=== PATIENT | male | born 1960 | race Caucasian/White ===

== ENCOUNTER → 2020-02-14 10:30 | Outpatient (BNVA) | payer MEDICARE, MEDICAID, SELFPAY | PROVIDERS: PCP Nurse Practitioner Family; Visit Provider Internal Medicine Cardiovascular Disease | DX: I25.10 Atherosclerotic heart disease of native coronary artery without angina pectoris (principal); E78.5 Hyperlipidemia, unspecified; I48.0 Paroxysmal atrial fibrillation | CPT/HCPCS: 93005; 99212 ==

== ENCOUNTER → 2020-06-12 14:40 | Outpatient (BNVA) | payer MEDICARE, MEDICAID, SELFPAY | PROVIDERS: PCP Internal Medicine Geriatric Medicine; Visit Provider Internal Medicine Cardiovascular Disease | DX: I48.0 Paroxysmal atrial fibrillation (principal); E78.5 Hyperlipidemia, unspecified; E11.9 Type 2 diabetes mellitus without complications | CPT/HCPCS: 99212 ==

== ENCOUNTER 2020-06-27 14:26 | Outpatient (REF) | payer MEDICARE, MEDICAID, SELFPAY ==
--- NOTE | ~2020-06-27 | US_ITS ---
EXAMINATION: ANKLE-BRACHIAL INDICES SINGLE LEVEL PVR. CLINICAL INFORMATION: Cramping and spasm. COMPARISON: None TECHNIQUE: Ankle-brachial indices and single level PVR at the ankle performed bilaterally. FINDINGS: RIGHT: The right ANETA is 1.38. Posterior tibial ANETA 1.35. Dorsalis pedis ANETA 1.38. PVR waveform is normal. LEFT: The left ANETA is 1.11. Posterior tibial ANETA 1.11. Dorsalis pedis ANETA 1.05. PVR waveform is normal. US/US ANETA complete IMPRESSION: No evidence of hemodynamically significant peripheral arterial disease.
== END 2020-06-27 14:27 | disposition home or self-care (01) ==
LOC: HO.US 14:26
PROVIDERS: PCP Internal Medicine Geriatric Medicine; Visit Provider Internal Medicine Cardiovascular Disease
DX: E11.59 Type 2 diabetes mellitus with other circulatory complications (principal); R25.2 Cramp and spasm
CPT/HCPCS: 93923

== ENCOUNTER 2020-10-17 10:58 | Outpatient (REF) | payer MEDICARE, MEDICAID, SELFPAY ==
--- NOTE | ~2020-10-17 | XR_ITS ---
EXAMINATION: XR CHEST CLINICAL INFORMATION: Cough. Tachycardia.: Exposure. COMPARISON: Previous chest x-ray most recent March 2019 TECHNIQUE: 2 views of the chest were obtained. FINDINGS: The cardiac and mediastinal contours are stable. The lungs are clear. There is no pleural effusion or pneumothorax . Degenerative changes of the spine. XR/XR chest 2V IMPRESSION: No evidence for acute disease in the chest.
== END 2020-10-17 10:59 | disposition home or self-care (01) ==
LOC: HO.XRAY 10:58
PROVIDERS: PCP Internal Medicine Geriatric Medicine; Visit Provider Family Medicine
DX: R00.0 Tachycardia, unspecified (principal); R05 Cough; Z20.822 Contact with and (suspected) exposure to COVID-19
CPT/HCPCS: 71046

== ENCOUNTER → 2020-11-04 15:38 | Outpatient (BNVA) | payer MEDICARE, MEDICAID, SELFPAY | PROVIDERS: PCP Internal Medicine Geriatric Medicine; Referring Provider Internal Medicine Geriatric Medicine; Visit Provider Internal Medicine Cardiovascular Disease | DX: I48.0 Paroxysmal atrial fibrillation (principal) | CPT/HCPCS: 93005; 99212 ==

== ENCOUNTER 2020-11-12 17:45 | Emergency (ER) | payer MEDICARE, MEDICAID, SELFPAY ==
[2020-11-12 19:26] VITALS: BP 134/76; PULSE 122; RESP 16; TEMP 36.9; O2SAT 99; BMI 33.3
--- NOTE | 2020-11-12 19:34 | ECG_ITS ---
Test Reason : ABNORM LABS Blood Pressure : / mmHG Vent. Rate : 108 BPM Atrial Rate : 256 BPM P-R Int : 000 ms QRS Dur : 084 ms QT Int : 346 ms P-R-T Axes : 000 019 056 degrees QTc Int : 463 ms Atrial fibrillation with rapid ventricular response Abnormal ECG When compared with ECG of 27-MAR-2019 17:04, No significant change was found Referred By: Generic ED Physician Electronically Signed By:CINTHIA SHEETS
[2020-11-12 19:52] LABS: Basophils Absolute Auto 0.1 X10*3/uL (0.0-0.2); Basophils Percent Auto 0.6 % (0-2); Eosinophils Absolute Auto 0.2 X10*3/uL (0.0-0.4); Hematocrit 35.8 % (42-52); Hemoglobin 11.5 g/dl (14.0-18.0); Imm Gran Abs Auto 0.01 X10*3/uL (0.00-0.03); Imm Gran Pct Auto 0.1 % (0.0-0.4); Lymphocytes Absolute Auto 1.8 X10*3/uL (1.2-4.9); MANUAL DIFF FLAG NO; Mean Corpuscular HGB Conc 32.1 g/dl (31.0-36.0); Mean Corpuscular Hemoglobin 28.1 pg (27.0-33.0); Mean Corpuscular Volume 87.5 fL (80-98); Mean Platelet Volume 9.9 fL (9.4-12.4); Monocytes Absolute Auto 0.6 X10*3/uL (0.1-1.2); Monocytes Percent Auto 7.4 % (2-11); Neutrophils Absolute Auto 5.3 X10*3/uL (2.0-8.3); Neutrophils Percent Auto 66.9 % (45-73); Platelet Count 254 X10*3/uL (160-400); Red Blood Count 4.09 X10*6/uL (4.60-5.80); White Blood Count 7.9 X10*3/uL (4.8-10.8)
[2020-11-12 20:15] LABS: Anion Gap 16 (12-20); Blood Urea Nitrogen 24 mg/dL (9-16); Calcium 8.5 mg/dL (8.4-10.2); Carbon Dioxide 22 mmol/L (22-29); Chloride 107 mmol/L (96-108); Creatinine Clr Calc Pharmacy 67.9; Estimated Glomerular Filt Rate 44; Glucose Random 176 mg/dL (60-115); Potassium 4.2 mmol/L (3.3-5.1); Sodium 141 mmol/L (135-145); Troponin-I High Sensitivity 9.7 ng/L (<3.5-35.0)
[2020-11-12 22:00] VITALS: BP 131/78; PULSE 118; RESP 17; TEMP 36.8; O2SAT 98
[2020-11-12] MEDS: 0.9 % Sodium Chloride 1,000 ML 999 ML IV (22:04)
--- NOTE | 2020-11-12 22:04 | PC.NURSE ---
IV INSERTED, PT IVF STARTED PER ORDER
--- NOTE | 2020-11-12 22:54 | PC.NURSE ---
patient a&ox3, vss, patients ivf running per order- first liter running slowly, will continue to monitor.
--- NOTE | 2020-11-13 00:11 | ED.RECABL ---
HPI - Recheck/Abnormal Lab/Rx General Chief Complaint: Recheck/Abnormal Lab/Rx Stated Complaint: abnormal labs Time Seen by Provider: 11/12/20 19:25 Source: patient and family () Mode of arrival: ambulatory Limitations: language barrier (The patient speaks Ethiopian only, the speaks Ethiopian and Montenegrin, is lining cleaner was used to obtain info) History of Present Illness HPI narrative: 60-year-old male who presents emergency department for evaluation of abnormal laboratory values. The patient apparently had blood work done on 11/06/2020 (6 days prior to evaluation). and was contacted today and instructed to go to the emergency department because his laboratory evaluation was abnormal. These labs are not available to me but the states that the patient's electrolytes were abnormal. At the time the blood work was obtained, the patient had active COVID-19 infection with vomiting, diarrhea, fever, chills and cough. Patient states that his symptoms have since resolved. He has no complaints. Related Data Home Medications Medication Instructions Recorded Confirmed allopurinol 300 mg tablet 300 mg PO DAILY 02/14/20 11/04/20 amlodipine 10 mg tablet 10 mg PO DAILY 02/14/20 11/04/20 apixaban 5 mg tablet 5 mg PO BID 02/14/20 11/04/20 atorvastatin 80 mg tablet 80 mg PO DAILY 02/14/20 11/04/20 bupropion HCl 200 mg tablet,12 hr 200 mg PO BID 02/14/20 11/04/20 sustained-release cholecalciferol (vitamin D3) 50 50 mcg PO QAM 02/14/20 11/04/20 mcg (2,000 unit) capsule dulaglutide 1.5 mg/0.5 mL 3 mg SUBCUT QWEEK 02/14/20 11/04/20 subcutaneous pen injector ezetimibe 10 mg tablet 10 mg PO DAILY 02/14/20 11/04/20 fluticasone propionate 110 INHALATION 02/14/20 11/04/20 mcg/actuation HFA aerosol inhaler gabapentin 100 mg capsule 100 mg PO BEDTIME 02/14/20 11/04/20 insulin aspart U-100 100 unit/mL 20 unit SUBCUT 02/14/20 11/04/20 (3 mL) subcutaneous pen lisinopril 20 mg tablet 20 mg PO DAILY 02/14/20 11/04/20 metformin 1,000 mg tablet 1,000 mg PO BID 02/14/20 11/04/20 pantoprazole 40 mg tablet,delayed 40 mg PO DAILY 02/14/20 11/04/20 release Previous Rx's Medication Instructions Recorded nitroglycerin 0.4 mg sublingual 0.4 mg SUBLINGUAL Q5M PRN 30 Days 12/18/19 tablet #25 tab alirocumab 75 mg/mL subcutaneous 75 mg SUBCUT Q2W #2 ml 06/17/20 pen injector (Praluent Pen) metoprolol tartrate 50 mg tablet 50 mg PO TID #120 tab 11/04/20 Allergies Allergy/AdvReac Type Severity Reaction Status Date / Time No Known Allergies Allergy Verified 11/04/20 15:54 [No Known Allergies*] Review of Systems Review of Systems: Yes all other systems are reviewed and are negative [facility] Past Medical History [facility] Narrative: Past medical history: Diabetes mellitus, high cholesterol, coronary disease, atrial fibrillation, COVID-19 infection. Past surgical history: None. Social history: He denies tobacco, alcohol and drug use. Medical History CAD (coronary artery disease) LUIS ALFREDO (obstructive sleep apnea) Surgical History H/O cardiac catheterization H/O: vasectomy History of cataract surgery Family History Family History Father HTN (hypertension) Diabetes Mother HTN (hypertension) Diabetes CVD (cardiovascular disease) Social History Social History Alcohol intake: never Patient Tobacco Use Status: Never used Tobacco Use of substances other than those prescribed or required for medical reasons: No Advance Directives: No Advance Directives Information Provided: No Physical Exam Vital Signs: Vital Signs: Last Vital Signs Temp 98.2 F 11/12/20 22:00 Pulse 118 H 11/12/20 22:00 Resp 17 11/12/20 22:00 BP 131/78 11/12/20 22:00 Pulse Ox 98 11/12/20 22:00 Body Mass Index 33.3 Const: General: cooperative and no acute distress Orientation/consciousness: oriented to person and oriented to place Limitations: no limitations HENMT: Head: Yes normal to inspection, Yes normocephalic and Yes atraumatic Ears: external ears normal General nose exam: Normal external nose present Face and sinus: Yes normal facial exam Mouth: Normal oral and palatal mucosa present Throat: Yes posterior oropharynx normal Eyes: General: appearance normal, both eyes and all related structures Pupils: Equal, round and reactive pupils present Neck: Neck: Yes normal visual inspection, Yes no lymphadenopathy, Yes trachea midline and Yes supple Chest: Chest palpation & inspection: normal inspection of the chest and normal palpation of entire chest wall Resp: Effort & Inspection: normal respiratory effort and able to speak in complete sentences Auscultation: clear to auscultation bilaterally Cardio: Rate: regular rate Rhythm: regular rhythm Heart sounds: S1 normal heart sound present, S2 normal heart sound present and no murmurs GI: Inspection: Yes normal to inspection Palpation (GI): Soft to palpation, nontender and no guarding Auscultation: normal bowel sounds : General: Yes no CVA tenderness Back/Spine/Pelvis: Back: no CVA tenderness Skin: General skin exam: no rashes or lesions noted Neuro: General: oriented to person and oriented to place Cranial nerves: Yes CN's II-XII intact bilaterally and Yes Equal, round and reactive pupils present Cognition (Neuro): normal cognition Motor exam (neuro): 5/5 motor strength present throughout Extrem: General: Yes normal to inspection Psych: Appearance: grossly normal Speech and movement: Normal speech and movement present Affect: normal affect Attitude: cooperative Thought process: Normal thought process present Thought content: Normal thought content present Course Course Course Narrative: 60-year-old male who was referred to the emergency department for evaluation of abnormal labs done 6 days prior, these labs are not available to me. The patient's reports that the patient was told that he had electrolyte abnormalities. Laboratory evaluation was obtained and the patient was found to have an elevated BUN of 24 with an elevated creatinine of 1.62. Patient's glucose was also elevated at 178. Patient has a detectable but not elevated troponin of 9.7. Given his elevated creatinine of 1.62, and elevated BUN, the patient was treated with normal saline IV. The patient was discharged home. He was advised to contact his PCP in the morning for repeat evaluation and to check his BMP in 3-7 days. MDM - Recheck/Abnormal Lab/Rx Lab Data Result diagrams: 11/12/20 19:45 11/12/20 19:45 Labs: Lab Results 11/12/20 11/12/20 11/12/20 Range/Units 19:45 19:45 19:45 WBC 7.9 (4.8-10.8) X10*3/uL RBC 4.09 L (4.60-5.80) X10*6/uL Hgb 11.5 L (14.0-18.0) g/dl Hct 35.8 L (42-52) % MCV 87.5 (80-98) fL MCH 28.1 (27.0-33.0) pg MCHC 32.1 (31.0-36.0) g/dl RDW 14.0 (11.0-16.0) % Plt Count 254 (160-400) X10*3/uL MPV 9.9 (9.4-12.4) fL Immature Gran % (Auto) 0.1 (0.0-0.4) % Neut % (Auto) 66.9 (45-73) % Lymph % (Auto) 23.0 (20-40) % Antelope % (Auto) 7.4 (2-11) % Eos % (Auto) 2.0 (0-4) % Baso % (Auto) 0.6 (0-2) % Lymph # (Auto) 1.8 (1.2-4.9) X10*3/uL Antelope # (Auto) 0.6 (0.1-1.2) X10*3/uL Eos # (Auto) 0.2 (0.0-0.4) X10*3/uL Baso # (Auto) 0.1 (0.0-0.2) X10*3/uL Abs Immat Gran (auto) 0.01 (0.00-0.03) X10*3/uL Absolute Neuts (auto) 5.3 (2.0-8.3) X10*3/uL Absolute Nucleated RBC 0.000 (0.0-0.012) X10*3/uL Nucleated RBC % (auto) 0.0 (0.0-0.2) /100WBC Sodium 141 (135-145) mmol/L Potassium 4.2 (3.3-5.1) mmol/L Chloride 107 (96-108) mmol/L Carbon Dioxide 22 (22-29) mmol/L Anion Gap 16 (12-20) BUN 24 H (9-16) mg/dL Creatinine 1.62 H (0.5-1.4) mg/dL Estim Creat Clear Calc 67.9 Estimated GFR 44 Random Glucose 176 H (60-115) mg/dL Calcium 8.5 (8.4-10.2) mg/dL Troponin I High Sens 9.7 (<3.5-35.0) ng/L Discharge Plan Discharge Clinical Impression: Abnormal laboratory test Patient Disposition: Home, Self-Care Additional Instructions: Your electrolytes were normal. Your kidney functions (BUN and creatinine) were elevated. Your BUN was 24 (normal is 9-16) and your creatinine is 1.62 (normal is 0.5-1.4). These abnormalities can sometimes be caused by dehydration. You were given 2 L of normal saline IV You should call your doctor tomorrow morning to discuss these values. You should have a repeat basic metabolic panel in 3-7 days to recheck these results. Please return to the emergency department if your symptoms get worse or if you develop any symptoms that are concerning to you. Prescriptions: No Action nitroglycerin 0.4 mg tablet, sublingual 0.4 mg sublingual Q5M PRN (Reason: chest pain) 30 Days Qty: 25 RF: 2 Praluent Pen 75 mg/mL pen injector 75 mg subcut Q2W Qty: 2 RF: 3 bupropion HCl 200 mg tablet sustained-release 12 hr 200 mg PO BID RF: 0 gabapentin 100 mg capsule 100 mg PO BEDTIME RF: 0 lisinopril 20 mg tablet 20 mg PO DAILY RF: 0 pantoprazole 40 mg tablet,delayed release (DR/EC) 40 mg PO DAILY RF: 0 amlodipine 10 mg tablet 10 mg PO DAILY RF: 0 Eliquis 5 mg tablet 5 mg PO BID RF: 0 ezetimibe 10 mg tablet 10 mg PO DAILY RF: 0 allopurinol 300 mg tablet 300 mg PO DAILY RF: 0 metformin 1,000 mg tablet 1,000 mg PO BID RF: 0 atorvastatin 80 mg tablet 80 mg PO DAILY RF: 0 cholecalciferol (vitamin D3) 50 mcg (2,000 unit) capsule 50 mcg PO QAM RF: 0 Flovent HFA 110 mcg/actuation HFA aerosol inhaler inhalation RF: 0 insulin aspart U-100 100 unit/mL (3 mL) insulin pen 20 unit subcut RF: 0 Trulicity 1.5 mg/0.5 mL pen injector 3 mg subcut QWEEK RF: 0 metoprolol tartrate 50 mg tablet 50 mg PO TID Qty: 120 RF: 3
[2020-11-13] MEDS: 0.9 % Sodium Chloride 1,000 ML 999 ML IV (00:23)
== END 2020-11-13 00:30 | disposition home or self-care (01) ==
PROVIDERS: Emergency Provider Emergency Medicine Emergency Medical Services; PCP Internal Medicine Geriatric Medicine
DX: R79.89 Other specified abnormal findings of blood chemistry (principal); I25.10 Atherosclerotic heart disease of native coronary artery without angina pectoris; Z86.16 Personal history of COVID-19; Z79.899 Other long term (current) drug therapy
CPT/HCPCS: 36415; 80048; 84484; 85025; 93005; 96360; 99284

== ENCOUNTER 2020-11-26 09:12 | Outpatient (REF) | payer MEDICARE, MEDICAID, SELFPAY ==
[2020-11-26 10:48] LABS: Anion Gap 15 (12-20); Blood Urea Nitrogen 26 mg/dL (9-16); Calcium 9.4 mg/dL (8.4-10.2); Carbon Dioxide 26 mmol/L (22-29); Chloride 104 mmol/L (96-108); Cholesterol 165 mg/dL; Estimated Glomerular Filt Rate 49; Glucose Random 153 mg/dL (60-115); HDL Cholesterol 45 mg/dL; LDL Cholesterol Calculated 110 mg/dl; Potassium 4.6 mmol/L (3.3-5.1); Sodium 140 mmol/L (135-145); Triglycerides 54 mg/dL
== END 2020-11-26 09:13 | disposition home or self-care (01) ==
LOC: HO.LAB 09:12
PROVIDERS: PCP Internal Medicine Geriatric Medicine; Visit Provider Internal Medicine Cardiovascular Disease
DX: I48.0 Paroxysmal atrial fibrillation (principal); E78.5 Hyperlipidemia, unspecified
CPT/HCPCS: 36415; 80048; 80061

== ENCOUNTER 2020-11-27 09:06 | Day surgery (SDC) | payer MEDICARE, MEDICAID, SELFPAY ==
[2020-11-22 16:00] VITALS: BMI 33.0
--- NOTE | 2020-11-26 09:43 | P.CONAN_ITS ---
Documented by User: Fransisca Aceves NP 11/26/20 09:45 HPI - Anesthesia Eval Consult details Narrative: 60yo M for Cardioversion Eliquis for afib PMFSH Active Problems Active Problems: All Active Problems (Updated 11/22/20 @ 16:03 by Aga Molina, HEATHER) Hyperlipidemia (Acute) PAF (paroxysmal atrial fibrillation) (Acute) Diabetes (Acute) Familial hyperlipidemia, high LDL (Acute) Leg cramping (Acute) CAD (coronary artery disease) (Acute) Past Medical History Medical History (Updated 11/22/20 @ 16:03 by Aga Molina, HEATHER) Asthma CAD (coronary artery disease) COPD (chronic obstructive pulmonary disease) COVID-19 vaccine series completed Elevated cholesterol History of COVID-19 HTN (hypertension) LUIS ALFREDO (obstructive sleep apnea) Family History Family History Father HTN (hypertension) Diabetes Mother HTN (hypertension) Diabetes CVD (cardiovascular disease) Surgical History Surgical History H/O cardiac catheterization H/O: vasectomy History of cataract surgery Social History Social History (Updated 11/22/20 @ 16:00 by Aga Molina RN) Alcohol intake: never Patient Tobacco Use Status: Never used Tobacco Use of substances other than those prescribed or required for medical reasons: No Are you DNR?: No Advance Directives: No Advance Directives Information Provided: Yes (info mailed) Advance Directives on File: No Meds Allergies Allergy/AdvReac Type Severity Reaction Status Date / Time No Known Allergies Allergy Verified 11/22/20 15:57 [No Known Allergies*] Home Medications Medication Instructions Recorded Confirmed Last Taken Type allopurinol 300 mg tablet 300 mg PO DAILY 02/14/20 11/22/20 Unknown History amlodipine 10 mg tablet 10 mg PO DAILY 02/14/20 11/22/20 Unknown History apixaban 5 mg tablet 5 mg PO BID 02/14/20 11/22/20 Unknown History atorvastatin 80 mg tablet 80 mg PO DAILY 02/14/20 11/22/20 Unknown History bupropion HCl 200 mg tablet,12 hr 200 mg PO BID 02/14/20 11/22/20 Unknown History sustained-release cholecalciferol (vitamin D3) 50 50 mcg PO QAM 02/14/20 11/22/20 Unknown History mcg (2,000 unit) capsule dulaglutide 1.5 mg/0.5 mL 3 mg SUBCUT QWEEK 02/14/20 11/22/20 Unknown History subcutaneous pen injector ezetimibe 10 mg tablet 10 mg PO DAILY 02/14/20 11/22/20 Unknown History fluticasone propionate 110 INHALATION 02/14/20 11/04/20 Unknown History mcg/actuation HFA aerosol inhaler gabapentin 100 mg capsule 100 mg PO BEDTIME 02/14/20 11/22/20 Unknown History insulin aspart U-100 100 unit/mL 20 unit SUBCUT 02/14/20 11/04/20 Unknown History (3 mL) subcutaneous pen lisinopril 20 mg tablet 20 mg PO DAILY 02/14/20 11/22/20 Unknown History metformin 1,000 mg tablet 1,000 mg PO BID 02/14/20 11/22/20 Unknown History pantoprazole 40 mg tablet,delayed 40 mg PO DAILY 02/14/20 11/22/20 Unknown History release Exam Exam Date and Time: November 26, 2020 0943 Height,Weight and Vital Signs: Height 6 ft 3 in Weight 119.748 kg Pertinent Lab Results Pertinent Lab Results: Laboratory Tests 11/12/20 11/12/20 19:45 19:45 WBC 7.9 Hgb 11.5 L Hct 35.8 L Plt Count 254 Sodium 141 Potassium 4.2 Chloride 107 Carbon Dioxide 22 BUN 24 H Creatinine 1.62 H Narrative Narrative: EKG 10/2020 Vent. Rate : 108 BPM ? ? Atrial Rate : 256 BPM ?? P-R Int : 000 ms? QRS Dur : 084 ms ? ? QT Int : 346 ms ? ? ? P-R-T Axes : 000 019 056 degrees ?? QTc Int : 463 ms ? Atrial fibrillation with rapid ventricular response Abnormal ECG When compared with ECG of 27-MAR-2019 17:04, No significant change was found Assessment and Plan Assessment Anesthesia Assessment: Chart Reviewed Documented by User: Meggan Patel MD 11/27/20 10:05 [facility] Past Medical History Medical History (Updated 11/22/20 @ 16:03 by Aga Molina, RN) Asthma CAD (coronary artery disease) COPD (chronic obstructive pulmonary disease) COVID-19 vaccine series completed Elevated cholesterol History of COVID-19 HTN (hypertension) LUIS ALFREDO (obstructive sleep apnea) Family History Family History Father HTN (hypertension) Diabetes Mother HTN (hypertension) Diabetes CVD (cardiovascular disease) Family history of problems with anesthesia: No Surgical History Surgical History H/O cardiac catheterization H/O: vasectomy History of cataract surgery History of Problems with Anesthesia: No Social History Social History (Updated 11/22/20 @ 16:00 by Aga Molina, RN) Alcohol intake: never Patient Tobacco Use Status: Never used Tobacco Use of substances other than those prescribed or required for medical reasons: No Are you DNR?: No Advance Directives: No Advance Directives Information Provided: Yes (info mailed) Advance Directives on File: No Meds Allergies Allergy/AdvReac Type Severity Reaction Status Date / Time No Known Allergies Allergy Verified 11/22/20 15:57 [No Known Allergies*] Home Medications Medication Instructions Recorded Confirmed Last Taken Type allopurinol 300 mg tablet 300 mg PO DAILY 02/14/20 11/22/20 Unknown History amlodipine 10 mg tablet 10 mg PO DAILY 02/14/20 11/22/20 Unknown History apixaban 5 mg tablet 5 mg PO BID 02/14/20 11/22/20 Unknown History atorvastatin 80 mg tablet 80 mg PO DAILY 02/14/20 11/22/20 Unknown History bupropion HCl 200 mg tablet,12 hr 200 mg PO BID 02/14/20 11/22/20 Unknown History sustained-release cholecalciferol (vitamin D3) 50 50 mcg PO QAM 02/14/20 11/22/20 Unknown History mcg (2,000 unit) capsule dulaglutide 1.5 mg/0.5 mL 3 mg SUBCUT QWEEK 02/14/20 11/22/20 Unknown History subcutaneous pen injector ezetimibe 10 mg tablet 10 mg PO DAILY 02/14/20 11/22/20 Unknown History fluticasone propionate 110 INHALATION 02/14/20 11/04/20 Unknown History mcg/actuation HFA aerosol inhaler gabapentin 100 mg capsule 100 mg PO BEDTIME 02/14/20 11/22/20 Unknown History insulin aspart U-100 100 unit/mL 20 unit SUBCUT 02/14/20 11/04/20 Unknown History (3 mL) subcutaneous pen lisinopril 20 mg tablet 20 mg PO DAILY 02/14/20 11/22/20 Unknown History metformin 1,000 mg tablet 1,000 mg PO BID 02/14/20 11/22/20 Unknown History pantoprazole 40 mg tablet,delayed 40 mg PO DAILY 02/14/20 11/22/20 Unknown H istory release Exam Airway Mallampati Class: III TM Dist: >3cm Neck ROM: Full Heart: rrr Lungs: cta Assessment and Plan Assessment Anesthesia Assessment: Anesthesia Plan Discussed and Chart Reviewed Final Anesthetic Review Family History of Problems with Anesthesia: No History of Problems with Anesthesia: No NPO: Yes (Sip water with meds) ASA Class: III Final Preanesthetic Review: No Changes in Pt Med Stat, Meds/Allgs Chart Reviewed and Consent Obtained/Reviewed Patient Risk: Intermediate Procedure Risk: Intermediate Anesthetic Plan Anesthetic Plan: GA Disposition: Standard PACU
--- NOTE | 2020-11-27 | ECG_ITS ---
Test Reason : post cardioversion Blood Pressure : / mmHG Vent. Rate : 083 BPM Atrial Rate : 083 BPM P-R Int : 212 ms QRS Dur : 090 ms QT Int : 390 ms P-R-T Axes : 048 015 055 degrees QTc Int : 458 ms Sinus rhythm with 1st degree A-V block Nonspecific ST abnormality Abnormal ECG When compared with ECG of 27-NOV-2020 10:58, Sinus rhythm has replaced Atrial flutter Referred By: Sumit Daniels Electronically Signed By:CINTHIA SHEETS
[2020-11-27 10:08] LABS: Glucose, Whole Blood 136 mg/dL (60-115)
[2020-11-27] MEDS: Lactated Ringers 1,000 ML 50 ML IVCONT (10:15)
--- NOTE | 2020-11-27 10:54 | ECG_ITS ---
Test Reason : sinus tach Blood Pressure : / mmHG Vent. Rate : 098 BPM Atrial Rate : 234 BPM P-R Int : 000 ms QRS Dur : 092 ms QT Int : 344 ms P-R-T Axes : 000 014 048 degrees QTc Int : 439 ms Atrial flutter with variable A-V block Abnormal ECG When compared with ECG of 12-NOV-2020 19:43, Atrial flutter has replaced Atrial fibrillation Referred By: Sumit Daniels Electronically Signed By:CINTHIA SHEETS
--- NOTE | 2020-11-27 11:06 | MHC.SHP ---
Pre-Procedural Eval Section A Date of Service: 11/27/20 The patient is an INPATIENT: No The History & Physical has been completed within 30 days and I have reviewed it.: Yes Section B Chief Complaint: afib Relevant Family History (Specify if Yes): No Allergies: Allergies Allergy/AdvReac Type Severity Reaction Status Date / Time No Known Allergies Allergy Verified 11/22/20 15:57 [No Known Allergies*] Plan Diagnosis/Plan: Unchanged I have reviewed the history and physical and performed a pertinent physical examination on my patient. No changes have occurred unless specified. For DC cardioversion
--- NOTE | 2020-11-27 11:28 | P.BOP_ITS ---
Brief Operative Note Date of Service: 11/27/20 Pre-op diagnosis: Atrial flutter Procedure: Cardioversion Surgeon: Sumit Daniels MD Was an Manufacturing Engineering Intern used for this Procedure?: No Estimated blood loss (mL): 0 Condition: stable Disposition: same day
--- NOTE | 2020-11-27 11:29 | HO.CARDIVERS ---
Cardioversion Procedure Note Cardioversion Date of Procedure: 11/27/20 Ordering Provider: Sumit Daniels MD Performing Provider: Sumit Daniels MD Indication for Procedure: Atrial flutter Pre-Op Diagnosis: Atrial flutter Post-Op Diagnosis: Atrial flutter Performed with Transesophageal Echo: No History: 60 year old gentleman with atrial flutter. Consent: Verbal and Written consent was obtained from the patient before starting. The patient was made aware of the risk of [] Procedure: After consent obtained, defib pads were attached and the patient was sedated by the anesthesia team. Once adequate sedation achieved, patient was given single synchronized shock of 200 Joules. He reverted to sinus rhythm. He was left for recovery with anesthesia in a stable condition. Complications: None Recommendations: Discharge per day stay protocol. He should continue all medications as before. Apixaban must not be missed in the next 6 weeks.
[2020-11-27 11:30] VITALS: BP 148/97; PULSE 80; RESP 16; TEMP 36.7; O2SAT 100
[2020-11-27 11:35] VITALS: BP 145/89; PULSE 81; RESP 16; O2SAT 100
[2020-11-27 11:40] VITALS: BP 145/87; PULSE 81; RESP 16; O2SAT 100
[2020-11-27 11:45] VITALS: BP 143/87; PULSE 83; RESP 16; O2SAT 100
[2020-11-27 12:00] VITALS: BP 151/99; PULSE 84; RESP 18; TEMP 36.7; O2SAT 100
== END 2020-11-27 12:40 | disposition home or self-care (01) ==
PROVIDERS: PCP Internal Medicine Geriatric Medicine; Visit Provider Internal Medicine Cardiovascular Disease
PROC: 5A2204Z Restoration of Cardiac Rhythm, Single (ICD-10-PCS; principal; 2020-11-27 10:30)
DX: I48.92 Unspecified atrial flutter (principal); Z79.01 Long term (current) use of anticoagulants; I25.10 Atherosclerotic heart disease of native coronary artery without angina pectoris; I10 Essential (primary) hypertension; J44.9 Chronic obstructive pulmonary disease, unspecified; E11.9 Type 2 diabetes mellitus without complications; Z79.4 Long term (current) use of insulin; Z79.899 Other long term (current) drug therapy; Z86.16 Personal history of COVID-19
CPT/HCPCS: 82947; 92960; 93005

== ENCOUNTER → 2020-12-12 11:02 | Outpatient (BNVA) | payer MEDICARE, MEDICAID, SELFPAY | PROVIDERS: PCP Internal Medicine Geriatric Medicine; Referring Provider Internal Medicine Geriatric Medicine; Visit Provider Internal Medicine Cardiovascular Disease | DX: I48.92 Unspecified atrial flutter (principal); I25.10 Atherosclerotic heart disease of native coronary artery without angina pectoris; I10 Essential (primary) hypertension; E78.00 Pure hypercholesterolemia, unspecified; G47.33 Obstructive sleep apnea (adult) (pediatric); Z98.890 Other specified postprocedural states; Z86.19 Personal history of other infectious and parasitic diseases; Z79.4 Long term (current) use of insulin; Z79.84 Long term (current) use of oral hypoglycemic drugs; Z79.899 Other long term (current) drug therapy | CPT/HCPCS: 93005; 99212 ==

== ENCOUNTER 2021-01-07 13:42 | Outpatient (REF) | payer MEDICARE, MEDICAID, SELFPAY ==
--- NOTE | ~2021-01-07 | XR_ITS ---
EXAMINATION: XR SHOULDER, RIGHT CLINICAL INFORMATION: Right shoulder pain COMPARISON: None TECHNIQUE: AP external rotation, Grashey, scapular Y, and axillary views of the right shoulder. FINDINGS: There is no acute fracture or dislocation. There is narrowing of the glenohumeral and acromial clavicular joint spaces with associated hypertrophic changes. There are calcifications of the rotator cuff tendons. The visualized portion of the lungs is clear. Overlying soft tissues are intact. XR/XR shoulder RT min 2V IMPRESSION: Degenerative changes of the right shoulder. No acute fracture or dislocation. Calcific tendinitis.
== END 2021-01-07 13:43 | disposition home or self-care (01) ==
LOC: HO.XRAY 13:42
PROVIDERS: PCP Internal Medicine Geriatric Medicine; Visit Provider Internal Medicine Geriatric Medicine
DX: M25.511 Pain in right shoulder (principal)
CPT/HCPCS: 73030

== ENCOUNTER → 2021-02-24 13:41 | Outpatient (REF) | payer MEDICARE, MEDICAID, SELFPAY | LOC: HO.SL 13:41 | PROVIDERS: PCP Internal Medicine Geriatric Medicine; Visit Provider Internal Medicine Geriatric Medicine | DX: G47.33 Obstructive sleep apnea (adult) (pediatric) (principal) | CPT/HCPCS: 95806 ==

== ENCOUNTER → 2021-03-17 12:56 | Outpatient (BNVA) | payer MEDICARE, MEDICAID, SELFPAY | PROVIDERS: PCP Internal Medicine Geriatric Medicine; Referring Provider Internal Medicine Geriatric Medicine; Visit Provider Internal Medicine Cardiovascular Disease | DX: I48.92 Unspecified atrial flutter (principal) | CPT/HCPCS: 93005; 99212 ==

== ENCOUNTER → 2021-05-29 14:19 | Outpatient (BNVA) | payer MEDICARE, MEDICAID, SELFPAY | PROVIDERS: PCP Internal Medicine Geriatric Medicine; Visit Provider Physician Assistant | DX: M19.011 Primary osteoarthritis, right shoulder (principal) | CPT/HCPCS: 20610; 99202; J1020 ==

== ENCOUNTER 2021-09-01 15:00 | Emergency (ER) | payer MEDICARE, MEDICAID, SELFPAY ==
--- NOTE | ~2021-09-01 | US_ITS ---
EXAMINATION: US SCROTUM CLINICAL INFORMATION: Left-sided testicular pain. COMPARISON: None TECHNIQUE: A sonogram of the scrotum was performed assessing harmon-scale appearance and color Doppler flow. Spectral Doppler analysis of the arterial and venous flow were performed in the testes bilaterally. FINDINGS: RIGHT: Right testicle measures 4.4 x 2.5 x 2.7 cm, volume 15.5 mL. No focal testicular parenchymal lesions are visualized. Single microcalcification is noted. Spectral Doppler analysis of the arterial and venous flow is normal in the right testis. Right epididymal head is normal in size. No right hydrocele or varicocele is seen. Right epididymal Doppler flow is normal. Thickening and tubular ectasia of the right epididymis compatible with prior vasectomy. Small 4 mm cyst in the epididymal body is noted. LEFT: Left testicle measures 7.3 x 2.3 x 2.9 cm, volume 12.5 mL. No focal testicular parenchymal lesions are visualized. Spectral Doppler analysis of the arterial and venous flow is normal in the left testis. Left epididymal head is normal in size. Small hydrocele. Left epididymal Doppler flow is normal. Small 5 mm anechoic cyst noted in the epididymal head thickening and tubular ectasia of the epididymis compatible with prior vasectomy. US/US scrotum IMPRESSION: 1. No evidence of epididymoorchitis or testicular torsion. 2. No intratesticular lesion. 3. Small left hydrocele. 4. Small epididymal cysts bilaterally.
--- NOTE | ~2021-09-01 | CT_ITS ---
EXAMINATION: CT ABDOMEN AND PELVIS WITHOUT CONTRAST CLINICAL INFORMATION: Left lower quadrant pain with question of stone COMPARISON: None TECHNIQUE: Multidetector volumetric imaging was performed from the superior aspect of the liver through the pubic symphysis. Sagittal and coronal reformatted images were obtained on the technologist's workstation. This CT examination was performed using dose optimization techniques as appropriate, variously including the following: *Automated exposure control *Adjustment of mA and/or kV according to patient size (this includes techniques or standardized protocols for targeted exams where dose is matched to indication/reason for exam; i.e. extremities or head) *Use of iterative reconstruction technique DLP: 862 mGy-cm FINDINGS: LUNG BASES: The visualized lung bases are unremarkable. LIVER, GALLBLADDER, AND BILIARY TREE: The liver is normal in size, shape, and attenuation. No focal hepatic lesion or biliary ductal dilatation is present. The gallbladder contains small layering probable calculi. There is no obvious pericholecystic inflammatory changes. PANCREAS: There is a 1.5 cm rounded mass in the head of the pancreas which measures fat density on this exam and could be a lipoma. SPLEEN: Unremarkable. ADRENAL GLANDS: Unremarkable. KIDNEYS AND URETERS: The kidneys are normal in size, shape, and attenuation with the exception of an area of scarring seen in the right kidney laterally. There is a questionable barely perceptible punctate calculus at the lower pole the left kidney (4:343). No hydronephrosis, hydroureter, or other calculi seen. No perinephric stranding. BLADDER: Unremarkable. GASTROINTESTINAL TRACT: Colonic diverticula are present most prominent in the sigmoid without evidence of diverticulitis. The small and large bowel are otherwise unremarkable. The appendix is unremarkable. ABDOMINAL WALL: No significant hernia is appreciated. LYMPH NODES: No retroperitoneal lymphadenopathy. VASCULAR: Unremarkable. PELVIC VISCERA: There is moderate BPH OSSEOUS STRUCTURES: Mild degenerative changes are present throughout the spine. CT/CT abdomen pelvis wo con IMPRESSION: 1. Definitive cause for the patient's left lower quadrant pain has not been found. 2. Incidental note made of equivocal nonobstructing punctate left renal calculus, right renal scarring, BPH, sigmoid diverticulosis without diverticulitis and other incidental findings described above Fleischner guidelines were followed.
[2021-09-01 17:33] VITALS: BP 157/92; PULSE 74; RESP 16; TEMP 35.6; O2SAT 98; BMI 29.9
--- NOTE | 2021-09-01 20:34 | ED.ABDPAIN ---
HPI - Abdominal Pain General Chief Complaint: Abdominal Pain Stated Complaint: lower abdominal pain Time Seen by Provider: 09/01/21 20:31 Source: patient Mode of arrival: ambulatory Limitations: no limitations History of Present Illness HPI narrative: Patient with no significant past medical history of abdominal complaints noticed sudden onset of pain in left lower quadrant 2 days ago radiating to the left testicle with nausea no urinary complaints no fever no chills patient has been having diarrhea 2-3 bowel movements a day for last 1 year no blood in the stool no hematuria no history of kidney stones Related Data Home Medications Medication Instructions Recorded Confirmed allopurinol 300 mg tablet 300 mg PO DAILY 02/14/20 03/17/21 amlodipine 10 mg tablet 10 mg PO DAILY 02/14/20 03/17/21 apixaban 5 mg tablet 5 mg PO BID 02/14/20 03/17/21 atorvastatin 80 mg tablet 80 mg PO DAILY 02/14/20 03/17/21 bupropion HCl 200 mg tablet,12 hr 200 mg PO BID 02/14/20 03/17/21 sustained-release cholecalciferol (vitamin D3) 50 50 mcg PO QAM 02/14/20 03/17/21 mcg (2,000 unit) capsule dulaglutide 1.5 mg/0.5 mL 3 mg subcut QWEEK 02/14/20 03/17/21 subcutaneous pen injector ezetimibe 10 mg tablet 10 mg PO DAILY 02/14/20 03/17/21 fluticasone propionate 110 inhalation 02/14/20 03/17/21 mcg/actuation HFA aerosol inhaler gabapentin 100 mg capsule 100 mg PO BEDTIME 02/14/20 03/17/21 insulin aspart U-100 100 unit/mL 20 unit subcut 02/14/20 03/17/21 (3 mL) subcutaneous pen lisinopril 20 mg tablet 20 mg PO DAILY 02/14/20 03/17/21 metformin 1,000 mg tablet 1,000 mg PO BID 02/14/20 03/17/21 pantoprazole 40 mg tablet,delayed 40 mg PO DAILY 02/14/20 03/17/21 release Previous Rx's Medication Instructions Recorded nitroglycerin 0.4 mg sublingual 0.4 mg sublingual Q5M PRN chest 12/18/19 tablet pain 30 days #25 tabs alirocumab 75 mg/mL subcutaneous 75 mg subcut Q2W #2 mL 06/17/20 pen injector (Praluent Pen) dronedarone 400 mg tablet (Multaq) 400 mg PO BID #60 tabs 07/22/21 metoprolol tartrate 50 mg tablet 50 mg PO TID 90 days #270 tabs 08/20/21 dicyclomine 20 mg tablet 20 mg PO TID PRN abdominal 09/01/21 discomfort #20 tabs Allergies Allergy/AdvReac Type Severity Reaction Status Date / Time No Known Allergies Allergy Verified 05/29/21 14:22 [No Known Allergies*] Review of Systems Review of Systems Yes all other systems are reviewed and are negative FORMERLY [facility] Past Medical History Medical History Asthma CAD (coronary artery disease) COPD (chronic obstructive pulmonary disease) COVID-19 vaccine series completed Elevated cholesterol History of cardioversion History of COVID-19 HTN (hypertension) LUIS ALFREDO (obstructive sleep apnea) Surgical History H/O cardiac catheterization H/O: vasectomy History of cataract surgery Family History Family History Father HTN (hypertension) Diabetes Mother HTN (hypertension) Diabetes CVD (cardiovascular disease) Social History Social History Household Members: Family Housing: Apartment Alcohol intake: never Patient Tobacco Use Status: Never used Tobacco Advance Directives: No Advance Directives Information Provided: No Physical Exam ED Vital Signs: Vital Signs - 24 hr 09/01/21 17:33 09/01/21 21:30 09/01/21 21:34 Temperature 96.0 F L Pulse Rate 74 82 Respiratory Rate 16 16 16 Blood Pressure 157/92 H 152/92 H Pulse Oximetry 98 98 Oxygen Delivery Method Room Air Room Air BMI result Body Mass Index 29.9 Appearance: Alert. Oriented X3. No acute distress. Eyes: no pallor/icterus ENT: Pharynx normal. Oral Mucosa moist Neck: Normal inspection. Neck supple. CVS: Normal heart rate and rhythm. Pulses normal. Respiratory: No respiratory distress. Equal air entry bilateral, no wheezing/rales/rhonchi Abdomen: Soft common deep tenderness left lower quadrant Bowel sounds are present, no mass palpable, no CVA tenderness : Testicle nontender no tenderness or epididymis no mass palpable Skin: Skin warm and dry. Normal skin color. Normal skin turgor. Extremities: No lower extremity edema. No calf tenderness Neuro: Oriented X 3. No motor deficit. No sensory deficit.No cerebellar signs , cranial nerves II-XII intact MDM - Abdominal Pain MDM Narrative Medical decision making narrative: 2300 Patient with nonspecific left lower quadrant pain workup is negative except for slightly dehydration with elevated BUN creatinine from the previous level CT scan negative for any acute showed diverticulosis ultrasound of the scrotum negative for any testicular mass or epididymitis patient feeling much better now discharge patient home Medical Records Attestation: I reviewed the patient's medical records. Lab Data Attestation: I reviewed the patient's lab results. Result diagrams: 09/01/21 21:21 09/01/21 21:21 Labs: Lab Results 09/01/21 09/01/21 09/01/21 Range/Units 21:21 21:21 21:25 WBC 10.2 (4.8-10.8) X10*3/uL RBC 4.31 L (4.60-5.80) X10*6/uL Hgb 12.1 L (14.0-18.0) g/dl Hct 37.5 L (42.0-52.0) % MCV 87.0 (80.0-98.0) fL MCH 28.1 (27.0-33.0) pg MCHC 32.3 (31.0-36.0) g/dl RDW 13.9 (11.0-16.0) % Plt Count 259 (160-400) X10*3/uL MPV 9.9 (9.4-12.4) fL Immature Gran % (Auto) 0.6 H (0.0-0.4) % Neut % (Auto) 72.4 (45-73) % Lymph % (Auto) 16.7 L (20-40) % [place] % (Auto) 7.5 (2-11) % Eos % (Auto) 2.3 (0-4) % Baso % (Auto) 0.5 (0-2) % Lymph # (Auto) 1.7 (1.2-4.9) X10*3/uL [place] # (Auto) 0.8 (0.1-1.2) X10*3/uL Eos # (Auto) 0.2 (0.0-0.4) X10*3/uL Baso # (Auto) 0.1 (0.0-0.2) X10*3/uL Abs Immat Gran (auto) 0.06 H (0.00-0.03) X10*3/uL Absolute Neuts (auto) 7.4 (2.0-8.3) x10*3/uL Absolute Nucleated RBC 0.000 (0.0-0.012) X10*3/uL Nucleated RBC % (auto) 0.0 (0.0-0.2) /100WBC Sodium 140 (135-145) mmol/L Potassium 5.2 H (3.3-5.1) mmol/L Chloride 107 (96-108) mmol/L Carbon Dioxide 25 (22-29) mmol/L Anion Gap 13 (12-20) BUN 32 H (9-16) mg/dL Creatinine 1.86 H (0.5-1.4) mg/dL Estim Creat Clear Calc 55.5 Estimated GFR 37 Random Glucose 98 D (60-115) mg/dL Calcium 9.3 (8.4-10.2) mg/dL Total Bilirubin 0.7 (0.0-1.0) mg/dL AST 14 (5-37) U/L ALT 17 (0-40) U/L Alkaline Phosphatase 83 (39-117) U/L Total Protein 7.0 (6.5-8.0) g/dL Albumin 4.4 (3.5-5.0) g/dL Lipase 17 (8-78) U/L Urine Color YELLOW Urine Appearance CLEAR Urine pH 5.5 (5.0-8.0) Ur Specific [place] >= 1.030 H (1.005-1.025) Urine Protein 2+ H (NEG-TRACE) MG/DL Urine Glucose (UA) NEG (NEG) MG/DL Urine Ketones NEG (NEG) MG/DL Urine Blood TRACE (NEG) Urine Nitrite NEG (NEG) Ur Leukocyte Esterase NEG (NEG) Urine RBC 0-2 (0) /HPF Urine WBC 0 (0-4) /HPF Ur Squamous Epith Cells TRACE /LPF Urine Bacteria NONE /LPF Discharge Plan Discharge Clinical Impression: Diverticulosis, Abdominal pain, Acute kidney injury superimposed on chronic kidney disease Patient Disposition: Home, Self-Care Instructions: Acute Kidney Injury (DC), Abdominal Pain (ED) Additional Instructions: Drink plenty of fluids Avoid oranges/bananas Pain medication as prescribed Follow-up with your PCP in 2-3 days to recheck kidney Beber mucho l?quido Evite las naranjas/pl?tanos Medicamentos para el dolor seg?n lo prescrito Bishop un seguimiento con garcia PCP en 2 o 3 d?as para volver a controlar los ri?ones. Prescriptions: New dicyclomine 20 mg tablet 20 mg PO TID PRN (Reason: abdominal discomfort) Qty: 20 0RF No Action nitroglycerin 0.4 mg tablet, sublingual 0.4 mg sublingual Q5M PRN (Reason: chest pain) 30 Days Qty: 25 2RF Rx Instructions: Take 1 tab under tongue every 5 min x3 as needed for Chest pain Praluent Pen 75 mg/mL pen injector 75 mg subcut Q2W Qty: 2 3RF Rx Instructions: inject into abdomen, thigh, or upper arm (deltoid muscle); rotate sites Multaq 400 mg tablet 400 mg PO BID Qty: 60 3RF Rx Instructions: must administer with a meal/food metoprolol tartrate 50 mg tablet 50 mg PO TID 90 Days Qty: 270 3RF bupropion HCl 200 mg tablet sustained-release 12 hr 200 mg PO BID gabapentin 100 mg capsule 100 mg PO BEDTIME lisinopril 20 mg tablet 20 mg PO DAILY pantoprazole 40 mg tablet,delayed release (DR/EC) 40 mg PO DAILY amlodipine 10 mg tablet 10 mg PO DAILY Eliquis 5 mg tablet 5 mg PO BID ezetimibe 10 mg tablet 10 mg PO DAILY allopurinol 300 mg tablet 300 mg PO DAILY metformin 1,000 mg tablet 1,000 mg PO BID atorvastatin 80 mg tablet 80 mg PO DAILY cholecalciferol (vitamin D3) 50 mcg (2,000 unit) capsule 50 mcg PO QAM Flovent HFA 110 mcg/actuation HFA aerosol inhaler inhalation insulin aspart U-100 100 unit/mL (3 mL) insulin pen 20 unit subcut Trulicity 1.5 mg/0.5 mL pen injector 3 mg subcut QWEEK Print Language: Surinamese
[2021-09-01] MEDS: 0.9 % Sodium Chloride 1,000 ML 999 ML IV (21:27)
[2021-09-01 21:30] VITALS: RESP 16
[2021-09-01] MEDS: ondansetron HCL 4 MG/2 ML VIAL IVPUSH (21:30)
[2021-09-01] MEDS: Morphine Sulfate 4 MG/ML CARTRIDGE IVPUSH (21:30)
[2021-09-01 21:31] LABS: MANUAL DIFF FLAG NO
[2021-09-01 21:32] LABS: Basophils Absolute Auto 0.1 X10*3/uL (0.0-0.2); Basophils Percent Auto 0.5 % (0-2); Eosinophils Absolute Auto 0.2 X10*3/uL (0.0-0.4); Eosinophils Percent Auto 2.3 % (0-4); Hematocrit 37.5 % (42.0-52.0); Hemoglobin 12.1 g/dl (14.0-18.0); Imm Gran Abs Auto 0.06 X10*3/uL (0.00-0.03); Imm Gran Pct Auto 0.6 % (0.0-0.4); Lymphocytes Absolute Auto 1.7 X10*3/uL (1.2-4.9); Lymphocytes Percent Auto 16.7 % (20-40); Mean Corpuscular HGB Conc 32.3 g/dl (31.0-36.0); Mean Corpuscular Hemoglobin 28.1 pg (27.0-33.0); Mean Platelet Volume 9.9 fL (9.4-12.4); Monocytes Absolute Auto 0.8 X10*3/uL (0.1-1.2); Monocytes Percent Auto 7.5 % (2-11); Neutrophils Absolute Auto 7.4 x10*3/uL (2.0-8.3); Neutrophils Percent Auto 72.4 % (45-73); Platelet Count 259 X10*3/uL (160-400); Red Blood Count 4.31 X10*6/uL (4.60-5.80); Red Cell Distribution Width 13.9 % (11.0-16.0); White Blood Count 10.2 X10*3/uL (4.8-10.8)
[2021-09-01 21:33] LABS: Appearance Urine CLEAR; Color Urine YELLOW; Glucose Urine UA NEG (NEG); Leukocyte Esterase Urine NEG (NEG); Nitrite Urine NEG (NEG); PH 5.5 (5.0-8.0); Specific Gravity - Urine >= 1.030 (1.005-1.025); UACC Culture Trigger NO; Urine Blood TRACE (NEG); Urine Ketones NEG (NEG); Urine Protein 2+ MG/DL (NEG-TRACE)
[2021-09-01 21:34] VITALS: BP 152/92; PULSE 82; RESP 16; O2SAT 98
[2021-09-01 21:47] LABS: RBC Urine 0-2 /HPF (0); Squamous Epithelial Cell Urine TRACE /LPF; WBC Urine 0 /HPF (0-4)
[2021-09-01 21:48] LABS: Alanine Aminotransferase 17 U/L (0-40); Albumin Level 4.4 g/dL (3.5-5.0); Alkaline Phosphatase 83 U/L (39-117); Anion Gap 13 (12-20); Aspartate Amino Transferase 14 U/L (5-37); Bilirubin Total 0.7 mg/dL (0.0-1.0); Blood Urea Nitrogen 32 mg/dL (9-16); Calcium 9.3 mg/dL (8.4-10.2); Carbon Dioxide 25 mmol/L (22-29); Chloride 107 mmol/L (96-108); Creatinine Clr Calc Pharmacy 55.5; Estimated Glomerular Filt Rate 37; Glucose Random 98 mg/dL (60-115); Lipase 17 U/L (8-78); Potassium 5.2 mmol/L (3.3-5.1); Sodium 140 mmol/L (135-145)
== END 2021-09-02 00:12 | disposition home or self-care (01) ==
PROVIDERS: Emergency Provider Internal Medicine; PCP Internal Medicine Geriatric Medicine
DX: K57.30 Diverticulosis of large intestine without perforation or abscess without bleeding (principal); R10.32 Left lower quadrant pain; N50.812 Left testicular pain; N50.811 Right testicular pain; Z79.899 Other long term (current) drug therapy
CPT/HCPCS: 36415; 74176; 76870; 80053; 81001; 83690; 85025; 96361; 96374; 96375; 99284; J2270; J2405

== ENCOUNTER 2021-10-13 14:18 | Outpatient (REF) | payer MEDICARE, MEDICAID, SELFPAY ==
--- NOTE | ~2021-10-13 | US_ITS ---
EXAMINATION: US RETROPERITONEAL LIMITED (RENAL ONLY) CLINICAL INFORMATION: Calculus of kidney. COMPARISON: CT abdomen and pelvis 09/01/2021. TECHNIQUE: Real-time imaging of the kidneys. FINDINGS: RIGHT KIDNEY: 11.2 x 5.0 x 6.1 cm (SAG x AP x TRV). The kidney is normal in size, lobulated contour in the midpole and normal echogenicity. Renal cortical thickness is normal. No calculi or focal parenchymal lesions. No hydronephrosis. LEFT KIDNEY: 11.6 x 6.3 x 6.2 cm (SAG x AP x TRV). The kidney is normal in size, contour, and echogenicity. Renal cortical thickness is normal. No renal calculi or hydronephrosis. There is anechoic cyst in the midpole laterally measuring 0.8 x 0.8 x 0.9 cm. US/US renal BI IMPRESSION: Anechoic cyst midpole left kidney. No echogenic stone or hydronephrosis. Slightly lobulated contour right kidney with no focal lesion seen.
== END 2021-10-13 14:19 | disposition home or self-care (01) ==
LOC: HO.HMGCX 14:18
PROVIDERS: PCP Internal Medicine Geriatric Medicine; Visit Provider Nurse Practitioner Family
DX: N20.0 Calculus of kidney (principal)
CPT/HCPCS: 76775

== ENCOUNTER 2021-11-05 13:05 | Emergency (ER) | payer MEDICARE, MEDICAID, SELFPAY ==
--- NOTE | ~2021-11-05 | XR_ITS ---
EXAMINATION: XR CHEST CLINICAL INFORMATION: Shortness of breath COMPARISON: 10/17/2020 TECHNIQUE: Frontal view of the chest was obtained. FINDINGS: The lungs are well expanded. There is no focal consolidation, edema, or effusion. No pneumothorax. The cardiomediastinal silhouette is within normal limits. No acute osseous abnormality. XR/XR chest 1V IMPRESSION: Clear lungs.
--- NOTE | ~2021-11-05 | CT_ITS ---
EXAMINATION: CT HEAD WITHOUT CONTRAST CLINICAL INFORMATION: Dizziness. COMPARISON: Brain MRI from 02/28/2007. TECHNIQUE: Contiguous axial imaging was performed from the skull base to vertex without intravenous administration of contrast. This CT examination was performed using dose optimization techniques as appropriate, variously including the following: *Automated exposure control. *Adjustment of mA and/or kV according to patient size (this includes techniques or standardized protocols for targeted exams where dose is matched to indication/reason for exam; i.e. extremities or head). *Use of iterative reconstruction technique. DLP: 861 mGy-cm FINDINGS: There is no evidence of acute intracranial hemorrhage or edematous territorial infarction. Bains-white matter differentiation is preserved. A few foci of hypoattenuation in the periventricular and deep white matter are consistent with mild microangiopathy. The ventricles are normal in morphology and size. No evidence for obstructive hydrocephalus. No abnormal mass effect or midline shift. No extra-axial fluid collections. Calcific atherosclerotic disease of the intracranial internal carotid and vertebral arteries. No hyperdense vessel sign. No acute soft tissue or osseous abnormalities. The mastoid air cells and visualized paranasal sinuses are clear. Bilateral lens extractions. CT/CT head/brain wo IV con IMPRESSION: 1. No evidence of acute intracranial hemorrhage or edematous territorial infarction. 2. Mild underlying microangiopathy.
[2021-11-05 13:10] VITALS: BP 150/92; PULSE 90; RESP 18; TEMP 36.1; O2SAT 100; BMI 29.8
--- NOTE | 2021-11-05 13:13 | ECG_ITS ---
Test Reason : dizziness Blood Pressure : / mmHG Vent. Rate : 086 BPM Atrial Rate : 086 BPM P-R Int : 200 ms QRS Dur : 086 ms QT Int : 380 ms P-R-T Axes : 052 007 061 degrees QTc Int : 454 ms Normal sinus rhythm Cannot rule out Inferior infarct , age undetermined Abnormal ECG When compared with ECG of 27-NOV-2020 11:48, ST no longer depressed in Anterior leads Referred By: Generic ED Physician Electronically Signed By:CINTHIA SHEETS
[2021-11-05 13:37] LABS: MANUAL DIFF FLAG NO
[2021-11-05 13:38] LABS: Basophils Absolute Auto 0.1 X10*3/uL (0.0-0.2); Basophils Percent Auto 0.7 % (0-2); Eosinophils Absolute Auto 0.2 X10*3/uL (0.0-0.4); Eosinophils Percent Auto 2.9 % (0-4); Hematocrit 39.3 % (42.0-52.0); Hemoglobin 12.6 g/dl (14.0-18.0); Imm Gran Abs Auto 0.02 X10*3/uL (0.00-0.03); Imm Gran Pct Auto 0.3 % (0.0-0.4); Lymphocytes Absolute Auto 1.5 X10*3/uL (1.2-4.9); Lymphocytes Percent Auto 19.6 % (20-40); Mean Corpuscular HGB Conc 32.1 g/dl (31.0-36.0); Mean Corpuscular Volume 87.3 fL (80.0-98.0); Mean Platelet Volume 9.8 fL (9.4-12.4); Monocytes Absolute Auto 0.7 X10*3/uL (0.1-1.2); Monocytes Percent Auto 9.4 % (2-11); Neutrophils Absolute Auto 5.2 x10*3/uL (2.0-8.3); Neutrophils Percent Auto 67.1 % (45-73); Platelet Count 261 X10*3/uL (160-400); Red Cell Distribution Width 12.9 % (11.0-16.0); White Blood Count 7.7 X10*3/uL (4.8-10.8)
[2021-11-05 14:07] LABS: Anion Gap 16 (12-20); Blood Urea Nitrogen 34 mg/dL (9-16); Calcium 9.3 mg/dL (8.4-10.2); Carbon Dioxide 24 mmol/L (22-29); Chloride 107 mmol/L (96-108); Creatinine Clr Calc Pharmacy 62.9; Estimated Glomerular Filt Rate 43; Glucose Random 160 mg/dL (60-115); Potassium 4.7 mmol/L (3.3-5.1); Sodium 142 mmol/L (135-145)
[2021-11-05 14:12] LABS: Troponin-I High Sensitivity 8.1 ng/L (<3.5-35.0)
--- NOTE | 2021-11-05 20:53 | ED.GENADULT ---
HPI - General Adult General Chief complaint: Dizziness Stated complaint: dizzy, Fast Heart beat, Time Seen by Provider: 11/05/21 20:49 Source: patient Mode of arrival: ambulatory Limitations: no limitations History of Present Illness HPI narrative: 61-year-old male with a PMHx of a-fib, HLD, CAD, and DM2 who presents to the ED for evaluation of dizziness and dysequilibrium. He tells me that since Wednesday he has been feeling off balance and as though the room is spinning. He also tells me that he has been short of breath especially after walking up the stairs to his third story home. He is concerned that his medication dosing may be too high because has has also been losing weight recently. He denies any fevers, chills, chest pain, abdominal pain, unilateral weakness, headaches, or vision changes. Patient not on thinners and denies head trauma Onset (ago): day(s) (5) Related Data Home Medications Medication Instructions Recorded Confirmed allopurinol 300 mg tablet 300 mg PO DAILY 02/14/20 03/17/21 amlodipine 10 mg tablet 10 mg PO DAILY 02/14/20 03/17/21 apixaban 5 mg tablet 5 mg PO BID 02/14/20 03/17/21 atorvastatin 80 mg tablet 80 mg PO DAILY 02/14/20 03/17/21 bupropion HCl 200 mg tablet,12 hr 200 mg PO BID 02/14/20 03/17/21 sustained-release cholecalciferol (vitamin D3) 50 50 mcg PO QAM 02/14/20 03/17/21 mcg (2,000 unit) capsule dulaglutide 1.5 mg/0.5 mL 3 mg subcut QWEEK 02/14/20 03/17/21 subcutaneous pen injector ezetimibe 10 mg tablet 10 mg PO DAILY 02/14/20 03/17/21 fluticasone propionate 110 inhalation 02/14/20 03/17/21 mcg/actuation HFA aerosol inhaler gabapentin 100 mg capsule 100 mg PO BEDTIME 02/14/20 03/17/21 insulin aspart U-100 100 unit/mL 20 unit subcut 02/14/20 03/17/21 (3 mL) subcutaneous pen lisinopril 20 mg tablet 20 mg PO DAILY 02/14/20 03/17/21 metformin 1,000 mg tablet 1,000 mg PO BID 02/14/20 03/17/21 pantoprazole 40 mg tablet,delayed 40 mg PO DAILY 02/14/20 03/17/21 release Previous Rx's Medication Instructions Recorded nitroglycerin 0.4 mg sublingual 0.4 mg sublingual Q5M PRN chest 12/18/19 tablet pain 30 days #25 tabs alirocumab 75 mg/mL subcutaneous 75 mg subcut Q2W #2 mL 06/17/20 pen injector (Praluent Pen) dronedarone 400 mg tablet (Multaq) 400 mg PO BID #60 tabs 07/22/21 metoprolol tartrate 50 mg tablet 50 mg PO TID 90 days #270 tabs 08/20/21 dicyclomine 20 mg tablet 20 mg PO TID PRN abdominal 09/01/21 discomfort #20 tabs meclizine 25 mg tablet 25 mg PO BID PRN dizziness #14 tabs 11/05/21 Allergies Allergy/AdvReac Type Severity Reaction Status Date / Time No Known Allergies Allergy Verified 05/29/21 14:22 [No Known Allergies*] Review of Systems Review of Systems: Constitutional : No Weight loss, No Fever, No Chills, + Fatigue, + Malaise ENT/Mouth : No sore throat, No Rhinorrhea Eyes: No Eye Pain, No Swelling, No Redness Cardiovascular : No Chest Pain, + SOB, + Dyspnea on Exertion, No Orthopnea, No Edema, No Palpitations Respiratory : No Cough, No Sputum, No Wheezing Gastrointestinal : No Nausea, No Vomiting, No Diarrhea, No Constipation, No abdominal Pain, No Hematochezia, No Melena Genitourinary : No Dysuria, No Urinary Frequency, No Hematuria, Musculoskeletal : No joint pain, No Myalgias, No Joint Swelling Skin : No Skin Lesions, No rash Neuro : + Weakness, No Numbness, + Dizziness, No Headache Psych : No Anxiety/Panic, No Depression All other systems reviewed and are negative Yes all other systems are reviewed and are negative [facility] Past Medical History Attestation statement: The following information was validated with the patient. Source: old records reviewed and nursing notes reviewed Medical History Asthma CAD (coronary artery disease) COPD (chronic obstructive pulmonary disease) COVID-19 vaccine series completed Elevated cholesterol History of cardioversion History of COVID-19 HTN (hypertension) LUIS ALFREDO (obstructive sleep apnea) Surgical History H/O cardiac catheterization H/O: vasectomy History of cataract surgery Family History Family History Father HTN (hypertension) Diabetes Mother HTN (hypertension) Diabetes CVD (cardiovascular disease) Social History Social History Household Members: Family Housing: Apartment Alcohol intake: never Patient Tobacco Use Status: Never used Tobacco Advance Directives: No Advance Directives Information Provided: No Physical Exam ED Vital Signs: Vital Signs - 24 hr 11/05/21 13:10 11/05/21 23:55 11/06/21 00:36 Temperature 97 F Pulse Rate 90 74 75 Respiratory Rate 18 18 20 Blood Pressure 150/92 H 152/92 H 173/101 H Pulse Oximetry 100 98 100 Oxygen Delivery Method Room Air Room Air Room Air BMI result Body Mass Index 29.8 vss Appearance: Alert.? Oriented X3.? No acute distress. Resting comfortably in bed. Head: Normocephalic, atraumatic, no step-offs or deformities Eyes: Pupils equal, round and reactive to light.? Neck: Normal inspection.? Neck supple.? CVS: Normal heart rate and rhythm.? Pulses normal.? Respiratory: No respiratory distress.? Breath sounds normal.? Abdomen: Soft and nontender.?Non-distended. Skin: Skin warm and dry.? Normal skin color.? Normal skin turgor.? Extremities: No lower extremity edema.? No calf ttp, negative lana b/l. 5/5 strength to bilateral upper and lower extremities. Ambulatory without difficulty, normal coordination with ambulation. Neuro: Oriented X 3.? No motor deficit.? No sensory deficit. CN 2-12 intact. No pronator drift. Some difficulty with finger to nose testing bilaterally. NIHSS- 0 GCS- 15 Course Reevaluation(s) Reevaluation #1: CBC and chemistry appear to be at patient's baseline with a chronic kidney injury, patient receiving hydration. Troponin negative, EKG nonischemic 2nd troponin, dimer and CT head pending. Time: 20:58 Reevaluation #2: D-dimer negative. Unlikely that this is PE. Second trop flat. COVID, UA, ESQUEDA pending, Time: 21:53 Reevaluation #3: BNP normal no signs of CHF. Patient tells me he is feeling better. Will ambulate and repeat BMP. UA, ESQUEDA pending. Improvement in finger to nose not ataxic again reassuring not unlikely that this is posterior stroke. P Time: 23:40 Additional Reevaluation(s): 2352 Patient feeling better and ambulating with steady gait around the department. Requesting to eat. Repeat BMP pending 0037 Patient's blood pressure elevated however patient has not taken his night blood pressure medications will give his home meds here. Patient ambulating well reports resolution of symptoms, cxr wnl. At this time patient will be discharged home with meclizine, advised to drink plenty of water. At this time I feel comfortable with discharge home with prompt PCP follow-up. Comfortable with discharge will do orthos and BP prior to DC Upon discharge patient's orthostatic vital signs are negative. Blood pressure improved after medication, still slightly elevated however blood pressure medication will take time to act. Patient without symptoms no headache, dizziness, vision changes, normal coordination and gait, patient ambulating with steady gait. Advised to return with new or worsening symptoms. Outlined on discharge. Comfortable discharge home Medical Decision Making [facility] Narrative Medical decision making narrative: 20:55 61 y/o M with a PMHx of DM2, a-fib, HLD, and CAD, presenting with room-spinning dizziness, dysequilibrium, and shortness of breath x 5 days. PE remarkable for slightly slow finger to nose, otherwise non-focal neuro exam. Remainder of exam benign. Plan to obtain basic labs, COVID-19 testing, EKG, CT head, D-dimer, and troponin. Suspect vertigo vs. electrolyte derangement/dehydration. Less likely PE, ACS, stroke/TIA, posterior circulation [facility] [place] Medical records reviewed: Yes I reviewed the patient's medical records. Lab Data Lab results reviewed: Yes I reviewed the patient's lab results. Result diagrams: 11/05/21 13:30 11/06/21 00:53 Labs: Lab Results 09/14/22 09/14/22 09/14/22 Range/Units 13:30 13:30 13:30 WBC 7.7 (4.8-10.8) X10*3/uL RBC 4.50 L (4.60-5.80) X10*6/uL Hgb 12.6 L (14.0-18.0) g/dl Hct 39.3 L (42.0-52.0) % MCV 87.3 (80.0-98.0) fL MCH 28.0 (27.0-33.0) pg MCHC 32.1 (31.0-36.0) g/dl RDW 12.9 (11.0-16.0) % Plt Count 261 (160-400) X10*3/uL MPV 9.8 (9.4-12.4) fL Immature Gran % (Auto) 0.3 (0.0-0.4) % Neut % (Auto) 67.1 (45-73) % Lymph % (Auto) 19.6 L (20-40) % [place] % (Auto) 9.4 (2-11) % Eos % (Auto) 2.9 (0-4) % Baso % (Auto) 0.7 (0-2) % Lymph # (Auto) 1.5 (1.2-4.9) X10*3/uL [place] # (Auto) 0.7 (0.1-1.2) X10*3/uL Eos # (Auto) 0.2 (0.0-0.4) X10*3/uL Baso # (Auto) 0.1 (0.0-0.2) X10*3/uL Abs Immat Gran (auto) 0.02 (0.00-0.03) X10*3/uL Absolute Neuts (auto) 5.2 (2.0-8.3) x10*3/uL Absolute Nucleated RBC 0.000 (0.0-0.012) X10*3/uL Nucleated RBC % (auto) 0.0 (0.0-0.2) /100WBC D-Dimer High Sensitivty NG/ML Sodium 142 (135-145) mmol/L Potassium 4.7 (3.3-5.1) mmol/L Chloride 107 (96-108) mmol/L Carbon Dioxide 24 (22-29) mmol/L Anion Gap 16 (12-20) BUN 34 H (9-16) mg/dL Creatinine 1.64 H (0.5-1.4) mg/dL Estim Creat Clear Calc 62.9 Estimated GFR 43 Random Glucose 160 H D (60-115) mg/dL Calcium 9.3 (8.4-10.2) mg/dL Troponin I High Sens 8.1 (<3.5-35.0) ng/L B-Natriuretic Peptide (<100) pg/mL Urine Color Urine Appearance Urine pH (5.0-9.0) Ur Specific [place] (1.005-1.025) Urine Protein (Neg-Trace) mg/dL Urine Glucose (UA) (Negative) mg/dL Urine Ketones (Negative) mg/dL Urine Blood (Negative) Urine Nitrite (Negative) Ur Leukocyte Esterase (Negative) Urine RBC (0-2) /HPF Urine WBC (0-5) /HPF Ur Squamous Epith Cells (0-2) /HPF Urine Bacteria (None Seen) Hyaline Casts (0-2) /LPF Urine Opiates Screen (Not Detect) Urine Fentanyl Screen (Not Detect) Ur Barbiturates Screen (Not Detect) Ur Phencyclidine Scrn (Not Detect) Ur Amphetamines Screen (Not Detect) U Benzodiazepines Scrn (Not Detect) Urine Cocaine Screen (Not Detect) U Marijuana (THC) Screen (Not Detect) COVID-19 (ALTAGRACIA) (Negative) COVID-19 Clin Com 11/05/21 11/05/21 11/05/21 Range/Units 21:27 21:28 21:28 WBC (4.8-10.8) X10*3/uL RBC (4.60-5.80) X10*6/uL Hgb (14.0-18.0) g/dl Hct (42.0-52.0) % MCV (80.0-98.0) fL MCH (27.0-33.0) pg MCHC (31.0-36.0) g/dl RDW (11.0-16.0) % Plt Count (160-400) X10*3/uL MPV (9.4-12.4) fL Immature Gran % (Auto) (0.0-0.4) % Neut % (Auto) (45-73) % Lymph % (Auto) (20-40) % [place] % (Auto) (2-11) % Eos % (Auto) (0-4) % Baso % (Auto) (0-2) % Lymph # (Auto) (1.2-4.9) X10*3/uL [place] # (Auto) (0.1-1.2) X10*3/uL Eos # (Auto) (0.0-0.4) X10*3/uL Baso # (Auto) (0.0-0.2) X10*3/uL Abs Immat Gran (auto) (0.00-0.03) X10*3/uL Absolute Neuts (auto) (2.0-8.3) x10*3/uL Absolute Nucleated RBC (0.0-0.012) X10*3/uL Nucleated RBC % (auto) (0.0-0.2) /100WBC D-Dimer High Sensitivty 157 NG/ML Sodium (135-145) mmol/L Potassium (3.3-5.1) mmol/L Chloride (96-108) mmol/L Carbon Dioxide (22-29) mmol/L Anion Gap (12-20) BUN (9-16) mg/dL Creatinine (0.5-1.4) mg/dL Estim Creat Clear Calc Estimated GFR Random Glucose (60-115) mg/dL Calcium (8.4-10.2) mg/dL Troponin I High Sens 6.0 (<3.5-35.0) ng/L B-Natriuretic Peptide 16 (<100) pg/mL Urine Color Urine Appearance Urine pH (5.0-9.0) Ur Specific [place] (1.005-1.025) Urine Protein (Neg-Trace) mg/dL Urine Glucose (UA) (Negative) mg/dL Urine Ketones (Negative) mg/dL Urine Blood (Negative) Urine Nitrite (Negative) Ur Leukocyte Esterase (Negative) Urine RBC (0-2) /HPF Urine WBC (0-5) /HPF Ur Squamous Epith Cells (0-2) /HPF Urine Bacteria (None Seen) Hyaline Casts (0-2) /LPF Urine Opiates Screen (Not Detect) Urine Fentanyl Screen (Not Detect) Ur Barbiturates Screen (Not Detect) Ur Phencyclidine Scrn (Not Detect) Ur Amphetamines Screen (Not Detect) U Benzodiazepines Scrn (Not Detect) Urine Cocaine Screen (Not Detect) U Marijuana (THC) Screen (Not Detect) COVID-19 (ALTAGRACIA) Negative (Negative) COVID-19 Clin Com See Note 11/06/21 11/06/21 11/06/21 Range/Units 00:53 00:53 00:53 WBC (4.8-10.8) X10*3/uL RBC (4.60-5.80) X10*6/uL Hgb (14.0-18.0) g/dl Hct (42.0-52.0) % MCV (80.0-98.0) fL MCH (27.0-33.0) pg MCHC (31.0-36.0) g/dl RDW (11.0-16.0) % Plt Count (160-400) X10*3/uL MPV (9.4-12.4) fL Immature Gran % (Auto) (0.0-0.4) % Neut % (Auto) (45-73) % Lymph % (Auto) (20-40) % [place] % (Auto) (2-11) % Eos % (Auto) (0-4) % Baso % (Auto) (0-2) % Lymph # (Auto) (1.2-4.9) X10*3/uL [place] # (Auto) (0.1-1.2) X10*3/uL Eos # (Auto) (0.0-0.4) X10*3/uL Baso # (Auto) (0.0-0.2) X10*3/uL Abs Immat Gran (auto) (0.00-0.03) X10*3/uL Absolute Neuts (auto) (2.0-8.3) x10*3/uL Absolute Nucleated RBC (0.0-0.012) X10*3/uL Nucleated RBC % (auto) (0.0-0.2) /100WBC D-Dimer High Sensitivty NG/ML Sodium 143 (135-145) mmol/L Potassium 5.0 (3.3-5.1) mmol/L Chloride 108 (96-108) mmol/L Carbon Dioxide 24 (22-29) mmol/L Anion Gap 16 (12-20) BUN 33 H (9-16) mg/dL Creatinine 1.62 H (0.5-1.4) mg/dL Estim Creat Clear Calc 63.7 Estimated GFR 44 Random Glucose 100 D (60-115) mg/dL Calcium 9.1 (8.4-10.2) mg/dL Troponin I High Sens (<3.5-35.0) ng/L B-Natriuretic Peptide (<100) pg/mL Urine Color Yellow Urine Appearance Clear Urine pH 5.5 (5.0-9.0) Ur Specific [place] 1.025 (1.005-1.025) Urine Protein 100 (2+) H (Neg-Trace) mg/dL Urine Glucose (UA) >=1000 H (Negative) mg/dL Urine Ketones Negative (Negative) mg/dL Urine Blood Negative (Negative) Urine Nitrite Negative (Negative) Ur Leukocyte Esterase Negative (Negative) Urine RBC 0-2 (0-2) /HPF Urine WBC 0-5 (0-5) /HPF Ur Squamous Epith Cells 0-2 (0-2) /HPF Urine Bacteria None Seen (None Seen) Hyaline Casts 0-2 (0-2) /LPF Urine Opiates Screen Not Detected (Not Detect) Urine Fentanyl Screen Not Detected (Not Detect) Ur Barbiturates Screen Not Detected (Not Detect) Ur Phencyclidine Scrn Not Detected (Not Detect) Ur Amphetamines Screen Not Detected (Not Detect) U Benzodiazepines Scrn Not Detected (Not Detect) Urine Cocaine Screen Not Detected (Not Detect) U Marijuana (THC) Screen Not Detected (Not Detect) COVID-19 (ALTAGRACIA) (Negative) COVID-19 Clin Com ECG Data Attestation: I personally reviewed and interpreted this ECG as follows: Prior ECG tracings: available for review Interpretation: Ventricular rate of 86, CO normal, QRS normal, QT/QTC normal. EKG with normal sinus rhythm no ST elevations or inversions concerning for ischemia. No significant changes when compared to EKG of November 2020 Critical Care Time Critical Care Time Critical Care Time: No Discharge Plan Discharge Clinical Impression: Dizziness, Vertigo, Shortness of breath Patient Disposition: Home, Self-Care Instructions: Vertigo (ED), Dizziness (ED), Shortness of Breath (ED) Additional Instructions: Take your medications as prescribed. If you were prescribed antibiotics today, it is important that you take your medication to their entirety, do not skip any doses, do not finish them early. Follow-up with your primary care provider this week. If dizziness continues please follow-up with neurology. Return to the emergency department with new or worsening symptoms. Such as fevers, chills, chest pain, shortness of breath, nausea, vomiting, dizziness, headache, vision changes, lethargy, weakness In case of emergency call 911 CT/CT head/brain wo IV con IMPRESSION: 1. No evidence of acute intracranial hemorrhage or edematous territorial infarction. 2. Mild underlying microangiopathy. ? XR/XR chest 1V IMPRESSION: Clear lungs. Prescriptions: New meclizine 25 mg tablet 25 mg PO BID PRN (Reason: dizziness) Qty: 14 0RF No Action nitroglycerin 0.4 mg tablet, sublingual 0.4 mg sublingual Q5M PRN (Reason: chest pain) 30 Days Qty: 25 2RF Rx Instructions: Take 1 tab under tongue every 5 min x3 as needed for Chest pain Praluent Pen 75 mg/mL pen injector 75 mg subcut Q2W Qty: 2 3RF Rx Instructions: inject into abdomen, thigh, or upper arm (deltoid muscle); rotate sites Multaq 400 mg tablet 400 mg PO BID Qty: 60 3RF Rx Instructions: must administer with a meal/food metoprolol tartrate 50 mg tablet 50 mg PO TID 90 Days Qty: 270 3RF dicyclomine 20 mg tablet 20 mg PO TID PRN (Reason: abdominal discomfort) Qty: 20 0RF bupropion HCl 200 mg tablet sustained-release 12 hr 200 mg PO BID gabapentin 100 mg capsule 100 mg PO BEDTIME lisinopril 20 mg tablet 20 mg PO DAILY pantoprazole 40 mg tablet,delayed release (DR/EC) 40 mg PO DAILY amlodipine 10 mg tablet 10 mg PO DAILY Eliquis 5 mg tablet 5 mg PO BID ezetimibe 10 mg tablet 10 mg PO DAILY allopurinol 300 mg tablet 300 mg PO DAILY metformin 1,000 mg tablet 1,000 mg PO BID atorvastatin 80 mg tablet 80 mg PO DAILY cholecalciferol (vitamin D3) 50 mcg (2,000 unit) capsule 50 mcg PO QAM Flovent HFA 110 mcg/actuation HFA aerosol inhaler inhalation insulin aspart U-100 100 unit/mL (3 mL) insulin pen 20 unit subcut Trulicity 1.5 mg/0.5 mL pen injector 3 mg subcut QWEEK Referrals: Name,MD Jose [Primary Care Provider] - 2 days [facility] [place] [facility] [place] Group] - 1 week Stand Alone Forms: Work/School Release
[2021-11-05] MEDS: 0.9 % Sodium Chloride 1,000 ML 999 ML IV (21:30)
[2021-11-05 21:43] LABS: D Dimer High Sensitivity 157 NG/ML
[2021-11-05 21:51] LABS: COVID-19 Test Negative (Negative)
[2021-11-05 22:58] LABS: B Type Natriuretic Peptide 16 pg/mL (<100)
[2021-11-05 23:55] VITALS: BP 152/92; PULSE 74; RESP 18; O2SAT 98
--- NOTE | 2021-11-06 00:10 | PC.NURSE ---
Meddahlia. late d/t this RN being in with critical pt.
[2021-11-06 00:36] VITALS: BP 173/101; PULSE 75; RESP 20; O2SAT 100
[2021-11-06 01:06] LABS: Appearance Urine Clear; Color Urine Yellow; Glucose Urine UA >=1000 mg/dL (Negative); Leukocyte Esterase Urine Negative (Negative); Nitrite Urine Negative (Negative); PH 5.5 (5.0-9.0); Specific Gravity - Urine 1.025 (1.005-1.025); UMIC TRIGGER UACC YES; Urine Blood Negative (Negative); Urine Ketones Negative (Negative); Urine Protein 100 (2+) mg/dL (Neg-Trace)
[2021-11-06 01:11] LABS: Bacteria Urine None Seen (None Seen); Hyaline Casts Urine 0-2 /LPF (0-2); RBC Urine 0-2 /HPF (0-2); Squamous Epithelial Cell Urine 0-2 /HPF (0-2); WBC Urine 0-5 /HPF (0-5)
[2021-11-06] MEDS: 0.9 % Sodium Chloride 1,000 ML 999 ML IV ×2 (01:14→02:02)
[2021-11-06] MEDS: Metoprolol Tartrate 50 MG TABLET PO (01:15)
[2021-11-06] MEDS: amLODIPine Besylate 10 MG TABLET PO (01:15)
[2021-11-06] MEDS: Meclizine HCl 25 MG TABLET PO (01:15)
[2021-11-06 01:17] LABS: Anion Gap 16 (12-20); Blood Urea Nitrogen 33 mg/dL (9-16); Calcium 9.1 mg/dL (8.4-10.2); Carbon Dioxide 24 mmol/L (22-29); Chloride 108 mmol/L (96-108); Creatinine Clr Calc Pharmacy 63.7; Estimated Glomerular Filt Rate 44; Glucose Random 100 mg/dL (60-115); Sodium 143 mmol/L (135-145)
--- NOTE | 2021-11-06 01:18 | PC.NURSE ---
pt medicated per Apr. Notified HEATHER Murphy.
[2021-11-06 01:20] LABS: Amphetamine Screen Urine Not Detected (Not Detect); Barbiturates, Urine Not Detected (Not Detect); Benzodiazepines Screen Urine Not Detected (Not Detect); Cannabinoid Screen Urine Not Detected (Not Detect); Cocaine Screen Urine Not Detected (Not Detect); Fentanyl, urine Not Detected (Not Detect); Opiate Screen Urine Not Detected (Not Detect); Phencyclidine Screen Urine Not Detected (Not Detect)
[2021-11-06 01:36] VITALS: BP 162/96; PULSE 77
[2021-11-06 01:42] VITALS: BP 186/99; PULSE 74
[2021-11-06 01:48] VITALS: BP 170/94; PULSE 74
[2021-11-06 01:53] VITALS: BP 167/92; PULSE 75
[2021-11-06 02:13] VITALS: BP 160/95; PULSE 77; RESP 18; O2SAT 99
== END 2021-11-06 02:20 | disposition home or self-care (01) ==
PROVIDERS: Physician Assistant; Emergency Provider Internal Medicine; PCP Internal Medicine Geriatric Medicine
DX: R42 Dizziness and giddiness (principal); R06.02 Shortness of breath; I25.10 Atherosclerotic heart disease of native coronary artery without angina pectoris; E11.9 Type 2 diabetes mellitus without complications; Z79.899 Other long term (current) drug therapy; Z20.822 Contact with and (suspected) exposure to COVID-19; Z79.4 Long term (current) use of insulin
CPT/HCPCS: 36415; 70450; 71045; 80048; 80307; 81001; 81003; 83880; 84484; 85025; 85379; 87635; 93005; 96360; 99284

== ENCOUNTER 2021-11-17 15:43 | Outpatient (REF) | payer MEDICARE, MEDICAID, SELFPAY ==
--- NOTE | ~2021-11-17 | XR_ITS ---
EXAMINATION: XR HIP, RIGHT CLINICAL INFORMATION: Right hip pain COMPARISON: None TECHNIQUE: Two views of the right hip. FINDINGS: Bone alignment is normal. No fracture or dislocation is seen. There is moderate right hip arthritis with joint space narrowing and osteophyte formation. Soft tissues are unremarkable. XR/XR hip RT min 2V IMPRESSION: Moderate right hip arthritis.
== END 2021-11-17 15:44 | disposition home or self-care (01) ==
LOC: HO.XRAY 15:43
PROVIDERS: PCP Internal Medicine Geriatric Medicine; Visit Provider Internal Medicine Geriatric Medicine
DX: M25.551 Pain in right hip (principal)
CPT/HCPCS: 73502

== ENCOUNTER → 2022-03-12 13:49 | Outpatient (BNVA) | payer MEDICARE, MEDICAID, SELFPAY | PROVIDERS: PCP Internal Medicine Geriatric Medicine; Visit Provider Internal Medicine Cardiovascular Disease | DX: I44.0 Atrioventricular block, first degree (principal); I48.92 Unspecified atrial flutter; I25.10 Atherosclerotic heart disease of native coronary artery without angina pectoris; I10 Essential (primary) hypertension; E78.00 Pure hypercholesterolemia, unspecified; Z98.890 Other specified postprocedural states; Z79.899 Other long term (current) drug therapy | CPT/HCPCS: 93005; 99212 ==

== ENCOUNTER 2022-03-23 12:55 | Outpatient (REF) | payer MEDICARE, MEDICAID, SELFPAY ==
[2022-03-23 13:46] LABS: Cholesterol 167 mg/dL; HDL Cholesterol 48 mg/dL; LDL Cholesterol Calculated 110 mg/dl; Triglycerides 49 mg/dL
== END 2022-03-23 12:56 | disposition home or self-care (01) ==
LOC: HO.LAB 12:55
PROVIDERS: PCP Internal Medicine Geriatric Medicine; Visit Provider Internal Medicine Cardiovascular Disease
DX: E78.5 Hyperlipidemia, unspecified (principal)
CPT/HCPCS: 36415; 80061

== ENCOUNTER → 2022-06-19 08:08 | Outpatient (BNVA) | payer MEDICARE, MEDICAID, SELFPAY | PROVIDERS: PCP Internal Medicine Geriatric Medicine; Visit Provider Nurse Practitioner Family | DX: G47.33 Obstructive sleep apnea (adult) (pediatric) (principal); R40.0 Somnolence | CPT/HCPCS: 99202 ==

== ENCOUNTER → 2022-07-07 15:05 | Outpatient (REF) | payer MEDICARE, MEDICAID, SELFPAY | LOC: HO.SL 15:05 | PROVIDERS: PCP Internal Medicine Geriatric Medicine; Visit Provider Nurse Practitioner Family | DX: G47.33 Obstructive sleep apnea (adult) (pediatric) (principal) | CPT/HCPCS: 95806 ==

== ENCOUNTER → 2022-08-20 20:30 | Outpatient (REF) | payer MEDICARE, MEDICAID, SELFPAY | LOC: HO.SL 20:30 | PROVIDERS: Visit Provider Nurse Practitioner Family | DX: G47.33 Obstructive sleep apnea (adult) (pediatric) (principal); R40.0 Somnolence | CPT/HCPCS: 95810 ==

== ENCOUNTER → 2022-09-16 20:30 | Outpatient (REF) | payer MEDICARE, MEDICAID, SELFPAY | LOC: HO.SL 20:30 | PROVIDERS: Visit Provider Nurse Practitioner Family | DX: G47.33 Obstructive sleep apnea (adult) (pediatric) (principal); G47.61 Periodic limb movement disorder | CPT/HCPCS: 95811 ==

== ENCOUNTER → 2022-09-16 22:01 | Outpatient (BNV) | payer MEDICARE, MEDICAID, SELFPAY | PROVIDERS: Visit Provider Psychiatry & Neurology Neurology | DX: G47.33 Obstructive sleep apnea (adult) (pediatric) (principal); G47.61 Periodic limb movement disorder | CPT/HCPCS: 95811 ==

== ENCOUNTER 2022-11-17 13:52 | Outpatient (AMB) | payer MEDICARE, MEDICAID, SELFPAY ==
--- NOTE | 2022-11-17 14:13 | A.OFFVIS_ITS ---
Intake Vital Signs 11/17/22 14:14 Height 6 ft 3 in Weight 229 lb BMI 28.6 BP 164/110 H Blood Pressure Location Rt brachial Position Sitting Pulse 79 Pulse Source Pulse Oximeter Pulse Oximetry (%) 100 Oxygen Delivery Method Room Air Intake Visit Reasons: 5m follow up LUIS ALFREDO - Confirmed Intake Note: Patients presents for 5 months LUIS ALFREDO. Patient states Im here for follow up, I already have my machine. it's working great. Allergies No Known Allergies [No Known Allergies*] Allergy (Verified 11/17/22 14:23) HPI HPI Comments History of Present Illness Details 62 y/o male patient presents for follow up of sleep study. The PSG sleep study result was significant for mild degree of sleep apena. The AHI was 12/hr and oxygen claritza was 82%. Pt underwent titration study and his breathing and oxygenation stabilized on CPAP [id number]. He started CPAP at [id number]. He states that he can sleep better, 7 hours throughout the night. He has less snoring and more refreshed sleep. His daytime sleepiness has improved. The CPAP compliance and therapy response (10/18/22-11/16/22) reviewed. The usage days 97% and the average usage hours 7 hrs. The AHI was 3.8/hr. [facility] Medical History (Updated 09/10/22 @ 08:10 by Bashir Nagel CNP) History of cardioversion History of COVID-19 COVID-19 vaccine series completed Elevated cholesterol HTN (hypertension) Asthma COPD (chronic obstructive pulmonary disease) LUIS ALFREDO (obstructive sleep apnea) CAD (coronary artery disease) Surgical History H/O cardiac catheterization History of cataract surgery H/O: vasectomy Family History Father HTN (hypertension) Diabetes Mother HTN (hypertension) Diabetes CVD (cardiovascular disease) Social History Household Members: Family Housing: Apartment Alcohol intake: never Patient Tobacco Use Status: Never used Tobacco Review of Systems Const All systems reviewed & are unremarkable except as noted in HPI and below ENT Reports Normal hearing present Neuro Reports Normal hearing present Physical Exam Vital Signs: Last Vital Signs Pulse 79 11/17/22 14:14 BP 164/110 H 11/17/22 14:14 Pulse Ox 100 11/17/22 14:14 Oxygen Delivery Method Room Air 11/17/22 14:14 BMI result Body Mass Index 28.6 Const General: cooperative Orientation/consciousness: patient oriented x3 Eyes Pupils: Equal, round and reactive pupils present Neck Neck: Yes full ROM and Yes supple Resp Effort & Inspection: normal respiratory effort and able to speak in complete sentences Neuro General: patient oriented x3, gait normal and moves all extremities Cranial nerves: Yes Equal, round and reactive pupils present, Yes Bilaterally intact EOM present, Yes Normal facial strength present, Yes Midline tongue present, Yes Symmetric palate elevation present, Yes Normal hearing present, Yes Ability to bilaterally rotate head present and Yes Ability to bilaterally elevate shoulders present Cognition (Neuro): normal cognition Motor exam (neuro): 5/5 motor strength present throughout, Pronator motor function not present and no tremor noted Psych Appearance: grossly normal Mental Status: mental status grossly normal Affect: normal affect Assessment & Plan Assessment & Plan (1) LUIS ALFREDO (obstructive sleep apnea): Code(s): G47.33 - Obstructive sleep apnea (adult) (pediatric) Plan Continue to use CPAP at [id number] as patient experiences good clinical effects. Stressed compliance, use CPAP nightly and more than 4hrs. Encouraged patient to increase physical activity, 30 min walking daily. Wt reduction advised. Coding Level of Care Code Est Pt Level 3 (61194) Diagnoses LUIS LAFREDO (obstructive sleep apnea) G47.33
[2022-11-17 14:14] VITALS: BP 164/110; PULSE 79; O2SAT 100; BMI 28.6
== END 2022-11-17 14:40 | disposition home or self-care (01) ==
LOC: HO.HSMC 13:52
PROVIDERS: PCP Internal Medicine Geriatric Medicine; Visit Provider Nurse Practitioner Family
DX: G47.33 Obstructive sleep apnea (adult) (pediatric) (principal)
CPT/HCPCS: 99213

== ENCOUNTER → 2022-11-17 13:52 | Outpatient (BNVA) | payer MEDICARE, MEDICAID, SELFPAY | PROVIDERS: PCP Internal Medicine Geriatric Medicine; Visit Provider Nurse Practitioner Family | DX: G47.33 Obstructive sleep apnea (adult) (pediatric) (principal); Z99.89 Dependence on other enabling machines and devices | CPT/HCPCS: 99212 ==

== ENCOUNTER 2022-11-25 11:19 | Outpatient (AMB) | payer MEDICARE, MEDICAID, SELFPAY ==
[2022-11-25 11:20] VITALS: BP 104/80; O2SAT 101; BMI 28.9
--- NOTE | 2022-11-25 11:20 | MHC.OFFVIS ---
Intake Vital Signs 11/25/22 11:20 Height 6 ft 3 in Weight 231 lb 0.711 oz BMI 28.9 BP 104/80 Blood Pressure Location Lt brachial Position Sitting Pulse Oximetry (%) 101 H Intake Visit Reasons: 6 month follow up rs Intake Note: 6 month f/u Bone Tender Required: Yes Bone Tender Language: Canal Driver Name: mikel valadez [id number] Software Security Consultant: Software Security Consultant Present Accompanied by: Spouse Allergies No Known Allergies [No Known Allergies*] Allergy (Verified 11/25/22 11:28) Medication List - Last Reconciled 11/25/22 by Sumit Daniels MD alirocumab 150 mg subcut Q14D allopurinol 300 mg PO DAILY amlodipine 10 mg PO DAILY apixaban 5 mg PO BID atorvastatin 80 mg PO DAILY bupropion HCl 200 mg PO BID cholecalciferol (vitamin D3) 50 mcg PO QAM dicyclomine 20 mg PO TID PRN dronedarone (Multaq) 400 mg PO BID dulaglutide (Trulicity) mg subcut empagliflozin (Jardiance) 10 mg PO DAILY ezetimibe 10 mg PO DAILY fluticasone propionate 110 mcg/actuation inhalation gabapentin 100 mg PO BEDTIME insulin aspart U-100 20 units subcut lisinopril 20 mg PO DAILY meclizine 25 mg PO BID PRN metformin 1,000 mg PO BID metoprolol tartrate 50 mg PO TID 90 days pantoprazole 40 mg PO DAILY HPI HPI Comments History of Present Illness Details 62-year-old gentleman with paroxysmal atrial flutter with variable block who is here for follow-up. He is status post cardioversion and has been on Multaq. He has been doing well. Repeat electrocardiogram in office has shown sinus rhythm. Tolerating medications well no bleeding issues. 11/25/2022: He returns for follow-up. He has been taking medications regularly. No bleeding issues. No palpitations. Denying chest discomfort shortness of breath. Taking medications regularly. He is currently taking alirocumab, atorvastatin and ezetimibe. His LDL cholesterol in February was 110. [facility] Medical History (Updated 09/10/22 @ 08:10 by Bashir Nagel CNP) History of cardioversion History of COVID-19 COVID-19 vaccine series completed Elevated cholesterol HTN (hypertension) Asthma COPD (chronic obstructive pulmonary disease) LUIS ALFREDO (obstructive sleep apnea) CAD (coronary artery disease) Surgical History H/O cardiac catheterization History of cataract surgery H/O: vasectomy Family History Father HTN (hypertension) Diabetes Mother HTN (hypertension) Diabetes CVD (cardiovascular disease) Social History Household Members: Family Housing: Apartment Alcohol intake: never Patient Tobacco Use Status: Never used Tobacco Review of Systems ENT Reports dizziness Card Denies chest pain, Denies chest pain at rest, Denies chest pain with activity, Denies rapid heart rate, Denies pedal edema, Denies edema, Denies leg edema, Denies lightheadedness, Denies palpitations, Denies dyspnea, Denies dyspnea on exertion and Denies orthopnea Resp Denies cough, Denies dyspnea and Denies dyspnea on exertion GI Denies hematochezia and Denies change in stool character Musc Denies abnormal gait, Reports limited range of motion, Reports muscle cramps, Denies muscle weakness, Denies numbness, Denies radiating pain into limb, Denies stiffness and Denies tingling Neuro Denies abnormal gait, Reports dizziness, Denies numbness and Denies tingling Endo Denies palpitations Physical Exam Vital Signs: Last Vital Signs BP 104/80 11/25/22 11:20 Pulse Ox 101 H 11/25/22 11:20 BMI result Body Mass Index 28.9 GENERAL APPEARANCE: in no acute distress, pleasant. NECK: no carotid bruit, no jugular venous distention. SKIN: no suspicious lesions, warm and dry. HEART: no murmurs, regular rate and rhythm. LUNGS: clear to auscultation bilaterally. ABDOMEN: soft, nontender. EXTREMITIES: no edema. PERIPHERAL PULSES: equal. NEUROLOGIC: No gross deficits, AAO X 3 Office Procedures EKG Details: Sinus rhythm 99 beats per minute, occasional PVCs, QTC 462 milliseconds. [id number], Complete Assessment & Plan Assessment & Plan (1) Paroxysmal atrial flutter: Code(s): I48.92 - Unspecified atrial flutter (2) Familial hyperlipidemia, high LDL: Code(s): E78.49 - Other hyperlipidemia Plan Pleasant 62 year gentleman who is here for follow-up. He has background history of paroxysmal atrial flutter. He was cardioverted and started on Multaq and he has been doing well since then. He is taking apixaban for anticoagulation. He has familial hyperlipidemia and his LDL cholesterol was 254 in the past. He has been on atorvastatin 80 mg, ezetimibe and alirocumab. Lost LDL cholesterol was in February which was 110. We will repeat a fasting lipid panel on him. Overall clinically stable. Thank you for allowing me to participate in the care of your patient. Please feel free to contact me if you have any questions. Orders: Orders Lipid Panel Today E78.49 - Other hyperlipidemia Coding Level of Care Code Est Pt Level 4 (63495) Diagnoses Paroxysmal atrial flutter I48.92 Familial hyperlipidemia, high LDL E78.49 CPT Codes EKG - CPT: 19430-[id number], Complete ([id number])
== END 2022-11-25 12:38 | disposition home or self-care (01) ==
PROVIDERS: PCP Internal Medicine Geriatric Medicine; Visit Provider Internal Medicine Cardiovascular Disease
DX: I48.92 Unspecified atrial flutter (principal); E78.49 Other hyperlipidemia
CPT/HCPCS: 93010; 99214

== ENCOUNTER → 2022-11-25 11:19 | Outpatient (BNVA) | payer MEDICARE, MEDICAID, SELFPAY | PROVIDERS: PCP Internal Medicine Geriatric Medicine; Visit Provider Internal Medicine Cardiovascular Disease | DX: I48.92 Unspecified atrial flutter (principal); I49.3 Ventricular premature depolarization; I25.10 Atherosclerotic heart disease of native coronary artery without angina pectoris; I10 Essential (primary) hypertension; E78.49 Other hyperlipidemia; Z98.890 Other specified postprocedural states; Z79.85 Long-term (current) use of injectable non-insulin antidiabetic drugs; Z79.4 Long term (current) use of insulin | CPT/HCPCS: 93005; 99212 ==

== ENCOUNTER 2022-12-28 12:54 | Outpatient (REF) | payer MEDICARE, MEDICAID, SELFPAY ==
[2022-12-28 15:50] LABS: MANUAL DIFF FLAG NO
[2022-12-28 16:06] LABS: Basophils Absolute Auto 0.1 X10*3/uL (0.0-0.2); Basophils Percent Auto 0.7 % (0-2); Eosinophils Absolute Auto 0.3 X10*3/uL (0.0-0.4); Eosinophils Percent Auto 3.3 % (0-4); Hematocrit 41.2 % (42.0-52.0); Hemoglobin 13.1 g/dl (14.0-18.0); Imm Gran Abs Auto 0.03 X10*3/uL (0.00-0.03); Imm Gran Pct Auto 0.4 % (0.0-0.4); Lymphocytes Absolute Auto 1.9 X10*3/uL (1.2-4.9); Lymphocytes Percent Auto 22.9 % (20-40); Mean Corpuscular HGB Conc 31.8 g/dl (31.0-36.0); Mean Corpuscular Hemoglobin 27.8 pg (27.0-33.0); Mean Corpuscular Volume 87.5 fL (80.0-98.0); Mean Platelet Volume 10.8 fL (9.4-12.4); Monocytes Absolute Auto 0.6 X10*3/uL (0.1-1.2); Monocytes Percent Auto 7.7 % (2-11); Neutrophils Absolute Auto 5.3 x10*3/uL (2.0-8.3); Platelet Count 259 X10*3/uL (160-400); Red Blood Count 4.71 X10*6/uL (4.60-5.80); Red Cell Distribution Width 13.6 % (11.0-16.0); White Blood Count 8.2 X10*3/uL (4.8-10.8)
[2022-12-28 17:19] LABS: Alanine Aminotransferase 19 U/L (0-40); Albumin Level 3.8 g/dL (3.5-5.0); Alkaline Phosphatase 66 U/L (39-117); Anion Gap 11 (12-20); Aspartate Amino Transferase 17 U/L (5-37); Bilirubin Total 0.6 mg/dL (0.0-1.0); Blood Urea Nitrogen 29 mg/dL (9-16); Calcium 9.2 mg/dL (8.4-10.2); Carbon Dioxide 25 mmol/L (22-29); Chloride 108 mmol/L (96-108); Cholesterol 141 mg/dL (<200); Estimated Glomerular Filt Rate 45; Glucose Random 123 mg/dL (60-115); HDL Cholesterol 49 mg/dL (>40); LDL Cholesterol Calculated 85 mg/dL (<100); Potassium 4.2 mmol/L (3.3-5.1); Sodium 140 mmol/L (135-145); Total Protein 6.8 g/dL (6.5-8.0); Triglycerides 37 mg/dL (<150)
== END 2022-12-28 12:55 | disposition home or self-care (01) ==
LOC: HO.HHCL 12:54
PROVIDERS: Visit Provider Internal Medicine Geriatric Medicine
DX: E78.49 Other hyperlipidemia (principal); E11.69 Type 2 diabetes mellitus with other specified complication; E66.9 Obesity, unspecified; I25.10 Atherosclerotic heart disease of native coronary artery without angina pectoris; I10 Essential (primary) hypertension; R25.1 Tremor, unspecified
CPT/HCPCS: 36415; 80053; 80061; 84443; 85025

== ENCOUNTER 2023-04-19 14:20 | Outpatient (REF) | payer MEDICARE, MEDICAID, SELFPAY ==
[2023-04-19 16:17] LABS: MANUAL DIFF FLAG NO
[2023-04-19 16:36] LABS: Basophils Absolute Auto 0.1 X10*3/uL (0.0-0.2); Basophils Percent Auto 0.5 % (0-2); Eosinophils Absolute Auto 0.2 X10*3/uL (0.0-0.4); Eosinophils Percent Auto 1.4 % (0-4); Hematocrit 48.6 % (42.0-52.0); Hemoglobin 16.2 g/dl (14.0-18.0); Imm Gran Abs Auto 0.21 X10*3/uL (0.00-0.03); Imm Gran Pct Auto 1.5 % (0.0-0.4); Lymphocytes Absolute Auto 3.4 X10*3/uL (1.2-4.9); Lymphocytes Percent Auto 24.3 % (20-40); Mean Corpuscular HGB Conc 33.3 g/dl (31.0-36.0); Mean Corpuscular Hemoglobin 28.1 pg (27.0-33.0); Mean Corpuscular Volume 84.2 fL (80.0-98.0); Mean Platelet Volume 10.5 fL (9.4-12.4); Monocytes Percent Auto 7.5 % (2-11); Neutrophils Absolute Auto 8.9 x10*3/uL (2.0-8.3); Neutrophils Percent Auto 64.8 % (45-73); Platelet Count 363 X10*3/uL (160-400); Red Blood Count 5.77 X10*6/uL (4.60-5.80); Red Cell Distribution Width 12.9 % (11.0-16.0); White Blood Count 13.8 X10*3/uL (4.8-10.8)
[2023-04-19 16:44] LABS: Anion Gap 15 (12-20); Blood Urea Nitrogen 26 mg/dL (9-16); Calcium 9.8 mg/dL (8.4-10.2); Carbon Dioxide 27 mmol/L (22-29); Chloride 101 mmol/L (96-108); Estimated Glomerular Filt Rate 45; Glucose Random 211 mg/dL (60-115); Potassium 4.7 mmol/L (3.3-5.1); Sodium 138 mmol/L (135-145)
== END 2023-04-19 14:21 | disposition home or self-care (01) ==
LOC: HO.HHCL 14:20
PROVIDERS: Visit Provider Internal Medicine Geriatric Medicine
DX: E11.21 Type 2 diabetes mellitus with diabetic nephropathy (principal); R42 Dizziness and giddiness
CPT/HCPCS: 36415; 80048; 85025

== ENCOUNTER 2023-07-21 12:59 | Outpatient (AMB) | payer MEDICARE, MEDICAID, SELFPAY ==
[2023-07-21 13:01] VITALS: BP 150/72; PULSE 68; BMI 30.6
--- NOTE | 2023-07-21 13:01 | A.OFFVIS_ITS ---
Vital Signs 07/21/23 13:01 Height 6 ft 3 in Weight 244 lb 11.41 oz BMI 30.6 BP 150/72 H Blood Pressure Location Rt brachial Position Sitting Pulse 68 Intake Visit Reasons: 6 mth f/up lipids Net Application Architect Required: Yes Net Application Architect Name: [email or web address] Accompanied by: Spouse Allergies No Known Allergies [No Known Allergies*] Allergy (Verified 11/25/22 11:28) Medication List - Last Reconciled 07/21/23 by Sumit Daneils MD alirocumab 150 mg subcut Q14D allopurinol 300 mg PO DAILY amlodipine 10 mg PO DAILY apixaban 5 mg PO BID atorvastatin 80 mg PO DAILY bupropion HCl SR 200 mg PO BID cholecalciferol (vitamin D3) 50 mcg PO QAM dicyclomine 20 mg PO TID PRN dronedarone (Multaq) 400 mg PO BID 90 days dulaglutide (Trulicity) mg subcut empagliflozin (Jardiance) 10 mg PO DAILY ezetimibe 10 mg PO DAILY fluticasone propionate 110 mcg/actuation inhalation gabapentin 100 mg PO BEDTIME insulin aspart U-100 20 units subcut lisinopril 20 mg PO DAILY meclizine 25 mg PO BID PRN metformin 1,000 mg PO BID metoprolol tartrate 50 mg PO TID 90 days pantoprazole 40 mg PO DAILY HPI Comments Details: 63-year-old gentleman with paroxysmal atrial flutter with variable block who is here for follow-up. He is status post cardioversion and has been on Multaq. He has been doing well. Repeat electrocardiogram in office has shown sinus rhythm. Tolerating medications well no bleeding issues. 11/25/2022: He returns for follow-up. He has been taking medications regularly. No bleeding issues. No palpitations. Denying chest discomfort shortness of breath. Taking medications regularly. He is currently taking alirocumab, atorvastatin and ezetimibe. His LDL cholesterol in February was 110. 07/21/23: He returns for follow-up. Lipid panel from 01/11/2023 showed total cholesterol 141, LDL 85, HDL 49 and triglycerides 37. He is taking Elavil, map 150 mg every 2 weeks. He is also on atorvastatin 80 mg daily and Zetia. Blood pressure is elevated in the office today. Repeat manual blood pressure is 140/80. He has been taking medications regularly but recently was started on Trulicity and had a lot of GI upset including vomiting episodes. He is saying that he has held Trulicity this week and is feeling little better. [facility] Medical History (Updated 07/21/23 @ 13:38 by Sumit Daniels MD) History of cardioversion History of COVID-19 COVID-19 vaccine series completed Elevated cholesterol HTN (hypertension) Asthma COPD (chronic obstructive pulmonary disease) LUIS ALFREDO (obstructive sleep apnea) CAD (coronary artery disease) Surgical History H/O cardiac catheterization History of cataract surgery H/O: vasectomy Family History Father HTN (hypertension) Diabetes Mother HTN (hypertension) Diabetes CVD (cardiovascular disease) Social History Household Members: Family Housing: Apartment Alcohol intake: never Patient Tobacco Use Status: Never used Tobacco Review of Systems Const Denies chills, Denies fatigue, Denies fever(s), Denies frequent falls, Denies weakness, Denies weight gain and Denies weight loss ENT Denies dizziness Card Denies chest pain, Denies leg edema, Denies lightheadedness, Denies pa lpitations, Denies dyspnea and Denies dyspnea on exertion Resp Denies cough, Denies dyspnea and Denies dyspnea on exertion GI Denies hematochezia Musc Denies abnormal gait, Denies muscle weakness, Denies numbness, Denies radiating pain into limb and Denies tingling Neuro Denies abnormal gait, Denies dizziness, Denies frequent falls, Denies numbness, Denies tingling and Denies weakness Endo Denies fatigue and Denies palpitations Physical Exam Vital Signs: BMI result Body Mass Index 30.6 GENERAL APPEARANCE: in no acute distress, pleasant. NECK: no carotid bruit, no jugular venous distention. SKIN: no suspicious lesions, warm and dry. HEART: no murmurs, regular rate and rhythm. LUNGS: clear to auscultation bilaterally. ABDOMEN: soft, nontender. EXTREMITIES: no edema. PERIPHERAL PULSES: equal. NEUROLOGIC: No gross deficits, AAO X 3 Office Procedures EKG Details: Sinus rhythm 68 beats per minute first-degree AV block SC interval 226 milliseconds, normal ECG, QTC 423 milliseconds. [id number], Complete Assessment & Plan Assessment & Plan (1) PAF (paroxysmal atrial fibrillation): Code(s): I48.0 - Paroxysmal atrial fibrillation Category: Medical (2) Familial hyperlipidemia, high LDL: Code(s): E78.49 - Other hyperlipidemia Category: Medical (3) HTN (hypertension): Code(s): I10 - Essential (primary) hypertension Category: Medical Plan Pleasant 63-year-old gentleman who is here for follow-up. He has background history of familiar hyperlipidemia with significantly elevated LDL levels. He has been on atorvastatin, ezetimibe and added documented. Stable from atrial fibrillation point of view on Multaq and apixaban. No bleeding concerns. Blood pressure is elevated. I have advised him to increase the lisinopril to 20 mg twice a day. I will send a new script for him. He will see us back in few months. Thank you for allowing me to participate in the care of your patient. Please feel free to contact me if you have any questions. Coding Level of Care Code Est Pt Level 4 (19011) Diagnoses PAF (paroxysmal atrial fibrillation) I48.0 Familial hyperlipidemia, high LDL E78.49 HTN (hypertension) I10 CPT Codes EKG - CPT: 69281-[id number], Complete ([id number])
== END 2023-07-21 13:39 | disposition home or self-care (01) ==
PROVIDERS: PCP Internal Medicine Geriatric Medicine; Visit Provider Internal Medicine Cardiovascular Disease
DX: I48.0 Paroxysmal atrial fibrillation (principal); E78.49 Other hyperlipidemia; I10 Essential (primary) hypertension
CPT/HCPCS: 93010; 99214

== ENCOUNTER → 2023-07-21 12:59 | Outpatient (BNVA) | payer MEDICARE, MEDICAID, SELFPAY | PROVIDERS: PCP Internal Medicine Geriatric Medicine; Visit Provider Internal Medicine Cardiovascular Disease | DX: I48.0 Paroxysmal atrial fibrillation (principal); I10 Essential (primary) hypertension; E78.49 Other hyperlipidemia | CPT/HCPCS: 93005; 99212 ==

== ENCOUNTER 2023-12-07 16:25 | Inpatient (IN) | payer OTHER, SELFPAY ==
--- NOTE | 2023-12-07 | ECG_ITS ---
Test Reason : afib Blood Pressure : / mmHG Vent. Rate : 169 BPM Atrial Rate : 000 BPM P-R Int : 000 ms QRS Dur : 076 ms QT Int : 278 ms P-R-T Axes : 000 002 098 degrees QTc Int : 466 ms Atrial fibrillation with rapid ventricular response Abnormal ECG When compared with ECG of 05-NOV-2021 13:20, Atrial fibrillation has replaced Sinus rhythm Vent. rate has increased BY 83 BPM Referred By: Shannon Rios Electronically Signed By:MARSHA STONE
--- NOTE | ~2023-12-07 | XR_ITS ---
EXAMINATION: XR CHEST CLINICAL INFORMATION: Rapid atrial fibrillation. COMPARISON: Chest radiograph 11/06/2021. TECHNIQUE: Frontal view of the chest was obtained. FINDINGS: Normal appearance of the cardiomediastinal silhouette. No focal consolidation, pleural effusion or pneumothorax. No acute osseous findings. Visualized upper abdomen is within normal limits. XR/XR chest 1V IMPRESSION: No acute cardiopulmonary findings. Electronically signed by: Simin De Jesus MD 12/07/2023 05:46 PM EDT
[2023-12-07 16:37] VITALS: BP 142/85; BP 146/98; PULSE 170; PULSE 76; RESP 20; O2SAT 94; O2SAT 96; BMI 34.4
[2023-12-07 16:42] VITALS: BP 142/85; PULSE 174; RESP 20; TEMP 37.5; O2SAT 98
--- NOTE | 2023-12-07 16:43 | ED.ARRPALP ---
HPI - Arrhythmia/Palpitations General Chief Complaint: Arrhythmia/Palpitations Stated Complaint: RAPID HEARTRATE Time Seen by Provider: 12/07/23 16:36 Source: patient, family, EMS and endocrinology nurse Mode of arrival: EMS Limitations: no limitations History of Present Illness ED Provider: DR. Rios HPI narrative: 63-year-old male history of paroxysmal AFib on metoprolol and Eliquis s/p cardioversion in the past has been on multaq, went to see his PCP for palpitation and chest pain found to be in rapid atrial fibrillation patient was referred to our Emergency Department for further management on arrival patient found to be in rapid atrial fibrillation at 170 beats per minutes patient has no chest pain, do not feel palpitation, no shortness of breath, no fever, no chills, has been taking his medication as prescribed. Related Data Home Medications ?Medication ?Instructions ?Recorded ?Confirmed allopurinol 300 mg tablet 300 mg PO DAILY 02/14/20 07/21/23 amlodipine 10 mg tablet 10 mg PO DAILY 02/14/20 07/21/23 apixaban 5 mg tablet 5 mg PO BID 02/14/20 07/21/23 atorvastatin 80 mg tablet 80 mg PO DAILY 02/14/20 07/21/23 bupropion HCl 200 mg tablet,12 hr 200 mg PO BID 02/14/20 07/21/23 sustained-release cholecalciferol (vitamin D3) 50 50 mcg PO QAM 02/14/20 07/21/23 mcg (2,000 unit) capsule ezetimibe 10 mg tablet 10 mg PO DAILY 02/14/20 07/21/23 fluticasone propionate 110 inhalation 02/14/20 07/21/23 mcg/actuation HFA aerosol inhaler gabapentin 100 mg capsule 100 mg PO BEDTIME 02/14/20 07/21/23 insulin aspart U-100 100 unit/mL 20 unit subcut 02/14/20 07/21/23 (3 mL) subcutaneous pen lisinopril 20 mg tablet 20 mg PO DAILY 02/14/20 07/21/23 metformin 1,000 mg tablet 1,000 mg PO BID 02/14/20 07/21/23 pantoprazole 40 mg tablet,delayed 40 mg PO DAILY 02/14/20 07/21/23 release dulaglutide 3 mg/0.5 mL mg subcut 03/12/22 07/21/23 subcutaneous pen injector (Trulicity) empagliflozin 10 mg tablet 10 mg PO DAILY 03/12/22 07/21/23 (Jardiance) Previous Rx's ?Medication ?Instructions ?Recorded dicyclomine 20 mg tablet 20 mg PO TID PRN abdominal 09/01/21 discomfort #20 tabs meclizine 25 mg tablet 25 mg PO BID PRN dizziness #14 tabs 11/05/21 alirocumab 150 mg/mL subcutaneous 150 mg subcut Q14D #2 mL 03/23/22 pen injector dronedarone 400 mg tablet (Multaq) 400 mg PO BID 90 days #180 tabs 03/23/23 metoprolol tartrate 50 mg tablet 50 mg PO TID 90 days #270 tabs 09/13/23 Allergies Allergy/AdvReac Type Severity Reaction Status Date / Time No Known Allergies Allergy Verified 12/07/23 16:41 [No Known Allergies*] Review of Systems Review of Systems: All other systems are reviewed and are negative Constitutional: Reports as per HPI and Reports no additional constitutional complaints Eyes: Reports as per HPI and Reports no additional eye complaints Reports system reviewed and no additional complaints, except as documented Cardiovascular: Reports as per HPI and Reports no additional cardiovascular complaints Respiratory: Reports as per HPI and Reports no additional respiratory complaints Gastrointestinal: Reports as per HPI and Reports no additional gastrointestinal complaints Genitourinary: Reports no additional female genitourinary complaints Musculoskeletal: Reports no additional musculoskeletal complaints Skin/Breast: Reports system reviewed and no additional complaints, except as docu Psychiatric: Reports no additional psychiatric complaints Endocrine: Reports no additional endocrine complaints Hematologic/Lymphatic: Reports no additional hematologic/lymphatic complaints Allergic/Immunologic: Reports no additional allergic/immunologic complaints Reports system reviewed and no additional complaints, except as documented and Reports Abnormal speech present FOR[facility], [facility] Past Medical History Medical History History of cardioversion History of COVID-19 COVID-19 vaccine series completed Elevated cholesterol HTN (hypertension) Asthma COPD (chronic obstructive pulmonary disease) LUIS ALFREDO (obstructive sleep apnea) CAD (coronary artery disease) Surgical History H/O cardiac catheterization History of cataract surgery H/O: vasectomy Family History Family History Father HTN (hypertension) Diabetes Mother HTN (hypertension) Diabetes CVD (cardiovascular disease) Social History Social History Household Members: Family Housing: Apartment Alcohol intake: never Patient Tobacco Use Status: Never used Tobacco Smoked in Last 30 Days: No Use of substances other than those prescribed or required for medical reasons: No Advance Directives: No Advance Directives Information Provided: No Do you have a plan to hurt others: No Plan Physical Exam Vital Signs: Vital Signs: Last Vital Signs Temp 99.5 F 12/07/23 16:42 Pulse 139 H 12/07/23 18:34 Resp 13 12/07/23 18:34 BP 119/85 12/07/23 18:34 Pulse Ox 96 12/07/23 18:34 O2 Del Method Room Air 12/07/23 18:34 BMI result Body Mass Index 34.4 Vital signs have been reviewed and appear to be correct. Blood pressure elevated. Heart rate elevated. Respiratory rate normal. Temperature normal. Oxygen saturation normal. Appearance: Alert. Oriented X3. No acute distress. Head: Normal external exam. Normocephalic. Atraumatic. No Saldivar signs noted. No raccoon eyes noted Eyes: PERRLA. EOMI. Conjunctiva and sclera normal. Eyelids normal. ENT: TM's Normal. Pharynx normal. Uvula midline. Moist mucous membranes. No trismus noted. No drooling noted. No muffled voice noted. Neck: Normal inspection. Neck supple. FROM. No adenopathy. Thyroid Normal. No meningeal signs. No neck mass noted. CVS: Rapid and irregular, Heart sound normal. No murmurs noted. Pulses normal throughout. Respiratory: No respiratory distress. Painless inspiration. Breath sounds normal. No wheezes/rales/rhonchi noted. Chest nontender. No accessory muscle usage noted or decreased air movement noted. Abdomen: Soft and nontender. Bowel sounds normal in all 4 quadrants. No distention noted. No organomegaly noted. No visible injury noted. Back: No CVA tenderness. Full range of motion noted. Skin: Skin warm and dry. Normal skin color. Normal skin turgor. No rashes/lesions/lacerations noted. Extremities: No lower extremity edema. Extremities exhibit normal range of motion. Extremities nontender. Neuro: Oriented X 3. Cranial nerve exam: II-XII are grossly intact No motor deficit. No sensory deficit. Reflexes normal. Course Reevaluation(s) Reevaluation #1: Unremarkable labs, COVID positive, history of cardioversion, patient received IV metoprolol and digoxin and regular dose of his Multaq heart rate went from 170s to 120s, patient is asymptomatic now, no chest pain, no shortness of breath, will admit for further cardiology evaluation. Time: 19:30 Medications Administered Discontinued Medications Generic Name Dose Route Start Last Admin Trade Name Freq PRN Reason Stop Dose Admin Aspirin 162 mg 12/07/23 16:36 12/07/23 16:56 Aspirin Enteric Coated 81 Mg Tablet.Dr BUITRAGO 12/07/23 16:37 Not Given ONCE ONE Digoxin 0.25 mg 12/07/23 16:36 12/07/23 16:54 Digoxin 0.5 Mg/2 Ml Ampul IVPUSH 12/07/23 16:37 0.25 mg ONCE ONE Administration Protocol Metoprolol Tartrate 5 mg 12/07/23 16:36 12/07/23 16:52 Metoprolol Tartrate 5 Mg/5 Ml Vial IVPUSH 12/07/23 16:37 5 mg ONCE ONE Administration Protocol Metoprolol Tartrate 5 mg 12/07/23 18:06 12/07/23 18:35 Metoprolol Tartrate 5 Mg/5 Ml Vial IVPUSH 12/07/23 18:07 5 mg ONCE ONE Administration Protocol Medical Decision Making Differential Diagnosis Differential Diagnoses: The differential diagnosis associated with the presentation includes (Paroxysmal rapid atrial fibrillation, ACS, CHF, pneumonia, pneumothorax, viral infection, electrolyte derangement, severe anemia.) Admission/Observation Consideration of admission/observation: Escalation of care including admission/observation considered Consult Healthcare Provider Management of the patient was discussed with: Hospitalist (Dr. Iglesias) Lab Data MDM Lab Attestation statement: I reviewed the patient's lab results. 12/07/23 16:47 12/07/23 16:47 Labs: Lab Results 12/07/23 Range/Units 16:47 WBC 11.0 H (4.8-10.8) X10*3/uL RBC 5.30 (4.60-5.80) X10*6/uL Hgb 14.7 (14.0-18.0) g/dl Hct 45.8 (42.0-52.0) % MCV 86.4 (80.0-98.0) fL MCH 27.7 (27.0-33.0) pg MCHC 32.1 (31.0-36.0) g/dl RDW 13.0 (11.0-16.0) % Plt Count 259 D (160-400) X10*3/uL MPV 10.0 (9.4-12.4) fL Immature Gran % (Auto) 0.5 H (0.0-0.4) % Neut % (Auto) 80.8 H (45-73) % Lymph % (Auto) 6.5 L (20-40) % Mayes % (Auto) 11.2 H (2-11) % Eos % (Auto) 0.5 (0-4) % Baso % (Auto) 0.5 (0-2) % Lymph # (Auto) 0.7 L (1.2-4.9) X10*3/uL Mayes # (Auto) 1.2 (0.1-1.2) X10*3/uL Eos # (Auto) 0.1 (0.0-0.4) X10*3/uL Baso # (Auto) 0.1 (0.0-0.2) X10*3/uL Abs Immat Gran (auto) 0.05 H (0.00-0.03) X10*3/uL Absolute Neuts (auto) 8.9 H (2.0-8.3) x10*3/uL Absolute Nucleated RBC 0.000 (0.0-0.012) X10*3/uL Nucleated RBC % (auto) 0.0 (0.0-0.2) /100WBC Hold Blue Top SEE NOTE Sodium 141 (135-145) mmol/L Potassium 4.6 (3.3-5.1) mmol/L Chloride 107 (96-108) mmol/L Carbon Dioxide 21 L (22-29) mmol/L Anion Gap 18 (12-20) BUN 25 H (9-16) mg/dL Creatinine 1.92 H (0.5-1.4) mg/dL Estim Creat Clear Calc 51.5 Estimated GFR 36 Random Glucose 174 H (60-115) mg/dL Calcium 10.0 (8.4-10.2) mg/dL Total Bilirubin 1.0 (0.0-1.0) mg/dL Direct Bilirubin 0.3 (0.0-0.5) mg/dL AST 18 (5-37) U/L ALT 25 (0-40) U/L Alkaline Phosphatase 75 (39-117) U/L Troponin I High Sens 22.4 (<3.5-35.0) ng/L B-Natriuretic Peptide 206 H (<100) pg/mL Total Protein 7.3 (6.5-8.0) g/dL Albumin 4.1 (3.5-5.0) g/dL Lipase 15 (8-78) U/L Influenza Type A (PCR) NEGATIVE (Negative) Influenza Type B (PCR) NEGATIVE (Negative) RSV RNA Qual (PCR) NEGATIVE (Negative) SARS-CoV-2 RNA (RT-PCR) POSITIVE A (Negative) Independent Interpretation I performed an independent interpretation of an: Plain X-Ray (: No acute cardiopulmonary findings.) Radiology Impression Discussion of test interpretation with radiology: I have reviewed the radiologist's reading. Chronic Conditions Patient?s care impacted by: Hypertension and Other (Paroxysmal atrial fibrillation) Discharge Plan Discharge Clinical Impression: Atrial fibrillation with RVR, SARS-CoV-2 positive Patient Disposition: Admitted As Inpatient Prescriptions: No Action alirocumab 150 mg/mL pen injector 150 mg subcut Q14D Qty: 2 5RF Multaq 400 mg tablet 400 mg PO BID 90 Days Qty: 180 3RF Rx Instructions: Appt 2022 at 230pm. metoprolol tartrate 50 mg tablet 50 mg PO TID 90 Days Qty: 270 3RF dicyclomine 20 mg tablet 20 mg PO TID PRN (Reason: abdominal discomfort) Qty: 20 0RF meclizine 25 mg tablet 25 mg PO BID PRN (Reason: dizziness) Qty: 14 0RF bupropion HCl 200 mg tablet sustained-release 12 hr 200 mg PO BID gabapentin 100 mg capsule 100 mg PO BEDTIME lisinopril 20 mg tablet 20 mg PO DAILY pantoprazole 40 mg tablet,delayed release (DR/EC) 40 mg PO DAILY amlodipine 10 mg tablet 10 mg PO DAILY Eliquis 5 mg tablet 5 mg PO BID ezetimibe 10 mg tablet 10 mg PO DAILY allopurinol 300 mg tablet 300 mg PO DAILY metformin 1,000 mg tablet 1,000 mg PO BID atorvastatin 80 mg tablet 80 mg PO DAILY cholecalciferol (vitamin D3) 50 mcg (2,000 unit) capsule 50 mcg PO QAM Flovent HFA 110 mcg/actuation HFA aerosol inhaler inhalation insulin aspart U-100 100 unit/mL (3 mL) insulin pen 20 unit subcut Trulicity 3 mg/0.5 mL pen injector subcut Jardiance 10 mg tablet 10 mg PO DAILY Print Language: Bulgarian
[2023-12-07] MEDS: Metoprolol Tartrate 5 MG/5 ML VIAL IVPUSH ×2 (16:52→18:35)
[2023-12-07 16:54] LABS: MANUAL DIFF FLAG NO
[2023-12-07] MEDS: Digoxin 0.5 MG/2 ML AMPUL 0.25 MG IVPUSH (16:54)
--- NOTE | 2023-12-07 16:57 | PC.NURSE ---
Pt comes to ED today via EMS from [facility] where he was being seen for c/o chest pain. Per EMS, Pt with rapid Afib noted on EKG at [facility] therefore transported to ED. Pt is A&OX3 Speech and breaths are slow even and unlabored. No diaphoresis at this time. HR initially 168-174, BP stable. Pt arrived with 2L O2 but is now sating at 99% RA without difficulty. Pt denies chest pain now, but reports feeling SOB. 20g to LAC and Pt medicated per APR. CXR completed and lab results pending. Pt is resting comfortably on stretcher with at bedside.
[2023-12-07 17:00] LABS: Basophils Absolute Auto 0.1 X10*3/uL (0.0-0.2); Basophils Percent Auto 0.5 % (0-2); Eosinophils Absolute Auto 0.1 X10*3/uL (0.0-0.4); Eosinophils Percent Auto 0.5 % (0-4); Hematocrit 45.8 % (42.0-52.0); Hemoglobin 14.7 g/dl (14.0-18.0); Imm Gran Abs Auto 0.05 X10*3/uL (0.00-0.03); Imm Gran Pct Auto 0.5 % (0.0-0.4); Lymphocytes Absolute Auto 0.7 X10*3/uL (1.2-4.9); Lymphocytes Percent Auto 6.5 % (20-40); Mean Corpuscular HGB Conc 32.1 g/dl (31.0-36.0); Mean Corpuscular Hemoglobin 27.7 pg (27.0-33.0); Mean Corpuscular Volume 86.4 fL (80.0-98.0); Monocytes Absolute Auto 1.2 X10*3/uL (0.1-1.2); Monocytes Percent Auto 11.2 % (2-11); Neutrophils Absolute Auto 8.9 x10*3/uL (2.0-8.3); Neutrophils Percent Auto 80.8 % (45-73); Platelet Count 259 X10*3/uL (160-400)
[2023-12-07 17:01] VITALS: BP 124/82; PULSE 143; O2SAT 96
[2023-12-07 17:22] LABS: Alanine Aminotransferase 25 U/L (0-40); Albumin Level 4.1 g/dL (3.5-5.0); Alkaline Phosphatase 75 U/L (39-117); Anion Gap 18 (12-20); Aspartate Amino Transferase 18 U/L (5-37); Bilirubin Direct 0.3 mg/dL (0.0-0.5); Blood Urea Nitrogen 25 mg/dL (9-16); Carbon Dioxide 21 mmol/L (22-29); Chloride 107 mmol/L (96-108); Creatinine Clr Calc Pharmacy 51.5; Estimated Glomerular Filt Rate 36; Glucose Random 174 mg/dL (60-115); Lipase 15 U/L (8-78); Potassium 4.6 mmol/L (3.3-5.1); Sodium 141 mmol/L (135-145); Total Protein 7.3 g/dL (6.5-8.0)
[2023-12-07 17:25] LABS: B Type Natriuretic Peptide 206 pg/mL (<100)
[2023-12-07 17:29] LABS: Troponin-I High Sensitivity 22.4 ng/L (<3.5-35.0)
[2023-12-07 17:50] LABS: Influenza A PCR NEGATIVE (Negative); Influenza B PCR NEGATIVE (Negative); Resp Syncy Virus RNA Qual PCR NEGATIVE (Negative); SARS COV2 PCR INHOUSE POSITIVE (Negative)
[2023-12-07 18:34] VITALS: BP 119/85; PULSE 139; RESP 13; O2SAT 96
[2023-12-07] MEDS: Dronedarone HCl 400 MG TABLET PO (20:40)
--- NOTE | 2023-12-07 20:40 | PC.NURSE ---
cecilio received from pharmacy at this time and administered per MAR
--- NOTE | 2023-12-07 20:41 | PHA.MEDREC ---
Pharmacy Consult ? Medication Reconciliation Pharmacy has completed the medication reconciliation. Flight Director services used; spoke to patient and at bedside. Noted that they get his medications blister packed from [facility]. They had a medication list on them that matched claim history. Noted he takes his Trulicity on Tuesdays and his 10 units of Lantus in the morning. They noted he has been sick for a few days and has not taken any oral medications.
[2023-12-07 21:55] VITALS: BP 121/70; PULSE 130; RESP 23; TEMP 37.3; O2SAT 98
[2023-12-07 22:29] VITALS: BP 146/83; PULSE 137
[2023-12-07] MEDS: Metoprolol Tartrate 50 MG TABLET PO (22:29)
[2023-12-07] MEDS: Acetaminophen 325 MG TABLET 975 MG PO (22:29)
[2023-12-07] MEDS: Apixaban 5 MG TABLET PO (22:29)
--- NOTE | 2023-12-07 22:57 | P.HPHOSP_ITS ---
History of Present Illness Date of Service: 12/07/23 Attending physician on admission: Yolanda Arguello Chief Complaint: Palpitations Pt is a 63-year-old male with a PMH significant for?paroxysmal AFib on Eliquis s/p cardioversion on 11/27/2020, HTN, HLD, insulin-dependent type 2 diabetes, gout, LUIS ALFREDO on CPAP, and GERD who presents to the ED from [facility] for evaluation palpitations and rapid heart rate. Patient reports yesterday developed persistent nonproductive cough, SOB, chills, myalgias, fatigue, and chest tightness and pleuritic chest pain associated with cough and deep breathing. Symptoms persisted today and patient presented to clinic for evaluation where EKG was taken and found him to be in AFib with RVR. Patient was then sent to the ED for further evaluation. Patient denies palpitations. No nausea, vomiting, abdominal pain. Patient notes he was also asymptomatic without palpitations that during previous episode of AFib with RVR prior to cardioversion. Reports compliance with home medications. ? In the ED pt was tachycardic up to 174, tachypneic up to 23, and mildly hypertensive up to 146/83. Labs were significant for testing positive for COVID, creatinine 1.92 (elevated from 1.58), POC 387, and BNP 206. No significant electrolyte abnormalities. Stable H&H. Initial troponin WNL at 22.4. CXR showed no acute cardiopulmonary finding. EKG demonstrated AFib with RVR of 169. Pt was treated with metoprolol 5 mg IV x2 and 50 mg p.o., digoxin 0.25 mg IV, Multaq, acetaminophen, and Eliquis. Pt will be admitted to the hospital for treatment and further evaluation of AFib with RVR in the setting of acute COVID infection. Review of Systems 2 Review of Systems: Yes all other systems are reviewed and are negative [facility] Medical History History of cardioversion History of COVID-19 COVID-19 vaccine series completed Elevated cholesterol HTN (hypertension) Asthma COPD (chronic obstructive pulmonary disease) LUIS ALFREDO (obstructive sleep apnea) CAD (coronary artery disease) Family History Father HTN (hypertension) Diabetes Mother HTN (hypertension) Diabetes CVD (cardiovascular disease) Surgical History H/O cardiac catheterization History of cataract surgery H/O: vasectomy Social History Household Members: Family Housing: Apartment Alcohol intake: never Patient Tobacco Use Status: Never used Tobacco Meds Allergies Allergy/AdvReac Type Severity Reaction Status Date / Time No Known Allergies Allergy Verified 12/07/23 16:41 [No Known Allergies*] Active Medications: Current Medications Acetaminophen (Acetaminophen 325 Mg Tablet) 975 mg PO Q6H PRN PRN Reason: Pain, Mild (Pain Scale 1-3), fever or headache Last Admin: 12/07/23 22:29 Dose: 975 mg Allopurinol (Allopurinol 300 Mg Tablet) 300 mg PO DAILY [facility] Amlodipine Besylate (Amlodipine Besylate 10 Mg Tablet) 10 mg PO BEDTIME PIPO; Protocol Apixaban (Apixaban 5 Mg Tablet) 5 mg PO BID PIPO Last Admin: 12/07/23 22:29 Dose: 5 mg Ascorbic Acid (Ascorbic Acid 500 Mg Tablet) 500 mg PO DAILY [facility] Atorvastatin Calcium (Atorvastatin Calcium 80 Mg Tablet) 80 mg PO DAILY PIP[facility] Bupropion HCl (Bupropion Hcl Xl 150 Mg Tab.Er.24h) 450 mg PO DAILY PIPO Dronedarone (Dronedarone Hcl 400 Mg Tablet) 400 mg PO BID PIPO Ezetimibe (Ezetimibe 10 Mg Tablet) 10 mg PO BEDTIME PIPO Empagliflozin (Empagliflozin 25 Mg Tablet) 25 mg PO DAILY PIPO Folic Acid (Folic Acid 1 Mg Tablet) 1 mg PO DAILY PIPO Gabapentin (Gabapentin 100 Mg Capsule) 100 mg PO BEDTIME PIPO Glucose (Glucose Gel 15 Gm Gel..Gram.) 15 gm PO Q15M PRN; Protocol PRN Reason: per Hypoglycemia Standing Ord. Dextrose (D10) 250 mls @ 750 mls/hr IV Q15M PRN; Protocol PRN Reason: per Hypoglycemia Standing Ord. Insulin Glargine (Insulin Glargine,Hum.Rec.Anlog 100 Unit/Ml 10 Ml Vial) 10 unit SUBCUT DAILY PIPO Insulin Human Lispro (Insulin Lispro 100 Unit/Ml 3 Ml Vial) 0 unit SUBCUT QIDACHS PIPO; Protocol Losartan Potassium (Losartan Potassium 50 Mg Tablet) 100 mg PO DAILY [facility]; Protocol Metoprolol Tartrate (Metoprolol Tartrate 50 Mg Tablet) 50 mg PO TID [facility]; Protocol Last Admin: 12/07/23 22:29 Dose: 50 mg Multivitamins/Vitamin C (Multivitamin Tablet) 1 tab PO DAILY [facility] Omeprazole (Omeprazole 20 Mg Capsule.Dr) 20 mg PO DAILY@0630 [facility] Sodium Chloride (0.9 % Sodium Chloride Flush 3 Ml Syringe) 3 ml IVFLUSH QSHIFT [facility] Vitamin D (Cholecalciferol (Vitamin D3) 25 Mcg Tablet) 25 mcg PO DAILY [facility] Home Medications ?Medication ?Instructions ?Recorded ?Confirmed ?Last Taken ?Type albuterol sulfate 90 mcg/actuation 2 puff inhalation Q6H PRN Wheezing 12/07/23 12/07/23 Unknown History aerosol inhaler allopurinol 300 mg tablet 300 mg PO DAILY 12/07/23 12/07/23 Unknown History amlodipine 10 mg tablet 10 mg PO BEDTIME 12/07/23 12/07/23 Unknown History apixaban 5 mg tablet (Eliquis) 5 mg PO BID 12/07/23 12/07/23 Unknown History ascorbic acid (vitamin C) 500 mg 500 mg PO DAILY 12/07/23 12/07/23 Unknown History tablet (Vitamin C) atorvastatin 80 mg tablet 80 mg PO DAILY 12/07/23 12/07/23 Unknown History bupropion HCl 200 mg tablet,12 hr 200 mg PO BID 12/07/23 12/07/23 Unknown History sustained-release cholecalciferol (vitamin D3) 25 25 mcg PO DAILY 12/07/23 12/07/23 Unknown History mcg (1,000 unit) capsule (Vitamin D3) dronedarone 400 mg tablet (Multaq) 400 mg PO BID 12/07/23 12/07/23 Unknown History dulaglutide 1.5 mg/0.5 mL 1.5 mg subcut TU 12/07/23 12/07/23 Unknown History subcutaneous pen injector (Trulicity) empagliflozin 25 mg tablet 25 mg PO DAILY 12/07/23 12/07/23 Unknown History (Jardiance) ezetimibe 10 mg tablet 10 mg PO BEDTIME 12/07/23 12/07/23 Unknown History fluticasone propionate 230 2 puff inhalation BID 12/07/23 12/07/23 Unknown History mcg-salmeterol 21 mcg/actuation HFA inhaler (Advair HFA) fluticasone propionate 50 2 spray intranasal DAILY 12/07/23 12/07/23 Unknown History mcg/actuation nasal spray,suspension folic acid 1 mg tablet 1 mg PO DAILY 12/07/23 12/07/23 Unknown History gabapentin 100 mg capsule 100 mg PO BEDTIME 12/07/23 12/07/23 Unknown History hydrochlorothiazide 12.5 mg tablet 12.5 mg PO DAILY 12/07/23 12/07/23 Unknown History insulin glargine 100 unit/mL (3 10 unit subcut DAILY 12/07/23 12/07/23 Unknown History mL) subcutaneous pen (Lantus Solostar U-100 Insulin) losartan 100 mg tablet 100 mg PO DAILY 12/07/23 12/07/23 Unknown History metformin 1,000 mg tablet 1,000 mg PO BID 12/07/23 12/07/23 Unknown History metoprolol tartrate 50 mg tablet 50 mg PO TID 12/07/23 12/07/23 Unknown History multivitamin 1 tab PO DAILY 12/07/23 12/07/23 Unknown History pantoprazole 40 mg tablet,delayed 40 mg PO DAILY@0630 12/07/23 12/07/23 Unknown History release Physical Exam 2 Vital Signs and Narrative: Vital Signs: Last Vital Signs Temp 99.1 F 12/07/23 21:55 Pulse 137 H 12/07/23 22:29 Resp 23 H 12/07/23 21:55 BP 146/83 H 12/07/23 22:29 Pulse Ox 98 12/07/23 21:55 O2 Del Method Room Air 12/07/23 21:55 BMI result Body Mass Index 34.4 General: AOx3, no acute distress Resp: CTA bilaterally. CVS: Irregularly irregular rhythm, tachycardic GI: +BS, NT, no distention Skin: Warm, dry Neuro: Cranial nerves II-XII grossly intact bilaterally. Motor grossly intact bilaterally Extremities: No edema Psych: Appropriate affect Results Labs 12/07/23 16:47 12/07/23 16:47 Labs: Laboratory Results - last 24 hr 12/07/23 16:47 MCV 86.4 MCH 27.7 MCHC 32.1 RDW 13.0 Plt Count 259 D MPV 10.0 Immature Gran % (Auto) 0.5 H Neut % (Auto) 80.8 H Lymph % (Auto) 6.5 L [place] % (Auto) 11.2 H Eos % (Auto) 0.5 Baso % (Auto) 0.5 Lymph # (Auto) 0.7 L [place] # (Auto) 1.2 Eos # (Auto) 0.1 Baso # (Auto) 0.1 Abs Immat Gran (auto) 0.05 H Absolute Neuts (auto) 8.9 H Absolute Nucleated RBC 0.000 Nucleated RBC % (auto) 0.0 Hold Blue Top SEE NOTE Anion Gap 18 Estim Creat Clear Calc 51.5 Estimated GFR 36 Random Glucose 174 H Calcium 10.0 Total Bilirubin 1.0 Direct Bilirubin 0.3 AST 18 ALT 25 Alkaline Phosphatase 75 Troponin I High Sens 22.4 B-Natriuretic Peptide 206 H Total Protein 7.3 Albumin 4.1 Lipase 15 Influenza Type A (PCR) NEGATIVE Influenza Type B (PCR) NEGATIVE RSV RNA Qual (PCR) NEGATIVE SARS-CoV-2 RNA (RT-PCR) POSITIVE A Imaging Radiologist's Impressions: Impressions Chest X-Ray 12/07/23 16:37 IMPRESSION: No acute cardiopulmonary findings. Electronically signed by: Simin De Jesus MD 12/07/2023 05:46 PM EDT RP Assessment and Plan (1) SARS-CoV-2 positive: Status: Acute (2) Atrial fibrillation with RVR: Status: Acute Plan Pt is a 63-year-old male with a PMH significant for?paroxysmal AFib on Eliquis s/p cardioversion on 11/27/2020, HTN, HLD, insulin-dependent type 2 diabetes, gout, LUIS ALFREDO on CPAP, and GERD who presents to the ED from [facility] for evaluation palpitations and rapid heart rate. Pt will be admitted to the hospital for treatment and further evaluation of AFib with RVR in the setting of acute COVID infection. AFib with RVR Patient with elevated HR as high as 170s Likely in the setting of COVID infection S/P cardioversion in 11/2020 Given metoprolol 5 mg IV x2 and digoxin 0.25 mg IV in the ED Continue Eliquis, metoprolol, Multaq Cardiology consult Will defer echocardiogram pending Cardiology consult Monitor on telemetry Acute COVID infection Pt with cough, fatigue, myalgias, pleuritic chest pain x2 days No sepsis: tachycardi secondary to AFib; no clear bacterial source, no indication for abx at this time Treat symptomatically with acetaminophen, guaifenesin Airborne and contact precautions Elevated BNP Mildly elevated at 206 No known history of CHF Clinically patient appears euvolemic Likely in the setting of above Elevated creatinine Creatinine 1.92, elevated from 1.58 on 04/19/2023 MIKE versus worsening CKD3 Will give IVF 500ml bolus Follow kidney function Asthma Not in acute exacerbation Continue home inhalers HLD Continue statin, ezetimibe HTN Continue losartan Hold hydrochlorothiazide given elevated creatinine Insulin-dependent type 2 diabetes Poorly controlled, POC 387 Sliding-scale insulin, Lantus Hold metformin Continue Jardiance Diabetic diet Hx of gout Continue allopurinol GERD Continue PPI Full Code Attending:?Dr. Iglesias DVT Prophylaxis: On Eliquis Pt will require a hospitalization of at least two nights for treatment of?AFib with RVR in the setting of COVID infection that will require close monitoring of cardiac function, close control heart rate, and specialist consultation with Cardiology. Quality Stroke Does the patient have a stroke diagnosis?: No VTE Prior VTE?: No VTE Risk Level:: Medical - moderate - high VTE Device Contraindication: Treatment Not Indicated VTE Drug Contraindication: N/A - Med Ordered
[2023-12-07 23:06] LABS: Glucose, Whole Blood 387 mg/dL (60-115)
[2023-12-07] MEDS: Insulin Lispro 100 UNIT/ML 3 ML VIAL SUBCUT (23:19)
[2023-12-07] MEDS: Lactated Ringers 500 ML 999 ML IV (23:43)
[2023-12-07] MEDS: guaiFENesin DM 200/20/10 ML 10 ML SYRUP PO (23:43)
[2023-12-08] VITALS (9 sets, daily range): BP systolic 133–178; BP diastolic 64–94; PULSE 76–87; RESP 15–20; TEMP 36.7–37.2; O2SAT 96–100; BMI 33.3
[2023-12-08 05:06] LABS: MANUAL DIFF FLAG NO
[2023-12-08 05:09] LABS: Basophils Percent Auto 0.5 % (0-2); Eosinophils Absolute Auto 0.1 X10*3/uL (0.0-0.4); Eosinophils Percent Auto 0.9 % (0-4); Hematocrit 44.2 % (42.0-52.0); Hemoglobin 14.2 g/dl (14.0-18.0); Imm Gran Abs Auto 0.03 X10*3/uL (0.00-0.03); Imm Gran Pct Auto 0.4 % (0.0-0.4); Lymphocytes Absolute Auto 0.7 X10*3/uL (1.2-4.9); Lymphocytes Percent Auto 8.7 % (20-40); Mean Corpuscular HGB Conc 32.1 g/dl (31.0-36.0); Mean Corpuscular Hemoglobin 27.8 pg (27.0-33.0); Mean Corpuscular Volume 86.7 fL (80.0-98.0); Mean Platelet Volume 10.2 fL (9.4-12.4); Monocytes Absolute Auto 1.3 X10*3/uL (0.1-1.2); Monocytes Percent Auto 15.6 % (2-11); Neutrophils Percent Auto 73.9 % (45-73); Platelet Count 218 X10*3/uL (160-400); Red Cell Distribution Width 12.8 % (11.0-16.0); White Blood Count 8.1 X10*3/uL (4.8-10.8)
[2023-12-08 05:24] LABS: Anion Gap 12 (12-20); Blood Urea Nitrogen 30 mg/dL (9-16); Calcium 9.2 mg/dL (8.4-10.2); Carbon Dioxide 23 mmol/L (22-29); Chloride 108 mmol/L (96-108); Estimated Glomerular Filt Rate 38; Glucose Random 182 mg/dL (60-115); Magnesium 2.1 mg/dL (1.6-2.6); Potassium 4.3 mmol/L (3.3-5.1); Sodium 139 mmol/L (135-145)
[2023-12-08] MEDS: Omeprazole 20 MG CAPSULE.DR PO (06:36)
[2023-12-08 08:59] LABS: Glucose, Whole Blood 196 mg/dL (60-115)
[2023-12-08] MEDS: Insulin Glargine,Hum.rec.anlog 100 UNIT/ML 10 ML VIAL 10 UNIT SUBCUT (09:07)
[2023-12-08] MEDS: Insulin Lispro 100 UNIT/ML 3 ML VIAL SUBCUT ×4 (09:08→21:27)
[2023-12-08] MEDS: Cholecalciferol (Vitamin D3) 25 MCG TABLET PO (09:09)
[2023-12-08] MEDS: Apixaban 5 MG TABLET PO ×2 (09:09→21:29)
[2023-12-08] MEDS: Metoprolol Tartrate 50 MG TABLET PO ×3 (09:09→21:29)
[2023-12-08] MEDS: Ascorbic Acid 500 MG TABLET PO (09:09)
[2023-12-08] MEDS: Atorvastatin Calcium 80 MG TABLET PO (09:09)
[2023-12-08] MEDS: Multivitamin TABLET 1 TAB PO (09:10)
[2023-12-08] MEDS: allopurinoL 300 MG TABLET PO (09:10)
[2023-12-08] MEDS: buPROPion HCl XL 150 MG TAB.ER.24H 450 MG PO (09:10)
[2023-12-08] MEDS: Empagliflozin 25 MG TABLET PO (09:13)
[2023-12-08] MEDS: Dronedarone HCl 400 MG TABLET PO ×2 (09:13→21:27)
[2023-12-08] MEDS: 0.9 % Sodium Chloride Flush 3 ML SYRINGE IVFLUSH ×2 (09:15→15:45)
[2023-12-08] MEDS: Folic Acid 1 MG TABLET PO (09:16)
--- NOTE | 2023-12-08 10:06 | PM.CNCAR ---
History of Present Illness History of Present Illness Date of Service: 12/08/23 Chief complaint: Atrial fibrillation with RVR Narrative: This is a cardiology consultation regarding atrial fibrillation. Patient is generally seen by . Last appointment was in June of this year. According to his note, patient has a history of atrial flutter with variable block. Status post cardioversion and he has been on Multaq. Per his note, he was doing well. He was tolerating meds without any issues and EKG had shown sinus rhythm. Currently, he is in the ER. It seems that he has been admitted for palpitations but when I questioned them he states he never had palpitations but he rather had cough and other constitutional symptoms. In this context, he has been diagnosed with COVID but he apparently had atrial fibrillation when he 1st came. Then converted to sinus rhythm. Currently, he states he feels fine. No cardiac symptoms. Review of Systems Review of Systems: Yes all other systems are reviewed and are negative Constitutional: Constitutional: Reports as per HPI and Reports no additional constitutional complaints Eyes: Eyes: Reports as per HPI and Denies no additional eye complaints ENT: Denies system reviewed and no additional complaints, except as documented and Reports as per HPI Cardiovascular: Cardiovascular: Reports as per HPI, Reports no additional cardiovascular complaints, Denies acrocyanosis, Denies cool extremities, Denies chest pain, Denies leg edema, Denies lightheadedness, Denies palpitations and Denies dyspnea Respiratory: Respiratory: Reports as per HPI, Denies no additional respiratory complaints and Denies dyspnea Gastrointestinal: Gastrointestinal: Reports as per HPI and Denies no additional gastrointestinal complaints Genitourinary: Genitourinary: Reports no additional male genitourinary complaints and Reports as per HPI Musculoskeletal: Musculoskeletal: Reports no additional musculoskeletal complaints and Reports as per HPI Integumentary/Breasts: Skin/Breast: Reports system reviewed and no additional complaints, except as docu Neurologic: Reports system reviewed and no additional complaints, except as documented and Reports as per HPI Psychiatric: Psychiatric: Reports no additional psychiatric complaints and Reports as per HPI Endocrine: Endocrine: Reports no additional endocrine complaints, Reports as per HPI and Denies palpitations Hematologic/Lymphatic: Hematologic/Lymphatic: Reports no additional hematologic/lymphatic complaints and Reports as per HPI Allergic/Immunologic: Allergic/Immunologic: Reports no additional allergic/immunologic complaints and Reports as per HPI PMF Past Medical History Medical History History of cardioversion History of COVID-19 COVID-19 vaccine series completed Elevated cholesterol HTN (hypertension) Asthma COPD (chronic obstructive pulmonary disease) LUIS ALFREDO (obstructive sleep apnea) CAD (coronary artery disease) Family History Family History Father HTN (hypertension) Diabetes Mother HTN (hypertension) Diabetes CVD (cardiovascular disease) Surgical History Surgical History H/O cardiac catheterization History of cataract surgery H/O: vasectomy Social History Social History Household Members: Family Housing: Apartment Alcohol intake: never Patient Tobacco Use Status: Never used Tobacco Smoked in Last 30 Days: No Use of substances other than those prescribed or required for medical reasons: No Advance Directives: No Advance Directives Information Provided: No Do you have a plan to hurt others: No Plan Nutrition Risks: No Nutritional Risk Meds Allergies Allergy/AdvReac Type Severity Reaction Status Date / Time No Known Allergies Allergy Verified 12/07/23 16:41 [No Known Allergies*] Active Medications: Current Medications Acetaminophen (Acetaminophen 325 Mg Tablet) 975 mg PO Q6H PRN PRN Reason: Pain, Mild (Pain Scale 1-3), fever or headache Last Admin: 12/07/23 22:29 Dose: 975 mg Allopurinol (Allopurinol 300 Mg Tablet) 300 mg PO DAILY [facility] Last Admin: 12/08/23 09:10 Dose: 300 mg Amlodipine Besylate (Amlodipine Besylate 10 Mg Tablet) 10 mg PO BEDTIME [facility]; Protocol Apixaban (Apixaban 5 Mg Tablet) 5 mg PO BID [facility] Last Admin: 12/08/23 09:09 Dose: 5 mg Ascorbic Acid (Ascorbic Acid 500 Mg Tablet) 500 mg PO DAILY [facility] Last Admin: 12/08/23 09:09 Dose: 500 mg Atorvastatin Calcium (Atorvastatin Calcium 80 Mg Tablet) 80 mg PO DAILY [facility] Last Admin: 12/08/23 09:09 Dose: 80 mg Bupropion HCl (Bupropion Hcl Xl 150 Mg Tab.Er.24h) 450 mg PO DAILY [facility] Last Admin: 12/08/23 09:10 Dose: 450 mg Dronedarone (Dronedarone Hcl 400 Mg Tablet) 400 mg PO BID [facility] Last Admin: 12/08/23 09:13 Dose: 400 mg Ezetimibe (Ezetimibe 10 Mg Tablet) 10 mg PO BEDTIME [facility] Empagliflozin (Empagliflozin 25 Mg Tablet) 25 mg PO DAILY [facility] Last Admin: 12/08/23 09:13 Dose: 25 mg Folic Acid (Folic Acid 1 Mg Tablet) 1 mg PO DAILY [facility] Last Admin: 12/08/23 09:16 Dose: 1 mg Gabapentin (Gabapentin 100 Mg Capsule) 100 mg PO BEDTIME [facility] Glucose (Glucose Gel 15 Gm Gel..Gram.) 15 gm PO Q15M PRN; Protocol PRN Reason: per Hypoglycemia Standing Ord. Guaifenesin/Dextromethorphan (Guaifenesin Dm 200/20/10 Ml 10 Ml Syrup) 10 ml PO Q4H PRN PRN Reason: Cough Last Admin: 12/07/23 23:43 Dose: 10 ml Dextrose (D10) 250 mls @ 750 mls/hr IV Q15M PRN; Protocol PRN Reason: per Hypoglycemia Standing Ord. Insulin Glargine (Insulin Glargine,Hum.Rec.Anlog 100 Unit/Ml 10 Ml Vial) 10 unit SUBCUT DAILY [facility] Last Admin: 12/08/23 09:07 Dose: 10 unit Insulin Human Lispro (Insulin Lispro 100 Unit/Ml 3 Ml Vial) 0 unit SUBCUT QIDACHS [facility]; Protocol Last Admin: 12/08/23 09:08 Dose: 2 unit Metoprolol Tartrate (Metoprolol Tartrate 50 Mg Tablet) 50 mg PO TID [facility]; Protocol Last Admin: 12/08/23 09:09 Dose: 50 mg Multivitamins/Vitamin C (Multivitamin Tablet) 1 tab PO DAILY [facility] Last Admin: 12/08/23 09:10 Dose: 1 tab Omeprazole (Omeprazole 20 Mg Capsule.Dr) 20 mg PO DAILY@0630 [facility] Last Admin: 12/08/23 06:36 Dose: 20 mg Sodium Chloride (0.9 % Sodium Chloride Flush 3 Ml Syringe) 3 ml IVFLUSH QSHIFT [facility] Last Admin: 12/08/23 09:15 Dose: 3 ml Vitamin D (Cholecalciferol (Vitamin D3) 25 Mcg Tablet) 25 mcg PO DAILY [facility] Last Admin: 12/08/23 09:09 Dose: 25 mcg Home Medications ?Medication ?Instructions ?Recorded ?Confirmed ?Last Taken ?Type albuterol sulfate 90 mcg/actuation 2 puff inhalation Q6H PRN Wheezing 12/07/23 12/07/23 Unknown History aerosol inhaler allopurinol 300 mg tablet 300 mg PO DAILY 12/07/23 12/07/23 Unknown History amlodipine 10 mg tablet 10 mg PO BEDTIME 12/07/23 12/07/23 Unknown History apixaban 5 mg tablet (Eliquis) 5 mg PO BID 12/07/23 12/07/23 Unknown History ascorbic acid (vitamin C) 500 mg 500 mg PO DAILY 12/07/23 12/07/23 Unknown History tablet (Vitamin C) atorvastatin 80 mg tablet 80 mg PO DAILY 12/07/23 12/07/23 Unknown History bupropion HCl 200 mg tablet,12 hr 200 mg PO BID 12/07/23 12/07/23 Unknown History sustained-release cholecalciferol (vitamin D3) 25 25 mcg PO DAILY 12/07/23 12/07/23 Unknown History mcg (1,000 unit) capsule (Vitamin D3) dronedarone 400 mg tablet (Multaq) 400 mg PO BID 12/07/23 12/07/23 Unknown History dulaglutide 1.5 mg/0.5 mL 1.5 mg subcut TU 12/07/23 12/07/23 Unknown History subcutaneous pen injector (Trulicity) empagliflozin 25 mg tablet 25 mg PO DAILY 12/07/23 12/07/23 Unknown History (Jardiance) ezetimibe 10 mg tablet 10 mg PO BEDTIME 12/07/23 12/07/23 Unknown History fluticasone propionate 230 2 puff inhalation BID 12/07/23 12/07/23 Unknown History mcg-salmeterol 21 mcg/actuation HFA inhaler (Advair HFA) fluticasone propionate 50 2 spray intranasal DAILY 12/07/23 12/07/23 Unknown History mcg/actuation nasal spray,suspension folic acid 1 mg tablet 1 mg PO DAILY 12/07/23 12/07/23 Unknown History gabapentin 100 mg capsule 100 mg PO BEDTIME 12/07/23 12/07/23 Unknown History hydrochlorothiazide 12.5 mg tablet 12.5 mg PO DAILY 12/07/23 12/07/23 Unknown History insulin glargine 100 unit/mL (3 10 unit subcut DAILY 12/07/23 12/07/23 Unknown History mL) subcutaneous pen (Lantus Solostar U-100 Insulin) losartan 100 mg tablet 100 mg PO DAILY 12/07/23 12/07/23 Unknown History metformin 1,000 mg tablet 1,000 mg PO BID 12/07/23 12/07/23 Unknown History metoprolol tartrate 50 mg tablet 50 mg PO TID 12/07/23 12/07/23 Unknown History multivitamin 1 tab PO DAILY 12/07/23 12/07/23 Unknown History pantoprazole 40 mg tablet,delayed 40 mg PO DAILY@0630 12/07/23 12/07/23 Unknown History release Physical Exam Vital Signs: Vital Signs: Last Vital Signs Temp 99.1 F 12/07/23 21:55 Pulse 87 12/08/23 09:09 Resp 20 12/08/23 06:04 BP 178/94 H 12/08/23 09:09 Pulse Ox 96 12/08/23 06:04 O2 Del Method Room Air 12/08/23 06:04 BMI result Body Mass Index 34.4 Const: General: comfortable and no acute distress Orientation/consciousness: patient oriented x3 HEENT: Other: Unremarkable Head: Yes normal to inspection Neck: Neck: Yes normal visual inspection Chest: Chest palpation & inspection: normal inspection of the chest Resp: Auscultation: clear to auscultation bilaterally Cardio: Palpation: normal PMI Heart sounds: S1 normal heart sound present, S2 normal heart sound present, no gallops, no murmurs and no rubs GI: Palpation (GI): Soft to palpation Back/Spine/Pelvis: Other: unremarkable Skin: General skin exam: no rashes or lesions noted Neuro: General: patient oriented x3 Extrem: General: Yes normal to inspection Psych: Mental Status: mental status grossly normal Objective Labs and Meds 12/08/23 04:12 12/08/23 04:12 Lab results: Laboratory Results - last 24 hr 12/07/23 12/07/23 12/08/23 16:47 23:02 04:12 WBC 11.0 H 8.1 RBC 5.30 5.10 Hgb 14.7 14.2 Hct 45.8 44.2 MCV 86.4 86.7 MCH 27.7 27.8 MCHC 32.1 32.1 RDW 13.0 12.8 Plt Count 259 D 218 MPV 10.0 10.2 Immature Gran % (Auto) 0.5 H 0.4 Neut % (Auto) 80.8 H 73.9 H Lymph % (Auto) 6.5 L 8.7 L Greene % (Auto) 11.2 H 15.6 H Eos % (Auto) 0.5 0.9 Baso % (Auto) 0.5 0.5 Lymph # (Auto) 0.7 L 0.7 L Greene # (Auto) 1.2 1.3 H Eos # (Auto) 0.1 0.1 Baso # (Auto) 0.1 0.0 Abs Immat Gran (auto) 0.05 H 0.03 Absolute Neuts (auto) 8.9 H 6.0 Absolute Nucleated RBC 0.000 0.000 Nucleated RBC % (auto) 0.0 0.0 Hold Blue Top SEE NOTE Sodium 141 139 Potassium 4.6 4.3 Chloride 107 108 Carbon Dioxide 21 L 23 Anion Gap 18 12 BUN 25 H 30 H Creatinine 1.92 H 1.80 H Estim Creat Clear Calc 51.5 55.0 Estimated GFR 36 38 POC Glucose 387 H* Random Glucose 174 H 182 H Calcium 10.0 9.2 D Magnesium 2.1 Total Bilirubin 1.0 Direct Bilirubin 0.3 AST 18 ALT 25 Alkaline Phosphatase 75 Troponin I High Sens 22.4 B-Natriuretic Peptide 206 H Total Protein 7.3 Albumin 4.1 Lipase 15 Influenza Type A (PCR) NEGATIVE Influenza Type B (PCR) NEGATIVE RSV RNA Qual (PCR) NEGATIVE SARS-CoV-2 RNA (RT-PCR) POSITIVE A 12/08/23 08:55 WBC RBC Hgb Hct MCV MCH MCHC RDW Plt Count MPV Immature Gran % (Auto) Neut % (Auto) Lymph % (Auto) Greene % (Auto) Eos % (Auto) Baso % (Auto) Lymph # (Auto) Greene # (Auto) Eos # (Auto) Baso # (Auto) Abs Immat Gran (auto) Absolute Neuts (auto) Absolute Nucleated RBC Nucleated RBC % (auto) Hold Blue Top Sodium Potassium Chloride Carbon Dioxide Anion Gap BUN Creatinine Estim Creat Clear Calc Estimated GFR POC Glucose 196 H Random Glucose Calcium Magnesium Total Bilirubin Direct Bilirubin AST ALT Alkaline Phosphatase Troponin I High Sens B-Natriuretic Peptide Total Protein Albumin Lipase Influenza Type A (PCR) Influenza Type B (PCR) RSV RNA Qual (PCR) SARS-CoV-2 RNA (RT-PCR) ECG Interpretation: EKG with atrial fibrillation and rapid ventricular rate at 169/Min. Imaging Radiologist's impression: Impressions Chest X-Ray 12/07/23 16:37 IMPRESSION: No acute cardiopulmonary findings. Electronically signed by: Simin De Jesus MD 12/07/2023 05:46 PM EDT Assessment and Plan (1) Atrial fibrillation with RVR: Status: Acute (2) SARS-CoV-2 positive: Status: Acute Plan Pertinent data reviewed. Initial EKG with atrial fibrillation rapid rate, but then converted to sinus rhythm. High sensitivity troponin within range. COVID positive. Chest x-ray reported have no acute findings. For atrial fibrillation, listed to be on Multaq, metoprolol, Eliquis. As he is already back in sinus rhythm, no specific changes but if the blood pressure is also consistently high we may be able to go up on the metoprolol dosing. Recurring atrial fibrillation could be due to acute COVID infection. Discussed with patient as well as significant other using tax record clerk. Procedures Date of Service Date of Service: 12/08/23
[2023-12-08 12:56] LABS: Glucose, Whole Blood 225 mg/dL (60-115)
--- NOTE | 2023-12-08 15:15 | MHC.CM.PN ---
IMM 12/07. Pt met with pt with the assistance of a deaf interpreter. Pt lives at home with his daughter who will transport him home. Pt uses a cane. New HCP completed with pt, now on file. PCP: Dr. Garcia Name
--- NOTE | 2023-12-08 16:26 | P.PNIM_ITS ---
Subjective Subjective Date of Service: 12/08/23 Interval History: covid ,mike,afib with rvr Review of Systems cough ,pleurtic discomfort seems improving hr also improving Physical Exam 2 Vital Signs: Vital Signs: Last Vital Signs Temp 99.1 F 12/07/23 21:55 Pulse 83 12/08/23 15:49 Resp 15 12/08/23 15:49 BP 146/91 H 12/08/23 15:49 Pulse Ox 98 12/08/23 15:49 O2 Del Method Room Air 12/08/23 15:49 BMI result Body Mass Index 34.4 Appearance: Alert.? Oriented X3.? cvs: rrr, [id number] . res: air entry fair ,has few rhochii scattered abd: no rebound or guarding ,nt, bs present. ext pulses present , no cyanosis . neuro: axo3 , nonfocal. Ice Objective Data Active Medications Acetaminophen (Acetaminophen 325 Mg Tablet) 975 mg PO Q6H PRN PRN Reason: Pain, Mild (Pain Scale 1-3), fever or headache Last Admin: 12/07/23 22:29 Dose: 975 mg Documented By: HEAVEN Allopurinol (Allopurinol 300 Mg Tablet) 300 mg PO DAILY [facility] Last Admin: 12/08/23 09:10 Dose: 300 mg Documented By: IVY Amlodipine Besylate (Amlodipine Besylate 10 Mg Tablet) 10 mg PO BEDTIME [facility]; Protocol Apixaban (Apixaban 5 Mg Tablet) 5 mg PO BID [facility] Last Admin: 12/08/23 09:09 Dose: 5 mg Documented By: IVY Ascorbic Acid (Ascorbic Acid 500 Mg Tablet) 500 mg PO DAILY [facility] Last Admin: 12/08/23 09:09 Dose: 500 mg Documented By: IVY Atorvastatin Calcium (Atorvastatin Calcium 80 Mg Tablet) 80 mg PO DAILY [facility] Last Admin: 12/08/23 09:09 Dose: 80 mg Documented By: IVY Bupropion HCl (Bupropion Hcl Xl 150 Mg Tab.Er.24h) 450 mg PO DAILY [facility] Last Admin: 12/08/23 09:10 Dose: 450 mg Documented By: IVY Dronedarone (Dronedarone Hcl 400 Mg Tablet) 400 mg PO BID [facility] Last Admin: 12/08/23 09:13 Dose: 400 mg Documented By: IVY Ezetimibe (Ezetimibe 10 Mg Tablet) 10 mg PO BEDTIME [facility] Empagliflozin (Empagliflozin 25 Mg Tablet) 25 mg PO DAILY [facility] Last Admin: 12/08/23 09:13 Dose: 25 mg Documented By: IVY Folic Acid (Folic Acid 1 Mg Tablet) 1 mg PO DAILY [facility] Last Admin: 12/08/23 09:16 Dose: 1 mg Documented By: IVY Gabapentin (Gabapentin 100 Mg Capsule) 100 mg PO BEDTIME [facility] Glucose (Glucose Gel 15 Gm Gel..Gram.) 15 gm PO Q15M PRN; Protocol PRN Reason: per Hypoglycemia Standing Ord. Guaifenesin/Dextromethorphan (Guaifenesin Dm 200/20/10 Ml 10 Ml Syrup) 10 ml PO Q4H PRN PRN Reason: Cough Last Admin: 12/07/23 23:43 Dose: 10 ml Documented By: HEAVEN Dextrose (D10) 250 mls @ 750 mls/hr IV Q15M PRN; Protocol PRN Reason: per Hypoglycemia Standing Ord. Insulin Glargine (Insulin Glargine,Hum.Rec.Anlog 100 Unit/Ml 10 Ml Vial) 10 unit SUBCUT DAILY [facility] Last Admin: 12/08/23 09:07 Dose: 10 unit Documented By: IVY Insulin Human Lispro (Insulin Lispro 100 Unit/Ml 3 Ml Vial) 0 unit SUBCUT QIDACHS [facility]; Protocol Last Admin: 12/08/23 12:56 Dose: 4 unit Documented By: IVY Metoprolol Tartrate (Metoprolol Tartrate 50 Mg Tablet) 50 mg PO TID [facility]; Protocol Last Admin: 12/08/23 15:44 Dose: 50 mg Documented By: IVY Multivitamins/Vitamin C (Multivitamin Tablet) 1 tab PO DAILY [facility] Last Admin: 12/08/23 09:10 Dose: 1 tab Documented By: IVY Omeprazole (Omeprazole 20 Mg Capsule.) 20 mg PO DAILY@0630 [facility] Last Admin: 12/08/23 06:36 Dose: 20 mg Documented By: HEAVEN Sodium Chloride (0.9 % Sodium Chloride Flush 3 Ml Syringe) 3 ml IVFLUSH QSHIFT [facility] Last Admin: 12/08/23 15:45 Dose: 3 ml Documented By: IVY Vitamin D (Cholecalciferol (Vitamin D3) 25 Mcg Tablet) 25 mcg PO DAILY [facility] Last Admin: 12/08/23 09:09 Dose: 25 mcg Documented By: IVY Labs 12/08/23 04:12 12/08/23 04:12 Labs: Laboratory Results - last 24 hr 12/07/23 12/07/23 12/08/23 16:47 23:02 04:12 MCV 86.4 86.7 MCH 27.7 27.8 MCHC 32.1 32.1 RDW 13.0 12.8 Plt Count 259 D 218 MPV 10.0 10.2 Immature Gran % (Auto) 0.5 H 0.4 Neut % (Auto) 80.8 H 73.9 H Lymph % (Auto) 6.5 L 8.7 L [place] % (Auto) 11.2 H 15.6 H Eos % (Auto) 0.5 0.9 Baso % (Auto) 0.5 0.5 Lymph # (Auto) 0.7 L 0.7 L [place] # (Auto) 1.2 1.3 H Eos # (Auto) 0.1 0.1 Baso # (Auto) 0.1 0.0 Abs Immat Gran (auto) 0.05 H 0.03 Absolute Neuts (auto) 8.9 H 6.0 Absolute Nucleated RBC 0.000 0.000 Nucleated RBC % (auto) 0.0 0.0 Hold Blue Top SEE NOTE Anion Gap 18 12 Estim Creat Clear Calc 51.5 55.0 Estimated GFR 36 38 POC Glucose 387 H* Random Glucose 174 H 182 H Calcium 10.0 9.2 D Magnesium 2.1 Total Bilirubin 1.0 Direct Bilirubin 0.3 AST 18 ALT 25 Alkaline Phosphatase 75 Troponin I High Sens 22.4 B-Natriuretic Peptide 206 H Total Protein 7.3 Albumin 4.1 Lipase 15 Influenza Type A (PCR) NEGATIVE Influenza Type B (PCR) NEGATIVE RSV RNA Qual (PCR) NEGATIVE SARS-CoV-2 RNA (RT-PCR) POSITIVE A 12/08/23 12/08/23 08:55 12:52 MCV MCH MCHC RDW Plt Count MPV Immature Gran % (Auto) Neut % (Auto) Lymph % (Auto) [place] % (Auto) Eos % (Auto) Baso % (Auto) Lymph # (Auto) Winston # (Auto) Eos # (Auto) Baso # (Auto) Abs Immat Gran (auto) Absolute Neuts (auto) Absolute Nucleated RBC Nucleated RBC % (auto) Hold Blue Top Anion Gap Estim Creat Clear Calc Estimated GFR POC Glucose 196 H 225 H Random Glucose Calcium Magnesium Total Bilirubin Direct Bilirubin AST ALT Alkaline Phosphatase Troponin I High Sens B-Natriuretic Peptide Total Protein Albumin Lipase Influenza Type A (PCR) Influenza Type B (PCR) RSV RNA Qual (PCR) SARS-CoV-2 RNA (RT-PCR) Assessment and Plan (1) Atrial fibrillation with RVR: Status: Acute (2) SARS-CoV-2 positive: Status: Acute Plan 63-year-old male with a PMH significant for?paroxysmal AFib on Eliquis s/p cardioversion on 11/27/2020, HTN, HLD, insulin-dependent type 2 diabetes, gout, LUIS ALFREDO on CPAP, and GERD who presents to the ED from [facility] for evaluation palpitations and rapid heart rate. Pt will be admitted to the hospital for treatment and further evaluation of AFib with RVR in the setting of acute COVID infection. AFib with RVR hr improving Likely in the setting of COVID infection S/P cardioversion in 11/2020 Continue Eliquis, metoprolol, Multaq Cardiology consult-continue above ,Recurring atrial fibrillation could be due to acute COVID infection. Acute COVID infection Pt with cough, fatigue, myalgias, pleuritic chest pain x2 days No sepsis: tachycardi secondary to AFib; no clear bacterial source, no indication for abx at this time Treat symptomatically with acetaminophen, guaifenesin Airborne and contact precautions Elevated BNP Mildly elevated at 206 No known history of CHF Clinically patient appears euvolemic Likely in the setting of above. MIKE versus worsening CKD3: Elevated creatinine Creatinine 1.92, elevated from 1.58 on 04/19/2023 Will give IVF 500ml bolus-cr improving to 1.8 moniter renal function functions ,electrolytes .holdlosratan and hctz. Asthma Not in acute exacerbation Continue home inhalers HLD Continue statin, ezetimibe HTN Continue losartan Hold hydrochlorothiazide given elevated creatinine Insulin-dependent type 2 diabetes Poorly controlled, POC 387 Sliding-scale insulin, Lantus Hold metformin Continue Jardiance Diabetic diet Hx of gout Continue allopurinol GERD Continue PPI Full Code DVT Prophylaxis: On Eliquis ongoing need for hospitalization for treatment of?AFib with RVR,mike in the setting of COVID infection that will require close monitoring of cardiac function, close control heart rate, rrenal function/electrolytes monitering Quality Stroke Does the patient have a stroke diagnosis?: No VTE Prior VTE?: No VTE Risk Level:: Medical - moderate - high VTE Device Contraindication: Treatment Not Indicated VTE Drug Contraindication: N/A - Med Ordered
[2023-12-08 18:17] LABS: Glucose, Whole Blood 160 mg/dL (60-115)
[2023-12-08 21:12] LABS: Glucose, Whole Blood 216 mg/dL (60-115)
[2023-12-08] MEDS: Ezetimibe 10 MG TABLET PO (21:26)
[2023-12-08] MEDS: Gabapentin 100 MG CAPSULE PO (21:28)
[2023-12-09] VITALS (7 sets, daily range): BP systolic 141–159; BP diastolic 83–90; PULSE 70–80; RESP 17–20; TEMP 36.4–37.2; O2SAT 98–100
[2023-12-09] MEDS: 0.9 % Sodium Chloride Flush 3 ML SYRINGE IVFLUSH ×3 (00:30→21:21)
[2023-12-09] MEDS: Omeprazole 20 MG CAPSULE.DR PO (05:38)
[2023-12-09 07:01] LABS: Anion Gap 14 (12-20); Blood Urea Nitrogen 36 mg/dL (9-16); Calcium 9.7 mg/dL (8.4-10.2); Carbon Dioxide 25 mmol/L (22-29); Chloride 105 mmol/L (96-108); Creatinine Clr Calc Pharmacy 46.1; Estimated Glomerular Filt Rate 32; Glucose Random 133 mg/dL (60-115); Potassium 4.5 mmol/L (3.3-5.1); Sodium 139 mmol/L (135-145)
[2023-12-09 07:44] LABS: Glucose, Whole Blood 137 mg/dL (60-115)
[2023-12-09] MEDS: Insulin Glargine,Hum.rec.anlog 100 UNIT/ML 10 ML VIAL 10 UNIT SUBCUT (08:30)
[2023-12-09] MEDS: Cholecalciferol (Vitamin D3) 25 MCG TABLET PO (08:31)
[2023-12-09] MEDS: Dronedarone HCl 400 MG TABLET PO ×2 (08:31→21:20)
[2023-12-09] MEDS: Apixaban 5 MG TABLET PO ×2 (08:31→21:20)
[2023-12-09] MEDS: Metoprolol Tartrate 50 MG TABLET PO (08:31)
[2023-12-09] MEDS: Empagliflozin 25 MG TABLET PO (08:31)
[2023-12-09] MEDS: allopurinoL 300 MG TABLET PO (08:31)
[2023-12-09] MEDS: Atorvastatin Calcium 80 MG TABLET PO (08:31)
[2023-12-09] MEDS: Folic Acid 1 MG TABLET PO (08:31)
[2023-12-09] MEDS: Ascorbic Acid 500 MG TABLET PO (08:31)
[2023-12-09] MEDS: buPROPion HCl XL 150 MG TAB.ER.24H 450 MG PO (08:32)
[2023-12-09] MEDS: Multivitamin TABLET 1 TAB PO (08:32)
--- NOTE | 2023-12-09 09:21 | P.CONNP_ITS ---
History of Present Illness Reason for Consult Consult date: 12/09/23 Chief Complaint Chief complaint: Atrial fibrillation with RVR History of Present Illness Narrative: 63 y/o male with a medical history of paroxysmal afib on eliquis, HTN, HLD, DMII, gout, LUIS ALFREDO on CPAP, GERD arrived to ED on 12/06 after visit at [facility] for palpitations, had afib with RVR. Pt tested positive for covid-19 on 12/06 Pt given fluids and has converted to sinus rhythm, Cardiology following. Nephrology conslulted for MIKE on CKD3a. Patient states he does not see a lawyer real estate outpatient, though does see a PCP at [facility]. Creatinine 1.92 on 12/06 (previous creatinine 1.58, has been between 1.86 and 1.47 over last several years since 2020). Creatinine today 2.11 Has history of proteinuria since at least 2019 Patient states he does not take NSAIDs or other OTC medication states he does not drink alcohol frequently Denies chest pain, palpitations, shortness of breath states he feels much better today states he used to have ankle swelling but does not currently states he is urinating regularly/comfortably in urinal at bedside Denies other questions/concerns Review of Systems Constitutional: Denies weakness Denies dizziness Cardiovascular: Denies chest pain and Denies dyspnea Respiratory: Denies dyspnea Gastrointestinal: Denies abdominal pain, Denies diarrhea and Denies vomiting Genitourinary: Denies hematuria, Denies oliguria, Denies difficulty urinating, Denies dysuria, Denies flank pain and Denies urinary frequency Musculoskeletal: Denies back pain Skin/Breast: Denies rash Denies dizziness and Denies weakness [facility] Past Medical History Medical History History of cardioversion History of COVID-19 COVID-19 vaccine series completed Elevated cholesterol HTN (hypertension) Asthma COPD (chronic obstructive pulmonary disease) LUIS ALFREDO (obstructive sleep apnea) CAD (coronary artery disease) Family History Family History Father HTN (hypertension) Diabetes Mother HTN (hypertension) Diabetes CVD (cardiovascular disease) Surgical History Surgical History H/O cardiac catheterization History of cataract surgery H/O: vasectomy Social History Social History Household Members: Spouse Housing: Apartment Do you presently have visiting nurse or other home services: No Alcohol intake: never Patient Tobacco Use Status: Never used Tobacco service: No Meds Allergies Allergy/AdvReac Type Severity Reaction Status Date / Time No Known Allergies Allergy Verified 12/07/23 16:41 [No Known Allergies*] Active Medications: Current Medications Acetaminophen (Acetaminophen 325 Mg Tablet) 975 mg PO Q6H PRN PRN Reason: Pain, Mild (Pain Scale 1-3), fever or headache Last Admin: 12/07/23 22:29 Dose: 975 mg Allopurinol (Allopurinol 300 Mg Tablet) 300 mg PO DAILY [facility] Last Admin: 12/09/23 08:31 Dose: 300 mg Amlodipine Besylate (Amlodipine Besylate 10 Mg Tablet) 10 mg PO BEDTIME [facility]; Protocol Apixaban (Apixaban 5 Mg Tablet) 5 mg PO BID [facility] Last Admin: 12/09/23 08:31 Dose: 5 mg Ascorbic Acid (Ascorbic Acid 500 Mg Tablet) 500 mg PO DAILY [facility] Last Admin: 12/09/23 08:31 Dose: 500 mg Atorvastatin Calcium (Atorvastatin Calcium 80 Mg Tablet) 80 mg PO DAILY [facility] Last Admin: 12/09/23 08:31 Dose: 80 mg Bupropion HCl (Bupropion Hcl Xl 150 Mg Tab.Er.24h) 450 mg PO DAILY [facility] Last Admin: 12/09/23 08:32 Dose: 450 mg Dronedarone (Dronedarone Hcl 400 Mg Tablet) 400 mg PO BID [facility] Last Admin: 12/09/23 08:31 Dose: 400 mg Ezetimibe (Ezetimibe 10 Mg Tablet) 10 mg PO BEDTIME [facility] Last Admin: 12/08/23 21:26 Dose: 10 mg Empagliflozin (Empagliflozin 25 Mg Tablet) 25 mg PO DAILY [facility] Last Admin: 12/09/23 08:31 Dose: 25 mg Folic Acid (Folic Acid 1 Mg Tablet) 1 mg PO DAILY [facility] Last Admin: 12/09/23 08:31 Dose: 1 mg Gabapentin (Gabapentin 100 Mg Capsule) 100 mg PO BEDTIME [facility] Last Admin: 12/08/23 21:28 Dose: 100 mg Glucose (Glucose Gel 15 Gm Gel..Gram.) 15 gm PO Q15M PRN; Protocol PRN Reason: per Hypoglycemia Standing Ord. Guaifenesin/Dextromethorphan (Guaifenesin Dm 200/20/10 Ml 10 Ml Syrup) 10 ml PO Q4H PRN PRN Reason: Cough Last Admin: 12/07/23 23:43 Dose: 10 ml Dextrose (D10) 250 mls @ 750 mls/hr IV Q15M PRN; Protocol PRN Reason: per Hypoglycemia Standing Ord. Sodium Chloride (Ns) 500 mls @ 500 mls/hr IV .Q1H [facility] Stop: 12/09/23 09:59 Insulin Glargine (Insulin Glargine,Hum.Rec.Anlog 100 Unit/Ml 10 Ml Vial) 10 unit SUBCUT DAILY [facility] Last Admin: 12/09/23 08:30 Dose: 10 unit Insulin Human Lispro (Insulin Lispro 100 Unit/Ml 3 Ml Vial) 0 unit SUBCUT QIDACHS [facility]; Protocol Last Admin: 12/09/23 08:21 Dose: Not Given Metoprolol Tartrate (Metoprolol Tartrate 50 Mg Tablet) 50 mg PO TID [facility]; Protocol Last Admin: 12/09/23 08:31 Dose: 50 mg Multivitamins/Vitamin C (Multivitamin Tablet) 1 tab PO DAILY [facility] Last Admin: 12/09/23 08:32 Dose: 1 tab Omeprazole (Omeprazole 20 Mg Capsule.Dr) 20 mg PO DAILY@0630 [facility] Last Admin: 12/09/23 05:38 Dose: 20 mg Sodium Chloride (0.9 % Sodium Chloride Flush 3 Ml Syringe) 3 ml IVFLUSH QSHIFT [facility] Last Admin: 12/09/23 08:32 Dose: 3 ml Vitamin D (Cholecalciferol (Vitamin D3) 25 Mcg Tablet) 25 mcg PO DAILY [facility] Last Admin: 12/09/23 08:31 Dose: 25 mcg Home Medications ?Medication ?Instructions ?Recorded ?Confirmed ?Last Taken ?Type albuterol sulfate 90 mcg/actuation 2 puff inhalation Q6H PRN Wheezing 12/07/23 12/07/23 Unknown History aerosol inhaler allopurinol 300 mg tablet 300 mg PO DAILY 12/07/23 12/07/23 Unknown History amlodipine 10 mg tablet 10 mg PO BEDTIME 12/07/23 12/07/23 Unknown History apixaban 5 mg tablet (Eliquis) 5 mg PO BID 12/07/23 12/07/23 Unknown History ascorbic acid (vitamin C) 500 mg 500 mg PO DAILY 12/07/23 12/07/23 Unknown History tablet (Vitamin C) atorvastatin 80 mg tablet 80 mg PO DAILY 12/07/23 12/07/23 Unknown History bupropion HCl 200 mg tablet,12 hr 200 mg PO BID 12/07/23 12/07/23 Unknown History sustained-release cholecalciferol (vitamin D3) 25 25 mcg PO DAILY 12/07/23 12/07/23 Unknown History mcg (1,000 unit) capsule (Vitamin D3) dronedarone 400 mg tablet (Multaq) 400 mg PO BID 12/07/23 12/07/23 Unknown History dulaglutide 1.5 mg/0.5 mL 1.5 mg subcut TU 12/07/23 12/07/23 Unknown History subcutaneous pen injector (Trulicity) empagliflozin 25 mg tablet 25 mg PO DAILY 12/07/23 12/07/23 Unknown History (Jardiance) ezetimibe 10 mg tablet 10 mg PO BEDTIME 12/07/23 12/07/23 Unknown History fluticasone propionate 230 2 puff inhalation BID 12/07/23 12/07/23 Unknown History mcg-salmeterol 21 mcg/actuation HFA inhaler (Advair HFA) fluticasone propionate 50 2 spray intranasal DAILY 12/07/23 12/07/23 Unknown History mcg/actuation nasal spray,suspension folic acid 1 mg tablet 1 mg PO DAILY 12/07/23 12/07/23 Unknown History gabapentin 100 mg capsule 100 mg PO BEDTIME 12/07/23 12/07/23 Unknown History hydrochlorothiazide 12.5 mg tablet 12.5 mg PO DAILY 12/07/23 12/07/23 Unknown History insulin glargine 100 unit/mL (3 10 unit subcut DAILY 12/07/23 12/07/23 Unknown History mL) subcutaneous pen (Lantus Solostar U-100 Insulin) losartan 100 mg tablet 100 mg PO DAILY 12/07/23 12/07/23 Unknown History metformin 1,000 mg tablet 1,000 mg PO BID 12/07/23 12/07/23 Unknown History metoprolol tartrate 50 mg tablet 50 mg PO TID 12/07/23 12/07/23 Unknown History multivitamin 1 tab PO DAILY 12/07/23 12/07/23 Unknown History pantoprazole 40 mg tablet,delayed 40 mg PO DAILY@0630 12/07/23 12/07/23 Unknown History release Physical Exam Vital Signs: Last Vital Signs Temp 98.3 F 12/09/23 08:00 Pulse 76 12/09/23 08:31 Resp 17 12/09/23 08:00 BP 159/89 H 12/09/23 08:31 Pulse Ox 100 12/09/23 08:00 O2 Del Method Room Air 12/09/23 08:00 BMI result Body Mass Index 33.3 Const General: comfortable and no acute distress Orientation/consciousness: oriented to person, oriented to place and oriented to time Neck Neck: Yes no JVD Resp Effort & Inspection: able to speak in complete sentences Auscultation: clear to auscultation bilaterally Cardio Jugular venous distension: no JVD Rate: regular rate Rhythm: regular rhythm Heart sounds: S1 normal heart sound present and S2 normal heart sound present GI Palpation (GI): Soft to palpation Rectal Exam - Male: No tenderness General: Yes no CVA tenderness Back/Spine/Pelvis Back: no CVA tenderness Skin Rashes: no rashes Neuro General: oriented to person, oriented to place and oriented to time Extrem General: Yes normal to inspection, No edema and No pedal edema Results Lab Results 12/08/23 04:12 12/09/23 05:55 Lab results: Chemistry 12/07/23 12/08/23 12/09/23 16:47 04:12 05:55 Sodium 141 139 139 Potassium 4.6 4.3 4.5 Carbon Dioxide 21 L 23 25 BUN 25 H 30 H 36 H Creatinine 1.92 H 1.80 H 2.11 H Calcium 10.0 9.2 D 9.7 Hematology 12/07/23 12/08/23 16:47 04:12 WBC 11.0 H 8.1 Hgb 14.7 14.2 Plt Count 259 D 218 Assessment and Plan (1) CKD (chronic kidney disease) stage 3, GFR 30-59 ml/min: Qualifiers: Chronic kidney disease stage 3 subtype: stage 3a (GFR 45-59) Qualified Code(s): N18.31 - Chronic kidney disease, stage 3a Status: Acute (2) MIKE (acute kidney injury): Status: Acute (3) HTN (hypertension): Qualifiers: Hypertension type: primary hypertension Qualified Code(s): I10 - Essential (primary) hypertension Status: Acute (4) COVID: Status: Acute Plan MIKE on CKD due 2/2 hypoperfusion due to afib with RVR in setting of lsoartan and hctz, likely tubular injury agree with holding hctz and losartan should hold jardiance as well for now cut back on vitamin C (3x weekly, not daily) continue to follow electrolytes and renal function daily continue to monitor blood pressures will need outpatient nephrology follow up within 2-3 weeks when discharged for ongoing management of CKD. Procedures Date of Service Date of Service: 12/09/23
[2023-12-09] MEDS: 0.9 % Sodium Chloride 500 ML IV (09:31)
[2023-12-09 11:39] LABS: Glucose, Whole Blood 212 mg/dL (60-115)
[2023-12-09] MEDS: Insulin Lispro 100 UNIT/ML 3 ML VIAL SUBCUT (11:57)
--- NOTE | 2023-12-09 15:01 | P.PNIM_ITS ---
Subjective Subjective Date of Service: 12/09/23 Interval History: calin on ckd Review of Systems denies new c/o no sob Physical Exam 2 Vital Signs: Vital Signs: Last Vital Signs Temp 97.6 F 12/09/23 11:32 Pulse 73 12/09/23 11:32 Resp 18 12/09/23 11:32 BP 152/83 H 12/09/23 11:32 Pulse Ox 99 12/09/23 11:32 O2 Del Method Room Air 12/09/23 11:32 BMI result Body Mass Index 33.3 Appearance: Alert.? Oriented X3.? cvs: rrr, [id number] . res: air entry fair ,no rales or wheezing abd: no rebound or guarding ,nt, bs present. ext pulses present , no cyanosis . neuro: axo3 , nonfocal. Ice Objective Data Active Medications Acetaminophen (Acetaminophen 325 Mg Tablet) 975 mg PO Q6H PRN PRN Reason: Pain, Mild (Pain Scale 1-3), fever or headache Last Admin: 12/07/23 22:29 Dose: 975 mg Documented By: HEAVEN Allopurinol (Allopurinol 300 Mg Tablet) 300 mg PO DAILY [facility] Last Admin: 12/09/23 08:31 Dose: 300 mg Documented By: SHAHEED Amlodipine Besylate (Amlodipine Besylate 10 Mg Tablet) 10 mg PO BEDTIME [facility]; Protocol Apixaban (Apixaban 5 Mg Tablet) 5 mg PO BID [facility] Last Admin: 12/09/23 08:31 Dose: 5 mg Documented By: SHAHEED Atorvastatin Calcium (Atorvastatin Calcium 80 Mg Tablet) 80 mg PO DAILY [facility] Last Admin: 12/09/23 08:31 Dose: 80 mg Documented By: SHAHEED Bupropion HCl (Bupropion Hcl Xl 150 Mg Tab.Er.24h) 450 mg PO DAILY [facility] Last Admin: 12/09/23 08:32 Dose: 450 mg Documented By: SHAHEED Dronedarone (Dronedarone Hcl 400 Mg Tablet) 400 mg PO BID [facility] Last Admin: 12/09/23 08:31 Dose: 400 mg Documented By: SHAHEED Ezetimibe (Ezetimibe 10 Mg Tablet) 10 mg PO BEDTIME [facility] Last Admin: 12/08/23 21:26 Dose: 10 mg Documented By: ANGELES Folic Acid (Folic Acid 1 Mg Tablet) 1 mg PO DAILY [facility] Last Admin: 12/09/23 08:31 Dose: 1 mg Documented By: SHAHEED Gabapentin (Gabapentin 100 Mg Capsule) 100 mg PO BEDTIME [facility] Last Admin: 12/08/23 21:28 Dose: 100 mg Documented By: ANGELES Glucose (Glucose Gel 15 Gm Gel..Gram.) 15 gm PO Q15M PRN; Protocol PRN Reason: per Hypoglycemia Standing Ord. Guaifenesin/Dextromethorphan (Guaifenesin Dm 200/20/10 Ml 10 Ml Syrup) 10 ml PO Q4H PRN PRN Reason: Cough Last Admin: 12/07/23 23:43 Dose: 10 ml Documented By: HEAVEN Dextrose (D10) 250 mls @ 750 mls/hr IV Q15M PRN; Protocol PRN Reason: per Hypoglycemia Standing Ord. Insulin Glargine (Insulin Glargine,Hum.Rec.Anlog 100 Unit/Ml 10 Ml Vial) 10 unit SUBCUT DAILY [facility] Last Admin: 12/09/23 08:30 Dose: 10 unit Documented By: SHAHEED Insulin Human Lispro (Insulin Lispro 100 Unit/Ml 3 Ml Vial) 0 unit SUBCUT QIDACHS [facility]; Protocol Last Admin: 12/09/23 11:57 Dose: 4 unit Documented By: SHAHEED Metoprolol Tartrate (Metoprolol Tartrate 50 Mg Tablet) 50 mg PO TID [facility]; Protocol Last Admin: 12/09/23 08:31 Dose: 50 mg Documented By: SHAHEED Multivitamins/Vitamin C (Multivitamin Tablet) 1 tab PO DAILY [facility] Last Admin: 12/09/23 08:32 Dose: 1 tab Documented By: SHAHEED Omeprazole (Omeprazole 20 Mg Capsule.Dr) 20 mg PO DAILY@0630 [facility] Last Admin: 12/09/23 05:38 Dose: 20 mg Documented By: CRISTINA Sodium Chloride (0.9 % Sodium Chloride Flush 3 Ml Syringe) 3 ml IVFLUSH QSHIFT [facility] Last Admin: 12/09/23 08:32 Dose: 3 ml Documented By: SHAHEED Vitamin D (Cholecalciferol (Vitamin D3) 25 Mcg Tablet) 25 mcg PO DAILY [facility] Last Admin: 12/09/23 08:31 Dose: 25 mcg Documented By: SHAHEED Labs 12/08/23 04:12 12/09/23 05:55 Labs: Laboratory Results - last 24 hr 12/08/23 12/08/23 12/09/23 18:14 21:09 05:55 Hold Purple Top SEE NOTE Anion Gap 14 Estim Creat Clear Calc 46.1 Estimated GFR 32 POC Glucose 160 H 216 H Random Glucose 133 H Calcium 9.7 12/09/23 12/09/23 07:39 11:35 Hold Purple Top Anion Gap Estim Creat Clear Calc Estimated GFR POC Glucose 137 H 212 H Random Glucose Calcium Assessment and Plan (1) Atrial fibrillation with RVR: Status: Acute (2) SARS-CoV-2 positive: Status: Acute Plan 63-year-old male with a PMH significant for?paroxysmal AFib on Eliquis s/p cardioversion on 11/27/2020, HTN, HLD, insulin-dependent type 2 diabetes, gout, LUIS ALFREDO on CPAP, and GERD who presents to the ED from [facility] for evaluation palpitations and rapid heart rate. Pt will be admitted to the hospital for treatment and further evaluation of AFib with RVR in the setting of acute COVID infection. AFib with RVR hr improving Likely in the setting of COVID infection S/P cardioversion in 11/2020 Continue Eliquis, metoprolol, Multaq Cardiology consult-continue above ,Recurring atrial fibrillation could be due to acute COVID infection. Acute COVID infection Pt with cough, fatigue, myalgias, pleuritic chest pain x2 days No sepsis: tachycardi secondary to AFib; no clear bacterial source, no indication for abx at this time Treat symptomatically with acetaminophen, guaifenesin Airborne and contact precautions Elevated BNP Mildly elevated at 206 No known history of CHF Clinically patient appears euvolemic Likely in the setting of above. CALIN versus worsening CKD3: cr somewhat worsening added ivf ,encouraged po hydration moniter renal function functions ,electrolytes .holdlosratan and hctz. Asthma Not in acute exacerbation Continue home inhalers HLD Continue statin, ezetimibe HTN:somewhat suboptimal cotninue amlodipine ,ad justed metoprolol 75 tid hold losartan, hydrochlorothiazide given elevated creatinine Insulin-dependent type 2 diabetes Poorly controlled, POC 387 Sliding-scale insulin, Lantus Hold metformin Continue Jardiance Diabetic diet Hx of gout Continue allopurinol GERD Continue PPI Full Code DVT Prophylaxis: On Eliquis ongoing need for hospitalization for treatment of?AFib with RVR,calin in the setting of COVID infection that will require close monitoring of cardiac function, close control heart rate, rrenal function/electrolytes monitering Quality Stroke Does the patient have a stroke diagnosis?: No VTE Prior VTE?: No VTE Risk Level:: Medical - moderate - high VTE Device Contraindication: Treatment Not Indicated VTE Drug Contraindication: N/A - Med Ordered
[2023-12-09 17:08] LABS: Glucose, Whole Blood 135 mg/dL (60-115)
--- NOTE | 2023-12-09 17:31 | ECG_ITS ---
Test Reason : CP Blood Pressure : / mmHG Vent. Rate : 070 BPM Atrial Rate : 070 BPM P-R Int : 176 ms QRS Dur : 090 ms QT Int : 418 ms P-R-T Axes : 020 024 026 degrees QTc Int : 451 ms Normal sinus rhythm Normal ECG When compared to the previous EKG of 07 dec 2023, rhythm change Referred By: Denisha Kaur Electronically Signed By:MARSHA STONE
[2023-12-09 19:44] LABS: Glucose, Whole Blood 130 mg/dL (60-115)
[2023-12-09] MEDS: amLODIPine Besylate 10 MG TABLET PO (21:20)
[2023-12-09] MEDS: Metoprolol Tartrate 25 MG TABLET 75 MG PO (21:20)
[2023-12-09] MEDS: Gabapentin 100 MG CAPSULE PO (21:20)
[2023-12-09] MEDS: guaiFENesin DM 200/20/10 ML 10 ML SYRUP PO (21:20)
[2023-12-09] MEDS: Ezetimibe 10 MG TABLET PO (21:20)
[2023-12-10] VITALS: BP 150/77; PULSE 70; RESP 20; TEMP 36.7; O2SAT 99
[2023-12-10 01:08] VITALS: PULSE 79; RESP 20; O2SAT 97
[2023-12-10 03:27] VITALS: BP 146/75; PULSE 69; RESP 20; TEMP 36.3; O2SAT 100
[2023-12-10] MEDS: Omeprazole 20 MG CAPSULE.DR PO (05:57)
[2023-12-10] MEDS: guaiFENesin DM 200/20/10 ML 10 ML SYRUP PO (05:57)
[2023-12-10 07:47] LABS: Glucose, Whole Blood 153 mg/dL (60-115)
[2023-12-10] MEDS: 0.9 % Sodium Chloride Flush 3 ML SYRINGE IVFLUSH (07:55)
[2023-12-10] MEDS: Insulin Glargine,Hum.rec.anlog 100 UNIT/ML 10 ML VIAL 10 UNIT SUBCUT (07:56)
[2023-12-10] MEDS: Dronedarone HCl 400 MG TABLET PO (07:56)
[2023-12-10] MEDS: buPROPion HCl XL 150 MG TAB.ER.24H 450 MG PO (07:56)
[2023-12-10] MEDS: Multivitamin TABLET 1 TAB PO (07:56)
[2023-12-10] MEDS: Atorvastatin Calcium 80 MG TABLET PO (07:56)
[2023-12-10] MEDS: Insulin Lispro 100 UNIT/ML 3 ML VIAL SUBCUT ×2 (07:56→11:53)
[2023-12-10 07:57] VITALS: BP 140/75; PULSE 67
[2023-12-10] MEDS: Folic Acid 1 MG TABLET PO (07:57)
[2023-12-10] MEDS: Apixaban 5 MG TABLET PO (07:57)
[2023-12-10] MEDS: Metoprolol Tartrate 25 MG TABLET 75 MG PO (07:57)
[2023-12-10] MEDS: allopurinoL 300 MG TABLET PO (07:57)
[2023-12-10] MEDS: Cholecalciferol (Vitamin D3) 25 MCG TABLET PO (07:57)
[2023-12-10 08:00] VITALS: BP 140/75; PULSE 67; RESP 20; TEMP 36.3; O2SAT 98
[2023-12-10 08:02] LABS: Anion Gap 13 (12-20); Blood Urea Nitrogen 41 mg/dL (9-16); Carbon Dioxide 22 mmol/L (22-29); Chloride 108 mmol/L (96-108); Creatinine Clr Calc Pharmacy 48.9; Estimated Glomerular Filt Rate 34; Glucose Random 163 mg/dL (60-115); Potassium 4.1 mmol/L (3.3-5.1); Sodium 139 mmol/L (135-145)
--- NOTE | 2023-12-10 08:44 | P.PNNP_ITS ---
Subjective Subjective Date of Service: 12/10/23 Interval history: 63 y/o male with a medical history of paroxysmal afib on eliquis, HTN, HLD, DMII, gout, LUIS ALFREDO on CPAP, GERD arrived to ED on 12/06 after visit at [facility] for palpitations, had afib with RVR. Pt tested positive for covid-19 on 12/06 Pt given fluids and has converted to sinus rhythm, Cardiology following. Nephrology consulted for MIKE on CKD3a. Patient has stated he does not see a solutions market consultant outpatient, though does see a PCP at [facility]. Creatinine 1.92 on 12/06 (previous creatinine 1.58, has been between 1.86 and 1.47 over last several years since 2020). Creatinine today 1.99, down from 2.11 yesterday Has history of proteinuria since at least 2019 blood pressure 140/75; currently taking amlodipine 10mg daily and metoprolol 75mg TID Patient states he does not take NSAIDs or other OTC medication states he does not drink alcohol frequently Denies chest pain, palpitations, shortness of breath states he feels well today states he used to have ankle swelling but does not currently states he is urinating regularly/comfortably in urinal at bedside Denies other questions/concerns Physical Exam 2 Vital Signs: Vital Signs: Last Vital Signs Temp 97.3 F 12/10/23 08:00 Pulse 67 12/10/23 08:00 Resp 20 12/10/23 08:00 BP 140/75 H 12/10/23 08:00 Pulse Ox 98 12/10/23 08:00 O2 Del Method Room Air 12/10/23 08:00 BMI result Body Mass Index 33.3 Const: General: comfortable and no acute distress O rientation/consciousness: oriented to person, oriented to place and oriented to time Neck: Neck: Yes no JVD Resp: Effort & Inspection: able to speak in complete sentences A uscultation: clear to auscultation bilaterally Cardio: Jugular venous distension: no JVD Rate: regular rate Rhythm: r egular rhythm Heart sounds: S1 normal heart sound present and S2 normal heart sound present GI: Palpation (GI): Soft to palpation Rectal Exam - Male: No tenderness : General: Yes no CVA tenderness Back/Spine/Pelvis: Back: no CVA tenderness Skin: Rashes: no rashes Neuro: General: oriented to person, oriented to place and oriented to time Extrem: General: Yes normal to inspection, No edema and No pedal edema Objective Data Labs 12/08/23 04:12 12/10/23 08:33 Labs: Laboratory Results - last 24 hr 12/09/23 12/09/23 12/09/23 11:35 17:03 19:33 Sodium Potassium Chloride Carbon Dioxide Anion Gap BUN Creatinine Estim Creat Clear Calc Estimated GFR POC Glucose 212 H 135 H 130 H Random Glucose Calcium 12/10/23 12/10/23 07:38 07:40 Sodium 139 Potassium 4.1 Chloride 108 Carbon Dioxide 22 Anion Gap 13 BUN 41 H Creatinine 1.99 H Estim Creat Clear Calc 48.9 Estimated GFR 34 POC Glucose 153 H Random Glucose 163 H Calcium 9.0 D Procedures Date of Service Date of Service: 12/10/23 Assessment & Plan Assessment and plan (1) CKD (chronic kidney disease) stage 3, GFR 30-59 ml/min: Status: Acute (2) HTN (hypertension): Status: Acute (3) MIKE (acute kidney injury): Status: Acute (4) COVID: Status: Acute Plan MIKE on CKD due 2/2 hypoperfusion due to afib with RVR in setting of losartan and hctz, likely tubular injury patient's renal function is improving, blood pressure acceptable recommend continue to hold hctz, losartan, jardiance - we will reinstate these medications once he follows up outpatient in the office. will need outpatient nephrology follow up within 2-3 weeks when discharged for ongoing management of CKD. Time Spent With Patient Time: Total time managing care of this patient today ____ minutes. Progress Note: Quality Stroke Does the patient have a stroke diagnosis?: No
[2023-12-10 08:59] LABS: Anion Gap 13 (12-20); Blood Urea Nitrogen 40 mg/dL (9-16); Carbon Dioxide 24 mmol/L (22-29); Chloride 106 mmol/L (96-108); Creatinine Clr Calc Pharmacy 47.5; Estimated Glomerular Filt Rate 33; Glucose Random 160 mg/dL (60-115); Sodium 139 mmol/L (135-145)
[2023-12-10 11:42] LABS: Glucose, Whole Blood 255 mg/dL (60-115)
[2023-12-10 11:45] VITALS: BP 149/81; PULSE 67; RESP 20; TEMP 36.4; O2SAT 99
--- NOTE | 2023-12-10 11:58 | P.DS_ITS ---
DS: Providers Provider Date of Service: 12/10/23 Date of admission: 12/07/23 21:42 Primary care physician: Jose Rudd MD Consults: 12/07/23 22:56 Consult to Cardiology Routine Consulting Provider: [facility] Reason for consultation: AFib w/RVR 12/09/23 08:31 Consult to Nephrology Routine Consulting Provider: [facility] Reason for consultation: mike on ckd,covid Has provider been notified: No DS: Diagnosis Discharge Diagnosis (1) CKD (chronic kidney disease) stage 3, GFR 30-59 ml/min: Status: Acute (2) HTN (hypertension): Status: Acute (3) MIKE (acute kidney injury): Status: Acute (4) COVID: Status: Acute DS: Summary Hospital Course Hospital Course: HPI: 63-year-old male with a PMH significant for?paroxysmal AFib on Eliquis s/p cardioversion on 11/27/2020, HTN, HLD, insulin-dependent type 2 diabetes, gout, LUIS ALFREDO on CPAP, and GERD who presents to the ED from [facility] for evaluation palpitations and rapid heart rate. Patient reports yesterday developed persistent nonproductive cough, SOB, chills, myalgias, fatigue, and chest tightness and pleuritic chest pain associated with cough and deep breathing. Symptoms persisted today and patient presented to clinic for evaluation where EKG was taken and found him to be in AFib with RVR. Patient was then sent to the ED for further evaluation. Patient denies palpitations. No nausea, vomiting, abdominal pain. Patient notes he was also asymptomatic without palpitations that during previous episode of AFib with RVR prior to cardioversion. Reports compliance with home medications. ? In the ED pt was tachycardic up to 174, tachypneic up to 23, and mildly hypertensive up to 146/83. Labs were significant for testing positive for COVID, creatinine 1.92 (elevated from 1.58), POC 387, and BNP 206. No significant electrolyte abnormalities. Stable H&H. Initial troponin WNL at 22.4. CXR showed no acute cardiopulmonary finding. EKG demonstrated AFib with RVR of 169. Pt was treated with metoprolol 5 mg IV x2 and 50 mg p.o., digoxin 0.25 mg IV, Multaq, acetaminophen, and Eliquis. Pt will be admitted to the hospital for treatment and further evaluation of AFib with RVR in the setting of acute COVID infection. Hospital course: 63-year-old male with a PMH significant for?paroxysmal AFib on Eliquis s/p cardioversion on 11/27/2020, HTN, HLD, insulin-dependent type 2 diabetes, gout, LUIS ALFREDO on CPAP, and GERD who presents to the ED from [facility] for evaluation palpitations and rapid heart rate. Pt will be admitted to the hospital for treatment and further evaluation of AFib with RVR in the setting of acute COVID infection-for afib rvr -patient Given metoprolol 5 mg IV x2 and digoxin 0.25 mg IV in the ED-hr rate improvedand sinus rythem afterwards ,seen by cardiology -episode of AFib with a RVR possibly in the setting of COVID. mike on ckd -thought to be sec to hctz,mayuri ,covid ,Hydrochlorothiazide and lisinopril, Jardiance stopped-due to MIKE on CKD-further use of these meds outpatient after follow up with nephrology. htn -continue amlodipine ,Hydrochlorothiazide and lisinopril, Jardiance stopped- due to MIKE on CKD. Further use as per Nephrology. Metoprolol adjusted to 75 mg PO TID. plan: Hydrochlorothiazide and lisinopril, Jardiance stopped-due to MIKE on CKD. Further use as per Nephrology. Metoprolol adjusted to 75 mg PO TID Vitamin-C 500 mg p.o. 3 times a week. Encouraged for p.o. hydration. COVID [place] asymptomatic.self isolation for 5 days . Follow-up BMP out patiently with PCP and follow-up with Nephrology, Cardiology. Above management discussed with the patient and his at bedside in detail with the vendor quality supervisor, total time spent 40 min. Time Attestation Total time managing care of this patient today: 40 mintues. Discharge Coordination Time (in mins): 40 min Quality: Safe Use of Opioids Does Pt have an Active Cancer Diagnosis on the Problem List?: No Quality: Stroke Does the patient have a stroke diagnosis?: No Physical Exam Vital Signs: Vital Signs: Last Vital Signs Temp 97.5 F 12/10/23 11:45 Pulse 67 12/10/23 11:45 Resp 20 12/10/23 11:45 BP 149/81 H 12/10/23 11:45 Pulse Ox 99 12/10/23 11:45 O2 Del Method Room Air 12/10/23 11:45 BMI result Body Mass Index 33.3 Appearance: Alert.? Oriented X3.? cvs: rrr, [id number] . res: air entry fair ,no rales or wheezing abd: no rebound or guarding ,nt, bs present. ext pulses present , no cyanosis . neuro: axo3 , nonfocal. DS: Data Data Completed and Pending Labs on day of discharge: Laboratory Results - last 24 hr 12/09/23 12/09/23 12/10/23 17:03 19:33 07:38 Sodium 139 Potassium 4.1 Chloride 108 Carbon Dioxide 22 Anion Gap 13 BUN 41 H Creatinine 1.99 H Estim Creat Clear Calc 48.9 Estimated GFR 34 POC Glucose 135 H 130 H Random Glucose 163 H Calcium 9.0 D 12/10/23 12/10/23 12/10/23 07:40 08:33 11:31 Sodium 139 Potassium 4.0 Chloride 106 Carbon Dioxide 24 Anion Gap 13 BUN 40 H Creatinine 2.05 H Estim Creat Clear Calc 47.5 Estimated GFR 33 POC Glucose 153 H 255 H Random Glucose 160 H Calcium 9.0 Imaging Chest x-ray: Radiologist's impression: ITS Impressions Chest X-Ray 12/07/23 16:37 IMPRESSION: No acute cardiopulmonary findings. Electronically signed by: Simin De Jesus MD 12/07/2023 05:46 PM EDT RP Discharge Plan Discharge Anticipated Discharge Date/Time: 12/10/23 11:49 Patient Disposition: Home, Self-Care Discharge Diagnosis: htn ,mike on ckd ,covid. Referrals: Name,MD Jose [Primary Care Provider] - 1 Week Discharge Medications: Continued atorvastatin 80 mg tablet 80 mg PO DAILY amlodipine 10 mg tablet 10 mg PO BEDTIME pantoprazole 40 mg tablet,delayed release (DR/EC) 40 mg PO DAILY@0630 metformin 1,000 mg tablet 1,000 mg PO BID folic acid 1 mg tablet 1 mg PO DAILY allopurinol 300 mg tablet 300 mg PO DAILY gabapentin 100 mg capsule 100 mg PO BEDTIME cholecalciferol (vitamin D3) [Vitamin D3] 25 mcg (1,000 unit) capsule 25 mcg PO DAILY ezetimibe 10 mg tablet 10 mg PO BEDTIME fluticasone propion-salmeterol [Advair HFA] 230-21 mcg/actuation HFA aerosol inhaler 2 puff INHALATION BID insulin glargine [Lantus Solostar U-100 Insulin] 100 unit/mL (3 mL) insulin pen 10 unit subcut DAILY Multaq 400 mg tablet 400 mg PO BID Eliquis 5 mg tablet 5 mg PO BID Trulicity 1.5 mg/0.5 mL pen injector 1.5 mg subcut TU bupropion HCl 200 mg tablet sustained-release 12 hr 200 mg PO BID multivitamin Tablet 1 tab PO DAILY albuterol sulfate 90 mcg/actuation Hfa Aerosol Inhaler 2 puff INHALATION Q6H PRN (Reason: Wheezing) fluticasone propionate 50 mcg/actuation [place],Suspension 2 spray INTRANASAL DAILY Rx Instructions: administer into each nostril Changed metoprolol tartrate 50 mg tablet 75 mg PO TID Qty: 180 0RF ascorbic acid (vitamin C) [Vitamin C] 500 mg Tablet 500 mg PO 2XW Qty: 1 0RF Held Jardiance 25 mg tablet 25 mg PO DAILY Hold Instructions: Resume on 01/03/24. hold until seen by nephrology Discontinued losartan 100 mg tablet 100 mg PO DAILY hydrochlorothiazide 12.5 mg tablet 12.5 mg PO DAILY Discharge Orders: Discharge Order (Routine); Ordered 12/10/23 Ordered By: Denisha Kaur Diet: Advance to usual diet Activity on Discharge: As tolerated Stand Alone Forms: Patient Portal Discharge page Print Language: Bhutanese Other Ambulatory Orders: Basic Metabolic Panel (Routine) Timeframe: 1 Week Facility: [facility] - Location: Laboratory Ordered By: Denisha Kaur Care Plan Goals: 63-year-old male with a PMH significant for?paroxysmal AFib on Eliquis s/p cardioversion on 11/27/2020, HTN, HLD, insulin-dependent type 2 diabetes, gout, LUIS ALFREDO on CPAP, and GERD who presents to the ED from [facility] for evaluation palpitations and rapid heart rate. Pt will be admitted to the hospital for treatment and further evaluation of AFib with RVR in the setting of acute COVID infection-for afib rvr -patient Given metoprolol 5 mg IV x2 and digoxin 0.25 mg IV in the ED-hr rate improvedand sinus rythem afterwards ,seen by cardiology -episode of AFib with a RVR possibly in the setting of COVID. mike on ckd -thought to be sec to hctz,mayuri ,covid ,Hydrochlorothiazide and lisinopril, Jardiance stopped-due to MIKE on CKD-further use of these meds outpatient after follow up with nephrology. htn -continue amlodipine ,Hydrochlorothiazide and lisinopril, Jardiance stopped- due to MIKE on CKD. Further use as per Nephrology. Metoprolol adjusted to 75 mg PO TID. Health Concerns: Hydrochlorothiazide and lisinopril, Jardiance stopped-due to MIKE on CKD. Further use as per Nephrology. Metoprolol adjusted to 75 mg PO TID Vitamin-C 500 mg p.o. 3 times a week. Encouraged for p.o. hydration. COVID [place] asymptomatic.self isolation for 5 days . Follow-up BMP out patiently with PCP and follow-up with Nephrology, Cardiology. Plan of Treatment: As above. Assessment: As above.
--- NOTE | 2023-12-10 12:01 | MHC.CM.PN ---
IMM 12/08/23 Patient is discharged to home self care. He has arranged for his to provide transportation home.
== END 2023-12-10 13:07 | disposition home or self-care (01) | DRG 178 ==
LOC: HO.ED 19:33 → HO.EDOVER 22:03 → HO.IMC 12-08 19:55
PROVIDERS: Nurse Practitioner Family; Admitting Provider Internal Medicine; Emergency Provider Emergency Medicine; PCP Internal Medicine Geriatric Medicine; Visit Provider Internal Medicine
DX: U07.1 COVID-19 (principal); N17.9 Acute kidney failure, unspecified; E11.22 Type 2 diabetes mellitus with diabetic chronic kidney disease; I25.10 Atherosclerotic heart disease of native coronary artery without angina pectoris; I48.0 Paroxysmal atrial fibrillation; J45.909 Unspecified asthma, uncomplicated; G47.33 Obstructive sleep apnea (adult) (pediatric); T38.3X5A Adverse effect of insulin and oral hypoglycemic [antidiabetic] drugs, initial encounter; I12.9 Hypertensive chronic kidney disease with stage 1 through stage 4 chronic kidney disease, or unspecified chronic kidney disease; E78.5 Hyperlipidemia, unspecified; M10.9 Gout, unspecified; K21.9 Gastro-esophageal reflux disease without esophagitis; Z79.01 Long term (current) use of anticoagulants; Z79.51 Long term (current) use of inhaled steroids; Z79.4 Long term (current) use of insulin; Z79.84 Long term (current) use of oral hypoglycemic drugs; Z79.85 Long-term (current) use of injectable non-insulin antidiabetic drugs; Z79.899 Other long term (current) drug therapy
CPT/HCPCS: 0241U; 36415; 71045; 80048; 80076; 82947; 83690; 83735; 83880; 84484; 85025; 93005; 94660; 99285; J1160; J7120

== ENCOUNTER 2023-12-07 21:42 | Outpatient (BNV) | payer OTHER, SELFPAY | END 2023-12-09 17:31 | PROVIDERS: Admitting Provider Internal Medicine; Emergency Provider Emergency Medicine; PCP Internal Medicine Geriatric Medicine; Visit Provider Internal Medicine | DX: R07.9 Chest pain, unspecified (principal) | CPT/HCPCS: 93010 ==

== ENCOUNTER → 2023-12-07 21:42 | Outpatient (BNV) | payer OTHER, SELFPAY | PROVIDERS: Admitting Provider Internal Medicine; Emergency Provider Emergency Medicine; PCP Internal Medicine Geriatric Medicine; Visit Provider Internal Medicine | DX: I48.91 Unspecified atrial fibrillation (principal); U07.1 COVID-19 | CPT/HCPCS: 93010; 99223 ==

== ENCOUNTER → 2023-12-07 21:42 | Outpatient (BNV) | payer OTHER, SELFPAY | PROVIDERS: Admitting Provider Internal Medicine; Emergency Provider Emergency Medicine; PCP Internal Medicine Geriatric Medicine; Visit Provider Student in an Organized Health Care Education/Training Program | DX: U07.1 COVID-19 (principal); N17.9 Acute kidney failure, unspecified; I12.9 Hypertensive chronic kidney disease with stage 1 through stage 4 chronic kidney disease, or unspecified chronic kidney disease; N18.31 Chronic kidney disease, stage 3a | CPT/HCPCS: 99223; 99232; 99239 ==

== ENCOUNTER → 2023-12-07 21:42 | Outpatient (BNV) | payer OTHER, SELFPAY | PROVIDERS: Admitting Provider Internal Medicine; Emergency Provider Emergency Medicine; PCP Internal Medicine Geriatric Medicine; Visit Provider Nurse Practitioner Family | DX: U07.1 COVID-19 (principal); N17.9 Acute kidney failure, unspecified; I12.9 Hypertensive chronic kidney disease with stage 1 through stage 4 chronic kidney disease, or unspecified chronic kidney disease; N18.31 Chronic kidney disease, stage 3a | CPT/HCPCS: 99222; 99232 ==

== ENCOUNTER 2023-12-16 11:26 | Outpatient (REF) | payer OTHER, SELFPAY ==
[2023-12-16 14:31] LABS: Alanine Aminotransferase 33 U/L (0-40); Albumin Level 4.1 g/dL (3.5-5.0); Alkaline Phosphatase 69 U/L (39-117); Anion Gap 14 (12-20); Aspartate Amino Transferase 33 U/L (5-37); Bilirubin Total 0.6 mg/dL (0.0-1.0); Blood Urea Nitrogen 31 mg/dL (9-16); Calcium 9.8 mg/dL (8.4-10.2); Carbon Dioxide 22 mmol/L (22-29); Chloride 108 mmol/L (96-108); Cholesterol 145 mg/dL (<200); Estimated Glomerular Filt Rate 31; Glucose Random 155 mg/dL (60-115); HDL Cholesterol 45 mg/dL (>40); LDL Cholesterol Calculated 89 mg/dL (<100); Potassium 4.6 mmol/L (3.3-5.1); Sodium 139 mmol/L (135-145); Total Protein 7.3 g/dL (6.5-8.0); Triglycerides 59 mg/dL (<150)
[2023-12-20 12:17] LABS: Creatinine Urine 126.06 mg/dL
[2023-12-20 12:27] LABS: Microalbum/Creatinine Ratio Ur 663.1 ug/mg cr (<30)
== END 2023-12-16 11:27 | disposition home or self-care (01) ==
LOC: HO.HHCL 11:26
PROVIDERS: Visit Provider Internal Medicine Geriatric Medicine
DX: E11.65 Type 2 diabetes mellitus with hyperglycemia (principal); I10 Essential (primary) hypertension
CPT/HCPCS: 36415; 80053; 80061; 82043; 82570

== ENCOUNTER 2023-12-22 14:58 | Outpatient (REF) | payer OTHER, SELFPAY ==
[2023-12-22 16:55] LABS: Anion Gap 11 (12-20); Blood Urea Nitrogen 24 mg/dL (9-16); Calcium 9.1 mg/dL (8.4-10.2); Carbon Dioxide 25 mmol/L (22-29); Chloride 111 mmol/L (96-108); Estimated Glomerular Filt Rate 40; Glucose Random 120 mg/dL (60-115); Sodium 142 mmol/L (135-145)
[2023-12-22 17:00] LABS: Creatinine Urine 157.11 mg/dL; Microalbum/Creatinine Ratio Ur 1244.3 ug/mg cr (<30)
== END 2023-12-22 14:59 | disposition home or self-care (01) ==
LOC: HO.LAB 14:58
PROVIDERS: PCP Internal Medicine Geriatric Medicine; Visit Provider Internal Medicine Geriatric Medicine
DX: N17.9 Acute kidney failure, unspecified (principal); N18.30 Chronic kidney disease, stage 3 unspecified; I10 Essential (primary) hypertension; E11.65 Type 2 diabetes mellitus with hyperglycemia
CPT/HCPCS: 36415; 80048; 82043; 82570

== ENCOUNTER 2023-12-27 14:37 | Outpatient (AMB) | payer MEDICARE, MEDICAID, SELFPAY ==
--- NOTE | 2023-12-27 14:39 | MHC.OFFVIS ---
Vital Signs 12/27/23 14:40 Height 6 ft Weight 260 lb 9.382 oz BMI 35.3 BP 148/84 H Blood Pressure Location Lt brachial Position Sitting Pulse 74 Intake Visit Reasons: 4 mth f/up/ R/S 11/16 Intake Note: 4 mo f/u. Pt states was at [facility] ED about 2 weeks. New LE edema x 2weeks. Client Application Support Engineer Required: Yes Client Application Support Engineer Name: Iza [id number] Accompanied by: Spouse Allergies No Known Allergies [No Known Allergies*] Allergy (Verified 12/07/23 16:41) Medication List - Last Reconciled 12/27/23 by Sumit Daniels MD albuterol sulfate 90 mcg/actuation 2 puffs inhalation Q6H PRN allopurinol 300 mg PO DAILY amlodipine 10 mg PO BEDTIME apixaban (Eliquis) 5 mg PO BID ascorbic acid (vitamin C) (Vitamin C) 500 mg PO 2XW atorvastatin 80 mg PO DAILY bupropion HCl SR 200 mg PO BID cholecalciferol (vitamin D3) (Vitamin D3) 25 mcg PO DAILY dronedarone (Multaq) 400 mg PO BID dulaglutide (Trulicity) 1.5 mg subcut TU empagliflozin (Jardiance) 25 mg PO DAILY ezetimibe 10 mg PO BEDTIME fluticasone propion-salmeterol 230-21 mcg/actuation (Advair HFA) 2 puffs inhalation BID fluticasone propionate 50 mcg/actuation 2 sprays intranasal DAILY folic acid 1 mg PO DAILY gabapentin 100 mg PO BEDTIME insulin glargine (Lantus Solostar U-100 Insulin) 10 units subcut DAILY metformin 1,000 mg PO BID metoprolol tartrate 75 mg (1.5 x 50 mg) PO TID multivitamin 1 tab PO DAILY pantoprazole 40 mg PO DAILY@0630 HPI Comments Details: 63-year-old gentleman with paroxysmal atrial flutter with variable block who is here for follow-up. He is status post cardioversion and has been on Multaq. He has been doing well. Repeat electrocardiogram in office has shown sinus rhythm. Tolerating medications well no bleeding issues. 11/25/2022: He returns for follow-up. He has been taking medications regularly. No bleeding issues. No palpitations. Denying chest discomfort shortness of breath. Taking medications regularly. He is currently taking alirocumab, atorvastatin and ezetimibe. His LDL cholesterol in February was 110. 07/21/23: He returns for follow-up. Lipid panel from 01/11/2023 showed total cholesterol 141, LDL 85, HDL 49 and triglycerides 37. He is taking Elavil, map 150 mg every 2 weeks. He is also on atorvastatin 80 mg daily and Zetia. Blood pressure is elevated in the office today. Repeat manual blood pressure is 140/80. He has been taking medications regularly but recently was started on Trulicity and had a lot of GI upset including vomiting episodes. He is saying that he has held TrCumuLogic this week and is feeling little better. 12/27/2023: He got admitted to [facility] recently with COVID-19 and AFib with RVR. AFib apparently was self-limiting. He was subsequently discharged on same medications including Multaq and Eliquis. He has had some balance issues and has been using a cane more recently. Etiology is unclear. His blood pressure is elevated. [facility] Medical History History of cardioversion History of COVID-19 COVID-19 vaccine series completed Elevated cholesterol HTN (hypertension) Asthma COPD (chronic obstructive pulmonary disease) LUIS ALFREDO (obstructive sleep apnea) CAD (coronary artery disease) Surgical History H/O cardiac catheterization History of cataract surgery H/O: vasectomy Family History Father HTN (hypertension) Diabetes Mother HTN (hypertension) Diabetes CVD (cardiovascular disease) Social History Household Members: Spouse Housing: Apartment Do you presently have visiting nurse or other home services: No Alcohol intake: never Patient Tobacco Use Status: Never used Tobacco service: No Review of Systems Const Denies chills, Denies fatigue, Denies fever(s), Denies weight gain and Denies weight loss ENT Denies dizziness Card Denies chest pain, Reports leg edema, Denies lightheadedness, Denies palpitations, Denies dyspnea on exertion, Denies orthopnea and Denies other Resp Denies cough and Denies dyspnea on exertion GI Denies hematochezia and Denies change in stool character Musc Denies abnormal gait, Denies muscle weakness, Denies numbness, Denies radiating pain into limb and Denies tingling Neuro Denies abnormal gait, Denies dizziness, Denies numbness and Denies tingling Endo Denies fatigue and Denies palpitations Physical Exam Vital Signs: Last Vital Signs Pulse 74 12/27/23 14:40 BP 148/84 H 12/27/23 14:40 BMI result Body Mass Index 35.3 GENERAL APPEARANCE: in no acute distress, pleasant. NECK: no carotid bruit, no jugular venous distention. SKIN: no suspicious lesions, warm and dry. HEART: no murmurs, regular rate and rhythm. LUNGS: clear to auscultation bilaterally. ABDOMEN: soft, nontender. EXTREMITIES: no edema. PERIPHERAL PULSES: equal. NEUROLOGIC: No gross deficits, AAO X 3 Office Procedures EKG Details: Sinus rhythm 74 beats per minute, first-degree AV block with NM interval 242 milliseconds, normal axis, QTC 446 milliseconds. [id number], Complete Assessment & Plan Assessment & Plan (1) HTN (hypertension): Code(s): I10 - Essential (primary) hypertension Category: Medical Qualifiers: Hypertension type: primary hypertension Qualified Code(s): I10 - Essential (primary) hypertension (2) PAF (paroxysmal atrial fibrillation): Code(s): I48.0 - Paroxysmal atrial fibrillation Category: Medical (3) Paroxysmal atrial flutter: Code(s): I48.92 - Unspecified atrial flutter Category: Medical Plan Pleasant 63 year gentleman who is here for follow-up. He had episode of COVID-19 and had episode of AFib with RVR. He was asymptomatic from atrial fibrillation point of view. He reverted back to sinus rhythm. His EKG currently is showing sinus rhythm. Continue Multaq as before. Atrial fibrillation likely triggered by COVID-19 infection. We will arrange cardiac event monitor for him for 30 days. He does not get any symptoms from arrhythmia and we need to understand how much arrhythmia burden he has. If he has significant AFib/atrial flutter episodes then we may have to change the Multaq or refer him to electrophysiology for ablation. Blood pressure is elevated and I am adding hydrochlorothiazide 25 mg daily. He will continue rest of his medications as before. He will see us back in few months. Thank you for allowing me to participate in the care of your patient. Please feel free to contact me if you have any questions. Orders: Orders ECG 30 day event monitor Today I48.0 - Paroxysmal atrial fibrillation Medications: New hydrochlorothiazide 25 mg PO DAILY 60 tabs 3RF I10 - Essential (primary) hypertension Coding Level of Care Code Est Pt Level 4 (41756) Diagnoses Primary hypertension I10 Hypertension type: primary hypertension PAF (paroxysmal atrial fibrillation) I48.0 Paroxysmal atrial flutter I48.92 CPT Codes EKG - CPT: [id number], Complete ([id number])
[2023-12-27 14:40] VITALS: BP 148/84; PULSE 74; BMI 35.3
== END 2023-12-27 15:20 | disposition home or self-care (01) ==
LOC: HO.HCS 14:37
PROVIDERS: PCP Internal Medicine Geriatric Medicine; Visit Provider Internal Medicine Cardiovascular Disease
DX: I10 Essential (primary) hypertension (principal); I48.0 Paroxysmal atrial fibrillation; I48.92 Unspecified atrial flutter
CPT/HCPCS: 93010; 99214

== ENCOUNTER → 2023-12-27 14:37 | Outpatient (BNVA) | payer OTHER, SELFPAY | PROVIDERS: PCP Internal Medicine Geriatric Medicine; Visit Provider Internal Medicine Cardiovascular Disease | DX: I48.0 Paroxysmal atrial fibrillation (principal); I48.92 Unspecified atrial flutter; I10 Essential (primary) hypertension | CPT/HCPCS: 93005; 99212 ==

== ENCOUNTER → 2023-12-31 11:09 | Outpatient (REF) | payer OTHER, SELFPAY ==
--- NOTE | 2023-12-31 11:13 | HM_ITS ---
Cardiac event monitor Indication: Paroxysmal atrial fibrillation Technique: Patient was hooked up to cardiac event monitor from 12/31/2019 to 01/30/2024 for total period of 30 days. Total wear time was 20.7 days Findings: Baseline was normal sinus rhythm with average heart of 77 beats per minute without significant bradycardia. There were no significant pauses noted. Occasional PVCs noted which are mostly isolated. One episode of sustained narrow complex tachycardia noted consistent with SVT at 254 beats per minute Patient reported 3 events without associated symptoms reported. One of the reported events correlated with SVT and 1 correlated with isolated PVCs. Conclusion: 1. Baseline was normal sinus rhythm with no pauses 2. 1 episode of sustained SVT at 254 beats per minute exact duration unknown 3. Patient reported symptom once correlated with SVT and wants with isolated PVCs MTDD
== END ==
LOC: HO.CARD 11:09
PROVIDERS: PCP Internal Medicine Geriatric Medicine; Visit Provider Internal Medicine Cardiovascular Disease
DX: I48.0 Paroxysmal atrial fibrillation (principal)
CPT/HCPCS: 93270; 99212

== ENCOUNTER → 2023-12-31 11:13 | Outpatient (BNV) | payer OTHER, SELFPAY | PROVIDERS: PCP Internal Medicine Geriatric Medicine; Visit Provider Internal Medicine Cardiovascular Disease | DX: I47.10 Supraventricular tachycardia, unspecified (principal) | CPT/HCPCS: 93272 ==

== ENCOUNTER 2023-12-31 14:30 | Outpatient (AMB) | payer OTHER, SELFPAY ==
--- NOTE | 2023-12-31 14:54 | HO.NEPHOV_ITS ---
Vital Signs 12/31/23 14:59 Height 6 ft Weight 262 lb BMI 35.5 BP 122/74 Blood Pressure Location Rt brachial Position Sitting Pulse 88 Pulse Source Pulse Oximeter Pulse Oximetry (%) 98 Oxygen Delivery Method Room Air Intake Visit Reasons: [facility] discharger- Conf Case Management Specialist Required: Yes Case Management Specialist Language: Pit Steward Services: Case Management Specialist Present Case Management Specialist Name: Blayne [id number] Accompanied by: Spouse Allergies No Known Allergies [No Known Allergies*] Allergy (Verified 12/31/23 14:55) HPI Comments Details: 63 y/o male with paroxysmal afib on eliquis, HTN & DMII, gout, presented to [facility] ER on 12/06 after visit at [facility] for palpitations, had afib with RVR. He was tested positive for covid-19 on 12/06 . He was given fluids and has converted to sinus rhythm. Creatinine 1.92 on 12/06 (previous creatinine 1.58, has been between 1.86 and 1.47 over last several years since 2020). Creatinine now 1.73, down from 2.11. He has history of proteinuria since at least 2019. He has hypertension and currently taking amlodipine 10mg daily and metoprolol 75mg TID & HCTZ. He does not take NSAIDs or other OTC medication.He feels well. He is not on ACEI. [facility] Medical History History of cardioversion History of COVID-19 COVID-19 vaccine series completed Elevated cholesterol HTN (hypertension) Asthma COPD (chronic obstructive pulmonary disease) LUIS ALFREDO (obstructive sleep apnea) CAD (coronary artery disease) Surgical History H/O cardiac catheterization History of cataract surgery H/O: vasectomy Family History Father HTN (hypertension) Diabetes Mother HTN (hypertension) Diabetes CVD (cardiovascular disease) Social History Household Members: Spouse Housing: Apartment Do you presently have visiting nurse or other home services: No Alcohol intake: never Patient Tobacco Use Status: Never used Tobacco service: No Review of Systems Const All systems reviewed & are unremarkable except as noted in HPI and below Physical Exam Const General: comfortable and no acute distress Orientation/consciousness: patient oriented x3 HEENT Head: Yes normocephalic Mouth: Normal oral and palatal mucosa present Eyes EOM: EOMs intact bilaterally Neck Neck: Yes supple Resp Auscultation: clear to auscultation bilaterally Cardio Jugular venous distension: no JVD Rate: regular rate GI Palpation (GI): Soft to palpation Auscultation: normal bowel sounds General: Yes no CVA tenderness Back/Spine/Pelvis Back: no CVA tenderness Skin General skin exam: no rashes or lesions noted Neuro General: patient oriented x3 and moves all extremities Extrem General: Yes no pedal edema Results Reviewed Nephrology Results: Hgb 14.2 g/dl (14.0-18.0) 12/08/23 WBC 8.1 X10*3/uL (4.8-10.8) 12/08/23 Plt Count 218 X10*3/uL (160-400) 12/08/23 Sodium 142 mmol/L (135-145) 12/22/23 Potassium 5.0 mmol/L (3.3-5.1) 12/22/23 Chloride 111 mmol/L (96-108) H 12/22/23 Carbon Dioxide 25 mmol/L (22-29) 12/22/23 BUN 24 mg/dL (9-16) H 12/22/23 Creatinine 1.73 mg/dL (0.5-1.4) H 12/22/23 Calcium 9.1 mg/dL (8.4-10.2) 12/22/23 Urine Creatinine 157.11 mg/dL 12/22/23 Assessment & Plan Assessment & Plan (1) MIKE (acute kidney injury): Code(s): N17.9 - Acute kidney failure, unspecified Category: Medical (2) CKD (chronic kidney disease) stage 3, GFR 30-59 ml/min: Code(s): N18.30 - Chronic kidney disease, stage 3 unspecified Category: Medical Qualifiers: Chronic kidney disease stage 3 subtype: stage 3a (GFR 45-59) Qualified Code(s): N18.31 - Chronic kidney disease, stage 3a (3) HTN (hypertension): Code(s): I10 - Essential (primary) hypertension Category: Medical Qualifiers: Hypertension type: primary hypertension Qualified Code(s): I10 - Essential (primary) hypertension Plan MIKE on CKD due to reduced renal perfusion due to afib with RVR in setting of losartan and hctz due to tubular injury. ARB on hold. Renal function improved and stable. Blood pressure at goal. Continue to hold losartan. I shall restart losartan at next visit if possible. Needs to loose more weight. Good hydration. No NSAID's. Labs/FU 2 M. All quest ions answered. Orders: Orders Electrolytes 2 Months I10 - Essential (primary) hypertension, N18.31 - Chronic kidney disease, stage 3a Complete Blood Count Auto Diff 2 Months I10 - Essential (primary) hypertension, N18.31 - Chronic kidney disease, stage 3a Vitamin D 25-OH Total 2 Months I10 - Essential (primary) hypertension, N18.31 - Chronic kidney disease, stage 3a Immunofixation, Random Urine 2 Months I10 - Essential (primary) hypertension, N18.31 - Chronic kidney disease, stage 3a Immunofixation Pnl, Serum 2 Months I10 - Essential (primary) hypertension, N18.31 - Chronic kidney disease, stage 3a Creatinine 2 Months I10 - Essential (primary) hypertension, N18.31 - Chronic kidney disease, stage 3a Blood Urea Nitrogen 2 Months I10 - Essential (primary) hypertension, N18.31 - Chronic kidney disease, stage 3a Calcium 2 Months I10 - Essential (primary) hypertension, N18.31 - Chronic kidney disease, stage 3a Parathyroid Hormone Intact 2 Months I10 - Essential (primary) hypertension, N18.31 - Chronic kidney disease, stage 3a Coding Level of Care Code Est Pt Level 4 (83336) Diagnoses MIKE (acute kidney injury) N17.9 Stage 3a chronic kidney disease N18.31 Chronic kidney disease stage 3 subtype: stage 3a (GFR 45-59) Primary hypertension I10 Hypertension type: primary hypertension
[2023-12-31 14:59] VITALS: BP 122/74; PULSE 88; O2SAT 98; BMI 35.5
== END 2023-12-31 15:21 | disposition home or self-care (01) ==
PROVIDERS: PCP Internal Medicine Geriatric Medicine; Visit Provider Internal Medicine Nephrology
DX: N17.9 Acute kidney failure, unspecified (principal); I12.9 Hypertensive chronic kidney disease with stage 1 through stage 4 chronic kidney disease, or unspecified chronic kidney disease; N18.31 Chronic kidney disease, stage 3a
CPT/HCPCS: 99214

== ENCOUNTER 2024-01-03 14:02 | Outpatient (REF) | payer OTHER, SELFPAY ==
[2024-01-03 16:39] LABS: Anion Gap 13 (12-20); Blood Urea Nitrogen 28 mg/dL (9-16); Calcium 9.6 mg/dL (8.4-10.2); Carbon Dioxide 25 mmol/L (22-29); Chloride 107 mmol/L (96-108); Estimated Glomerular Filt Rate 44; Glucose Random 123 mg/dL (60-115); Potassium 5.1 mmol/L (3.3-5.1); Sodium 140 mmol/L (135-145)
== END 2024-01-03 14:03 | disposition home or self-care (01) ==
LOC: HO.HHCL 14:02
PROVIDERS: Visit Provider Internal Medicine
DX: N17.9 Acute kidney failure, unspecified (principal)
CPT/HCPCS: 36415; 80048

== ENCOUNTER 2024-02-21 14:55 | Outpatient (REF) | payer OTHER, SELFPAY ==
[2024-02-21 16:57] LABS: Anion Gap 10 (12-20); Blood Urea Nitrogen 29 mg/dL (9-16); Carbon Dioxide 27 mmol/L (22-29); Chloride 108 mmol/L (96-108); Estimated Glomerular Filt Rate 34; Glucose Random 86 mg/dL (60-115); Potassium 4.3 mmol/L (3.3-5.1); Sodium 141 mmol/L (135-145)
== END 2024-02-21 14:56 | disposition home or self-care (01) ==
LOC: HO.HHCL 14:55
PROVIDERS: Visit Provider Internal Medicine Geriatric Medicine
DX: E11.65 Type 2 diabetes mellitus with hyperglycemia (principal); I10 Essential (primary) hypertension; N17.9 Acute kidney failure, unspecified
CPT/HCPCS: 36415; 80048

== ENCOUNTER 2024-02-29 10:16 | Outpatient (REF) | payer OTHER, SELFPAY ==
[2024-02-29 11:21] LABS: MANUAL DIFF FLAG NO
[2024-02-29 11:25] LABS: Basophils Absolute Auto 0.1 X10*3/uL (0.0-0.2); Basophils Percent Auto 0.7 % (0-2); Eosinophils Absolute Auto 0.2 X10*3/uL (0.0-0.4); Eosinophils Percent Auto 3.2 % (0-4); Hematocrit 39.8 % (42.0-52.0); Hemoglobin 12.9 g/dl (14.0-18.0); Imm Gran Abs Auto 0.03 X10*3/uL (0.00-0.03); Imm Gran Pct Auto 0.4 % (0.0-0.4); Lymphocytes Absolute Auto 1.8 X10*3/uL (1.2-4.9); Lymphocytes Percent Auto 24.4 % (20-40); Mean Corpuscular HGB Conc 32.4 g/dl (31.0-36.0); Mean Corpuscular Volume 86.5 fL (80.0-98.0); Mean Platelet Volume 9.7 fL (9.4-12.4); Monocytes Absolute Auto 0.6 X10*3/uL (0.1-1.2); Monocytes Percent Auto 8.2 % (2-11); Neutrophils Absolute Auto 4.8 x10*3/uL (2.0-8.3); Neutrophils Percent Auto 63.1 % (45-73); Platelet Count 246 X10*3/uL (160-400); Red Cell Distribution Width 14.1 % (11.0-16.0); White Blood Count 7.5 X10*3/uL (4.8-10.8)
[2024-02-29 12:44] LABS: Anion Gap 11 (12-20); Blood Urea Nitrogen 26 mg/dL (9-16); Carbon Dioxide 26 mmol/L (22-29); Chloride 110 mmol/L (96-108); Estimated Glomerular Filt Rate 43; Glucose Random 100 mg/dL (60-115); Potassium 3.8 mmol/L (3.3-5.1); Sodium 143 mmol/L (135-145)
[2024-02-29 12:47] LABS: Parathyroid Hormone Intact 159.8 pg/mL (8.7-77.1)
[2024-02-29 13:01] LABS: Vitamin D 25-OH Total 28.6 ng/mL (>30)
[2024-03-03 09:13] LABS: IgA 157 mg/dL (70-320); IgG 744 mg/dL (600-1540); IgM 37 mg/dL (50-300)
== END 2024-02-29 10:17 | disposition home or self-care (01) ==
LOC: HO.HHCL 10:16
PROVIDERS: Visit Provider Internal Medicine Nephrology
DX: I12.9 Hypertensive chronic kidney disease with stage 1 through stage 4 chronic kidney disease, or unspecified chronic kidney disease (principal); N18.31 Chronic kidney disease, stage 3a; E11.42 Type 2 diabetes mellitus with diabetic polyneuropathy; E11.65 Type 2 diabetes mellitus with hyperglycemia; N17.9 Acute kidney failure, unspecified
CPT/HCPCS: 80048; 82306; 82784; 83970; 85025; 86334; 86335

== ENCOUNTER 2024-03-03 13:22 | Outpatient (AMB) | payer OTHER, SELFPAY ==
[2024-03-03 13:25] VITALS: BP 118/70; PULSE 85; O2SAT 97; BMI 34.4
--- NOTE | 2024-03-03 13:25 | HO.NEPHOV_ITS ---
Vital Signs 03/03/24 13:25 Height 6 ft Weight 254 lb BMI 34.4 BP 118/70 Blood Pressure Location Lt brachial Position Sitting Pulse 85 Pulse Source Pulse Oximeter Pulse Oximetry (%) 97 Oxygen Delivery Method Room Air Intake Visit Reasons: 2mon follow up- Facility Rehab Director Required: Yes Facility Rehab Director Name: Rochelle [id number] Accompanied by: Spouse Allergies No Known Allergies [No Known Allergies*] Allergy (Verified 03/03/24 13:29) HPI Comments Details: 63 y/o male with paroxysmal afib on eliquis, HTN & DMII, gout, presented to [facility] ER on 12/06 after visit at [facility] for palpitations, had afib with RVR. He was tested positive for covid-19 on 12/06 . He was given fluids and has converted to sinus rhythm. Creatinine 1.92 on 12/06 (previous creatinine 1.58, has been between 1.86 and 1.47 over last several years since 2020). Creatinine now 1.64, down from 2.11. He has history of proteinuria since at least 2018. He has hypertension and currently taking amlodipine 10mg daily and metoprolol 75mg TID & HCTZ. He does not take NSAIDs or other OTC medication.He feels well. He is on ARB. [facility] Medical History History of cardioversion History of COVID-19 COVID-19 vaccine series completed Elevated cholesterol HTN (hypertension) Asthma COPD (chronic obstructive pulmonary disease) LUIS ALFREDO (obstructive sleep apnea) CAD (coronary artery disease) Surgical History H/O cardiac catheterization History of cataract surgery H/O: vasectomy Family History Father HTN (hypertension) Diabetes Mother HTN (hypertension) Diabetes CVD (cardiovascular disease) Social History Household Members: Spouse Housing: Apartment Do you presently have visiting nurse or other home services: No Alcohol intake: never Patient Tobacco Use Status: Never used Tobacco service: No Review of Systems Const All systems reviewed & are unremarkable except as noted in HPI and below Physical Exam Vital Signs: Last Vital Signs Pulse 85 03/03/24 13:25 BP 118/70 03/03/24 13:25 Pulse Ox 97 03/03/24 13:25 Oxygen Delivery Method Room Air 03/03/24 13:25 BMI result Body Mass Index 34.4 Const General: comfortable and no acute distress Orientation/consciousness: patient oriented x3 HEENT Head: Yes normocephalic Mouth: Normal oral and palatal mucosa present Eyes EOM: EOMs intact bilaterally Neck Neck: Yes supple Resp Auscultation: clear to auscultation bilaterally Cardio Jugular venous distension: no JVD Rate: regular rate GI Palpation (GI): Soft to palpation Auscultation: normal bowel sounds General: Yes no CVA tenderness Back/Spine/Pelvis Back: no CVA tenderness Skin General skin exam: no rashes or lesions noted Neuro General: patient oriented x3 and moves all extremities Extrem General: Yes no pedal edema Results Reviewed Nephrology Results: Hgb 12.9 g/dl (14.0-18.0) L 02/29/24 WBC 7.5 X10*3/uL (4.8-10.8) 02/29/24 Plt Count 246 X10*3/uL (160-400) 02/29/24 Sodium 143 mmol/L (135-145) 02/29/24 Potassium 3.8 mmol/L (3.3-5.1) 02/29/24 Chloride 110 mmol/L (96-108) H 02/29/24 Carbon Dioxide 26 mmol/L (22-29) 02/29/24 BUN 26 mg/dL (9-16) H 02/29/24 Creatinine 1.64 mg/dL (0.5-1.4) H 02/29/24 Calcium 9.0 mg/dL (8.4-10.2) 02/29/24 PTH Intact 159.8 pg/mL (8.7-77.1) H 02/29/24 Urine Creatinine 157.11 mg/dL 12/22/23 Assessment & Plan Assessment & Plan (1) CKD (chronic kidney disease) stage 3, GFR 30-59 ml/min: Code(s): N18.30 - Chronic kidney disease, stage 3 unspecified Category: Medical Qualifiers: Chronic kidney disease stage 3 subtype: stage 3a (GFR 45-59) Qualified Code(s): N18.31 - Chronic kidney disease, stage 3a (2) HTN (hypertension): Code(s): I10 - Essential (primary) hypertension Category: Medical Qualifiers: Hypertension type: primary hypertension Qualified Code(s): I10 - Essential (primary) hypertension (3) Secondary hyperparathyroidism (of renal origin): Code(s): N25.81 - Secondary hyperparathyroidism of renal origin Category: Medical Plan Had MIKE on CKD due to reduced renal perfusion due to afib with RVR in setting of losartan and hctz due to tubular injury which has resolved. ARB has been restart ed. Renal function improved and stable. Blood pressure at goal.I plan to start him on SGLT2 i.Needs to loose more weight. Good hydration. No NSAID's. All questions answered. Orders: Orders Creatinine 3 Months I10 - Essential (primary) hypertension, N18.31 - Chronic kidney disease, stage 3a Electrolytes 3 Months I10 - Essential (primary) hypertension, N18.31 - Chronic kidney disease, stage 3a Blood Urea Nitrogen 3 Months I10 - Essential (primary) hypertension, N18.31 - Chronic kidney disease, stage 3a Coding Level of Care Code Est Pt Level 4 (48877) Diagnoses Stage 3a chronic kidney disease N18.31 Chronic kidney disease stage 3 subtype: stage 3a (GFR 45-59) Primary hypertension I10 Hypertension type: primary hypertension Secondary hyperparathyroidism (of renal origin) N25.81
== END 2024-03-03 13:48 | disposition home or self-care (01) ==
PROVIDERS: PCP Internal Medicine Geriatric Medicine; Visit Provider Internal Medicine Nephrology
DX: I12.9 Hypertensive chronic kidney disease with stage 1 through stage 4 chronic kidney disease, or unspecified chronic kidney disease (principal); N18.31 Chronic kidney disease, stage 3a; N25.81 Secondary hyperparathyroidism of renal origin
CPT/HCPCS: 99214

== ENCOUNTER → 2024-03-03 13:22 | Outpatient (BNVA) | payer OTHER, SELFPAY | PROVIDERS: PCP Internal Medicine Geriatric Medicine; Visit Provider Internal Medicine Nephrology | DX: I12.9 Hypertensive chronic kidney disease with stage 1 through stage 4 chronic kidney disease, or unspecified chronic kidney disease (principal); N18.31 Chronic kidney disease, stage 3a; N25.81 Secondary hyperparathyroidism of renal origin | CPT/HCPCS: 99212 ==

== ENCOUNTER 2024-05-18 14:48 | Outpatient (AMB) | payer OTHER, SELFPAY ==
[2024-05-18 14:51] VITALS: BP 138/78; PULSE 73; BMI 34.7
--- NOTE | 2024-05-18 14:51 | A.OFFVIS_ITS ---
Vital Signs 05/18/24 14:51 Height 6 ft Weight 255 lb 11.779 oz BMI 34.7 BP 138/78 Blood Pressure Location Lt brachial Position Sitting Pulse 73 Pulse Source Monitor Intake Visit Reasons: r/s-3.5 mth f/up 30 day monitor Conservation Specialist Required: Yes Conservation Specialist Name: JANELLE [phone] Allergies No Known Allergies [No Known Allergies*] Allergy (Verified 03/03/24 13:29) Medication List - Last Reconciled 05/18/24 by Pete Napier NP albuterol sulfate 90 mcg/actuation 2 puffs inhalation Q6H PRN allopurinol 300 mg PO DAILY amlodipine 10 mg PO BEDTIME apixaban (Eliquis) 5 mg PO BID ascorbic acid (vitamin C) (Vitamin C) 500 mg PO 2XW atorvastatin 80 mg PO DAILY bupropion HCl SR 200 mg PO BID cholecalciferol (vitamin D3) (Vitamin D3) 25 mcg PO DAILY dronedarone (Multaq) 400 mg PO BID ezetimibe 10 mg PO BEDTIME fluticasone propion-salmeterol 230-21 mcg/actuation (Advair HFA) 2 puffs inhalation BID folic acid 1 mg PO DAILY gabapentin 100 mg PO BEDTIME hydrochlorothiazide 12.5 mg PO DAILY insulin glargine (Lantus Solostar U-100 Insulin) 10 units subcut DAILY losartan 25 mg PO DAILY metoprolol tartrate 75 mg (1.5 x 50 mg) PO TID multivitamin 1 tab PO DAILY pantoprazole 40 mg PO DAILY@0630 semaglutide 0.5 mg subcut QWEEK sennosides-docusate sodium 8.6-50 mg 1 tab-cap PO BEDTIME HPI Comments Details: This is a 63-year-old male patient presenting for a follow-up visit, accompanied by his . The rubber flap tuber machine operator was used throughout the visit. The patient has a history of hypertension, paroxysmal AFib, and coronary artery disease. He was previously admitted to the hospital for AFib with RVR during which the only symptom patient reported was a cough. His however noticed that his lips appeared blue and that there was some vibration over his glutes on his chest. The notes that patient did not report any other symptoms related to this episode. notes that this has happened twice so far, the last 1 being back in November leading to hospital admission. After last office visit, patient underwent a 30 day school bus monitor to assess for his arrhythmia burden. At present, the patient continues to deny any other cardiac symptoms, including exertional chest pain, shortness of breath, palpitations, dizziness, orthopnea, PND, leg edema, presyncope, or syncope. The patient confirms compliance with all his medications. [facility] Medical History History of cardioversion History of COVID-19 COVID-19 vaccine series completed Elevated cholesterol HTN (hypertension) Asthma COPD (chronic obstructive pulmonary disease) LUIS ALFREDO (obstructive sleep apnea) CAD (coronary artery disease) Surgical History H/O cardiac catheterization History of cataract surgery H/O: vasectomy Family History Father HTN (hypertension) Diabetes Mother HTN (hypertension) Diabetes CVD (cardiovascular disease) Social History Household Members: Spouse Housing: Apartment Do you presently have visiting nurse or other home services: No Alcohol intake: never Patient Tobacco Use Status: Never used Tobacco service: No Review of Systems Const Denies weakness ENT Denies dizziness Card Denies chest pain, Denies chest pain with activity, Denies syncope, Denies rapid heart rate, Denies pedal edema, Denies edema, Denies leg edema, Denies lightheadedness, Denies palpitations, Denies dyspnea, Denies dyspnea on exertion and Denies orthopnea Resp Denies cough, Denies dyspnea and Denies dyspnea on exertion GI Denies hematochezia and Denies change in stool character Musc Denies abnormal gait, Denies muscle cramps, Denies muscle weakness, Denies numbness, Denies radiating pain into limb and Denies tingling Neuro Denies abnormal gait, Denies dizziness, Denies syncope, Denies numbness, Denies tingling and Denies weakness Endo Denies palpitations Physical Exam Vital Signs: Last Vital Signs Pulse 73 05/18/24 14:51 BP 138/78 05/18/24 14:51 BMI result Body Mass Index 34.7 Const General: cooperative, healthy appearing, comfortable and no acute distress Orientation/consciousness: patient oriented x3 HEENT Head: Yes normal to inspection Neck Neck: Yes normal visual inspection, Yes trachea midline and Yes supple Chest Chest palpation & inspection: normal inspection of the chest Resp Effort & Inspection: normal respiratory effort Auscultation: clear to auscultation bilaterally, no crackles, no rales, no rhonchi and no wheezes Cardio Jugular venous distension: no JVD Palpation: normal PMI Rate: regular rate Rhythm: regular rhythm Heart sounds: S1 normal heart sound present, S2 normal heart sound present, no click, no gallops, no murmurs and no rubs Peripheral pulses: Peripheral pulses 2+ throughout GI Inspection: Yes normal to inspection Palpation (GI): Soft to palpation Auscultation: normal bowel sounds Skin General skin exam: no rashes or lesions noted Neuro General: patient oriented x3 Extrem General: Yes normal to inspection, No no pedal edema and No calf tenderness Psych Appearance: grossly normal Mental Status: mental status grossly normal Speech and movement: Normal speech and movement present Office Procedures EKG Details: EKG today shows underlying sinus rhythm with a first-degree AV block, rate 73 beats per minute, IL interval 240 milliseconds, [place]. [id number], Complete Assessment & Plan Assessment & Plan (1) PAF (paroxysmal atrial fibrillation): Code(s): I48.0 - Paroxysmal atrial fibrillation Category: Medical Plan: 12/31/2023-30 day cardiac event monitor showed baseline normal sinus rhythm, 1 episode of sustained SVT at 254 beats per minute, duration unknown. Patient reports that he had no symptoms with this. We will proceed with an echocardiogram to assess for left ventricular systolic and diastolic function. EKG today showed sinus rhythm with a first-degree AV block. We will continue Eliquis for full anticoagulation therapy, no reported signs of bleeding or falls. We will monitor labs periodically. Additionally, patient should continue Multaq and metoprolol therapy for both rhythm and rate control approach. If further episodes of AFib or flutter occur, the patient may benefit from ablation procedure. At that point a referral to an EP we will be consider. Patient agreeable with this plan. (2) CAD (coronary artery disease): Code(s): I25.10 - Atherosclerotic heart disease of [place] coronary artery without angina pectoris Category: Medical Plan: Last LDL at 84. Continue high-dose statin therapy and Zetia therapy. Ideally, LDL goal less than 70. (3) HTN (hypertension): Code(s): I10 - Essential (primary) hypertension Category: Medical Qualifiers: Hypertension type: primary hypertension Qualified Code(s): I10 - Essential (primary) hypertension Plan: Patient's blood pressure today is well-controlled. Continue current regimen. Advised patient to continue monitoring blood pressures at home. Ideally, blood pressure goal less than 130/80. (4) LUIS ALFREDO (obstructive sleep apnea): Code(s): G47.33 - Obstructive sleep apnea (adult) (pediatric) Category: Medical Plan: Continue CPAP therapy. Advised patient to continue with heart healthy diet, regular exercise, losing weight, medication compliance, and aggressive management of his vascular risk factors. We will follow-up in 6 months. In the interim, patient will call the office with any concerns or change in symptoms. This note was generated using voice recognition software. While every effort has been made to ensure accuracy and proper signal maintainer, there may be occasional errors that could affect the content or meaning of the described symptoms. Orders: Orders Lipid Panel 6 Months E78.5 - Hyperlipidemia, unspecified AMB EKG-In Office Today I48.0 - Paroxysmal atrial fibrillation CA echo transthoracic complete Today I47.10 - Supraventricular tachycardia, unspecified Basic Metabolic Panel 6 Months I48.0 - Paroxysmal atrial fibrillation Coding Level of Care Code Est Pt Level 4 (74235) Complex EM visit Add On G2211 Diagnoses PAF (paroxysmal atrial fibrillation) I48.0 CAD (coronary artery disease) I25.10 Primary hypertension I10 Hypertension type: primary hypertension LUIS ALFREDO (obstructive sleep apnea) G47.33 CPT Codes EKG - CPT: 14808-[id number], Complete ([id number]) Time Spent (min) 35 Comment Time spent in reviewing the chart, test results, assessment, counseling and documentation.
--- OUTSIDE RECORDS SUMMARY | 2024-05-18 18:29 | XMS_ITS | Encounter Summary ---
Author Organization [employer] Address [address] [facility] 7 [place] [address] Care Team Providers Care Sales Order Administrator Name Role Phone Name, Jose ALVARADO Primary Care Provider [phone] Renetta Davenport PharmD Unavailable [phone] Reason for Visit * Reason Comments Med Refill Encounter Details Date Type Department Care Team ([facility] st Contact Info) Description 05/17/2024 Refill [facility] [address] [place], [place] [phone] Name, MD Jose [address] [place] [address] Social History Tobacco Use Types Packs/Day Years Used Date Smoking Tobacco: Never Passive Smoke Exposure: Never Smokeless Tobacco: Never Alcohol Use Standard Drinks/Week Comments Never 0 (1 standard drink = 0.6 oz pur e alcohol) Alcohol Answer Date Recorded Frequency of Alcohol Consumption Not on file 09/29/2023 Average Number of Drinks Not on file 024 Frequency of Binge Drinking Not on file 08/2023 Score 0 09/29/2023 Depression Answer Date Recorded Patient Health Questionnaire-9 Score 0 04/19/2023 Patient Health Questionnaire-9 Score 0 04/19/2023 Last PHQ-9: Questionnaire Data Not on file 0 04/19/2023 Housing Stability Answer Date Recorded What is your housing situation today? I have barbi hernandez 04/19/[address] you li ve. Do you have problems with any of the following? None of the above 04/19/2023 Food Insecurity Answer Date Recorded Within the past 12 months, y ou worried that your food would run out before you got money to buy more: Never True 04/19/2023 Within the past 12 months,th e food you bought just didn't last and you didn't have enough money to get more: Never True Transportation Answer Date Recorded In the past 12 months, has l ack of transportation kept you from medical appts, meetings, work or from getting things needed for daily living? No 04/19/2023 Utilities Answer Date Recorded In the past 12 months, has t he [employer], gas, oil or water company threatened to shut off services in your home? No 04/19/2023 Depression Answer Date Recorded Patient Health Questionnaire-2 Score 0 04/19/2023 Sex and Gender Information Value Date Recorded Sex Assigned at Male 12/22/2021 10:15 AM EDT Legal Sex Male 10:15 AM EDT Gender Identity Male 12/22/2021 10:15 AM EDT Sexual Orientation Straight 12/22/2021 10 :15 AM EDT documented as of this encounter Plan of Treatment Upcoming Encounters Date Type Department Care Team (Late st Contact Info) Description 06/06/2024 11:00 AM EDT Medication Management [facility] [address] [place] [id number] Renetta Davenport, PharmD [address] [place] [phone] 07/05/2024 2:15 PM EDT Office Visit [facility] [address] [place] [phone] NameJose MD [address] [place] [phone] documented as of this encounter Visit Diagnoses Not on filedocumented in this encounter Additional Health Concerns Assessment Noted Time PHQ-9 Depression Total Score: 0 04/19/19 24 1:44 PM EST documented as of this encounter Care Teams Sales Order Administrator Relationship Specialty Start Date End Date Jose Rudd MD [address] [place] [phone] PCP - General Family Medicine 07/02/15 Renetta Davenport, PharmD [address] [place] [phone] Pharmacist Internal Medicine 01/03/24 documented as of this encounter
--- OUTSIDE RECORDS SUMMARY | 2024-05-18 18:29 | XMS_ITS | Encounter Summary ---
Author Organization [employer] Address [address] [facility] 7 [place] [address] Care Team Providers Care Associate Marketing Manager Name Role Phone Name, Jose ALVARADO Primary Care Provider [phone] Renetta Davenport PharmD Unavailable [phone] Encounter Details Date Type Department Care Team ([facility] st Contact Info) Description 08/30/2023 Telephone [facility] [address] [place], [place] [phone] Name, MD Jose [address] [place] [address] Social History Tobacco Use Types Packs/Day Years Used Date Smoking Tobacco: Never Passive Smoke Exposure: Never Smokeless Tobacco: Never Alcohol Use Standard Drinks/Week Comments Never 0 (1 standard drink = 0.6 oz pur e alcohol) Depression Answer Date Recorded Patient Health Questionnaire-9 [...] the past 12 months, has t he electric, gas, oil or water company threatened to [...] Description 06/06/2024 11:00 AM EDT Medication Management [address] [address] Renetta Davenport PharmD [address] [place] [phone] 07/05/2024 2:15 PM EDT Office Visit [facility] [address] [place] [phone] Name, MD Jose [address] [place] [phone] documented as of this encounter Visit Diagnoses Not on filedocumented in this encounter Additional Health Concerns Assessment Noted Time PHQ-9 Depression Total Score: 0 04/19/19 1:44 PM EST documented as of this encounter Care Teams Associate Marketing Manager Relationship Specialty Start Date End Date Name, MD Jose [address] [place] [phone] PCP - General Family Medicine 07/02/15 Renetta Davenport PharmD [address] [place] [phone] Pharmacist Internal Medicine 01/03/24 documented as of this encounter
--- OUTSIDE RECORDS SUMMARY | 2024-05-18 18:29 | XMS_ITS | Encounter Summary ---
Author Organization [employer] [facility] Address [address] [place] [address] [place], [place] [address] Care Team Providers Care Asw/Asuw Tactical Air Controller Name Role Phone Name, Jose ALVARADO Primary Care Provider [phone] Renetta Davenport PharmD Unavailable [phone] Encounter Details Date Type Department Care Team (Late st Contact Info) Description 03/04/2022 Orders Only [facility] [address] [place] [phone] Izabela Johnson LPN Social History Tobacco Use Types Packs/Day Years Used Date Smoking Tobacco: Never Assessed Sex and Gender Information Value Date Recorded Sex Assigned at Male 12/22/2021 10:15 AM EDT Legal Sex Male 10:15 AM EDT Gender Identity Male 12/22/2021 10:15 AM EDT Sexual Orientation Straight 12/22/2021 10 :15 AM EDT documented as of this encounter Plan of Treatment Upcoming Encounters Date Type Department Care Team (Late st Contact Info) Description 06/06/2024 11:00 AM EDT Medication Management [facility] [address] [place] [phone] Renetta Davenport, PharmD [address] [place] [address] 07/05/2024 2:15 PM EDT Office Visit [facility] [address] [place] [phone] Name, MD Jose [address] [place] [phone] documented as of this encounter Procedures Procedure Name Priority Date/Time Associated Diagnosis Comments LIPID PANEL, STANDARD Routine 03/23/2022 1:02 PM EST documented in this encounter Results * Lipid Panel, Standard (03/23/2022 1:02 PM EST) Triglycerides 49 mg/dL [facility] Comment:Desirable Triglyceri de: less than 150 mg/dLBorderline High Triglyceride 150-199 mg/dLHigh Triglyceride: 200-499 mg/dLVery High Triglyceride: greater than or equal to 5OO mg/dL Cholesterol 167 mg/dL [facility] Comment:Desirable Cholestero l: less than 200 mg/dLBorderline High Cholesterol: 200-239 mg/dLHigh Cholesterol: greater than 239 mg/dL LDL Cholesterol Calculated 110 mg/dl [facility] Comment:Desirable LDL: less than 100 mg/dLNear Optimal/Above Optimal LDL: 110- 129 mg/dLBorderline High LDL: 130-159 mg/dLHigh LDL: 160-189 mg/dLVery High LDL: greater than or equal to 190 mg/dL HDL Cholesterol 48 mg/dL [facility] Comment:Desirable HDL: great er than 40 mg/dL Note: This HDL assay may give artificially low results in patients with liver disease. 03/23/2022 1:02 PM EST 03/23/2022 1:02 PM EST [employer] External Provider LAB BLO OD ORDERABLES Final Result [facility] [address] [place] [address] [phone] documented in this encounter Visit Diagnoses Not on filedocumented in this encounter Care Teams Asw/Asuw Tactical Air Controller Relationship Specialty Start Date End Date Name, MD Jose [address] [place] [address] PCP - General Family Medicine 07/02/15 Renetta Davenport, BaileyD [address] [place] [address] Pharmacist Internal Medicine 01/03/24 documented as of this encounter
--- OUTSIDE RECORDS SUMMARY | 2024-05-18 18:29 | XMS_ITS | Encounter Summary ---
Author Organization [employer] Address [address] [place] [address] [place], [place] [address] Care Team Providers Care Manager Demand Name Role Phone Name, Jose ALVARADO Primary Care Provider [phone] Renetta Davenport PharmD Unavailable [phone] Reason for Visit * Reason Onset Date Comments call back 04/03/2022 Requested Call Back 04/07/2022 Prescription Request 04/03/2022 I called to verify that the pt requested insulin supplies through [facility], because they faxed a prescription order form to the [facility] department. He stated that he did not make the request, and that his prescriptions are sent to the [facility]. The form was faxed back to [facility], along with a note stating that the patient uses a local pharmacy. Encounter Details Date Type Department Care Team ([facility] Contact Info) Description 04/03/[address] [facility] [address] [place] [phone] Name, MD Jose [address], [place] [phone] call back; Requested Call Back ; Prescription Request (I called to verify that the pt requested insulin supplies through [facility], because they faxed a prescription order form to the [facility] department. He stated that he did not make the request, and that his prescriptions are sent to the [facility]. The form was faxed back to [facility], along with a note stating that the patient uses a local pharmacy.) Social History Tobacco Use Types Packs/Day Years Used Date Smoking Tobacco: Never Assessed Sex and Gender Information Value Date Recorded Sex Assigned at Male 12/22/2021 10:15 AM EDT Legal Sex Male 10:15 AM EDT Gender Identity Male 12/22/2021 10:15 AM EDT Sexual Orientation Straight 12/22/2021 10 :15 AM EDT documented as of this encounter Miscellaneous Notes * Telephone Encounter - Monica Richards - 04/07/2022 10:30 AM EST Tc from Kimmypedro at [facility] re calling in regards to diabetes supplies. Advised of message below, however Gretchenla is requesting a call back at [phone]. * Telephone Encounter - Gisselle Miranda RN - 04/06/2022 2:13 PM EST Pt does not use [facility] as a pharmacy and has upcoming appt on 04/08/22 and can discuss if pt wants to switch pharmacies * Telephone Encounter - Gio Crum - 04/03/2022 9:14 AM EST Tc from Jose Carlos with [facility] requesting a call back regarding pt medication Please contact jose carlos at [phone] documented in this encounter Plan of Treatment Upcoming Encounters Date Type Department Care Team (Late st Contact Info) Description 06/06/2024 11:00 AM EDT Medication Management [facility] [address] [place] [phone] Renetta Davenport, PharmD [address] [place] [address] 07/05/2024 2:15 PM EDT Office Visit [facility] [address] [place] [phone] Name, MD Jose [address] [place] [address] documented as of this encounter Visit Diagnoses Not on filedocumented in this encounter Care Teams Manager Demand Relationship Specialty Start Date End Date Name, MD Jose [address], [place] [phone] PCP - General Family Medicine 07/02/15 Renetta Davenport PharmD [address] [place] [address] Pharmacist Internal Medicine 01/03/24 documented as of this encounter
--- OUTSIDE RECORDS SUMMARY | 2024-05-18 18:29 | XMS_ITS | Encounter Summary ---
Author Organization [employer] Address [address] [place] [address] [address] [address] Care Team Providers Care Supervisor Spring Up Name Role Phone Name, Jose ALVARADO Primary Care Provider [phone] Renetta Davenport PharmD Unavailable [phone] Reason for Visit * Reason Onset Date Comments Nurse Triage 09/25/2022 Encounter Details Date Type Department Care Team (Late st Contact Info) Description 09/25/2022 Telephone [facility] [address], [place] [phone] Name, MD Jose [address] [place] [address] Nurse Triage Social History Tobacco Use Types Packs/Day Years Used Date Smoking Tobacco: Never Passive Smoke Exposure: Never Smokeless Tobacco: Never Alcohol Use Standard Drinks/Week Comments Never 0 (1 standard drink = 0.6 oz pur e alcohol) Depression Answer Date Recorded Patient Health Questionnaire-2 Score 0 04/08/2022 Sex and Gender Information Value Date Recorded Sex Assigned at Male 12/22/2021 10:15 AM EDT Legal Sex Male 10:15 AM EDT Gender Identity Male 12/22/2021 10:15 AM EDT Sexual Orientation Straight 12/22/2021 10 :15 AM EDT documented as of this encounter Miscellaneous Notes * Telephone Encounter - Lisa Simon RN - 09/28/2022 1:41 PM EDT T/C to [phone] for status check, No answer. LVM to call back on [phone]. * Telephone Encounter - Azeb Hager RN - 09/25/2022 12:43 PM EDT Triage call with [place] [facility] ID [id number] Pt , JEANA Contreras reports Pt is sleeping and she will talk for Pt. Pt was tested + for Covid09/24/22. Pt symptoms are fever, tactile, body aches, cough, nasal congestion and headache. Diane informs magnetic tape typewriter operator that Pt has been given prednisone and half of percocet that is Diane's prescription and would like to have these refilled. Advised not to give medications to Pt that are not prescribed to Pt and Diane disagrees due to Pt having asthma. Diane reports Pt doesn't have difficultybreathing just a cough. Advised that difficulty breathing/chest pain/pressure or fever over 103 arereasons to go to ED for evaluation. Home care disposition given with thorough review of listed homecare advise. Haleigh is given [employer] number [phone] for eligibility for paxlovid. Haleigh is asking for Dr. Rudd to be informed of this and requesting refill of prednisone for Pt. Prednisone is not on Pt med list. Advised will send this information to team nurses and provider coveringfor Dr. Rudd. Haleigh will wait for call back. Protocol Used: COVID-19 - Diagnosed or Suspected (Adult) Protocol-Based Disposition: Home Care Positive Triage Question: * [1] COVID-19 diagnosed by positive lab test (e.g., PCR, rapid self-test kit) AND [2] mild symptoms (e.g., cough, fever, others) AND [3] no complications or SOB * All higher-acuity triage questions were negative Care Advice Discussed: * Reassurance and Education - Positive COVID-19 Lab Test and Mild Symptoms * General Care Advice for COVID-19 Symptoms * Cough Medicines * Cough Syrup With Dextromethorphan * Cough Syrup With Dextromethorphan - Extra Notes and Warnings * Humidifier * Coughing Spells * Pain and Fever Medicines * Pain and Fever Medicines - Extra Notes and Warnings * Reasons To Call Back - Fever over 103 F (39.4 C) - Fever lasts over 3 days - Fever returns after being gone for 24 hours - Chest pain or difficulty breathing occurs - You become worse * COVID-19 - How to Protect Others - When You Are Sick With COVID-19 * Telephone Encounter - Blu Marsh - 09/25/2022 12:03 PM EDT Symptom: COVID-19 Suspected Outcome: Schedule a same-day appointment or talk to a nurse or provider today Reason: Caller denied all higher acuity questions The caller accepted this outcome Please contact pt spouse at [phone] Eritrean Speaker documented in this encounter Plan of Treatment Upcoming Encounters Date Type Department Care Team (Late st Contact [facility]) Description 06/06/2024 11:00 AM EDT Medication Management [facility] [address] [place] [phone] Renetta Davenport PharmD [address] [place] [phone] 07/05/2024 2:15 PM EDT Office Visit [facility] [address] [place] [phone] Name, MD Jose [address] [place] [phone] documented as of this encounter Visit Diagnoses Not on filedocumented in this encounter Care Teams Supervisor Spring Up Relationship Specialty Start Date End Date Name, MD Jose [address] [place] [phone] PCP - General Family Medicine 07/02/15 Renetta Davenport, PharmD [address] [place] [phone] Pharmacist Internal Medicine 01/03/24 documented as of this encounter
--- OUTSIDE RECORDS SUMMARY | 2024-05-18 18:29 | XMS_ITS | Clinical Summary ---
Author Organization [employer] Address [address] [place] [address] 7 [place] [address] Care Team Providers Care Vp Transportation Name Role Phone Name, Jose ALVARADO Primary Care Provider [phone] Renetta Davenport PharmD Unavailable [phone] Allergies No known active allergies Medications Multaq 400 MG tablet Take 400 mg by mouth with breakfast and with evening meal. 023 Active albuterol 108 (90 Base) MCG/ACT inhaler Inhale 2 puffs every 6 (six) hours if needed for wheezing. 18 g 11 023 Active Blood Pressure kitIndications:Es sential hypertension,Hypo tension, unspecified hypotension type Use once a day 1 kit 024 Active Continuous Glucose [place] Net (FreeStyle Boubacar 2 [place]) deviceIndications :Diabetic polyneuropathy associated with type 2 diabetes mellitus ([facility]) Use as directed 1 each 024 Active fluticasone-salme terol (Advair) 230-21 MCG/ACT inhalerIndication s:Moderate persistent asthma with exacerbation INHALE 2 PUFFS TWICE DAILY IN THE MORNING AND IN THE EVENING. RINSE MOUTH AFTER USING 12 g 11 024 Active amLODIPine (Norvasc) 10 MG tablet TAKE 1 TABLET BY MOUTH EVERY EVENING 90 tablet 3 024 Active allopurinol (Zyloprim) 300 MG tablet TAKE 1 TABLET BY MOUTH EVERY MORNING 90 tablet 3 024 Active ezetimibe (Zetia) 10 MG tablet TAKE 1 TABLET BY MOUTH EVERY EVENING 90 tablet 3 024 Active buPROPion SR (Wellbutrin SR) 200 MG 12 hr tabletIndications :Atrial fibrillation, unspecified type (CMS/HCC) TAKE 1 TABLET BY MOUTH TWICE DAILY IN THE MORNING AND IN THE EVENING 180 tablet 1 Active Eliquis 5 MG tabletIndications :Atrial fibrillation, unspecified type (CMS/HCC) TAKE 1 TABLET BY MOUTH TWICE DAILY IN THE MORNING AND IN THE EVENING 180 tablet 1 Active senna-docusate sodium (Senokot-S) 8.6-50 MG tablet Take 1 tablet by mouth Once per day. 30 tablet 11 024 2024 Active glucose blood (OneTouch Ultra) test stripIndications: Type 2 diabetes mellitus with hyperglycemia, unspecified whether longterm insulin use (CMS/HCC) USE TO TEST BLOOD SUGAR TWICE A DAY 100 each 3 024 Active OneTouch Delica Lancets 33G miscIndications:T ype 2 diabetes mellitus with hyperglycemia, unspecified whether adjunct faculty for medical terminology insulin use (CMS/[facility]) USE TO TEST BLOOD SUGAR TWICE A DAY 100 each 3 024 Active losartan (Cozaar) 25 MG tablet Take 1 tablet (25 mg) by mouth Once per day. 30 tablet 11 024 2024 Active insulin pen needle (BD Pen Needle Linda U/F) 32G x 4 mm miscIndications:T ype 2 diabetes mellitus with hyperglycemia, unspecified whether longterm insulin use (CMS/HCC) USE ONCE DAILY WITH INSULIN 100 each 3 024 Active Tirzepatide (Mounjaro) 5 MG/0.5ML solution auto-injectorIndi cations:Type 2 diabetes mellitus with hyperglycemia, unspecified whether adjunct faculty for medical terminology insulin use (CMS/HCC) Inject 5 mg under the skin 1 (one) time per week. 2 mL 11 Active insulin glargine (Lantus SoloStar) 100 UNIT/ML penIndications:Ty pe 2 diabetes mellitus with hyperglycemia, unspecified whether adjunct faculty for medical terminology insulin use (CMS/HCC) Inject 10 Units under the skin at bedtime. 15 mL 2 024 Active empagliflozin (Jardiance) 10 MG Take 1 tablet (10 mg) by mouth Once per day. 30 tablet 11 025 2025 Active glucagon (Baqsimi Two Pack) 3 MG/DOSE nasal powderIndications :Type 2 diabetes mellitus with hyperglycemia, unspecified whether longterm insulin use ([facility]) Administer 3 mg via 1 device into the nostril for hypoglycemia with loss of consciousness. If no response after 15 minutes administer an additional dose via 2nd device into other nostril. 2 each Active glucose 4 g chewable tabletIndications :Type 2 diabetes mellitus with hyperglycemia, unspecified whether adjunct faculty for medical terminology insulin use ([facility]) Chew 4 tablets (16 g) if needed for low blood sugar. <70 mg/dL. Recheck blood sugar after 15 minutes and repeat treatment as needed & as directed. 20 tablet 5 025 2025 Active Continuous Glucose Sensor (FreeStyle Boubacar 2 Sensor) miscIndications:D iabetic polyneuropathy associated with type 2 diabetes mellitus ([facility]) USE DIRECTED AND CHANGE EVERY 2 WEEKS 2 each Active glucose blood (FreeStyle Precision Louis Test) test strip Use to test blood sugar up to 2 times daily, as directed 100 each 025 Active cholecalciferol (D3-1000) 25 MCG (1000 UT) capsuleIndication s:Vitamin D deficiency TAKE 1 CAPSULE BY MOUTH EVERY MORNING 90 capsule 1 025 Active pantoprazole (ProtoNix) 40 MG EC tablet TAKE 1 TABLET BY MOUTH EVERY MORNING 90 tablet 1 025 Active folic acid (Folvite) 1 MG tablet TAKE 1 TABLET BY MOUTH EVERY MORNING 90 tablet 025 Active atorvastatin (Lipitor) 80 MG tablet TAKE 1 TABLET BY MOUTH EVERY MORNING 90 tablet 1 025 Active gabapentin (Neurontin) 100 MG capsuleIndication s:Atrial fibrillation, unspecified type ([facility]) TAKE 1 CAPSULE BY MOUTH EVERY EVENING 30 capsule 025 Active metoprolol tartrate (Lopressor) 50 MG tablet TAKE 1 AND 1/2 TABLETS BY MOUTH THREE TIMES DAILY IN THE MORNING, EVENING, AND BEDTIME 135 tablet 1 025 Active atorvastatin (Lipitor) 80 MG tablet TAKE 1 TABLET BY MOUTH EVERY MORNING 90 tablet 024 2024 Discontinued pantoprazole (ProtoNix) 40 MG EC tablet TAKE 1 TABLET BY MOUTH EVERY MORNING 90 tablet 024 2024 Discontinued folic acid (Folvite) 1 MG tablet TAKE 1 TABLET BY MOUTH EVERY MORNING 90 tablet 2024 Discontinued cholecalciferol (D3-1000) 25 MCG (1000 UT) capsuleIndication s:Vitamin D deficiency TAKE 1 CAPSULE BY MOUTH EVERY MORNING 90 capsule 2024 Discontinued metoprolol tartrate (Lopressor) 50 MG tablet Take 1.5 tablets (75 mg) by mouth 3 times daily. 135 tablet 3 2024 Discontinued gabapentin (Neurontin) 100 MG capsuleIndication s:Atrial fibrillation, unspecified type (CMS/HCC) TAKE 1 CAPSULE BY MOUTH EVERY EVENING 30 capsule 025 2024 Discontinued(R eorder (will not trigger notification to Pharmacy)) Active Problems Problem Noted Date Diagnosed Date MIKE (acute kidney injury) 01/03/2024 Assessment & Plan (01/03/2024 1:52 PM EST): Losartan was re-initiated after hospitalization for now continue with this plan, I will order BMP if eGFR is back to baseline I will add hydrochlorothiazide possibly at a lower dose 12.5mg if eGFR is same or worse I will put on hold again losartan and start hydrochlorothiazide until he follow with PCP Lower extremity edema 01/03/2024 Assessment & Plan (01/03/2024 1:55 PM EST): Likely due to be off diuretic see above, physical exam reassuring patient is clinically compensated lungs clear, HR at this appointment regular and with controlled rate CKD (chronic kidney disease) stage 3, GFR 30-59 ml/min 12/27/2023 Diabetic neuropathy 07/12/2023 Genital warts 07/12/2023 History of cardiac catheterization 07/12/2023 Overview (07/12/2023): with negative findings. Obstructive sleep apnea syndrome 07/12/2023 Type 2 diabetes mellitus 07/12/2023 Callus of foot 07/12/2023 Dental abscess 07/12/2023 Overview (07/12/2023): partial bony extraction tooth 32 with allograft Erectile dysfunction 07/12/2023 Flexor tenosynovitis of thumb 07/12/2023 Diabetic nephropathy associa kareen with type 2 diabetes mellitus 04/19/2023 Moderate persistent asthma with exacerbation 05/2022 Paroxysmal atrial fibrillation 04/08/2022 Diverticulosis of colon 09/05/2021 COVID-19 11/19/2020 Obesity (BMI 30-39.9) 02/11/2017 Diabetic retinopathy associa kareen with type 2 diabetes mellitus 02/14/2016 Persistent proteinuria due t o type 2 diabetes mellitus ([facility]) 10/30/2015 Essential hypertension 07/02/2015 Memory impairment 07/02/2015 Hypercholesterolemia 07/02/2015 Coronary artery disease invo lving [place] coronary artery of [place] heart without angina pectoris 05/07/2014 Gout 05/07/2014 GERD (gastroesophageal reflux disease) 5 Asthma 05/07/2014 Stenosing tenosynovitis 06/02/2010 Major depressive disorder 05/23/2010 Microalbuminuria 12/11/2009 Fatty liver 12/11/2009 Disorder of peripheral nervous system 12/11/2009 Edema of foot 02/15/2008 Low back pain, unspecified 09/09/2007 Anemia 09/09/2007 Non-cardiac chest pain 07/29/2007 Encounters Date Type Department Care Team Description 05/17/2024 Refill [facility] [address] [place] [address] Name, MD Jose 04/25/2024 Refill [facility] [address] [place] [address] Becki Nation MD Vitamin D deficiency; Atrial fibrillation, unspecified type ([facility]) 04/24/2024 Refill [facility] [address] [place], [place] [phone] Name, MD Jose Atrial fibrillation, unspecified type ([facility]) 04/13/2024 Telephone [facility] [address] [place], [place] [phone] Shy Lackey MA may recalls 03/27/2024 Refill [facility] [address] [place] [address] Georgiana Navas MD Atrial fibrillation, unspecified type ([facility]) 03/14/2024 10:00 AM EST Office Visit [facility] [address] [place] [address] Tobin, MD Jose Type 2 diabetes mellitus with hyperglycemia, unspecified whether longterm insulin use ([facility]) (Primary Dx); 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 ([facility]) ([facility]) 03/06/2024 Telephone [facility] [address] [place] [address] Shy Lackey MA chart prep 02/29/2024 Orders Only GENERIC EXTERNAL DATA DEPARTMENT Provider, Generic External Data 02/28/2024 Refill [facility] [address] [place] [address] Ana Oliver NP Atrial fibrillation, unspecified type ([facility]) 02/25/2024 Refill [facility] [address] [place], [place] [phone] Becki Nation MD Essential hypertension from Last 3 Months Immunizations Name Administration Dates Next Due Hep A / Hep B 01/29/2010,12/04/2009 Hep B, adult 01/13/2011 Influenza injectable quadriv alent IIV4 with preservative 01/10/2016 Influenza injectable quadriv alent preservative free 12/21/2022,11/12/2021,11/20/2020,12/20 Influenza, IIV3, injectable 03/20/2013,0 11/05/2011,01/13/2011,11/27,05/15/2009,12/07/2007 Influenza, live, intranasal 01/01/2009 Influenza, seasonal, injecta ble, preservative free 11/30/2023 Pfizer Covid-19 Vaccine 12+ Bivalent 12/08/2021 Pneumococcal Conjugate PCV 20 06/23/2023 Pneumococcal Polysaccharide PPSV23 01/09,07/26/2015,06/04/2014,12/06 RSV Bivalent 01/19/2024 Tdap 01/10/2016,06/04/2014,01/13/2011 Zoster, Recombinant 06/24/2020,12/14/2019 Social History Tobacco Use Types Packs/Day Years Used Date Smoking Tobacco: Never Passive Smoke Exposure: Never Smokeless Tobacco: Never Tobacco Cessation:Counseling Given: Not Answered Alcohol Use Standard Drinks/Week Comments Never 0 [...] Orientation Straight 12/22/2021 10 :15 AM EDT Last Filed Vital Signs Vital Sign Reading Time Taken Comments Blood Pressure 138/80 03/29/2024 11:12 AM EST Pulse 79 03/14/2024 10:06 AM EST Temperature 37 ??C (98.6 ??F) 03/14/2024 10:06 AM EST Respiratory Rate 20 03/14/2024 10:06 AM EST Oxygen Saturation 98% 03/14/2024 10:06 AM EST Inhaled Oxygen Concentration - - Weight 112 kg (246 lb 12.8 oz) 03/14/2024 10:06 AM EST Height 190.5 cm (6' 3 ) 03/14/2024 10:06 AM EST Body Mass Index 30.85 03/14/2024 10:06 AM EST Plan of Treatment Upcoming Encounters Date Type Department Care Team (Late st Contact Info) Description 06/06/2024 11:00 AM EDT Medication Management [facility] [address] [place] [phone] Renetta Davenport, PharmD [address] [place] [address] 07/05/2024 2:15 PM EDT Office Visit [facility] [address] [place] [phone] Name, MD Jose [address] [place] [address] Health Maintenance Due Date Last Done Comments CT Colonography 1960 Colonoscopy 1960 Colorectal Cancer Screening 1960 FIT DNA/Cologuard 1960 FIT 1960 FOBT 1960 HIV Screening 1960 Sigmoidoscopy 1960 Hepatitis C Screening 1978 Hepatitis A Vaccines (3 of 3 - Hep A Twinrix risk 3-dose series) 06/29/2010 01/29/2010, 12/04/2009 Eye Exam 09/25/2023 09/24/2022 COVID-19 Vaccine ( season) 2023 12/08/2021, 06/03/2020, 05/06/2020 Diabetes: Foot Exam 12/22/2023 12/21/2022, 12/21/2022, 12/21/2022, Additional history exists Depression Screening 04/19/2024 04/19/2023, 04/19/19 24 SDOH Screening 04/19/2024 04/19/2023 Diabetes: Hemoglobin A1C 09/11/2024 025, 02/21/2024, 11/30/2023, Additional history exists Alcohol/Substance Use Screening 09/28/2024 09/29/2023 Lipid Panel 12/15/2024 12/16/2023, 11/0 07/2022, 03/23/2022, Additional history exists Tobacco Screening 03/14/2025 03/14/2024 DTaP/Tdap/Td Vaccines (4 - Td or Tdap) 01/09/2026 01/10/2016, 06/04/2014, 01/13/2011 Hepatitis B Vaccines Completed 01/13/2011, 01/29/2010, 12/04/2009 Zoster Vaccines Completed 06/24/2020, 12/14/2019 Pneumococcal Vaccine: 50+ Years Completed 06/23/2023, 01/10/2016, 07/26/2015, Additional history exists Influenza Vaccine Completed 11/30/2023, , 11/12/2021, Additional history exists RSV Patients and Patients Aged 60 years or older Completed 01/19/2024 HIB Vaccines Aged Out No longer eligi ble based on patient's age to complete this topic HPV Vaccines Aged Out No longer eligi ble based on patient's age to complete this topic IPV Vaccines Aged Out No longer eligi ble based on patient's age to complete this topic Meningococcal Vaccine Aged Out No kinjal machelle eligible based on patient's age to complete this topic RSV under 20 months Aged Out No longe r eligible based on patient's age to complete this topic Rotavirus Vaccines Aged Out No longer eligible based on patient's age to complete this topic Procedures Procedure Name Priority Date/Time Associated Diagnosis Comments AMB REFERRAL TO GASTROENTEROLOGY Routine 04/04/2024 Encounter for screening for malignant neoplasm of colon POCT GLYCATED HEMOGLOBIN, TOTAL Routine 03/14/2024 10:10 AM EST Type 2 diabetes mellitus with hyperglycemia, unspecified whether adjunct faculty for medical terminology insulin use ([facility]) POCT GLUCOSE Routine 03/14/2024 10:09 AM EST Type 2 diabetes mellitus with hyperglycemia, unspecified whether adjunct faculty for medical terminology insulin use (CMS/[facility]) IMMUNOFIXATION, SERUM Routine 02/29/2024 10:20 AM EST IMMUNOFIXATION, URINE Routine 02/29/2024 10:20 AM EST VITAMIN D,25-OH,TOTAL,IA Routine 025 10:20 AM EST PTH, INTACT WITHOUT CALCIUM Routine 02/29/2024 10:20 AM EST BASIC METABOLIC PANEL Routine 02/29/2024 10:20 AM EST CBC WITH AUTO DIFFERENTIAL Routine 02/29/2024 10:20 AM EST POCT GLYCATED HEMOGLOBIN, TOTAL Routine 02/21/2024 3:00 PM EST Type 2 diabetes mellitus with hyperglycemia, unspecified whether adjunct faculty for medical terminology insulin use ([facility]) BASIC METABOLIC PANEL Routine 02/21/2024 2:57 PM EST MIKE (acute kidney injury) ([facility]) LIPID PANEL, STANDARD Routine 12/16/2023 11:30 AM EDT Type 2 diabetes mellitus with hyperglycemia, unspecified whether adjunct faculty for medical terminology insulin use ([facility]) DIABETES EYE EXAM Routine 09/24/2022 from Last 3 Months or Most Recently Relevant to Health Maintenance Results * Referral to Gastroenterology (04/04/2024) Jose Name OUTPATIENT REFERRAL ORDERABLES E dited Result - Final * (ABNORMAL) POCT HGB A1C (03/14/2024 10:10 AM EST) Only the most recent of2 resultswithin the time period is included. Hemoglobin A1C 6.8(A) 4.0 - 6.0 % QC Media Lot # [id number] Lot# Expiration Date [id number] Blood 03/14/2024 10:1 0 AM EST us Jose Name POINT OF CARE TEST ENTER/EDIT OR DERABLES Final Result * POCT Glucose (03/14/2024 10:09 AM EST) Pathologist [facility] Glucose Blood, POC 160 60 - 200 mg/dL QC Media Lot # [id number] Lot# Expiration Date Blood Capillary blood specimen / Unknown 03/14/2024 10:09 AM EST us Jose Name POINT OF CARE TEST ENTER/EDIT OR DERABLES Final Result * (ABNORMAL) Vitamin D, 25-Hydroxy, Total, Immunoassay (02/29/2024 10:20 AM EST) [facility] Vitamin D 25-OH Total 28.6(L) >30 ng/mL [facility] Comment:Health Based Referen ce Values*< 20 ng/mL [id number] ng/mL Insufficient> 30 ng/mL Sufficient*Kaleb NOLAND. N Engl J Med. 2007;357:266-280Care must be taken in interpreting Vitamin D results fromdifferent laboratories and methodologies. Published datademonstrated that results from patients undergoinghemodialysis may show a negative bias when tested withvarious automated 25-OH vitamin D assays when compared toLC-MS/MS.When testing samples from patients whose predominant form ofVitamin D is Vitamin D2, such as patients receiving VitaminD2 supplementation, results that are subtherapeutic shouldbe confirmed with another method such as LC-MS/MS. 02/29/2024 10:2 0 AM EST 02/29/2024 11:15 AM EST us Generic External Data Provider LAB BLOOD ORDERAB LES Final Result [facility] [address] [place] [phone] * Immunofixation (BRIDGET), Urine (02/29/2024 10:20 AM EST) [facility] BRIDGET Interpretation SEE NOTE H [facility] Comment:No monoclonal protei ns detected.The supplier of the testing reagents for this assayhas changed. Detection of small monoclonal proteins mayvary by test system.THIS TEST WAS PERFORMED AT:[employer] [place] [phone] KAUR MD 02/29/2024 10:2 0 AM EST 02/29/2024 11:34 AM EST us Generic External Data Provider LAB URINE ORDERAB LES Final Result [facility] [address] [place] [phone] * (ABNORMAL) CBC auto differential (02/29/2024 10:20 AM EST) White Blood Count 7.5 4.8 - 10.8 X10*3/uL [facility] Red Blood Count 4.60 4.60 - 5.80 X10*6/uL [facility] Hemoglobin 12.9(L) 14.0 - 18.0 g/dl [facility] Hematocrit 39.8(L) 42.0 - 52.0 % [facility] Mean Corpuscular Volume 86.5 80.0 - 98.0 fL [facility] Mean Corpuscular Hemoglobin 28.0 27.0 - 33.0 pg [facility] Mean Corpuscular HGB Conc 32.4 31.0 - 36.0 g/dl [facility] Red Cell Distribution Width 14.1 11.0 - 16.0 % [facility] Platelet Count 246 160 - 400 X10*3/uL [facility] Mean Platelet Volume 9.7 9.4 - 12.4 fL [facility] Neutrophils Percent Auto 63.1 45 - 73 % [facility] Imm Gran Pct Auto 0.4 0.0 - 0.4 % [facility] Lymphocytes Percent Auto 24.4 20 - 40 % [facility] Monocytes Percent Auto 8.2 2 - 11 % [facility] Eosinophils Percent Auto 3.2 0 - 4 % [facility] Basophils Percent Auto 0.7 0 - 2 % [facility] NRBC Pct Auto 0.0 0.0 - 0.2 /100WBC [facility] Neutrophils Absolute Auto 4.8 2.0 - 8.3 x10*3/uL [facility] Imm Gran Abs Auto 0.03 0.00 - 0.03 X10*3/uL [facility] Lymphocytes Absolute Auto 1.8 1.2 - 4.9 X10*3/uL [facility] Monocytes Absolute Auto 0.6 0.1 - 1.2 X10*3/uL [facility] Eosinophils Absolute Auto 0.2 0.0 - 0.4 X10*3/uL [facility] Basophils Absolute Auto 0.1 0.0 - 0.2 X10*3/uL [facility] NRBC Abs Auto 0.000 0.0 - 0.012 X10*3/uL [facility] 02/29/2024 10:2 0 AM EST 02/29/2024 11:15 AM EST us Generic External Data Provider LAB BLOOD ORDERAB LES Final Result [facility] [address] [place] [phone] * (ABNORMAL) Immunofixation, Serum (02/29/2024 10:20 AM EST) IMMUNOGLOBULIN G 744 600 - 1540 mg/dL [facility] IMMUNOGLOBULIN A 157 70 - 320 mg/dL [facility] Immunoglobulin M 37(A) 50 - 300 mg/dL [facility] Comment:THIS TEST WAS PERFOR MED AT:[employer] [place] [phone] KAUR MD Immunofixation Result SEE NOTE [facility] Comment:Normal pattern. No m onoclonal proteins detected. 02/29/2024 10:2 0 AM EST 02/29/2024 11:15 AM EST us Generic External Data Provider LAB BLOOD ORDERAB LES Final Result Performing Organization Address City/[facility]/ZIP Co de Phone Number [facility] [address] [place] [phone] * (ABNORMAL) PTH, Intact Without Calcium (02/29/2024 10:20 AM EST) Parathyroid Hormone, Intact 159.8(H) 8.7 - 77.1 pg/mL [facility] 02/29/2024 10:2 0 AM EST 02/29/2024 11:15 AM EST Generic External Data Provider LAB BLOOD ORDERAB LES Final Result Performing Organization Address [facility] Co de Phone Number [facility] [address] [place] [phone] * (ABNORMAL) Basic Metabolic Panel (02/29/2024 10:20 AM EST) Only the most recent of2 resultswithin the time period is included. Sodium 143 135 - 145 mmol/L [facility] Potassium 3.8 3.3 - 5.1 mmol/L [facility] Chloride 110(H) 96 - 108 mmol/L [facility] Carbon Dioxide 26 22 - 29 mmol/L [facility] Anion Gap 11(L) 12 - 20 [facility] Urea Nitrogen (BUN) 26(H) 9 - 16 mg/dL [facility] Creatinine, Serum 1.64(H) 0.5 - 1.4 mg/dL [facility] Estimated Glomerular Filt Rate 43 [facility] Comment:Chronic Kidney Disea se: Estimated GFR < 60 mL/min/1.31z0Cclodz Kidney Disease: Estimated GFR < 15 mL/min/1.73m2 Glucose 100 60 - 115 mg/dL [facility] Calcium 9.0 8.4 - 10.2 mg/dL [facility] 02/29/2024 10:2 0 AM EST 02/29/2024 11:15 AM EST us Jose Rudd MD LAB BLOOD ORDERABLES Final Resul t Performing Organization Address [facility] Co de Phone Number [facility] [facility] [address] [place] [phone] * Lipid Panel, Standard (12/16/2023 11:30 AM EDT) Triglycerides 59 <150 mg/dL [facility] Comment:Desirable Triglyceri de: less than 150 mg/dLBorderline High Triglyceride 150-199 mg/dLHigh Triglyceride: 200-499 mg/dLVery High Triglyceride: greater than or equal to 5OO mg/dL Cholesterol 145 <200 mg/dL [facility] Comment:Desirable Cholestero l: less than 200 mg/dLBorderline High Cholesterol: 200-239 mg/dLHigh Cholesterol: greater than 239 mg/dL LDL Cholesterol Calculated 89 <100 mg/dL [facility] Comment:Desirable LDL: less than 100 mg/dLNear Optimal/Above Optimal LDL: 110- 129 mg/dLBorderline High LDL: 130-159 mg/dLHigh LDL: 160-189 mg/dLVery High LDL: greater than or equal to 190 mg/dL HDL Cholesterol 45 >40 mg/dL [facility] Comment:Desirable HDL: great er than 40 mg/dL Note: This HDL assay may give artificially low results in patients with liver disease. Blood Venous blood specimen / Unknown 12/16/2023 11:30 AM EDT 12/16/2023 1:54 PM EDT us Jose Rudd MD LAB BLOOD ORDERABLES Final Resul t Performing Organization Address [facility]/ZIP Co de Phone Number [facility] [address] [place] [phone] * Diabetes Eye Exam (09/24/2022) Eye Exam Normal Normal us Jose Rudd MD HEALTH MAINTENANCE Final Result from Last 3 Months or Most Recently Relevant to Health Maintenance Insurance - [employer] Care Teams Vp Transportation Relationship Specialty Start Date End Date Name, MD Jose [address] [place] [address] PCP - General Family Medicine 07/02/15 Renetta Davenport PharmD [address] [place] [address] Pharmacist Internal Medicine 01/03/24
--- OUTSIDE RECORDS SUMMARY | 2024-05-18 18:29 | XMS_ITS | Encounter Summary ---
Author Organization [employer] Address [address] [place] [address] 7 [place] [address] Care Team Providers Care System Support Technician Name Role Phone Name, Jose ALVARADO Primary Care Provider Renetta Davenport PharmD Unavailable [phone] Reason for Visit * Reason Comments Med Refill Encounter Details Date Type Department Care Team ([facility] st Contact Info) Description 04/24/2024 Refill [facility] [address] [place], [place] [phone] Name, MD Jose [address] [place], [place] [phone] Atrial fibrillation, unspecified type (CMS/HCC) Social History Tobacco Use Types Packs/Day Years [...] the past 12 months, has t he [employer], gas, oil or water company threatened to [...] Description 06/06/2024 11:00 AM EDT Medication Management [facility] [address] [place] [address] Renetta Davneport, PharmD [address] [place] [address] 07/05/2024 2:15 PM EDT Office Visit [facility] [address] [place] [address] Jose Rudd MD [address] [place] [address] documented as of this encounter Visit Diagnoses Diagnosis Atrial fibrillation, unspecified type (CMS/HCC) documented in this encounter Additional Health Concerns Assessment Noted Time PHQ-9 Depression Total Score: 0 04/19/19 24 1:44 PM EST documented as of this encounter Care Teams System Support Technician Relationship Specialty Start Date End Date Jose Rudd MD [address] [place] [address] PCP - General Family Medicine 07/02/15 Renetta Davenport, Bryan [address] [place] [address] Pharmacist Internal Medicine 01/03/24 documented as of this encounter
--- OUTSIDE RECORDS SUMMARY | 2024-05-18 18:29 | XMS_ITS | Encounter Summary ---
Author Organization [employer] Address [address] [facility] 7 [place] [address] Care Team Providers Care Bankruptcy Judge Name Role Phone Name, Jose ALVARADO Primary Care Provider [phone] Renetta Davenport PharmD Unavailable [phone] Reason for Visit * Reason Comments Med Refill Encounter Details Date Type Department Care Team ([facility] st Contact Info) Description 04/25/2024 Refill [facility] [address] [place], [place] [phone] Becki Nation MD [address] [place] [address] Vitamin D deficiency; Atrial fibrillation, unspecified type (CMS/HCC) Social History [...] t he electric, gas, oil or water [employer] threatened to shut off services in your [...] encounter Miscellaneous Notes * Telephone Encounter - Allie Brambila LPN - 04/25/2024 9:43 AM EST ELECTION ASSISTANT checked on 04/25/24. Last seen 03/14/24. documented in this encounter Plan of Treatment Upcoming Encounters Date Type Department Care Team (Late st Contact Info) Description 06/06/2024 11:00 AM EDT Medication Management [facility] [address] [place] [address] Renetta Davenport, PharmD [address] [place] [phone] 07/05/2024 2:15 PM EDT Office Visit [facility] [address] [place] [address] Name, MD Jose [address] [place] [address] documented as of this encounter Visit Diagnoses Diagnosis Vitamin D deficiency Atrial fibrillation, unspecified type (CMS/HCC) documented in this encounter Additional Health Concerns Assessment Noted Time PHQ-9 Depression Total Score: 0 04/19/19 24 1:44 PM EST documented as of this encounter Care Teams Bankruptcy Judge Relationship Specialty Start Date End Date Name, MD Jose [address] [place] [address] PCP - General Family Medicine 07/02/15 Renetta Davenport, Bryan [address] [place] [address] Pharmacist Internal Medicine 01/03/24 documented as of this encounter
== END 2024-05-18 15:37 | disposition home or self-care (01) ==
LOC: HO.HCS 14:49
PROVIDERS: PCP Internal Medicine Geriatric Medicine
DX: I48.0 Paroxysmal atrial fibrillation (principal); I25.10 Atherosclerotic heart disease of native coronary artery without angina pectoris; I10 Essential (primary) hypertension; G47.33 Obstructive sleep apnea (adult) (pediatric)
CPT/HCPCS: 93010; 99214; G2211

== ENCOUNTER → 2024-05-18 14:48 | Outpatient (BNVA) | payer OTHER, SELFPAY | PROVIDERS: PCP Internal Medicine Geriatric Medicine | DX: I48.0 Paroxysmal atrial fibrillation (principal); I10 Essential (primary) hypertension; I25.10 Atherosclerotic heart disease of native coronary artery without angina pectoris; I47.10 Supraventricular tachycardia, unspecified; G47.33 Obstructive sleep apnea (adult) (pediatric); E78.5 Hyperlipidemia, unspecified | CPT/HCPCS: 93005; 99212 ==

== ENCOUNTER 2024-06-02 13:53 | Outpatient (AMB) | payer OTHER, SELFPAY ==
[2024-06-02 13:59] VITALS: BP 128/70; PULSE 77; O2SAT 98; BMI 34.5
--- NOTE | 2024-06-02 13:59 | HO.NEPHOV_ITS ---
Vital Signs 06/02/24 13:59 Height 6 ft Weight 254 lb 6 oz BMI 34.5 BP 128/70 Blood Pressure Location Lt brachial Position Sitting Pulse 77 Pulse Source Pulse Oximeter Pulse Oximetry (%) 98 Oxygen Delivery Method Room Air Intake Visit Reasons: 3mon follow-up w/labs Projection Technician Required: Yes Projection Technician Language: Auxiliary Equipment Operator Services: Projection Technician Present Projection Technician Name: Sulaiman Kaufman Information Interpreted: clinical only Accompanied by: Spouse Allergies No Known Allergies [No Known Allergies*] Allergy (Verified 06/02/24 14:02) Do you need a note to return to daycare/school/sports/work: No HPI Comments Details: 63 y/o male with paroxysmal afib on eliquis, HTN & DMII, gout, [place] [facility] [place] after visit at [facility] for palpitations, had afib with RVR. He was tested positive for covid-19 on 12/06 . He was given fluids and has converted to sinus rhythm. Creatinine 1.92 on 12/06 (previous creatinine 1.58, has been between 1.86 and 1.47 over last several years since 2020).Creatinine now 1.64, down from 2.11. He has history of proteinuria since at least 2019. He has hypertension and currently taking amlodipine 10mg daily and metoprolol 75mg TID & HCTZ. He does not take NSAIDs or other OTC medication.He feels well. He is on ARB. [facility] Medical History History of cardioversion History of COVID-19 COVID-19 vaccine series completed Elevated cholesterol HTN (hypertension) Asthma COPD (chronic obstructive pulmonary disease) LUIS ALFREDO (obstructive sleep apnea) CAD (coronary artery disease) Surgical History H/O cardiac catheterization History of cataract surgery H/O: vasectomy Family History Father HTN (hypertension) Diabetes Mother HTN (hypertension) Diabetes CVD (cardiovascular disease) Social History Household Members: Spouse Housing: Apartment Do you presently have visiting nurse or other home services: No Alcohol intake: never Patient Tobacco Use Status: Never used Tobacco service: No Review of Systems Const All systems reviewed & are unremarkable except as noted in HPI and below Physical Exam Vital Signs: Last Vital Signs Pulse 77 06/02/24 13:59 BP 128/70 06/02/24 13:59 Pulse Ox 98 06/02/24 13:59 Oxygen Delivery Method Room Air 06/02/24 13:59 BMI result Body Mass Index 34.5 Const General: comfortable and no acute distress Orientation/consciousness: patient oriented x3 HEENT Head: Yes normocephalic Mouth: Normal oral and palatal mucosa present Eyes EOM: EOMs intact bilaterally Neck Neck: Yes supple Resp Auscultation: clear to auscultation bilaterally Cardio Jugular venous distension: no JVD Rate: regular rate GI Palpation (GI): Soft to palpation Auscultation: normal bowel sounds General: Yes no CVA tenderness Back/Spine/Pelvis Back: no CVA tenderness Skin General skin exam: no rashes or lesions noted Neuro General: patient oriented x3 and moves all extremities Extrem General: Yes no pedal edema Results Reviewed Nephrology Results: Hgb 12.9 g/dl (14.0-18.0) L 02/29/24 WBC 7.5 X10*3/uL (4.8-10.8) 02/29/24 Plt Count 246 X10*3/uL (160-400) 02/29/24 Sodium 143 mmol/L (135-145) 02/29/24 Potassium 3.8 mmol/L (3.3-5.1) 02/29/24 Chloride 110 mmol/L (96-108) H 02/29/24 Carbon Dioxide 26 mmol/L (22-29) 02/29/24 BUN 26 mg/dL (9-16) H 02/29/24 Creatinine 1.64 mg/dL (0.5-1.4) H 02/29/24 Calcium 9.0 mg/dL (8.4-10.2) 02/29/24 PTH Intact 159.8 pg/mL (8.7-77.1) H 02/29/24 Assessment & Plan Assessment & Plan (1) Secondary hyperparathyroidism (of renal origin): Code(s): N25.81 - Secondary hyperparathyroidism of renal origin Category: Medical (2) CKD (chronic kidney disease) stage 3, GFR 30-59 ml/min: Code(s): N18.30 - Chronic kidney disease, stage 3 unspecified Category: Medical Qualifiers: Chronic kidney disease stage 3 subtype: stage 3a (GFR 45-59) Qualified Code(s): N18.31 - Chronic kidney disease, stage 3a (3) HTN (hypertension): Code(s): I10 - Essential (primary) hypertension Category: Medical Qualifiers: Hypertension type: primary hypertension Qualified Code(s): I10 - Essential (primary) hypertension Plan Had MIKE on CKD due to reduced renal perfusion due to afib with RVR in setting of losartan and hctz due to tubular injury which has resolved. ARB has been restarted. Renal function had improved and stable. Blood pressure at goal.I plan to start him on SGLT2 i.Needs to loose more weight. Good hydration. No NSAID's. All questions answered. Orders: Orders Creatinine Today I10 - Essential (primary) hypertension, N18.31 - Chronic kidney disease, stage 3a, N25.81 - Secondary hyperparathyroidism of renal origin Electrolytes 3 Months I10 - Essential (primary) hypertension, N18.31 - Chronic kidney disease, stage 3a, N25.81 - Secondary hyperparathyroidism of renal origin Blood Urea Nitrogen Today I10 - Essential (primary) hypertension, N18.31 - Chronic kidney disease, stage 3a, N25.81 - Secondary hyperparathyroidism of renal origin Electrolytes Today I10 - Essential (primary) hypertension, N18.31 - Chronic kidney disease, stage 3a, N25.81 - Secondary hyperparathyroidism of renal origin Creatinine 3 Months I10 - Essential (primary) hypertension, N18.31 - Chronic kidney disease, stage 3a, N25.81 - Secondary hyperparathyroidism of renal origin Blood Urea Nitrogen 3 Months I10 - Essential (primary) hypertension, N18.31 - Chronic kidney disease, stage 3a, N25.81 - Secondary hyperparathyroidism of renal origin Parathyroid Hormone Intact Today I10 - Essential (primary) hypertension, N18.31 - Chronic kidney disease, stage 3a, N25.81 - Secondary hyperparathyroidism of renal origin Coding Level of Care Code Est Pt Level 4 (22906) Diagnoses Secondary hyperparathyroidism (of renal origin) N25.81 Stage 3a chronic kidney disease N18.31 Chronic kidney disease stage 3 subtype: stage 3a (GFR 45-59) Primary hypertension I10 Hypertension type: primary hypertension
--- OUTSIDE RECORDS SUMMARY | 2024-06-02 14:16 | XMS_ITS | Encounter Summary ---
Author Organization [employer] Address [address] [place] [address] [address] Care Team Providers Care Magneto Electrician Name Role Phone Name, Jose ALVARADO Primary Care Provider [phone] Renetta Davenport PharmD Unavailable [phone] Reason for Visit * Reason Onset Date Comments call back 04/03/2022 Requested Call Back 04/07/2022 Prescription Request 04/03/2022 I called to verify that the pt requested insulin supplies through [facility], because they faxed a prescription order form to the [facility] department. He stated that he did not make the request, and that his prescriptions are sent to the [facility]. The form was faxed back to [facility], along with a note stating that the patient uses a local pharmacy. Encounter Details Date Type Department Care Team ([facility] Contact Info) Description 04/03/2022 Telephone [facility] MED[facility] [address] [place] [address] Name, MD Jose [address] [place], [place] [phone] call back; Requested Call Back ; Prescription Request (I called to verify that the pt requested insulin supplies through [facility], because they faxed a prescription order form to the [facility] department. He stated that he did not make the request, and that his prescriptions are sent to the [facility]. The form was faxed back to [facility], along with a note stating that the [...] 10:30 AM EST Tc from Kimmypedro at [facility] re calling in regards to diabetes supplies. Advised of message below, however [facility] is requesting a call back at [phone]. * Telephone Encounter - Gisselle Miranda RN - 04/06/2022 2:13 PM EST Pt does not use [facility] as a pharmacy and has upcoming appt on 04/08/22 and can discuss if pt wants to switch pharmacies * Telephone Encounter - Gio Crum - 04/03/2022 9:14 AM EST Tc from Jose Carlos with [facility] requesting a call back regarding pt medication Please contact jose carlos at [phone] documented in this encounter Plan of Treatment Upcoming Encounters Date Type Department Care Team (Late st Contact Info) Description 06/06/2024 11:00 AM EDT Medication Management [facility] [address] [place] [address] Renetta Davenport, PharmD [address] [place] [address] 07/05/2024 2:15 PM EDT Office Visit [facility] [address] [place] [address] Name, MD Jose [address] [place] [address] documented as of this encounter Visit Diagnoses Not on filedocumented in this encounter Care Teams Magneto Electrician Relationship Specialty Start Date End Date Name, MD Jose [address] [place], [place] [phone] PCP - General Family Medicine 07/02/15 Renetta Davenport PharmD [address] [place] [address] Pharmacist Internal Medicine 01/03/24 documented as of this encounter
--- OUTSIDE RECORDS SUMMARY | 2024-06-02 14:16 | XMS_ITS | Encounter Summary ---
Author Organization [facility] Address [address] [place] [address] Care Team Providers Care Information Lead Name Role Phone Name, Jose ALVARADO Primary Care Provider Unavailabl e Community, Pcp Primary Care Provider Unavailabl e NameJose MD Primary Care Provider Unavailabl e Encounter Details Date Type Department Care Team Description 12/31/2014 Business Doc Medical Records [address] [place] [address] Abstract, Provider Social History Tobacco Use Types Packs/Day Years Used Date Smoking Tobacco: Never Alcohol Use Standard Drinks/Week Comments No 0 (1 standard drink = 0.6 oz pur e alcohol) Sex Assigned at Date Recorded Not on file documented as of this encounter Plan of Treatment Not on file documented as of this encounter Visit Diagnoses Not on filedocumented in this encounter Care Teams Information Lead Relationship Specialty Start Date End Date Joes Rudd MD PCP - General Internal Medicine 08/28/14 03/27/15 Community, Pcp PCP - General Internal Medicine 03/28/15 04/10/15 Jose Rudd MD PCP - General Internal Medicine 04/11/15 documented as of this encounter
--- OUTSIDE RECORDS SUMMARY | 2024-06-02 14:16 | XMS_ITS | Encounter Summary ---
Author Organization [facility] Address [address] [place] [address] [address], [place] [address] Care Team Providers Care Senior Software Developer Name Role Phone Name, Jose ALVARADO Primary Care Provider [phone] Renetta Davenport PharmD Unavailable Encounter Details Date Type Department Care Team (Late st Contact Info) Description 03/04/2022 Orders Only [facility] [address] [place] [address] Izabela Johnson LPN Social History Tobacco Use [...] Description 06/06/2024 11:00 AM EDT Medication Management [facility] [address] [place] [address] Renetta Davenport, PharmD [address] [place] [address] 07/05/2024 2:15 PM EDT Office Visit [facility] [address] [place] [address] Name, MD Jose [address] [place] [address] documented as of this encounter Procedures Procedure Name Priority Date/Time Associated Diagnosis Comments LIPID PANEL, STANDARD Routine 03/23/2022 1:02 PM EST documented in this encounter Results * Lipid Panel, Standard (03/23/2022 1:02 PM EST) Triglycerides 49 mg/dL [facility] Comment:Desirable Triglyceri de: less than 150 mg/dLBorderline High Triglyceride 150-199 mg/dLHigh Triglyceride: 200-499 mg/dLVery High Triglyceride: greater than or equal to 5OO mg/dL Cholesterol 167 mg/dL [facility] Comment:Desirable Cholestero l: less than 200 mg/dLBorderline High Cholesterol: 200-239 mg/dLHigh Cholesterol: greater than 239 mg/dL LDL Cholesterol Calculated 110 mg/dl [facility] Comment:Desirable LDL: less than 100 mg/dLNear Optimal/Above Optimal LDL: 110- 129 mg/dLBorderline High LDL: 130-159 mg/dLHigh LDL: 160-189 mg/dLVery High LDL: greater than or equal to 190 mg/dL HDL Cholesterol 48 mg/dL [facility] Comment:Desirable HDL: great er than 40 mg/dL Note: This HDL assay may give artificially low results in patients with liver disease. 03/23/2022 1:02 PM EST 03/23/2022 1:02 PM EST [facility] External Provider LAB BLO OD ORDERABLES Final Result [facility] [address] [place] [address] [phone] documented in this encounter Visit Diagnoses Not on filedocumented in this encounter Care Teams Senior Software Developer Relationship Specialty Start Date End Date Name, MD Jose [address] [place] [address] PCP - General Family Medicine 07/02/15 Renetta Davenport, BaileyD [address] [place] [address] Pharmacist Internal Medicine 01/03/24 documented as of this encounter
--- OUTSIDE RECORDS SUMMARY | 2024-06-02 14:16 | XMS_ITS | Encounter Summary ---
Author Organization [employer] Address [address] [place] [address] [address] [address] Care Team Providers Care Cobol Programmer Name Role Phone Name, Jose ALVARADO Primary Care Provider [phone] Renetta Davenport PharmD Unavailable [phone] Reason for Visit * Reason Onset Date Comments Nurse Triage 09/25/2022 Encounter Details Date Type Department Care Team (Late st Contact Info) Description 09/25/2022 Telephone [facility] [address] [place], [place] [phone] Name, MD Jose [address] [place] [address] Nurse Triage Social History Tobacco Use Types [...] - 09/28/2022 1:41 PM EDT T/C to [phone] for status check, No answer. LVM to call back on [phone]. * Telephone Encounter - Azeb Hager RN - 09/25/2022 12:43 PM EDT Triage call with Madill Tan Room Supervisor ID [id number] Pt , JEANA Contreras reports Pt is sleeping and she will talk for Pt. Pt was tested + for Covid09/24/22. Pt symptoms are fever, tactile, body aches, cough, nasal congestion and headache. Diane informs marketing underwriter that Pt has been given prednisone and [...] of listed homecare advise. Haleigh is given Edyn number [phone] for eligibility for paxlovid. Haleigh is asking [...] this outcome Please contact pt spouse at [phone] Danish Speaker documented in this encounter Plan of Treatment Upcoming Encounters Date Type Department Care Team (Late st Contact [facility]) Description 06/06/2024 11:00 AM EDT Medication Management [facility] [address] [place] [address] Renetta Davenport PharmD [address] [place] [address] 07/05/2024 2:15 PM EDT Office Visit [facility] [address] [place] [address] Name, MD Jose [address] [place] [address] documented as of this encounter Visit Diagnoses Not on filedocumented in this encounter Care Teams Cobol Programmer Relationship Specialty Start Date End Date Name, MD Jose [address] [place] [address] PCP - General Family Medicine 07/02/15 Renetta Davenport, PharmD [address] [place] [address] Pharmacist Internal Medicine 01/03/24 documented as of this encounter
--- OUTSIDE RECORDS SUMMARY | 2024-06-02 14:16 | XMS_ITS | Encounter Summary ---
Author Organization [employer] Address [address] [facility] 7 [place] [address] Care Team Providers Care Lifestyle Block Farmer Name Role Phone Name, Jose ALVARADO Primary Care Provider [phone] Renetta Davenport PharmD Unavailable [phone] Encounter Details Date Type Department Care Team ([facility] st Contact Info) Description 08/30/[address] [facility] MED[facility] [address] [place], [place] [phone] Name, MD Jose [address] [place] [address] Social History Tobacco Use Types Packs/Day Years [...] Description 06/06/2024 11:00 AM EDT Medication Management [address] [address] Renetta Davenport PharmD [address] [place] [address] 07/05/2024 2:15 PM EDT Office Visit [facility] MED[facility] [address] [place] [address] Name, MD Jose [address] [place] [address] documented as of this encounter Visit Diagnoses Not on filedocumented in this encounter Additional Health Concerns Assessment Noted Time PHQ-9 Depression Total Score: 0 04/19/19 1:44 PM EST documented as of this encounter Care Teams Lifestyle Block Farmer Relationship Specialty Start Date End Date Name, MD Jose [address] [place] [address] PCP - General Family Medicine 07/02/15 Renetta Davenport PharmD [address] [place] [phone] Pharmacist Internal Medicine 01/03/24 documented as of this encounter
--- OUTSIDE RECORDS SUMMARY | 2024-06-02 14:16 | XMS_ITS | Encounter Summary ---
Author Organization [facility] Address [address] [place] [address] Care Team Providers Care Senior Architect/Design Manager Name Role Phone Name, Jose ALVARADO Primary Care Provider Unavailabl e Community, Pcp Primary Care Provider Unavailabl e Name, Jose ALVARADO Primary Care Provider Unavailabl e Reason for Visit * Reason Onset Date Comments refill request 02/28/2015 Encounter Details Date Type Department Care Team Description 02/28/2015 Refill Podiatry - [address] [address] Yanna Ramirez DPM refill request Social History Tobacco Use Types Packs/Day Years Used Date Smoking Tobacco: Never Alcohol Use Standard Drinks/Week Comments No 0 (1 standard drink = 0.6 oz pur e alcohol) Sex Assigned at Date Recorded Not on file documented as of this encounter Plan of Treatment Not on file documented as of this encounter Visit Diagnoses Not on filedocumented in this encounter Care Teams Senior Architect/Design Manager Relationship Specialty Start Date End Date Jose Rudd MD PCP - General Internal Medicine 08/28/14 03/27/15 [facility], Pcp PCP - General Internal Medicine 03/28/15 04/10/15 Jose Rudd MD PCP - General Internal Medicine 04/11/15 documented as of this encounter
--- OUTSIDE RECORDS SUMMARY | 2024-06-02 14:16 | XMS_ITS | Clinical Summary ---
Author Organization [employer] Address [address] [place] [address] 7 [place] [address] Care Team Providers Care Electrician Telephone Name Role Phone Name, Jose ALVARADO Primary Care Provider [phone] Renetta Davenport PharmD Unavailable [phone] Allergies No known active allergies Medications [...] day 1 kit 024 Active Continuous Glucose Horse Breaker (FreeStyle Boubacar 2 [place]) deviceIndications :Diabetic polyneuropathy associated with type 2 diabetes mellitus ([facility]) Use as directed 1 each 024 Active [...] 12 hr tabletIndications :Atrial fibrillation, unspecified type ([facility]) TAKE 1 TABLET BY MOUTH TWICE DAILY IN THE MORNING AND IN THE EVENING 180 tablet 1 024 Active senna-docusate sodium (Senokot-S) 8.6-50 MG tablet Take 1 tablet by mouth Once per day. 30 tablet 11 024 2024 Active glucose blood (OneTouch Ultra) test stripIndications: Type 2 diabetes mellitus with hyperglycemia, unspecified whether terminal block assembler insulin use ([facility]) USE TO TEST BLOOD SUGAR TWICE A DAY 100 each 3 024 Active OneTouch Delica Lancets 33G miscIndications:T ype 2 diabetes mellitus with hyperglycemia, unspecified whether assisted insulin use ([facility]) USE TO TEST BLOOD SUGAR TWICE A DAY 100 each 3 024 Active losartan (Cozaar) 25 MG tablet Take 1 tablet (25 mg) by mouth Once per day. 30 tablet 11 024 2024 Active insulin pen needle (BD Pen Needle Linda U/F) 32G x 4 mm miscIndications:T ype 2 diabetes mellitus with hyperglycemia, unspecified whether assisted insulin use ([facility]) USE ONCE DAILY WITH INSULIN 100 each 3 024 Active Tirzepatide (Mounjaro) 5 MG/0.5ML solution auto-injectorIndi cations:Type 2 diabetes mellitus with hyperglycemia, unspecified whether terminal block assembler insulin use ([facility]) Inject 5 mg under the skin 1 (one) time per week. 2 mL 11 024 Active insulin glargine (Lantus SoloStar) 100 UNIT/ML penIndications:Ty pe 2 diabetes mellitus with hyperglycemia, unspecified whether terminal block assembler insulin use ([facility]) Inject 10 Units under the skin at bedtime. 15 mL 2 024 Active empagliflozin (Jardiance) 10 MG Take 1 tablet (10 mg) by mouth Once per day. 30 tablet 11 025 2025 Active glucagon (Baqsimi Two Pack) 3 MG/DOSE nasal powderIndications :Type 2 diabetes mellitus with hyperglycemia, unspecified whether assisted insulin use ([facility]) Administer 3 mg via 1 device into the nostril for hypoglycemia with loss of consciousness. If no response after 15 minutes administer an additional dose via 2nd device into other nostril. 2 each 025 Active glucose 4 g chewable tabletIndications :Type 2 diabetes mellitus with hyperglycemia, unspecified whether terminal block assembler insulin use ([facility]) Chew 4 tablets (16 g) if needed for low blood sugar. <70 mg/dL. Recheck blood sugar after 15 minutes and repeat treatment as needed & as directed. 20 tablet 5 025 2025 Active Continuous Glucose Sensor (FreeStyle Boubacar 2 Sensor) miscIndications:D iabetic polyneuropathy associated with type 2 diabetes mellitus ([facility]) USE DIRECTED AND CHANGE EVERY 2 WEEKS 2 each Active glucose blood (FreeStyle Precision Louis Test) test strip Use to test blood sugar up to 2 times daily, as directed 100 each 025 Active cholecalciferol (D3-1000) 25 MCG (1000 UT) capsuleIndication s:Vitamin D deficiency TAKE 1 CAPSULE BY MOUTH EVERY MORNING 90 capsule 025 Active pantoprazole (ProtoNix) 40 MG EC tablet TAKE 1 TABLET BY MOUTH EVERY MORNING 90 tablet 025 Active folic acid (Folvite) 1 MG tablet TAKE 1 TABLET BY MOUTH EVERY MORNING 90 tablet 025 Active atorvastatin (Lipitor) 80 MG tablet TAKE 1 TABLET BY MOUTH EVERY MORNING 90 tablet 025 Active metoprolol tartrate (Lopressor) 50 MG tablet TAKE 1 AND 1/2 TABLETS BY MOUTH THREE TIMES DAILY IN THE MORNING, EVENING, AND BEDTIME 135 tablet 025 Active Eliquis 5 MG tabletIndications :Atrial fibrillation, unspecified type (CMS/HCC) TAKE 1 TABLET BY MOUTH TWICE DAILY IN THE MORNING AND IN THE EVENING 180 tablet 025 Active gabapentin (Neurontin) 100 MG capsuleIndication s:Atrial fibrillation, unspecified type (CMS/HCC) TAKE 1 CAPSULE BY MOUTH EVERY EVENING 30 capsule 025 Active Eliquis 5 MG tabletIndications :Atrial fibrillation, unspecified type (CMS/HCC) TAKE 1 TABLET BY MOUTH TWICE DAILY IN THE MORNING AND IN THE EVENING 180 tablet 2 024 2024 Discontinued metoprolol tartrate (Lopressor) 50 MG tablet Take 1.5 tablets (75 mg) by mouth 3 times daily. 135 tablet 3 024 2024 Discontinued gabapentin (Neurontin) 100 MG capsuleIndication s:Atrial fibrillation, unspecified type (CMS/HCC) TAKE 1 CAPSULE BY MOUTH EVERY EVENING 30 capsule 025 2024 Discontinued Active Problems Problem Noted Date Diagnosed Date [...] due t o type 2 diabetes mellitus ([facility]) 10/30/2015 Essential hypertension 07/02/2015 Memory impairment 07/02/2015 Hypercholesterolemia 07/02/2015 Coronary artery disease invo lving [place] coronary artery of [place] heart without angina pectoris 05/07/2014 Gout 05/07/2014 GERD (gastroesophageal reflux disease) 5 Asthma 05/07/2014 Stenosing tenosynovitis 06/02/2010 Major depressive disorder 05/23/2010 Microalbuminuria 12/11/2009 Fatty liver 12/11/2009 Disorder of peripheral nervous system 12/11/2009 Edema of foot 02/15/2008 Low back pain, unspecified 09/09/2007 Anemia 09/09/2007 Non-cardiac chest pain 07/29/2007 Encounters Date Type Department Care Team Description 05/22/2024 Refill [facility] MEDICINE [address] [place] [address] Name, MD Jose Atrial fibrillation, unspecified type ([facility]) 05/21/2024 Refill [facility] MEDICINE [address] [place] [address] Name, MD Jose Atrial fibrillation, unspecified type ([facility]) 05/17/2024 Refill [facility] MEDICINE [address] [place] [address] Jose Rudd MD 04/25/2024 Refill C MEDICINE [address] [place] [address] Becki Nation MD Vitamin D deficiency; Atrial fibrillation, unspecified type ([facility]) 04/24/2024 Refill [facility] MEDICINE [address] [place] [address] Name, MD Jose Atrial fibrillation, unspecified type ([facility]) 04/13/2024 Telephone C MEDICINE [address] [place] [address] Shy Lackey [place] may recalls 03/27/2024 Refill C MEDICINE [address] [place] [address] Georgiana Navas MD Atrial fibrillation, unspecified type ([facility]) 03/14/2024 10:00 AM EST Office Visit [facility] MEDICINE [address] [place] [address] Name, MD Jose Type 2 diabetes mellitus with hyperglycemia, unspecified whether terminal block assembler insulin use ([facility]) (Primary Dx); 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 ([facility]) ([facility]) 03/06/2024 Telephone [facility] MEDICINE [address] [place] [address] Shy Lackey [place] chart prep from Last 3 Months Immunizations Name Administration [...] Description 06/06/2024 11:00 AM EDT Medication Management [facility] MEDICINE [address] [place] [address] Renetta Davenport, PharmD [address] [place] [address] 07/05/2024 2:15 PM EDT Office Visit [facility] MEDICINE [address] [place] [address] Name, MD Jose [address] [place] [address] Health Maintenance Due Date Last Done Comments [...] 2 diabetes mellitus with hyperglycemia, unspecified whether assisted insulin use (CMS/HCC) POCT GLUCOSE Routine 03/14/2024 10:09 AM EST Type 2 diabetes mellitus with hyperglycemia, unspecified whether assisted insulin use (CMS/HCC) LIPID PANEL, STANDARD Routine 12/16/2023 11:30 AM EDT Type 2 diabetes mellitus with hyperglycemia, unspecified whether terminal block assembler insulin use (CMS/HCC) HM DIABETES EYE EXAM Routine 09/24/2022 from Last 3 Months or Most Recently Relevant to Health Maintenance Results * Referral to Gastroenterology (04/04/2024) us Jose Rudd MD OUTPATIENT REFERRAL ORDERABLES E dited Result - Final * (ABNORMAL) POCT HGB A1C (03/14/2024 10:10 AM EST) Hemoglobin A1C 6.8(A) 4.0 - 6.0 % QC Media Lot # [id number] Lot# Expiration Date [id number] Blood 03/14/2024 10:1 0 AM EST Jose Name POINT OF CARE TEST ENTER/EDIT OR DERABLES Final Result * POCT Glucose (03/14/2024 10:09 AM EST) Glucose Blood, POC 160 60 - 200 mg/dL QC Media Lot # [id number] Lot# Expiration Date 53,025 Blood Capillary blood specimen / Unknown 03/14/2024 10:09 AM EST Jose Name POINT OF CARE TEST ENTER/EDIT OR DERABLES Final Result * Lipid Panel, Standard (12/16/2023 11:30 AM EDT) Triglycerides 59 <150 mg/dL [facility] Comment:Desirable Triglyceri de: less than 150 mg/dLBorderline High Triglyceride 150-199 mg/dLHigh Triglyceride: 200-499 mg/dLVery High Triglyceride: greater than or equal to 5OO mg/dL Cholesterol 145 <200 mg/dL [facility] Comment:Desirable Cholestero l: less than 200 mg/dLBorderline High Cholesterol: 200-239 mg/dLHigh Cholesterol: greater than 239 mg/dL LDL Cholesterol Calculated 89 <100 mg/dL [facility] Comment:Desirable LDL: less than 100 mg/dLNear Optimal/Above Optimal LDL: 110- 129 mg/dLBorderline High LDL: 130-159 mg/dLHigh LDL: 160-189 mg/dLVery High LDL: greater than or equal to 190 mg/dL HDL Cholesterol 45 >40 mg/dL [facility] Comment:Desirable HDL: great er than 40 mg/dL Note: This HDL assay may give artificially low results in patients with liver disease. Blood Venous blood specimen / Unknown 12/16/2023 11:30 AM EDT 12/16/2023 1:54 PM EDT Jose Rudd MD LAB BLOOD ORDERABLES Final Resul t [facility] [address] [place] [address] [phone] * Diabetes Eye Exam (09/24/2022) Eye Exam Normal Normal Jose Rudd MD HEALTH MAINTENANCE Final Result from Last 3 Months or Most Recently Relevant to Health Maintenance Insurance [facility] Care Teams Electrician Telephone Relationship Specialty Start Date End Date Name, MD Jose [address] [place] [id number] PCP - General Family Medicine 07/02/15 Renetta Davenport, Bryan [address] [place] [address] Pharmacist Internal Medicine 01/03/24
--- OUTSIDE RECORDS SUMMARY | 2024-06-02 14:16 | XMS_ITS | Encounter Summary ---
Author Organization [employer] [facility] Address [address] [place] [address] Care Team Providers Care Rotary Drum Tanner Name Role Phone Dennis Ardon MD Primary Care Provider Unavail able Name, Jose ALVARADO Primary Care Provider Unavailabl e Community, Pcp Primary Care Provider Unavailabl e Name, Jose ALVARADO Primary Care Provider Unavailabl e Encounter Details Date Type Department Care Team Description 05/09/2014 Release of Information Medical Records [address] [place] [id number] Abstract, Provider Social History Tobacco Use Types [...] on filedocumented in this encounter Care Teams Rotary Drum Tanner Relationship Specialty Start Date End Date Dennis Ardon MD PCP - General Internal Medicine 04/30/14 08/27/14 Jose Rudd MD PCP - General Internal Medicine 08/28/14 03/27/15 [facility], Pcp PCP - General Internal Medicine 03/28/15 04/10/15 Jose Rudd MD PCP - General Internal Medicine 04/11/15 documented as of this encounter
== END 2024-06-02 14:18 | disposition home or self-care (01) ==
LOC: HO.HKA 13:53
PROVIDERS: PCP Internal Medicine Geriatric Medicine; Visit Provider Internal Medicine Nephrology
DX: N25.81 Secondary hyperparathyroidism of renal origin (principal); N18.31 Chronic kidney disease, stage 3a; I10 Essential (primary) hypertension
CPT/HCPCS: 99214

== ENCOUNTER 2024-06-02 13:53 | Outpatient (REF) | payer OTHER, SELFPAY ==
--- OUTSIDE RECORDS SUMMARY | 2024-06-02 14:46 | XMS_ITS | Encounter Summary ---
Author Organization [employer] [facility] Address [address] [place] [address] [place], [place] [address] Care Team Providers Care Project Portfolio Analyst Name Role Phone Name, Jose ALVARADO Primary Care Provider [phone] Renetta Davenport PharmD Unavailable [phone] Encounter Details Date Type Department Care Team (Late st Contact Info) Description 03/04/2022 Orders Only [facility] MEDICINE [address] [place] [phone] Izabela Johnson LPN Social History Tobacco Use [...] Description 06/06/2024 11:00 AM EDT Medication Management [facility] MEDICINE [address] [place] [phone] Renetta Davenport, PharmD [address] [place] [address] 07/05/2024 2:15 PM EDT Office Visit [facility] MEDICINE [address] [place] [phone] Name, MD Jose [address] [place] [phone] documented as of this encounter Procedures Procedure Name Priority Date/Time Associated Diagnosis Comments LIPID PANEL, STANDARD Routine 03/23/2022 1:02 PM EST documented in this encounter Results * Lipid Panel, Standard (03/23/2022 1:02 PM EST) Triglycerides 49 mg/dL [facility] Comment:Desirable Triglyceri de: less than 150 mg/dLBorderline High Triglyceride 150-199 mg/dLHigh Triglyceride: 200-499 mg/dLVery High Triglyceride: greater than or equal to 5OO mg/dL Cholesterol 167 mg/dL [facility] Comment:Desirable Cholestero l: less than 200 mg/dLBorderline High Cholesterol: 200-239 mg/dLHigh Cholesterol: greater than 239 mg/dL LDL Cholesterol Calculated 110 mg/dl [facility] Comment:Desirable LDL: less than 100 mg/dLNear Optimal/Above Optimal LDL: 110- 129 mg/dLBorderline High LDL: 130-159 mg/dLHigh LDL: 160-189 mg/dLVery High LDL: greater than or equal to 190 mg/dL HDL Cholesterol 48 mg/dL [facility] Comment:Desirable HDL: great er than 40 mg/dL Note: This HDL assay may give artificially low results in patients with liver disease. 03/23/2022 1:02 PM EST 03/23/2022 1:02 PM EST [facility] External Provider LAB BLO OD ORDERABLES Final Result [facility] [address] [place] [address] [phone] documented in this encounter Visit Diagnoses Not on filedocumented in this encounter Care Teams Project Portfolio Analyst Relationship Specialty Start Date End Date Name, MD Jose [address] [place] [address] PCP - General Family Medicine 07/02/15 Renetta Davenport, BaileyD [address] [place] [address] Pharmacist Internal Medicine 01/03/24 documented as of this encounter
--- OUTSIDE RECORDS SUMMARY | 2024-06-02 14:46 | XMS_ITS | Encounter Summary ---
Author Organization [employer] Address [address] [facility] [address] [place] [address] Care Team Providers Care Programmer Name Role Phone Name, Jose ALVARADO Primary Care Provider [phone] Renetta Davenport PharmD Unavailable [phone] Encounter Details Date Type Department Care Team ([facility] st Contact Info) Description 08/30/2023 Telephone [facility] MEDICINE [address] [place], [place] [phone] Name, MD Jose [address] [place] [address] Social History Tobacco Use Types Packs/Day Years [...] Description 06/06/2024 11:00 AM EDT Medication Management [address] [address] Renetta Davenport PharmD [address] [place] [phone] 07/05/2024 2:15 PM EDT Office Visit [facility] MEDICINE [address] [place] [phone] Name, MD Jose [address] [place] [address] documented as of this encounter Visit Diagnoses Not on filedocumented in this encounter Additional Health Concerns Assessment Noted Time PHQ-9 Depression Total Score: 0 04/19/19 1:44 PM EST documented as of this encounter Care Teams Programmer Relationship Specialty Start Date End Date Name, MD Jose [address] [place] [address] PCP - General Family Medicine 07/02/15 Renetta Davenport PharmD [address] [place] [phone] Pharmacist Internal Medicine 01/03/24 documented as of this encounter
--- OUTSIDE RECORDS SUMMARY | 2024-06-02 14:46 | XMS_ITS | Clinical Summary ---
Author Organization [employer] Address [address] [place] [address] 7 [place] [address] Care Team Providers Care Agricultural Produce Sorter Name Role Phone Name, Jose ALVARADO Primary Care Provider Renetta Davenport PharmD Unavailable [phone] Allergies No known active allergies Medications [...] day 1 kit 024 Active Continuous Glucose Business And Marketing Teacher (FreeStyle Boubacar 2 Comanche) deviceIndications :Diabetic polyneuropathy associated with type 2 diabetes mellitus ([facility]) Use as directed 1 each 024 Active [...] 12 hr tabletIndications :Atrial fibrillation, unspecified type ([facility]) TAKE 1 TABLET BY MOUTH TWICE DAILY IN THE MORNING AND IN THE EVENING 180 tablet 1 024 Active senna-docusate sodium (Senokot-S) 8.6-50 MG tablet Take 1 tablet by mouth Once per day. 30 tablet 11 024 2024 Active glucose blood (OneTouch Ultra) test stripIndications: Type 2 diabetes mellitus with hyperglycemia, unspecified whether director long term care insulin use ([facility]) USE TO TEST BLOOD SUGAR TWICE A DAY 100 each 3 024 Active OneTouch Delica Lancets 33G miscIndications:T ype 2 diabetes mellitus with hyperglycemia, unspecified whether usp insulin use ([facility]) USE TO TEST BLOOD SUGAR TWICE A DAY 100 each 3 024 Active losartan (Cozaar) 25 MG tablet Take 1 tablet (25 mg) by mouth Once per day. 30 tablet 11 024 2024 Active insulin pen needle (BD Pen Needle Linda U/F) 32G x 4 mm miscIndications:T ype 2 diabetes mellitus with hyperglycemia, unspecified whether usp insulin use ([facility]) USE ONCE DAILY WITH INSULIN 100 each 3 024 Active Tirzepatide (Mounjaro) 5 MG/0.5ML solution auto-injectorIndi cations:Type 2 diabetes mellitus with hyperglycemia, unspecified whether director long term care insulin use ([facility]) Inject 5 mg under the skin 1 (one) time per week. 2 mL 11 024 Active insulin glargine (Lantus SoloStar) 100 UNIT/ML penIndications:Ty pe 2 diabetes mellitus with hyperglycemia, unspecified whether director long term care insulin use ([facility]) Inject 10 Units under the skin at bedtime. 15 mL 2 024 Active empagliflozin (Jardiance) 10 MG Take 1 tablet (10 mg) by mouth Once per day. 30 tablet 11 025 2025 Active glucagon (Baqsimi Two Pack) 3 MG/DOSE nasal powderIndications :Type 2 diabetes mellitus with hyperglycemia, unspecified whether usp insulin use ([facility]) Administer 3 mg via 1 device into the nostril for hypoglycemia with loss of consciousness. If no response after 15 minutes administer an additional dose via 2nd device into other nostril. 2 each 025 Active glucose 4 g chewable tabletIndications :Type 2 diabetes mellitus with hyperglycemia, unspecified whether director long term care insulin use ([facility]) Chew 4 tablets (16 g) if needed for low blood sugar. <70 mg/dL. Recheck blood sugar after 15 minutes and repeat treatment as needed & as directed. 20 tablet 5 025 2025 Active Continuous Glucose Sensor (FreeStyle Boubacar 2 Sensor) miscIndications:D iabetic polyneuropathy associated with type 2 diabetes mellitus ([facility]) USE DIRECTED AND CHANGE EVERY 2 WEEKS [...] due t o type 2 diabetes mellitus ([facility]) 10/30/2015 Essential hypertension 07/02/2015 Memory impairment 07/02/2015 Hypercholesterolemia 07/02/2015 Coronary artery disease invo lving [place] coronary artery of [place] heart without angina pectoris 05/07/2014 Gout 05/07/2014 GERD (gastroesophageal reflux disease) 5 Asthma 05/07/2014 Stenosing tenosynovitis 06/02/2010 Major depressive disorder 05/23/2010 Microalbuminuria 12/11/2009 Fatty liver 12/11/2009 Disorder of peripheral nervous system 12/11/2009 Edema of foot 02/15/2008 Low back pain, unspecified 09/09/2007 Anemia 09/09/2007 Non-cardiac chest pain 07/29/2007 Encounters Date Type Department Care Team Description 05/22/2024 Refill [facility] [address] [place] [address] Name, MD Jose Atrial fibrillation, unspecified type ([facility]) 05/21/2024 Refill [facility] [address] [place] [address] Name, MD Jose Atrial fibrillation, unspecified type ([facility]) 05/17/2024 Refill [facility] [address] [place] [address] Jose Rudd MD 04/25/2024 Refill [facility] [address] [place] [address] Becki Nation MD Vitamin D deficiency; Atrial fibrillation, unspecified type ([facility]) 04/24/2024 Refill [facility] [address] [place] [address] Name, MD Jose Atrial fibrillation, unspecified type ([facility]) 04/13/2024 Telephone [facility] MEDICINE [address] [place] [address] Shy Lackey MA may recalls 03/27/2024 Refill [facility] MEDICINE [address] [place] [address] Georgiana Navas MD Atrial fibrillation, unspecified type ([facility]) 03/14/2024 10:00 AM EST Office Visit [facility] [address] [place] [address] Name, MD Jose Type 2 diabetes mellitus with hyperglycemia, unspecified whether director long term care insulin use (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) ([facility]) 03/06/2024 Telephone [facility] [address] [place] [address] Shy Lackey MA chart prep from Last [...] Description 06/06/2024 11:00 AM EDT Medication Management [facility] [address] [place] [address] Renetta Davenport, PharmD [address] [place] [address] 07/05/2024 2:15 PM EDT Office Visit [facility] [address] [place] [address] Name, MD Jose [address] [place] [address] Health Maintenance Due Date Last Done Comments [...] 2 diabetes mellitus with hyperglycemia, unspecified whether usp insulin use (CMS/HCC) POCT GLUCOSE Routine 03/14/2024 10:09 AM EST Type 2 diabetes mellitus with hyperglycemia, unspecified whether usp insulin use (CMS/HCC) LIPID PANEL, STANDARD Routine 12/16/2023 11:30 AM EDT Type 2 diabetes mellitus with hyperglycemia, unspecified whether director long term care insulin use (CMS/HCC) HM DIABETES EYE EXAM [...] to 5OO mg/dL Cholesterol 145 <200 mg/dL [facility] Comment:Desirable Cholestero l: less than 200 mg/dLBorderline High Cholesterol: 200-239 mg/dLHigh Cholesterol: greater than 239 mg/dL LDL Cholesterol Calculated 89 <100 mg/dL [facility] Comment:Desirable LDL: less than 100 mg/dLNear Optimal/Above Optimal LDL: 110- 129 mg/dLBorderline High LDL: 130-159 mg/dLHigh LDL: 160-189 mg/dLVery High LDL: greater than or equal to 190 mg/dL HDL Cholesterol 45 >40 mg/dL [facility] Comment:Desirable HDL: great er than 40 mg/dL Note: This HDL assay may give artificially low results in patients with liver disease. Blood Venous blood specimen / Unknown 12/16/2023 11:30 AM EDT 12/16/2023 1:54 PM EDT Jose Rudd MD LAB BLOOD ORDERABLES Final Resul t [facility] [address] [place] [address] [phone] * Diabetes Eye Exam (09/24/2022) Eye Exam Normal Normal Jose Rudd MD HEALTH MAINTENANCE Final Result from Last 3 Months or Most Recently Relevant to Health Maintenance Insurance [facility] Care Teams Agricultural Produce Sorter Relationship Specialty Start Date End Date Name, MD Jose [address] [place] [phone] PCP - General Family Medicine 07/02/15 Renetta Davenport, Bryan [address] [place] [address] Pharmacist Internal Medicine 01/03/24
--- OUTSIDE RECORDS SUMMARY | 2024-06-02 14:46 | XMS_ITS | Encounter Summary ---
Author Organization [employer] Address [address] [place] [address] [place] [address] Care Team Providers Care Group Billing Coordinator Name Role Phone Name, Jose ALVARADO Primary Care Provider [phone] Renetta Davenport PharmD Unavailable [phone] Reason for Visit * Reason Onset Date Comments Nurse Triage 09/25/2022 Encounter Details Date Type Department Care Team (Late st Contact Info) Description 09/25/2022 Telephone [facility] [address] [place], [place] [phone] Name, MD Jose [address] [place] [address] Nurse Triage Social History Tobacco Use Types [...] - 09/28/2022 1:41 PM EDT T/C to [phone] for status check, No answer. LVM to call back on [phone]. * Telephone Encounter - Azeb Hager RN - 09/25/2022 12:43 PM EDT Triage call with [employer] [employer] [place] [id number] Pt , JEANA Contreras reports Pt is sleeping and she will talk for Pt. Pt was tested + for Covid09/24/22. Pt symptoms are fever, tactile, body aches, cough, nasal congestion and headache. Diane informs blog writer that Pt has been given prednisone and [...] of listed homecare advise. Haleigh is given [place] number [phone] for eligibility for paxlovid. Haleigh is asking [...] this outcome Please contact pt spouse at [phone] Nicaraguan Speaker documented in this encounter Plan of Treatment Upcoming Encounters Date Type Department Care Team (Late st Contact [facility]) Description 06/06/2024 11:00 AM EDT Medication Management [facility] [address] [place] [address] Renetta Davenport PharmD [address] [place] [address] 07/05/2024 2:15 PM EDT Office Visit [facility] [address] [place] [address] Name, MD Jose [address] [place] [address] documented as of this encounter Visit Diagnoses Not on filedocumented in this encounter Care Teams Group Billing Coordinator Relationship Specialty Start Date End Date Name, MD Jose [address] [place] [address] PCP - General Family Medicine 07/02/15 Renetta Davenport, PharmD [address] [place] [phone] Pharmacist Internal Medicine 01/03/24 documented as of this encounter
--- OUTSIDE RECORDS SUMMARY | 2024-06-02 14:46 | XMS_ITS | Encounter Summary ---
Author Organization [employer] Address [address] [place] [address] [place] [address] Care Team Providers Care Senior Sous Chef Name Role Phone Name, Jose ALVARADO Primary Care Provider [phone] Renetta Davenport PharmD Unavailable [phone] Reason for Visit * Reason Onset Date Comments call back 04/03/2022 Requested Call Back 04/07/2022 Prescription Request 04/03/2022 I called to verify that the pt requested insulin supplies through [facility], because they faxed a prescription order form to the [facility] department. He stated that he did not make the request, and that his prescriptions are sent to the [facility]. The form was faxed back to [facility], along with a note stating that the patient uses a local pharmacy. Encounter Details Date Type Department Care Team ([facility] Contact Info) Description 04/03/2022 Telephone [facility] [address] [place] [address] Name, MD Jose [address] [place], [place] [phone] call back; Requested Call Back ; Prescription Request (I called to verify that the pt requested insulin supplies through [facility], because they faxed a prescription order form to the [facility] department. He stated that he did not make the request, and that his prescriptions are sent to the [facility]. The form was faxed back to [facility], along with a note stating [...] AM EST Tc from Kimmypedro at [facility] [place] [facility] re calling in regards to diabetes supplies. Advised of message below, however Gretchenor is requesting a call back at [phone]. * Telephone Encounter - Gisselle Miranda RN - 04/06/2022 2:13 PM EST Pt does not use [facility] as a pharmacy and has upcoming appt on 04/08/22 and can discuss if pt wants to switch pharmacies * Telephone Encounter - Gio Crum - 04/03/2022 9:14 AM EST Tc from Jose Carlos with [facility] requesting a call back regarding pt medication Please contact jose carlos at [phone] documented in this encounter Plan of Treatment Upcoming Encounters Date Type Department Care Team (Late st Contact Info) Description 06/06/2024 11:00 AM EDT Medication Management [facility] [address] [place] [address] Renetta Davenport, PharmD [address] [place] [address] 07/05/2024 2:15 PM EDT Office Visit [facility] [address] [place] [address] Name, MD Jose [address] [place] [address] documented as of this encounter Visit Diagnoses Not on filedocumented in this encounter Care Teams Senior Sous Chef Relationship Specialty Start Date End Date Name, MD Jose [address] [place], [place] [phone] PCP - General Family Medicine 07/02/15 Renetta Davenport PharmD [address] [place] [address] Pharmacist Internal Medicine 01/03/24 documented as of this encounter
[2024-06-02 15:58] LABS: Anion Gap 11 (12-20); Blood Urea Nitrogen 29 mg/dL (9-16); Calcium 8.7 mg/dL (8.4-10.2); Carbon Dioxide 25 mmol/L (22-29); Chloride 110 mmol/L (96-108); Estimated Glomerular Filt Rate 42; Glucose Random 150 mg/dL (60-115); Potassium 4.4 mmol/L (3.3-5.1); Sodium 142 mmol/L (135-145)
[2024-06-02 16:06] LABS: Parathyroid Hormone Intact 244.9 pg/mL (8.7-77.1)
== END 2024-06-02 13:54 | disposition home or self-care (01) ==
LOC: HO.LAB 13:53
PROVIDERS: PCP Internal Medicine Geriatric Medicine; Visit Provider Internal Medicine Nephrology
DX: I12.9 Hypertensive chronic kidney disease with stage 1 through stage 4 chronic kidney disease, or unspecified chronic kidney disease (principal); N18.31 Chronic kidney disease, stage 3a; N25.81 Secondary hyperparathyroidism of renal origin; E11.65 Type 2 diabetes mellitus with hyperglycemia; E11.29 Type 2 diabetes mellitus with other diabetic kidney complication; R80.9 Proteinuria, unspecified
CPT/HCPCS: 36415; 80048; 83970; 99212

== ENCOUNTER → 2024-06-05 13:05 | Outpatient (REF) | payer OTHER, SELFPAY ==
--- NOTE | 2024-06-05 13:07 | CA_ITS ---
Transthoracic Echocardiogram Patient (Last, First, Middle): Tayo Solitario, Gender: Male Date of : 1960 Age: 63 Procedure Date: 06/05/2024 Procedure Type: Transthoracic Echocardiogram Location: OP Height: 182.88 cm Weight: 115.21 kg BSA: 2.36 m2 Heart Rate: bpm BP: 128 / 70 mmHg Lamination Inspector: TOSHIA Referring MD: Pete Napier [employer] [address] Justice: Dario Preston MD Symptoms: I47.10 - Supraventricular tachycardia, unspecified Study Quality: Fair, contrast ECG Rhythm: Sinus Conclusions: - 1. Normal LV systolic function with moderate LVH with impaired relaxation filling pattern 2. Normal cardiac valvular Dopplers 3. Normal RVSP 4. No pericardial effusion Findings Procedure Information Contrast agent, definity, is being given per protocol without apparent complications. Left Ventricle Normal left ventricular size and systolic function. There is moderately increased left ventricular wall thickness. The visually estimated ejection fraction is between 60-65%. Spectral Doppler is indicative of an impaired relaxation filling pattern. E/E prime ratio is between 8 and 15 consistent with indeterminate filling pressures. Right Ventricle Normal right ventricular cavity size and systolic function. Atria Both atria are normal in size. Interatrial shunt cannot be excluded. Aortic Valve Normal aortic valve structure and function. There is no aortic valve stenosis. There is no aortic valve regurgitation. Mitral Valve Normal mitral valve structure and function. There is trace mitral valve regurgitation. There is no mitral valve stenosis. Pulmonic Valve The pulmonic valve is likely normal. Tricuspid Valve Likely normal tricuspid valve structure and function. There is trace tricuspid valve regurgitation. The right ventricular systolic pressure is normal. The right ventricular systolic pressure is 18 mmHg. Normal right atrial pressure. There is no evidence of pulmonary hypertension. Great Vessels All visible segments of the aorta are normal in size. The pulmonary artery was not well visualized. There is no dilatation of the ascending aorta measuring 3.30 cm. Venous The inferior vena cava is normal in size and collapses greater than 50% with inspiration. Pericardium/Pleural There is no evidence of pericardial effusion. Prior Study Comparison Changes noted compared to prior study dated: 03/28/2019. LVH is noted Measurements 2D Linear Measurements IVSd: 1.48 0.6-0.9/0.6-1.0 cm LVIDd: 4.53 3.9-5.3/4.2-5.9 cm LVIDd Index: 1.92 2.4-3.2/2.2-3.1 cm/m2 LVIDs: 3.06 2.0-3.6 cm LVPWd: 1.37 0.7-1.1 cm LA Diam: 4.00 2.7-3.8/3.0-4.0 cm LAIDs Index: 1.69 1.5-2.3 cm/m2 LV Mass: 321.35 67-162/88-224 g LV Mass Index: 136.16 43-95/49-115 g/m2 LVOT Diam: 2.30 3.0+(-)1.3 cm 2D Systolic Function EF 4C: 60.60 >55% EF 2C: 63.40 >55% EF BiP: 62.00 >55% Mitral Valve MV Pk E: 0.72 MV PK A: 0.80 MV Decel Time: 302.00 E/A: 0.90 E'Lateral: 7.51 E'Medial: 6.85 E/E' Med: 10.50 E/E' Lat: 9.50 PHT: 88.00 MVA PHT: 2.50 Decel [place]: 2.37 Aortic Valve AoV Pk Juan Diego: 1.19 AoV Mn [place]: 0.80 AoV VTI: 0.26 AoV Pk Grad: 6.00 Aov Mn Grad: 3.00 MAYNOR Cont.VTI: 3.14 LVOT LVOT Pk [place]: 0.92 LVOT Mn Juan Diego: 0.63 LVOT VTI: 0.20 LVOT Pk Grad: 3.00 LVOT Mn Grad: 2.00 LVOT Diam: 2.30 LVOT Area: 4.15 Diastolic Function MV Pk E: 0.72 MV Pk A: 0.80 E/A: 0.90 E'Medial: 6.85 E/E' Med: 10.50 E' Laterial: 7.51 E/E' Lat: 9.50 Right Ventricle TAPSE (mm): 19.80 TVS' Juan Diego: 12.30 Tricuspid Valve TR Pk Juan Diego: 1.91 TR Pk Grad: 15.00 RA Press: 3.00 RVSP: 18.00 Great Vessels Aorta Sinus of Valsalva: 3.80 2.0-3.[address] [place]: 3.21 1.7-3.4 cm Ao Asc: 3.30 2.1-3.4 cm Ao Arch: 3.00 Updated in Other Vendor System with Status of Final Dario Preston MD electronically signed on 06/05/2024 4:11:10 PM with status of Final
--- OUTSIDE RECORDS SUMMARY | 2024-06-05 15:00 | XMS_ITS | Encounter Summary ---
Author Organization [facility] Address [address] [place] [address] [address] [address] Care Team Providers Care Gardener Name Role Phone Name, Jose ALVARADO Primary Care Provider [phone] Renetta Davenport PharmD Unavailable Encounter Details Date Type Department Care Team (Late st Contact Info) Description 03/04/2022 Orders Only [facility] [address] [place] [address] Izabela Johnson LPN Social History Tobacco Use [...] Description 06/06/2024 11:00 AM EDT Medication Management [facility] [address] [place] [address] Renetta Davenport, PharmD [address] [place] [address] 07/05/2024 2:15 PM EDT Office Visit [facility] [address] [place] [address] Name, MD Jose [address] [place] [address] documented as of this encounter Procedures Procedure Name Priority Date/Time Associated Diagnosis Comments LIPID PANEL, STANDARD Routine 03/23/2022 1:02 PM EST documented in this encounter Results * Lipid Panel, Standard (03/23/2022 1:02 PM EST) Triglycerides 49 mg/dL [facility] Comment:Desirable Triglyceri de: less than 150 mg/dLBorderline High Triglyceride 150-199 mg/dLHigh Triglyceride: 200-499 mg/dLVery High Triglyceride: greater than or equal to 5OO mg/dL Cholesterol 167 mg/dL [facility] Comment:Desirable Cholestero l: less than 200 mg/dLBorderline High Cholesterol: 200-239 mg/dLHigh Cholesterol: greater than 239 mg/dL LDL Cholesterol Calculated 110 mg/dl [facility] Comment:Desirable LDL: less than 100 mg/dLNear Optimal/Above Optimal LDL: 110- 129 mg/dLBorderline High LDL: 130-159 mg/dLHigh LDL: 160-189 mg/dLVery High LDL: greater than or equal to 190 mg/dL HDL Cholesterol 48 mg/dL [facility] Comment:Desirable HDL: great er than 40 mg/dL Note: This HDL assay may give artificially low results in patients with liver disease. 03/23/2022 1:02 PM EST 03/23/2022 1:02 PM EST [facility] External Provider LAB BLO OD ORDERABLES Final Result [facility] [address] [place] [address] [phone] documented in this encounter Visit Diagnoses Not on filedocumented in this encounter Care Teams Gardener Relationship Specialty Start Date End Date Name, MD Jose [address] [place] [address] PCP - General Family Medicine 07/02/15 Renetta Davenport, BaileyD [address] [place] [address] Pharmacist Internal Medicine 01/03/24 documented as of this encounter
--- OUTSIDE RECORDS SUMMARY | 2024-06-05 15:00 | XMS_ITS | Encounter Summary ---
Author Organization [employer] Address [address] [facility] [place] [address] Care Team Providers Care Stretch Box Tender Name Role Phone Name, Jose ALVARADO Primary Care Provider [phone] Renetta Davenport PharmD Unavailable [phone] Encounter Details Date Type Department Care Team (Late st Contact Info) Description 06/02/2024 Orders Only GENERIC EXTERNAL DATA DEPARTMENT Provider, Generic External Data Social History Tobacco Use Types Packs/Day Years [...] Description 06/06/2024 11:00 AM EDT Medication Management [facility] [address] [place] [address] Renetta Davenport PharmD [address] [place] [address] 07/05/2024 2:15 PM EDT Office Visit [facility] [address] [place] [address] Name, MD Jose [address] [place] [address] documented as of this encounter Procedures Procedure Name Priority Date/Time Associated Diagnosis Comments PTH, INTACT WITHOUT CALCIUM Routine 06/02/2024 2:49 PM EDT documented in this encounter Results * (ABNORMAL) PTH, Intact Without Calcium (06/02/2024 2:49 PM EDT) Parathyroid Hormone, Intact 244.9(H) 8.7 - 77.1 pg/mL [facility] 06/02/2024 2:49 PM EDT 06/02/2024 2:49 PM EDT us Generic External Data Provider LAB BLOOD ORDERAB LES Final Result [facility] [address] [place] [address] [phone] documented in this encounter Visit Diagnoses Not on filedocumented in this encounter Additional Health Concerns Assessment Noted Time PHQ-9 Depression Total Score: 0 04/19/19 24 1:44 PM EST documented as of this encounter Care Teams Stretch Box Tender Relationship Specialty Start Date End Date Name, MD Jose [address] [place] [address] PCP - General Family Medicine 07/02/15 Renetta Davenport PharmD [address] [place] [address] Pharmacist Internal Medicine 01/03/24 documented as of this encounter
--- OUTSIDE RECORDS SUMMARY | 2024-06-05 15:00 | XMS_ITS | Clinical Summary ---
Author Organization [email or web address] Address [address] [place] [address] 7 [place] [address] Care Team Providers Care Miller Kiln Dried Salt Name Role Phone Name, Jose ALVARADO Primary Care Provider [phone] Renetta Davenport PharmD Unavailable [phone] Allergies No known active allergies Medications [...] day 1 kit 024 Active Continuous Glucose Roof Panel Hanger (FreeStyle Boubacar 2 Bannock) deviceIndications :Diabetic polyneuropathy associated with type 2 diabetes mellitus ([facility]) Use as directed 1 each 024 [...] 12 hr tabletIndications :Atrial fibrillation, unspecified type ([facility]) TAKE 1 TABLET BY MOUTH TWICE DAILY IN THE MORNING AND IN THE EVENING 180 tablet 1 024 Active senna-docusate sodium (Senokot-S) 8.6-50 MG tablet Take 1 tablet by mouth Once per day. 30 tablet 11 024 2024 Active glucose blood (OneTouch Ultra) test stripIndications: Type 2 diabetes mellitus with hyperglycemia, unspecified whether intermediate manager insulin use ([facility]) USE TO TEST BLOOD SUGAR TWICE A DAY 100 each 3 024 Active OneTouch Delica Lancets 33G miscIndications:T ype 2 diabetes mellitus with hyperglycemia, unspecified whether chcf insulin use ([facility]) USE TO TEST BLOOD SUGAR TWICE A DAY 100 each 3 024 Active losartan (Cozaar) 25 MG tablet Take 1 tablet (25 mg) by mouth Once per day. 30 tablet 11 024 2024 Active insulin pen needle (BD Pen Needle Linda U/F) 32G x 4 mm miscIndications:T ype 2 diabetes mellitus with hyperglycemia, unspecified whether chcf insulin use ([facility]) USE ONCE DAILY WITH INSULIN 100 each 3 024 Active Tirzepatide (Mounjaro) 5 MG/0.5ML solution auto-injectorIndi cations:Type 2 diabetes mellitus with hyperglycemia, unspecified whether intermediate manager insulin use ([facility]) Inject 5 mg under the skin 1 (one) time per week. 2 mL 11 024 Active insulin glargine (Lantus SoloStar) 100 UNIT/ML penIndications:Ty pe 2 diabetes mellitus with hyperglycemia, unspecified whether intermediate manager insulin use ([facility]) Inject 10 Units under the skin at bedtime. 15 mL 2 024 Active empagliflozin (Jardiance) 10 MG Take 1 tablet (10 mg) by mouth Once per day. 30 tablet 11 025 2025 Active glucagon (Baqsimi Two Pack) 3 MG/DOSE nasal powderIndications :Type 2 diabetes mellitus with hyperglycemia, unspecified whether chcf insulin use ([facility]) Administer 3 mg via 1 device into the nostril for hypoglycemia with loss of consciousness. If no response after 15 minutes administer an additional dose via 2nd device into other nostril. 2 each 025 Active glucose 4 g chewable tabletIndications :Type 2 diabetes mellitus with hyperglycemia, unspecified whether intermediate manager insulin use ([facility]) Chew 4 tablets (16 g) if needed for low blood sugar. <70 mg/dL. Recheck blood sugar after 15 minutes and repeat treatment as needed & as directed. 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 05/07/2014 Gout 05/07/2014 GERD (gastroesophageal reflux disease) 5 Asthma 05/07/2014 Stenosing tenosynovitis 06/02/2010 Major depressive disorder 05/23/2010 Microalbuminuria 12/11/2009 Fatty liver 12/11/2009 Disorder of peripheral nervous system 12/11/2009 Edema of foot 02/15/2008 Low back pain, unspecified 09/09/2007 Anemia 09/09/2007 Non-cardiac chest pain 07/29/2007 Encounters Date Type Department Care Team Description 06/02/2024 Orders Only GENERIC EXTERNAL DATA DEPARTMENT Provider, Generic External Data 05/22/2024 Refill [facility] [address] [place] [address] Jose Rudd MD Atrial fibrillation, unspecified type ([facility]) 05/21/2024 Refill [facility] [address] [facility] [place] [address] Jose Rudd MD Atrial fibrillation, unspecified type ([facility]) 05/17/2024 Refill [facility] [address] [facility] [place] [address] Jose Rudd MD 04/25/2024 Refill [facility] [address] [place] [address] Becki Nation MD Vitamin D deficiency; Atrial fibrillation, unspecified type ([facility]) 04/24/2024 Refill [facility] [address] [facility] [place] [address] Jose Rudd MD Atrial fibrillation, unspecified type ([facility]) 04/13/2024 Telephone [facility] [address] [facility] [address] Shy Lackey [place] may recalls 03/27/2024 Refill [facility] [address] [facility] [place] [address] Georgiana Navas MD Atrial fibrillation, unspecified type ([facility]) 03/14/2024 10:00 AM EST Office Visit [facility] [address] [place] [address] Name, MD Jose Type 2 diabetes mellitus with hyperglycemia, unspecified whether intermediate manager insulin use ([facility]) (Primary Dx); 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 ([facility]) ([facility]) from Last 3 Months Immunizations Name Administration [...] Description 06/06/2024 11:00 AM EDT Medication Management [facility] [address] [place] [address] Renetta Davenport, PharmD [address] [facility] [place] [address] 07/05/2024 2:15 PM EDT Office Visit [facility] [address] [facility] [place] [address] Name, MD Jose [facility] [place] [phone] Health Maintenance Due Date Last Done Comments [...] Screening 09/28/2024 09/29/2023 Lipid Panel 12/15/2024 12/16/2023, 07/2022, 03/23/2022, Additional history exists Tobacco Screening [...] WITHOUT CALCIUM Routine 06/02/2024 2:49 PM EDT BASIC METABOLIC PANEL Routine 06/02/2024 2:49 PM EDT Type 2 diabetes mellitus with hyperglycemia, unspecified whether intermediate manager insulin use (CMS/HCC) 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 (CMS/HCC) (CMS/HCC) AMB REFERRAL TO GASTROENTEROLOGY Routine 04/04/2024 Encounter for screening for malignant neoplasm of colon POCT GLYCATED HEMOGLOBIN, TOTAL Routine 03/14/2024 10:10 AM EST Type 2 diabetes mellitus with hyperglycemia, unspecified whether intermediate manager insulin use (CMS/HCC) POCT GLUCOSE Routine 03/14/2024 10:09 AM EST Type 2 diabetes mellitus with hyperglycemia, unspecified whether chcf insulin use (CMS/HCC) LIPID PANEL, STANDARD Routine 12/16/2023 11:30 AM EDT Type 2 diabetes mellitus with hyperglycemia, unspecified whether intermediate manager insulin use (CMS/HCC) HM DIABETES EYE EXAM Routine 09/24/2022 from Last 3 Months or Most Recently Relevant to Health Maintenance Results * (ABNORMAL) PTH, Intact Without Calcium (06/02/2024 2:49 PM EDT) Parathyroid Hormone, Intact 244.9(H) 8.7 - 77.1 pg/mL [facility] 06/02/2024 2:49 PM EDT 06/02/2024 2:49 PM EDT us Generic External Data Provider LAB BLOOD ORDERAB LES Final Result [facility] [address] [place] [phone] * (ABNORMAL) Basic Metabolic Panel (06/02/2024 2:49 PM EDT) Sodium 142 135 - 145 mmol/L [facility] Potassium 4.4 3.3 - 5.1 mmol/L [facility] Chloride 110(H) 96 - 108 mmol/L [facility] Carbon Dioxide 25 22 - 29 mmol/L [facility] Anion Gap 11(L) 12 - 20 [facility] Urea Nitrogen (BUN) 29(H) 9 - 16 mg/dL [facility] Creatinine, Serum 1.65(H) 0.5 - 1.4 mg/dL [facility] Estimated Glomerular Filt Rate 42 [facility] Comment:Chronic Kidney Disea se: Estimated GFR < 60 mL/min/[id number] Kidney Disease: Estimated GFR < 15 mL/min/1.73m2 Glucose 150(H) 60 - 115 mg/dL [facility] Calcium 8.7 8.4 - 10.2 mg/dL [facility] Blood Venous blood specimen / Unknown 06/02/2024 2:49 PM EDT 06/02/2024 2:49 PM EDT Jose Rudd MD LAB BLOOD ORDERABLES Final Resul t [facility] [address] [place], [place] [phone] * Referral to Gastroenterology (04/04/2024) Jose Rudd MD OUTPATIENT REFERRAL ORDERABLES E dited Result - Final * (ABNORMAL) POCT HGB A1C (03/14/2024 10:10 AM EST) Hemoglobin A1C 6.8(A) 4.0 - 6.0 % QC Media Lot # [id number] Lot# Expiration Date [id number] Blood 03/14/2024 10:1 0 AM EST Jose Rudd MD POINT OF CARE TEST ENTER/EDIT OR DERABLES Final Result * POCT Glucose (03/14/2024 10:09 AM EST) Glucose Blood, POC 160 60 - 200 mg/dL QC Media Lot # [id number] Lot# Expiration Date [id number] Blood Capillary blood specimen / Unknown 03/14/2024 10:09 AM EST Jose Rudd MD POINT OF CARE TEST ENTER/EDIT OR DERABLES Final Result * Lipid Panel, Standard (12/16/2023 11:30 AM EDT) Triglycerides 59 <150 mg/dL [facility] Comment:Desirable Triglyceri de: less than 150 mg/dLBorderline High Triglyceride 150-199 mg/dLHigh Triglyceride: 200-499 mg/dLVery High Triglyceride: greater than or equal to 5OO mg/dL Cholesterol 145 <200 mg/dL [facility] Comment:Desirable Cholestero l: less than 200 mg/dLBorderline High Cholesterol: 200-239 mg/dLHigh Cholesterol: greater than 239 mg/dL LDL Cholesterol Calculated 89 <100 mg/dL [facility] Comment:Desirable LDL: less than 100 mg/dLNear Optimal/Above Optimal LDL: 110- 129 mg/dLBorderline High LDL: 130-159 mg/dLHigh LDL: 160-189 mg/dLVery High LDL: greater than or equal to 190 mg/dL HDL Cholesterol 45 >40 mg/dL [facility] Comment:Desirable HDL: great er than 40 mg/dL Note: This HDL assay may give artificially low results in patients with liver disease. Blood Venous blood specimen / Unknown 12/16/2023 11:30 AM EDT 12/16/2023 1:54 PM EDT us Jose Rudd MD LAB BLOOD ORDERABLES Final Resul t [facility] [address] [place] [phone] * Diabetes Eye Exam (09/24/2022) [facility] Signature Eye Exam Normal Normal us Jose Rudd MD HEALTH MAINTENANCE Final Result from Last 3 Months or Most Recently Relevant to Health Maintenance Insurance [place] [address] [address] - [employer] Care Teams Miller Kiln Dried Salt Relationship Specialty Start Date End Date Name, MD Jose [address] [place] [address] PCP - General Family Medicine 07/02/15 Renetta Davenport, BaileyD [address] [place] [address] Pharmacist Internal Medicine 01/03/24
--- OUTSIDE RECORDS SUMMARY | 2024-06-05 15:00 | XMS_ITS | Encounter Summary ---
Author Organization [employer] Address [address] [place] [address] [place] [address] Care Team Providers Care Aerobics Teacher Name Role Phone Name, Jose ALVARADO Primary Care Provider [phone] Renetta Davenport PharmD Unavailable [phone] Reason for Visit * Reason Onset Date Comments call back 04/03/2022 Requested Call Back 04/07/2022 Prescription Request 04/03/2022 I called to verify that the pt requested insulin supplies through [facility], because they faxed a prescription order form to the [facility] department. He stated that he did not make the request, and that his prescriptions are sent to the [facility]. The form was faxed back to [facility], along with a note stating that the patient uses a local pharmacy. Encounter Details Date Type Department Care Team ([facility] Contact Info) Description 04/03/2022 Telephone [facility] [address] [place] [address] Name, MD Jose [address] [place], [place] [phone] call back; Requested Call Back ; Prescription Request (I called to verify that the pt requested insulin supplies through [facility], because they faxed a prescription order form to the [facility] department. He stated that he did not make the request, and that his prescriptions are sent to the [facility]. The form was faxed back to [facility], along with a note stating [...] 10:30 AM EST Tc from Kimmypedro at [facility] re calling in regards to diabetes supplies. Advised of message below, however Gretchenhi is requesting a call back at [phone]. * Telephone Encounter - Gisselle Miranda RN - 04/06/2022 2:13 PM EST Pt does not use [facility] as a pharmacy and has upcoming appt on 04/08/22 and can discuss if pt wants to switch pharmacies * Telephone Encounter - Gio Crum - 04/03/2022 9:14 AM EST Tc from Jose Carlos with [facility] requesting a call back regarding pt medication Please contact jose carlos at [phone] documented in this encounter Plan of Treatment Upcoming Encounters Date Type Department Care Team (Late st Contact Info) Description 06/06/2024 11:00 AM EDT Medication Management [facility] [address] [place] [phone] Renetta Davenport, PharmD [address] [place] [address] 07/05/2024 2:15 PM EDT Office Visit [facility] [address] [place] [phone] Name, MD Jose [address] [place] [address] documented as of this encounter Visit Diagnoses Not on filedocumented in this encounter Care Teams Aerobics Teacher Relationship Specialty Start Date End Date Name, MD Jose [address] [place], [place] [phone] PCP - General Family Medicine 07/02/15 Renetta Davenport PharmD [address] [place] [address] Pharmacist Internal Medicine 01/03/24 documented as of this encounter
--- OUTSIDE RECORDS SUMMARY | 2024-06-05 15:00 | XMS_ITS | Encounter Summary ---
Author Organization [employer] [facility] Address [address] [place] [address] Care Team Providers Care Oil Recovery Unit Operator Name Role Phone Name, Jose ALVARADO Primary Care Provider Unavailabl e Community, Pcp Primary Care Provider Unavailabl e NameJose MD Primary Care Provider Unavailabl e Encounter Details Date Type Department Care Team Description 12/31/2014 Business Doc Medical Records [address] [place] [address] Abstract, Provider Social History Tobacco Use Types [...] on filedocumented in this encounter Care Teams Oil Recovery Unit Operator Relationship Specialty Start Date End Date Jose Rudd MD PCP - General Internal Medicine 08/28/14 03/27/15 Community, Pcp PCP - General Internal Medicine 03/28/15 04/10/15 Jose Rudd MD PCP - General Internal Medicine 04/11/15 documented as of this encounter
--- OUTSIDE RECORDS SUMMARY | 2024-06-05 15:00 | XMS_ITS | Encounter Summary ---
Author Organization [facility] Address [address] [place] [address] Care Team Providers Care Superintendent Transmission Name Role Phone Name, Jose ALVARADO Primary Care Provider [phone] Renetta Davenport PharmD Unavailable [phone] Reason for Visit * Reason Onset Date Comments Nurse Triage 09/25/2022 Encounter Details Date Type Department Care Team (Late st Contact Info) Description 09/25/2022 Telephone [facility] [address] [place], [place] [phone] Name, MD Jose [address] [place] [address] Nurse Triage Social History Tobacco Use Types [...] - 09/28/2022 1:41 PM EDT T/C to [phone] for status check, No answer. LVM to call back on [phone]. * Telephone Encounter - Azeb Hager RN - 09/25/2022 12:43 PM EDT Triage call with [place] [employer] Portfolio Manager [place] [id number] Pt , JEANA Contreras reports Pt is sleeping and she will talk for Pt. Pt was tested + for Covid09/24/22. Pt symptoms are fever, tactile, body aches, cough, nasal congestion and headache. Diane informs scenario writer that Pt has been given prednisone [...] of listed homecare advise. Haleigh is given Beaming number [phone] for eligibility for paxlovid. Haleigh is asking [...] this outcome Please contact pt spouse at [phone] Faroese Speaker documented in this encounter Plan of Treatment Upcoming Encounters Date Type Department Care Team (Late st Contact [facility]) Description 06/06/2024 11:00 AM EDT Medication Management [facility]INE [address] [place] [phone] Renetta Davenport PharmD [address] [place] [address] 07/05/2024 2:15 PM EDT Office Visit [facility] [address] [place] [address] Name, MD Jose [address] [place] [address] documented as of this encounter Visit Diagnoses Not on filedocumented in this encounter Care Teams Superintendent Transmission Relationship Specialty Start Date End Date Name, MD Jose [address] [place] [address] PCP - General Family Medicine 07/02/15 Renetta Davenport, PharmD [address] [place] [address] Pharmacist Internal Medicine 01/03/24 documented as of this encounter
--- OUTSIDE RECORDS SUMMARY | 2024-06-05 15:00 | XMS_ITS | Encounter Summary ---
Author Organization [employer] Address [address] [facility] 7 [place] [address] Care Team Providers Care Rejogger Name Role Phone Name, Jose ALVARADO Primary Care Provider [phone] Renetta Davenport PharmD Unavailable [phone] Encounter Details Date Type Department Care Team ([facility] st Contact Info) Description 08/30/2023 Telephone [facility] [address] [place], [place] [phone] Name, MD Jose [address] [place] [address] Social History Tobacco Use Types Packs/Day Years [...] Description 06/06/2024 11:00 AM EDT Medication Management [address] [address] Renetta Davenport PharmD [address] [place] [address] 07/05/2024 2:15 PM EDT Office Visit [facility] [address] [place] [address] Name, MD Jose [address] [place] [address] documented as of this encounter Visit Diagnoses Not on filedocumented in this encounter Additional Health Concerns Assessment Noted Time PHQ-9 Depression Total Score: 0 04/19/19 1:44 PM EST documented as of this encounter Care Teams Rejogger Relationship Specialty Start Date End Date Name, MD Jose [address] [place] [address] PCP - General Family Medicine 07/02/15 Renetta Davenport PharmD [address] [place] [address] Pharmacist Internal Medicine 01/03/24 documented as of this encounter
--- OUTSIDE RECORDS SUMMARY | 2024-06-05 15:00 | XMS_ITS | Encounter Summary ---
Author Organization [employer] [facility] Address [address] [place] [address] Care Team Providers Care Dictating Machine Mechanic Name Role Phone Name, Jose ALVARADO Primary Care Provider Unavailabl e Community, Pcp Primary Care Provider Unavailabl e NameJose MD Primary Care Provider Unavailabl e Encounter Details Date Type Department Care Team Description 09/24/2014 Business Doc Medical Records [address] [place] [address] Abstract, Provider Social History Tobacco Use Types [...] on filedocumented in this encounter Care Teams Dictating Machine Mechanic Relationship Specialty Start Date End Date Jose Rudd MD PCP - General Internal Medicine 08/28/14 03/27/15 Community, Pcp PCP - General Internal Medicine 03/28/15 04/10/15 Jose Rudd MD PCP - General Internal Medicine 04/11/15 documented as of this encounter
--- OUTSIDE RECORDS SUMMARY | 2024-06-05 15:00 | XMS_ITS | Encounter Summary ---
Author Organization [employer] [facility] Address [address] [place] [address] Care Team Providers Care Manager French Name Role Phone Name, Jose ALVARADO Primary Care Provider Unavailabl e Community, Pcp Primary Care Provider Unavailabl e Name, Jose ALVARADO Primary Care Provider Unavailabl e Reason for Visit * Reason Onset Date Comments refill request 02/28/2015 Encounter Details Date Type Department Care Team Description 02/28/2015 Refill Podiatry - [address] [address] Yanna Ramirez DPM refill request Social History [...] filedocumented in this encounter Care Teams Manager French Relationship Specialty Start Date End Date Jose Rudd MD PCP - General Internal Medicine 08/28/14 03/27/15 [facility], Pcp PCP - General Internal Medicine 03/28/15 04/10/15 Jose Rudd MD PCP - General Internal Medicine 04/11/15 documented as of this encounter
--- OUTSIDE RECORDS SUMMARY | 2024-06-05 15:00 | XMS_ITS | Encounter Summary ---
Author Organization [employer] [facility] Address [address] [place] [address] Care Team Providers Care Finish Inspector Name Role Phone Jose uRdd MD Primary Care Provider Unavailabl e Reason for Visit * Reason Onset Date Comments Faxed Order 04/18/2015 Encounter Details Date Type Department Care Team Description 04/18/2015 Telephone Adult [address] [address] NameJose MD Faxed Order Social History Tobacco Use Types Packs/Day Years Used Date Smoking Tobacco: Never Alcohol Use Standard Drinks/Week Comments No 0 (1 standard drink = 0.6 oz pur e alcohol) Sex Assigned at Date Recorded Not on file documented as of this encounter Miscellaneous Notes * Telephone Encounter - Florencia Herron - 04/18/2015 10:48 AM EST Faxed orders in bin. Tried to call patient, but no answer. Not sure if he is staying here or following Dr. Rudd. documented in this encounter Plan of Treatment Not on file documented as of this encounter Visit Diagnoses Not on filedocumented in this encounter Care Teams Finish Inspector Relationship Specialty Start Date End Date Jose Rudd MD PCP - General Internal Medicine 04/11/15 documented as of this encounter
== END ==
LOC: HO.CARD 13:05
PROVIDERS: PCP Internal Medicine Geriatric Medicine
DX: I47.10 Supraventricular tachycardia, unspecified (principal)
CPT/HCPCS: 93306; Q9957

== ENCOUNTER → 2024-06-05 13:07 | Outpatient (BNV) | payer OTHER, SELFPAY | PROVIDERS: PCP Internal Medicine Geriatric Medicine; Visit Provider Internal Medicine Cardiovascular Disease | DX: I34.0 Nonrheumatic mitral (valve) insufficiency (principal); I36.1 Nonrheumatic tricuspid (valve) insufficiency | CPT/HCPCS: 93306 ==

== ENCOUNTER 2024-07-05 13:35 | Outpatient (REF) | payer OTHER, SELFPAY ==
--- OUTSIDE RECORDS SUMMARY | 2024-07-05 13:40 | XMS_ITS | Encounter Summary ---
Author Organization [facility] [facility] Address [address] [place] [address] [address] [address] Care Team Providers Care Screw Machine Operator Swiss Type Name Role Phone Name, Jose ALVARADO Primary Care Provider [phone] Renetta Davenport PharmD Unavailable [phone] Encounter Details Date Type Department Care Team (Late st Contact Info) Description 03/04/2022 Orders Only [facility] [address] [place] [address] Izabela Johnson LPN Social History Tobacco Use [...] Encounters Date Type Department Care Team (Late Contact Info) Description 07/05/2024 2:15 PM EDT Office Visit [facility] [address] [place] [address] Name, MD Jose [address] [place] [phone] 07/31/2024 11:00 AM EDT Medication Management [facility] [address] [place] [address] Renetta Davenport, PharmD [address] [place] [address] documented as of this encounter Procedures Procedure Name Priority Date/Time Associated Diagnosis Comments LIPID PANEL, STANDARD Routine 03/23/2022 1:02 PM EST documented in this encounter Results * Lipid Panel, Standard (03/23/2022 1:02 PM EST) Triglycerides 49 mg/dL [facility] Comment:Desirable Triglyceri de: less than 150 mg/dLBorderline High Triglyceride 150-199 mg/dLHigh Triglyceride: 200-499 mg/dLVery High Triglyceride: greater than or equal to 5OO mg/dL Cholesterol 167 mg/dL [facility] Comment:Desirable Cholestero l: less than 200 mg/dLBorderline High Cholesterol: 200-239 mg/dLHigh Cholesterol: greater than 239 mg/dL LDL Cholesterol Calculated 110 mg/dl [facility] Comment:Desirable LDL: less than 100 mg/dLNear Optimal/Above Optimal LDL: 110- 129 mg/dLBorderline High LDL: 130-159 mg/dLHigh LDL: 160-189 mg/dLVery High LDL: greater than or equal to 190 mg/dL HDL Cholesterol 48 mg/dL [facility] Comment:Desirable HDL: great er than 40 mg/dL Note: This HDL assay may give artificially low results in patients with liver disease. 03/23/2022 1:02 PM EST 03/23/2022 1:02 PM EST [facility] External Provider LAB BLO OD ORDERABLES Final Result [facility] [address] [place] [address] [phone] documented in this encounter Visit Diagnoses Not on filedocumented in this encounter Care Teams Screw Machine Operator Swiss Type Relationship Specialty Start Date End Date Name, MD Jose [address] [place] [address] PCP - General Family Medicine 07/02/15 Renetta Davenport, PharmD [address] [place] [address] Pharmacist Internal Medicine 01/03/24 documented as of this encounter
--- OUTSIDE RECORDS SUMMARY | 2024-07-05 13:40 | XMS_ITS | Encounter Summary ---
Author Organization [employer] Address [address] [facility] 7 [place] [address] Care Team Providers Care Blind Hooker Name Role Phone Name, Jose ALVARADO Primary Care Provider [phone] Renetta Davenport PharmD Unavailable [phone] Reason for Visit * Reason Onset Date Comments Chart Prep 07/04/2024 Encounter Details Date Type Department Care Team ([facility] st Contact Info) Description 07/04/2024 Telephone [facility] [address] [place], [place] [phone] Name, MD Jose [address] [place] [address] Chart Prep Social History Tobacco Use Types Packs/Day Years [...] the past 12 months, has t he [employer], gas, oil or water company threatened to [...] encounter Miscellaneous Notes * Telephone Encounter - Elizabeth Brown MA - 07/04/2024 1:08 PM EDT Chart Prep Labs: not done Images: not applicable Referrals: not applicable Vaccines due: Covid and Hep A Screenings: colonoscopy, eye exam, foot exam, and HIV, Hep C screenings. Overdue care gaps: SDOH, PHQ-9, GARETH-7, and Disability screen documented in this encounter Plan of Treatment Upcoming Encounters Date Type Department Care Team (Late st Contact Info) Description 07/05/2024 2:15 PM EDT Office Visit [facility] [address] [place] [address] Name, MD Jose [address] [place] [address] 07/31/2024 11:00 AM EDT Medication Management [facility] [address] [place] [address] Renetta Davenport, PharmD [address] [place] [address] documented as of this encounter Visit Diagnoses Not on filedocumented in this encounter Additional Health Concerns Assessment Noted Time PHQ-9 Depression Total Score: 0 04/19/19 24 1:44 PM EST documented as of this encounter Care Teams Blind Hooker Relationship Specialty Start Date End Date Name, MD Jose [address] [place] [address] PCP - General Family Medicine 07/02/15 Renetta Davenport PharmD [address] [place] [address] Pharmacist Internal Medicine 01/03/24 documented as of this encounter
--- OUTSIDE RECORDS SUMMARY | 2024-07-05 13:40 | XMS_ITS | Clinical Summary ---
Author Organization [facility] Address [address] [place] [address] Care Team Providers Care Steno Typist Name Role Phone Name, Jose ALVARADO Primary Care Provider Unavailabl e Allergies No known active allergies Medications Medication Sig Dispensed Refills Start Date End Date Status albuterol (PROVENTIL) (2.5 MG/3ML) 0.083% nebulizer solution Take 1 Vial by nebulization every 4 hours as needed. 0 Active fluticasone (FLOVENT HFA) 110 MCG/ACT inhalerIndications:D iabetes mellitus type 2 in obese,Hyperlipidemia ,HTN (hypertension),CAD (coronary artery disease) Inhale 1 Puff into the lungs 2 times daily. 1 Inhaler 3 06/04/2014 Active INSULIN SYRINGE 1CC/29G 29G X 1/2 1 ML MiscIndications:Diab etes mellitus type 2 in obese,Hyperlipidemia ,HTN (hypertension),CAD (coronary artery disease) Use to inject insulin 5 times a day for diabetes mellitus 150 Each 1 06/04/2014 Active Blood Glucose Calibration (FREESTYLE CONTROL SOLUTION) Liquid Use to calibrate each new bottle of test strips 1 Each 1 06/21/2014 Active glucose monitoring kit (FREESTYLE) monitoring kit Test blood sugar daily 1 Kit 0 06/21/2014 Active nitroGLYCERIN (NITRO-DUR) 0.4 MG/HRIndications:Romina betes mellitus type 2 in obese,Hyperlipidemia ,HTN (hypertension),CAD (coronary artery disease) Place 1 Patch onto the skin daily. Apply for no more than 12 hours in any 24 hour period. 30 Patch 0 08/23/2014 Active Omeprazole 20 MG Tab EC Take 1 Tab by mouth daily. 90 Tab 3 11/15/2014 Active ezetimibe (ZETIA) 10 MG tablet Take 1 Tab by mouth daily. 90 Tab 1 11/15/2014 Active amlodipine (NORVASC) 10 MG tablet Take 1 Tab by mouth daily. 90 Tab 1 11/15/2014 Active aspirin 81 MG tablet Take 1 Tab by mouth daily. 30 Tab 4 12/05/2014 Active metformin (GLUCOPHAGE) 1000 MG tablet Take 1 Tab by mouth 2 times daily (with meals). 60 Tab 5 12/05/2014 Active insulin aspart (NOVOLOG) 100 UNIT/ML injection Sliding scale Inject into the skin 3 times daily (before meals). Sliding scale 30 mL 1 01/16/2015 Active lisinopril (PRINIVIL,ZESTRIL) 40 MG tablet Take 1 Tab by mouth 2 times daily. 180 Tab 1 01/25/2015 Active metoprolol (TOPROL-XL) 200 MG 24 hr tablet Take 1 Tab by mouth daily. 90 Tab 1 01/25/2015 Active furosemide (LASIX) 20 MG tablet Take 1 tab daily 90 Tab 1 01/25/2015 Active insulin glargine (LANTUS) 100 UNIT/ML injection Inject 80 Units into the skin at bedtime. 24 mL 2 01/25/2015 Active buPROPion (WELLBUTRIN SR) 200 MG 12 hr tablet Take 1 Tab by mouth 2 times daily. 60 tablet 2 02/12/2015 Active Alcohol Swabs Pads Use 4 times daily with glucometer 100 Each 3 02/20/2015 Active FREESTYLE LITE strip TEST BLOOD SUGAR FOUR TIMES DAILY 350 Strip 1 02/20/2015 Active FREESTYLE LANCETS Misc USE DIRECTED FOUR TIMES DAILY 350 Each 1 02/20/2015 Active allopurinol (ZYLOPRIM) 300 MG tablet Take one tablet by mouth daily 30 Tab 1 02/28/2015 Active atorvastatin (LIPITOR) 80 MG tablet Take 1 Tab by mouth daily. 30 Tab 1 02/28/2015 Active ciclopirox (LOPROX) 0.77 % SuspensionIndication s:Diabetes mellitus type 2 with neurological manifestations (HCC),Bilateral lower extremity pain,Onychomycosis 2 drops to each toenail once daily 100 mL 3 05/08/2015 Active Fluorouracil 5 % Solution Apply 2 Drops topically daily. 10 mL 0 05/08/2015 Active Active Problems Patient Care Coordination No te Formatting of this note is d ifferent from the original. Checking Your Blood Sugars Please check your blood sugars every day. Please check your sugars at the following times of day: before breakfast Your Blood Sugar Goals Pre Meal: 90-130 2 hours after meals: 110-160 Bedtime: 110-150 Use the Results ?? Bring your glucometer to every appointment ?? Write your fingerstick blood sugars down on a log sheet or record book. Bring them to your appointment ?? Look for patterns in the numbers. The results help you and your provider make decisions about your diabetes treatment plan. Your Results and your Goals Your Result / Date of Completion Your Goal / How Often to Assess No results found for this basename: hgba1c Less than 7% --- 2-4 times per year BP Readings from Last 1 Encounters: 05/07/14 148/90 Less than 140/90 --- once per year No results found for this basename: MALBCR Less than 30 --- once per year No results found for this basename: LDL Less than 100 --- once per year Wt Readings from Last 1 Encounters: 05/07/14 312 lb (141.522 kg) Your goal weight by next visit: 305 --- reassess 2-4 times a year Health Maintenance Due Topic Date Due ? ? Dtap/tdap/td (##1 - Tdap) 06/28/1971 ? ? Depression Screen 1972 ? ? Diabetes: Blood Sugar Control Test (Hgba1c) 1978 ? ? Diabetes/heart Disease: Annual Cholesterol (Ldl) 1978 ? ? Diabetes: Annual Urine Protein Test (Microalbumin) 1978 ? ? Diabetes: Annual Foot Exam 1978 ? ? Diabetes: Annual Care Plan 1978 ? ? Hepatitis C Screening 1978 ? ? Baseline Health Exam 40-64 2000 ? ? Colon Cancer Screening 2010 ? ? Influenza (##1 of 1) 10/23/2013 Your Action Plan Check blood glucose as directed and write down all results. Contact me if you experience any barriers to care such as inability to purchase your medication, difficulty getting to your appointments or difficulty understanding your care plan When to Call your Healthcare Provider If your blood sugar falls below 70 and you do not know why or you become unconscious If you are sick and unable to take liquids because or nausea or vomiting If you have a fever over 101 If your blood sugar is 300 or higher on greater than 3 separate occasions during the same week If you are just unsure what to do Educational Resources [place] Diabetes Association (www.diabetes.org) Centers for Disease Control and Prevention (www.cdc.gov/diabetes) This care plan was created in collaboration with Tayo Solitario on 05/07/2014 Problem Noted Date Noncompliance with medications 5 Diabetes mellitus type 2 with neurologic al manifestations 09/21/2014 Diabetes mellitus type 2 in obese 2014 HTN (hypertension) 05/07/2014 GERD (gastroesophageal reflux disease) 0 05/07/2014 Hyperlipidemia 05/07/2014 CAD (coronary artery disease) 05/07/2014 Gout 05/07/2014 Asthma 05/07/2014 Sleep apnea - using cpap 05/07/2014 Immunizations Name Administration Dates Next Due Pneumoccoccal(Adult) Polysaccharide PPSV23 06/04 Tdap 06/04/2014 Family History Medical History Relation Name Comments CAD Father diabetes CAD Mother Relation Name Status Comments Father Mother Social History Tobacco Use Types Packs/Day Years Used Date Smoking Tobacco: Never Alcohol Use Standard Drinks/Week Comments No 0 (1 standard drink = 0.6 oz pur e alcohol) Sex Assigned at Date Recorded Not on file Last Filed Vital Signs Vital Sign Reading Time Taken Comments Blood Pressure 120/80 02/20/2015 1:34 PM EST Pulse 88 02/20/2015 1:34 PM EST Temperature 37.1 ??C (98.8 ??F) 02/20/2015 1:34 PM ES T Respiratory Rate 16 02/20/2015 1:34 PM EST Oxygen Saturation - - Inhaled Oxygen Concentration - - Weight 136.1 kg (300 lb) 02/20/2015 1:34 PM EST Height 190.5 cm (6' 3 ) 02/20/2015 1:34 PM EST Body Mass Index 37.5 02/20/2015 1:34 PM EST Plan of Treatment Health Maintenance Due Date Last Done Comments Covid-19 Vaccine (#1) 1960 DEPRESSION SCREEN 1972 TOBACCO CHECK/ADVISE 1978 BASELINE HEALTH EXAM 40-64 2000 SHINGLES VACCINE (1 of 2) 2010 DIABETES: ANNUAL EYE EXAM 03/06/20152014 (External Completion) DIABETES: BLOOD SUGAR CONTRO L TEST (HGBA1C) 04/26/2015 01/25/2015, 09/19/2014, 05/07/2014 DIABETES: ANNUAL URINE PROTE IN TEST (MICROALBUMIN) 05/08/2015 05/07/2014 DIABETES/HEART DISEASE: HUNTER AL CHOLESTEROL (LDL) 09/20/2015 09/19/2014, 05/07/2014 DIABETES: ANNUAL FOOT EXAM 12/28/201512/27, 09/21/2014, 05/07/2014 COLON CANCER SCREENING 02/22/2023 02/22/2013 (Comple kareen) BMI CHECK/ADVISE 02/23/2024 01/25/2015, , 06/06/2014, Additional history exists DTAP/TDAP/TD (2 - Td or Tdap) 06/04/2024 06/04/2014 INFLUENZA (Season Ended) 2024 PNEUMOCOCCAL VACCINE FOR HIG H RISK PATIENTS (#2) 2025 06/04/2014 HEPATITIS C SCREENING Completed 05/07/2014 Care Teams Steno Typist Relationship Specialty Start Date End Date Name, MD Jose PCP - General Internal Medicine 04/11/15
--- OUTSIDE RECORDS SUMMARY | 2024-07-05 13:40 | XMS_ITS | Encounter Summary ---
Author Organization [employer] Address [address] [facility] 7 [place] [address] Care Team Providers Care Day Porter Name Role Phone Name, Jose ALVARADO Primary Care Provider [phone] Renetta Davenport PharmD Unavailable [phone] Encounter Details Date Type Department Care Team ([facility] st Contact Info) Description 08/30/2023 Telephone [facility] [address] [place], [place] [phone] Name, MD Jose [address] [place] [address] Social History Tobacco Use Types Packs/Day Years [...] Description 07/05/2024 2:15 PM EDT Office Visit [facility] [address] [place] [address] Name, MD Jose [address] [place] [address] 07/31/2024 11:00 AM EDT Medication Management [facility] [address] [place] [address] Renetta Davenport PharmD [address] [place] [address] documented as of this encounter Visit Diagnoses Not on filedocumented in this encounter Additional Health Concerns Assessment Noted Time PHQ-9 Depression Total Score: 0 04/19/19 24 1:44 PM EST documented as of this encounter Care Teams Day Porter Relationship Specialty Start Date End Date Name, MD Jose [address] [place] [address] PCP - General Family Medicine 07/02/15 Renetta Davenport PharmD [address] [place] [address] Pharmacist Internal Medicine 01/03/24 documented as of this encounter
--- OUTSIDE RECORDS SUMMARY | 2024-07-05 13:40 | XMS_ITS | Encounter Summary ---
Author Organization [employer] Address [address] [place] [address] [address] [address] Care Team Providers Care Gray Mixing Operator Name Role Phone Name, Jose ALVARADO Primary Care Provider [phone] Renetta Davenport PharmD Unavailable [phone] Reason for Visit * Reason Onset Date Comments call back 04/03/2022 Requested Call Back 04/07/2022 Prescription Request 04/03/2022 I called to verify that the pt requested insulin supplies through [facility], because they faxed a prescription order form to the [facility] department. He stated that he did not make the request, and that his prescriptions are sent to the [facility]. The form was faxed back to [facility], along with a note stating that the patient uses a local pharmacy. Encounter Details Date Type Department Care Team ([facility] Contact Info) Description 04/03/2022 Telephone [facility] [address] [place] [address] Name, MD Jose [address] [place], [place] [phone] call back; Requested Call Back ; Prescription Request (I called to verify that the pt requested insulin supplies through [facility], because they faxed a prescription order form to the [facility] department. He stated that he did not make the request, and that his prescriptions are sent to the [facility]. The form was faxed back to [facility], along with a note stating [...] - 04/07/2022 10:30 AM EST Tc from Jose Carlos at [facility] re calling in regards to diabetes supplies. Advised of message below, however [facility] is requesting a call back at [phone]. * Telephone Encounter - Gisselle Miranda RN - 04/06/2022 2:13 PM EST Pt does not use [facility] as a pharmacy and has upcoming appt on 04/08/22 and can discuss if pt wants to switch pharmacies * Telephone Encounter - Gio Crum - 04/03/2022 9:14 AM EST Tc from Jose Carlos with [facility] requesting a call back regarding pt medication Please contact jose carlos at [phone] documented in this encounter Plan of Treatment Upcoming Encounters Date Type Department Care Team (Late st Contact Info) Description 07/05/2024 2:15 PM EDT Office Visit [facility] [address] [place] [address] Name, MD Jose [address] [place] [phone] 07/31/2024 11:00 AM EDT Medication Management [facility] [address] [place] [address] Renetta Davenport, PharmD [address] [place] [address] documented as of this encounter Visit Diagnoses Not on filedocumented in this encounter Care Teams Gray Mixing Operator Relationship Specialty Start Date End Date Name, MD Jose [address] [place] [address] PCP - General Family Medicine 07/02/15 Renetta Davenport PharmD [address] [place] [address] Pharmacist Internal Medicine 01/03/24 documented as of this encounter
--- OUTSIDE RECORDS SUMMARY | 2024-07-05 13:40 | XMS_ITS | Encounter Summary ---
Author Organization [facility] Address [address] [place] [address] Care Team Providers Care Directory Operator Name Role Phone Jose Rudd MD Primary Care Provider Unavailabl e Reason for Visit * Reason Onset Date Comments Faxed Order 04/18/2015 Encounter Details Date Type Department Care Team Description 04/18/2015 Telephone Adult [address] [address] NameJose MD Faxed Order Social History Tobacco [...] on filedocumented in this encounter Care Teams Directory Operator Relationship Specialty Start Date End Date Jose Rudd MD PCP - General Internal Medicine 04/11/15 documented as of this encounter
--- OUTSIDE RECORDS SUMMARY | 2024-07-05 13:40 | XMS_ITS | Encounter Summary ---
Author Organization [employer] Address [address] [place] [address] [address] [address] Care Team Providers Care Lighting Engineering Technician Name Role Phone Name, Jose ALVARADO Primary Care Provider [phone] Renetta Davenport PharmD Unavailable [phone] Reason for Visit * Reason Onset Date Comments Nurse Triage 09/25/2022 Encounter Details Date Type Department Care Team ([facility] st Contact Info) Description 09/25/2022 Telephone [facility] [address] [place], [place] [phone] Name, MD Jose [address] [place] [address] Nurse Triage Social History Tobacco Use Types [...] - 09/28/2022 1:41 PM EDT T/C to [phone] for status check, No answer. LVM to call back on [phone]. * Telephone Encounter - Azeb Hager RN - 09/25/2022 12:43 PM EDT Triage call with Ridgeley Wafer Substrate Tester ID [id number] Pt , JEANA Contreras reports Pt is sleeping and she will talk for Pt. Pt was tested + for Covid09/24/22. Pt symptoms are fever, tactile, body aches, cough, nasal congestion and headache. Diane informs remote mortgage underwriter that Pt has been given prednisone and half of percocet that is Diane's prescription and would like to have these refilled. Advised not to give medications to Pt that are not prescribed to Pt and Diane disagrees due to Pt having asthma. Daine reports Pt doesn't have difficultybreathing just a cough. Advised that difficulty breathing/chest pain/pressure or fever over 103 arereasons to go to ED for evaluation. Home care disposition given with thorough review of listed homecare advise. Haleigh is given [employer] number [phone] for eligibility for paxlovid. Haleigh is asking for Dr. Rudd to be informed of this and requesting refill of prednisone for Pt. Prednisone is not on Pt med list. Advised will send this information to team nurses and provider coveringfor Dr. Rudd. Taejuliano will wait for call back. Protocol Used: [...] this outcome Please contact pt spouse at [phone] South [place] Speaker documented in this encounter Plan of Treatment Upcoming Encounters Date Type Department Care Team (Late st Contact Info) Description 07/05/2024 2:15 PM EDT Office Visit [facility] [address] [place] [address] Name, MD Jose [address] [place] [address] 07/31/2024 11:00 AM EDT Medication Management [facility] [address] [place] [address] Renetta Davenport PharmD [address] [place] [address] documented as of this encounter Visit Diagnoses Not on filedocumented in this encounter Care Teams Lighting Engineering Technician Relationship Specialty Start Date End Date Name, MD Jose [address] [place] [address] PCP - General Family Medicine 07/02/15 Renetta Davenport, PharmD [address] [place] [address] Pharmacist Internal Medicine 01/03/24 documented as of this encounter
--- OUTSIDE RECORDS SUMMARY | 2024-07-05 13:40 | XMS_ITS | Clinical Summary ---
Author Organization [employer] Address [address] [place] [address] 7 [place] [address] Care Team Providers Care Distribution Collection Operator Name Role Phone Name, Jose ALVARADO Primary Care Provider [phone] Renetta Davenport PharmD Unavailable [phone] Allergies No known active allergies Medications [...] day 1 kit 024 Active Continuous Glucose Motion Picture Operator (FreeStyle Boubacar 2 [place]) deviceIndications :Diabetic polyneuropathy associated with type 2 diabetes mellitus ([facility]) Use as directed 1 each 024 Active [...] EVERY EVENING 90 tablet 3 024 Active senna-docusate sodium (Senokot-S) 8.6-50 MG tablet Take 1 tablet by mouth Once per day. 30 tablet 11 024 2024 Active Mary Marrero Lancets 33G miscIndications:T ype 2 diabetes mellitus with hyperglycemia, unspecified whether terminal operator insulin use ([facility]) USE TO TEST BLOOD SUGAR TWICE A DAY 100 each 3 Active empagliflozin (Jardiance) 10 MG Take 1 tablet (10 mg) by mouth Once per day. 30 tablet 11 025 2025 Active glucagon (Baqsimi Two Pack) 3 MG/DOSE nasal powderIndications :Type 2 diabetes mellitus with hyperglycemia, unspecified whether terminal operator insulin use (CMS/[facility]) Administer 3 mg via 1 device into the nostril for hypoglycemia with loss of consciousness. If no response after 15 minutes administer an additional dose via 2nd device into other nostril. 2 each Active glucose 4 g chewable tabletIndications :Type 2 diabetes mellitus with hyperglycemia, unspecified whether usp insulin use (CMS/[facility]) Chew 4 tablets (16 g) if needed for low blood sugar. <70 mg/dL. Recheck blood sugar after 15 minutes and repeat treatment as needed & as directed. 20 tablet 5 025 2025 Active Continuous Glucose Sensor (FreeStyle Boubacar 2 Sensor) miscIndications:D iabetic polyneuropathy associated with type 2 diabetes mellitus (CMS/HCC) USE DIRECTED AND CHANGE EVERY 2 WEEKS 2 each Active glucose blood (FreeStyle Precision Louis Test) test strip Use to test blood sugar up to 2 times daily, as directed 100 each Active cholecalciferol (D3-1000) 25 MCG (1000 UT) capsuleIndication s:Vitamin D deficiency TAKE 1 CAPSULE BY MOUTH EVERY MORNING 90 capsule Active pantoprazole (ProtoNix) 40 MG EC tablet TAKE 1 TABLET BY MOUTH EVERY MORNING 90 tablet 1 025 Active folic acid (Folvite) 1 MG tablet TAKE 1 TABLET BY MOUTH EVERY MORNING 90 tablet Active atorvastatin (Lipitor) 80 MG tablet TAKE 1 TABLET BY MOUTH EVERY MORNING 90 tablet 025 Active metoprolol tartrate (Lopressor) 50 MG tablet TAKE 1 AND 1/2 TABLETS BY MOUTH THREE TIMES DAILY IN THE MORNING, EVENING, AND BEDTIME 135 tablet 1 025 Active Eliquis 5 MG tabletIndications :Atrial fibrillation, unspecified type (CMS/HCC) TAKE 1 TABLET BY MOUTH TWICE DAILY IN THE MORNING AND IN THE EVENING 180 tablet 1 025 Active gabapentin (Neurontin) 100 MG capsuleIndication s:Atrial fibrillation, unspecified type (CMS/HCC) TAKE 1 CAPSULE BY MOUTH EVERY EVENING 30 capsule 1 025 Active Tirzepatide (Mounjaro) 7.5 MG/0.5ML solution auto-injector Inject 7.5 mg under the skin 1 (one) time per week. 2 mL 025 Active losartan (Cozaar) 50 MG tablet Take 1 tablet (50 mg) by mouth Once per day. 90 tablet 1 025 Active buPROPion SR (Wellbutrin SR) 200 MG 12 hr tabletIndications :Atrial fibrillation, unspecified type (CMS/HCC) TAKE 1 TABLET BY MOUTH TWICE DAILY IN THE MORNING AND IN THE EVENING 180 tablet 1 025 Active buPROPion SR (Wellbutrin SR) 200 MG 12 hr tabletIndications :Atrial fibrillation, unspecified type (CMS/HCC) TAKE 1 TABLET BY MOUTH TWICE DAILY IN THE MORNING AND IN THE EVENING 180 tablet 1 024 2024 Discontinued glucose blood ([employer]uch Ultra) test stripIndications: Type 2 diabetes mellitus with hyperglycemia, unspecified whether terminal operator insulin use ([facility]) USE TO TEST BLOOD SUGAR TWICE A DAY 100 each 3 024 2024 Discontinued(M ed list cleanup (will not trigger notification to Pharmacy)) losartan (Cozaar) 25 MG tablet Take 1 tablet (25 mg) by mouth Once per day. 30 tablet 11 024 2024 Discontinued(R eorder (will not trigger notification to Pharmacy)) insulin pen needle (BD Pen Needle Linda U/F) 32G x 4 mm miscIndications:T ype 2 diabetes mellitus with hyperglycemia, unspecified whether terminal operator insulin use (CMS/HCC) USE ONCE DAILY WITH INSULIN 100 each 3 024 2024 Discontinued(T herapy completed) Tirzepatide (Mounjaro) 5 MG/0.5ML solution auto-injectorIndi cations:Type 2 diabetes mellitus with hyperglycemia, unspecified whether usp insulin use (CMS/[facility]) Inject 5 mg under the skin 1 (one) time per week. 2 mL 11 024 2024 Discontinued(D ose adjustment) insulin glargine (Lantus SoloStar) 100 UNIT/ML penIndications:Ty pe 2 diabetes mellitus with hyperglycemia, unspecified whether usp insulin use (CMS/HCC) Inject 10 Units under the skin at bedtime. 15 mL 2 024 2024 Discontinued(A lternate therapy) Active Problems Problem Noted Date Diagnosed Date [...] due t o type 2 diabetes mellitus ([facility]/HCC) 10/30/2015 Essential hypertension 07/02/2015 Memory impairment 07/02/2015 Hypercholesterolemia 07/02/2015 Coronary artery disease invo lving [place] coronary artery of [place] heart without angina pectoris 05/07/2014 Gout 05/07/2014 GERD (gastroesophageal reflux disease) 5 Asthma 05/07/2014 Stenosing tenosynovitis 06/02/2010 Major depressive disorder 05/23/2010 Microalbuminuria 12/11/2009 Fatty liver 12/11/2009 Disorder of peripheral nervous system 12/11/2009 Edema of foot 02/15/2008 Low back pain, unspecified 09/09/2007 Anemia 09/09/2007 Non-cardiac chest pain 07/29/2007 Encounters Date Type Department Care Team Description 07/04/2024 Telephone [facility] [address] [place] [address] Jose Rudd MD Chart Prep 06/18/2024 Refill [facility] [address] [place] [address] Jose Rudd MD Atrial fibrillation, unspecified type ([facility]/HCC) 06/07/2024 Telephone [facility] [address] [place] [address] Daya Lemos, HEATHER 06/06/2024 Travel 06/02/2024 Orders Only GENERIC EXTERNAL DATA DEPARTMENT Provider, Generic External Data 05/22/2024 Refill [facility] [address] [place] [address] Jose Rudd MD Atrial fibrillation, unspecified type ([facility]/HCC) 05/21/2024 Refill [facility] [address] [place] [address] Jose Rudd MD Atrial fibrillation, unspecified type ([facility]) 05/17/2024 Refill [facility] [address] [place] [address] Name, MD Jose 04/25/2024 Refill [facility] [address] [place] [address] Becki Nation MD Vitamin D deficiency; Atrial fibrillation, unspecified type ([facility]) 04/24/2024 Refill [facility] [address] [place] [address] Name, MD Jose Atrial fibrillation, unspecified type ([facility]) 04/13/2024 Telephone [facility] [address] [place], [place] [phone] Shy Lackey [place] may recalls from Last 3 Months Immunizations Immunization Administration Dates Next Due Hep A / [...] Frequency of Binge Drinking Not on file 080 08/2023 Score 0 09/29/2023 Depression Answer Date [...] Sign Reading Time Taken Comments Blood Pressure 144/82 06/06/2024 11:35 AM EDT Pulse 79 03/14/2024 10:06 AM EST Temperature [...] Description 07/05/2024 2:15 PM EDT Office Visit [facility] [address] [place] [address] Name, MD Jose [address] [place] [address] 07/31/2024 11:00 AM EDT Medication Management [facility] [address] [place] [address] Renetta Davenport, PharmD [address] [place] [address] Health Maintenance Due Date Last Done Comments [...] 04/19/2023, 04/19/19 24 SDOH Screening 04/19/2024 04/19/2023 Alcohol/Substance Use Screening 09/28/2024 09/29/2023 Diabetes: Hemoglobin A1C 12/06/2024 025, 03/14/2024, 02/21/2024, Additional history exists Lipid Panel 12/15/2024 12/16/2023, 07/2022, 03/23/2022, Additional [...] patient's age to complete this topic Meningococcal B Vaccine Aged Out No l onger eligible based on patient's age to complete [...] Procedure Name Priority Date/Time Associated Diagnosis Comments POCT GLYCATED HEMOGLOBIN, TOTAL Routine 06/06/2024 12:57 PM EDT Type 2 diabetes mellitus with hyperglycemia, unspecified whether usp insulin use ([facility]) PTH, INTACT WITHOUT CALCIUM Routine 06/02/2024 2:49 PM EDT BASIC METABOLIC PANEL Routine 06/02/2024 2:49 PM EDT Type 2 diabetes mellitus with hyperglycemia, unspecified whether terminal operator insulin use ([facility]) 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 (CMS/HCC) ([facility]) LIPID PANEL, STANDARD Routine 12/16/2023 11:30 AM EDT Type 2 diabetes mellitus with hyperglycemia, unspecified whether usp insulin use ([facility]) DIABETES EYE EXAM Routine 09/24/2022 from Last 3 Months or Most Recently Relevant to Health Maintenance Results * POCT HGB A1C (06/06/2024 12:57 PM EDT) Pathologist [facility] Hemoglobin A1C 5.8 4.0 - 6.0 % Blood 06/06/2024 12:5 7 PM EDT us Jose Name MD POINT OF CARE TEST ENTER/EDIT OR DERABLES Final Result * (ABNORMAL) PTH, Intact Without Calcium (06/02/2024 2:49 PM EDT) Pathologist [facility] Parathyroid Hormone, Intact 244.9(H) 8.7 - 77.1 pg/mL [facility] 06/02/2024 2:49 PM EDT 06/02/2024 2:49 PM EDT us Generic External Data Provider LAB BLOOD ORDERAB LES Final Result [facility] [address] [place] [phone] * (ABNORMAL) Basic Metabolic Panel (06/02/2024 2:49 PM EDT) Pathologist [facility] Sodium 142 135 - 145 mmol/L [facility] Potassium 4.4 3.3 - 5.1 mmol/L [facility] Chloride 110(H) 96 - 108 mmol/L [facility] Carbon Dioxide 25 22 - 29 mmol/L [facility] Anion Gap 11(L) 12 - 20 [facility] Urea Nitrogen (BUN) 29(H) 9 - 16 mg/dL [facility] Creatinine, Serum 1.65(H) 0.5 - 1.4 mg/dL [facility] Estimated Glomerular Filt Rate 42 [facility] Comment:Chronic Kidney Disea se: Estimated GFR < 60 mL/min/1.62r2Opdzve Kidney Disease: Estimated GFR < 15 mL/min/1.73m2 Glucose 150(H) 60 - 115 mg/dL [facility] Calcium 8.7 8.4 - 10.2 mg/dL [facility] Blood Venous blood specimen / Unknown 06/02/2024 2:49 PM EDT 06/02/2024 2:49 PM EDT us Jose Rudd MD LAB BLOOD ORDERABLES Final Resul t Performing Organization Address City/[facility] Co de Phone Number [facility] [address] [place] [address] [phone] * Lipid Panel, Standard (12/16/2023 11:30 AM EDT) Triglycerides 59 <150 mg/dL [facility] Comment:Desirable Triglyceri de: less than 150 mg/dLBorderline High Triglyceride 150-199 mg/dLHigh Triglyceride: 200-499 mg/dLVery High Triglyceride: greater than or equal to 5OO mg/dL Cholesterol 145 <200 mg/dL [facility] Comment:Desirable Cholestero l: less than 200 mg/dLBorderline High Cholesterol: 200-239 mg/dLHigh Cholesterol: greater than 239 mg/dL LDL Cholesterol Calculated 89 <100 mg/dL [facility] Comment:Desirable LDL: less than 100 mg/dLNear Optimal/Above Optimal LDL: 110- 129 mg/dLBorderline High LDL: 130-159 mg/dLHigh LDL: 160-189 mg/dLVery High LDL: greater than or equal to 190 mg/dL HDL Cholesterol 45 >40 mg/dL [facility] Comment:Desirable HDL: great er than 40 mg/dL Note: This HDL assay may give artificially low results in patients with liver disease. Blood Venous blood specimen / Unknown 12/16/2023 11:30 AM EDT 12/16/2023 1:54 PM EDT us Jose Rudd MD LAB BLOOD ORDERABLES Final Resul t [facility] [address] [place] [phone] [phone] * Diabetes Eye Exam (09/24/2022) [facility] Signature Eye Exam Normal Normal Jose Rudd MD HEALTH MAINTENANCE Final Result from Last 3 Months or Most Recently Relevant to Health Maintenance Insurance [facility] * Guarantor: Tayo Solitario Account Type Relation to Patient Date of Phone Billing Address Personal/Family Self [address] Care Teams Distribution Collection Operator Relationship Specialty Start Date End Date Name, MD Jose [address] [place] [address] PCP - General Family Medicine 07/02/15 Renetta Davenport, BaileyD [address] [place] [address] Pharmacist Internal Medicine 01/03/24
--- OUTSIDE RECORDS SUMMARY | 2024-07-05 13:40 | XMS_ITS | Encounter Summary ---
Author Organization [facility] Address [address] [place] [address] Care Team Providers Care Fur Feeder Name Role Phone Name, Jose ALVARADO Primary Care Provider Unavailabl e Community, Pcp Primary Care Provider Unavailabl e Name, Jose ALVARADO Primary Care Provider Unavailabl e Reason for Visit * Reason Onset Date Comments Faxed Refill 12/05/2014 Encounter Details Date Type Department Care Team Description 12/05/2014 Refill Adult Medicine [address] [address] Name, MD Jose Faxed Refill Social History Tobacco Use Types Packs/Day Years Used Date Smoking Tobacco: Never Alcohol Use Standard Drinks/Week Comments No 0 (1 standard drink = 0.6 oz pur e alcohol) Sex Assigned at Date Recorded Not on file documented as of this encounter Miscellaneous Notes * Telephone Encounter - Wendi Hays M.A. - 12/05/2014 3:57 PM EDT Neither of these medications have been prescribed before. Pended if approved. Component Value Date HGBA1C 8.3 09/19/2014 MALBUR 357.6 05/07/2014 MALBCR 227.7 05/07/2014 CHOL 149 09/19/2014 LDL 87 09/19/2014 HDL 54 09/19/2014 TRIG 39 09/19/2014 GLU 246 09/19/2014 CREAT 1.1 09/19/2014 * Telephone Encounter - Christie Glasgow - 12/05/2014 3:20 PM EDT Patient would like script to be: E-PRESCRIBED/FAXED TO PHARMACY WHEN WAS THE PATIENT'S LAST APPOINTMENT IN ADULT MEDICINE? 09-18-14 WHEN WAS THE LAST TIME THE PATIENT SAW THEIR PCP? Same as above Does patient have an upcoming appointment? Yes 01-25-15 (THE MEDICATION REQUESTED IS ON THE MED LIST ABOVE) One or some of the medications requested were on the HISTORICAL MED list Did you check the Pharmacy information above?: YES Patient wants: 30 -day supply Is this a mail order prescription request ? NO Patients current insurance carrier is: Payor: MEDICARE-[employer] / Plan[place] / Product Type: MEDICARE [id number] documented in this encounter Plan of Treatment Not on file documented as of this encounter Visit Diagnoses Not on filedocumented in this encounter Care Teams Fur Feeder Relationship Specialty Start Date End Date Jose Rudd MD PCP - General Internal Medicine 08/28/14 03/27/15 Counts Include [address] [facility], [facility] PCP - General Internal Medicine 03/28/15 04/10/15 Name, MD Jose PCP - General Internal Medicine 04/11/15 documented as of this encounter
--- OUTSIDE RECORDS SUMMARY | 2024-07-05 13:41 | XMS_ITS | Encounter Summary ---
Author Organization [employer] [facility] Address [address] [place] [address] Care Team Providers Care Brazer Helper Induction Name Role Phone Dennis Ardon MD Primary Care Provider Unavail able Name, Jose ALVARADO Primary Care Provider Unavailabl e Community, Pcp Primary Care Provider Unavailabl e Name, Jose ALVARADO Primary Care Provider Unavailabl e Encounter Details Date Type Department Care Team Description 05/09/2014 Release of Information Medical Records [address] [place] [id number] Abstract, Provider Social History Tobacco Use Types [...] on filedocumented in this encounter Care Teams Brazer Helper Induction Relationship Specialty Start Date End Date Dennis Ardon MD PCP - General Internal Medicine 04/30/14 08/27/14 Jose Rudd MD PCP - General Internal Medicine 08/28/14 03/27/15 [facility], Pcp PCP - General Internal Medicine 03/28/15 04/10/15 Jose Rudd MD PCP - General Internal Medicine 04/11/15 documented as of this encounter
--- OUTSIDE RECORDS SUMMARY | 2024-07-05 13:41 | XMS_ITS | Encounter Summary ---
Author Organization [facility] [facility] Address [address] [place] [address] Care Team Providers Care Roller Skates Assembler Name Role Phone Name, Jose ALVARADO Primary Care Provider Unavailabl e Community, Pcp Primary Care Provider Unavailabl e NameJose MD Primary Care Provider Unavailabl e Encounter Details Date Type Department Care Team Description 09/24/2014 Business Doc Medical Records [address] [place] [id number] Abstract, Provider Social History Tobacco Use Types [...] on filedocumented in this encounter Care Teams Roller Skates Assembler Relationship Specialty Start Date End Date Jose Rudd MD PCP - General Internal Medicine 08/28/14 03/27/15 Community, Pcp PCP - General Internal Medicine 03/28/15 04/10/15 Jose Rudd MD PCP - General Internal Medicine 04/11/15 documented as of this encounter
--- OUTSIDE RECORDS SUMMARY | 2024-07-05 13:41 | XMS_ITS | Encounter Summary ---
Author Organization [employer] [facility] Address [address] [place] [address] Care Team Providers Care Auto Body Builder Apprentice Name Role Phone Name, Jose ALVARADO Primary Care Provider Unavailabl e Community, Pcp Primary Care Provider Unavailabl e NameJose MD Primary Care Provider Unavailabl e Encounter Details Date Type Department Care Team Description 09/19/2014 Board Design Engineer Report Medical Records [address] [place] [id number] [facility] Social History Tobacco Use Types Packs/Day Years Used Date Smoking Tobacco: Never Alcohol Use Standard Drinks/Week Comments No 0 (1 standard drink = 0.6 oz pur e alcohol) Sex Assigned at Date Recorded Not on file documented as of this encounter Plan of Treatment Not on file documented as of this encounter Visit Diagnoses Not on filedocumented in this encounter Care Teams Auto Body Builder Apprentice Relationship Specialty Start Date End Date Jose Rudd MD PCP - General Internal Medicine 08/28/14 03/27/15 Community, Pcp PCP - General Internal Medicine 03/28/15 04/10/15 Jose Rudd MD PCP - General Internal Medicine 04/11/15 documented as of this encounter
[2024-07-05 16:30] LABS: Anion Gap 12 (12-20); Blood Urea Nitrogen 33 mg/dL (9-16); Calcium 8.9 mg/dL (8.4-10.2); Carbon Dioxide 24 mmol/L (22-29); Chloride 105 mmol/L (96-108); Estimated Glomerular Filt Rate 33; Glucose Random 215 mg/dL (60-115); Potassium 4.3 mmol/L (3.3-5.1); Sodium 137 mmol/L (135-145)
[2024-07-08 00:39] LABS: TS Negative Control Passed; TS Panel A 0; TS Panel B 0; TS Positive Control Passed; TSpotTB Negative (Negative)
== END 2024-07-05 13:36 | disposition home or self-care (01) ==
LOC: HO.HHCL 13:35
PROVIDERS: Internal Medicine Nephrology; Visit Provider Internal Medicine Geriatric Medicine
DX: Z11.1 Encounter for screening for respiratory tuberculosis (principal); I12.9 Hypertensive chronic kidney disease with stage 1 through stage 4 chronic kidney disease, or unspecified chronic kidney disease; E11.22 Type 2 diabetes mellitus with diabetic chronic kidney disease; N18.30 Chronic kidney disease, stage 3 unspecified; E11.65 Type 2 diabetes mellitus with hyperglycemia
CPT/HCPCS: 36415; 80048; 86481

== ENCOUNTER 2024-08-29 13:13 | Outpatient (REF) | payer OTHER, SELFPAY ==
--- OUTSIDE RECORDS SUMMARY | 2024-08-29 13:52 | XMS_ITS | Clinical Summary ---
Author Organization [facility] Address [address] [place] [address] Care Team Providers Care Napper Fixer Name Role Phone Name, Jose ALVARADO Primary [...] meals: 110-160 Bedtime: 110-150 Use the Results Bring your glucometer to every appointment Write your fingerstick blood sugars down on a log sheet or record book. Bring them to your appointment Look for patterns in the numbers. The [...] year Health Maintenance Due Topic Date Due Dtap/tdap/td (##1 - Tdap) 06/28/1971 Depression Screen 1972 Diabetes: Blood Sugar Control Test (Hgba1c) 1978 Diabetes/heart Disease: Annual Cholesterol (Ldl) 1978 Diabetes: Annual Urine Protein Test (Microalbumin) 1978 Diabetes: Annual Foot Exam 1978 Diabetes: Annual Care Plan 1978 Hepatitis C Screening 1978 Baseline Health Exam 40-64 2000 Colon Cancer Screening 2010 Influenza (##1 of 1) 10/23/2013 Your Action [...] just unsure what to do Educational Resources [place] [employer] (www.diabetes.org) Centers for Disease Control [...] 88 02/20/2015 1:34 PM EST Temperature 37.1 C (98.8 F) 02/20/2015 1:34 PM EST Respiratory Rate 16 02/20/2015 1:34 PM EST Oxygen Saturation - - Inhaled Oxygen Concentration - - Weight 136.1 kg (300 lb) 02/20/2015 1:34 PM EST Height 190.5 cm (6' 3 ) 02/20/2015 1:34 PM EST Body Mass Index 37.5 02/20/2015 1:34 PM EST Plan of Treatment Health Maintenance Due Date Last Done Comments Covid-19 Vaccine (#1) 1960 DEPRESSION SCREEN 1972 TOBACCO CHECK/ADVISE 1978 SHINGLES VACCINE (1 of 2) 2010 DIABETES: [...] - Td or Tdap) 06/04/2024 06/04/2014 INFLUENZA (#1) 2024 PNEUMOCOCCAL VACCINE FOR HIG H RISK PATIENTS (#2) 2025 06/04/2014 HEPATITIS C SCREENING Completed 05/07/2014 Care Teams Napper Fixer Relationship Specialty Start Date End Date Name, MD Jose PCP - General Internal Medicine 04/11/15
--- OUTSIDE RECORDS SUMMARY | 2024-08-29 13:52 | XMS_ITS | Clinical Summary ---
Author Organization [employer] Address [address] [place] [address] [address] [place] [address] Care Team Providers Care Noc Engineer Name Role Phone Name, Jose ALVARADO Primary Care Provider [phone] Renetta Davenport PharmD Unavailable [phone] Allergies No known active allergies Medications [...] day 1 kit 024 Active Continuous Glucose Rn Recruitment (FreeStyle Boubacar 2 Corunna) deviceIndications :Diabetic polyneuropathy associated with type 2 diabetes mellitus ([facility]) Use as directed 1 each 024 Active senna-docusate sodium (Senokot-S) 8.6-50 MG tablet Take 1 tablet by mouth Once per day. 30 tablet 11 024 2024 Active empagliflozin (Jardiance) 10 MG Take 1 tablet (10 mg) by mouth Once per day. 30 tablet 11 025 2025 Active glucose blood (FreeStyle Precision Louis Test) test strip Use to test blood sugar up to 2 times daily, as directed 100 each 11 025 Active cholecalciferol (D3-1000) 25 MCG (1000 UT) capsuleIndication s:Vitamin D deficiency TAKE 1 CAPSULE BY MOUTH EVERY MORNING 90 capsule 1 03/04/2 025 Active pantoprazole (ProtoNix) 40 MG EC tablet TAKE 1 TABLET BY MOUTH EVERY MORNING 90 tablet 025 Active folic acid (Folvite) 1 MG tablet TAKE 1 TABLET BY MOUTH EVERY MORNING 90 tablet 1 025 Active atorvastatin (Lipitor) 80 MG tablet TAKE 1 TABLET BY MOUTH EVERY MORNING 90 tablet 025 Active Eliquis 5 MG tabletIndications [...] EVENING, AND BEDTIME 135 tablet 025 Active Continuous Glucose Sensor (Palmaz ScientificStyle Boubacar 2 Plus Sensor) misc 1 each every 8 (eight) hours. Apply 1 sensor every 15 days as directed for CGM. Continue to scan Q8H, at minimum, to capture 24 hr BG data. 2 each Active losartan (Cozaar) 50 MG tablet Take 1 tablet (50 mg) by mouth Once per day. 90 tablet 025 Active Tirzepatide (Mounjaro) 7.5 MG/0.5ML solution auto-injector Inject 7.5 mg under the skin 1 (one) time per week. 2 mL 025 Active glucagon (Baqsimi Two Pack) 3 MG/DOSE nasal powderIndications :Type 2 diabetes mellitus with hyperglycemia, unspecified whether correction insulin use (CMS/HCC) Administer 3 mg via 1 device into the nostril for hypoglycemia with loss of consciousness. If no response after 15 minutes administer an additional dose via 2nd device into other nostril. 2 each 025 Active glucose 4 g chewable tabletIndications :Type 2 diabetes mellitus with hyperglycemia, unspecified whether vermin exterminator insulin use ([facility]) Chew 4 tablets (16 g) if needed for low blood sugar. <70 mg/dL. Recheck blood sugar after 15 minutes and repeat treatment as needed & as directed. 20 tablet 5 025 2025 Active amLODIPine (Norvasc) 10 MG tablet Take 1 tablet (10 mg) by mouth at bedtime. 90 tablet 3 Active ezetimibe (Zetia) 10 MG tablet Take 1 tablet (10 mg) by mouth in the evening. 90 tablet 3 Active Lancets (OneTouch Delica Plus Rerefl57H) [facility] Use to test BG twice daily as directed 100 each Active fluticasone-salme terol (Advair HFA) 230-21 MCG/ACT inhalerIndication s:Moderate persistent asthma with exacerbation INHALE 2 PUFFS BY MOUTH TWICE DAILY IN THE MORNING AND IN THE EVENING RINSE MOUTH AFTER USING. 12 g Active allopurinol (Zyloprim) 300 MG tablet TAKE 1 TABLET BY MOUTH EVERY MORNING 90 tablet 3 Active fluticasone-salme terol (Advair) 230-21 MCG/ACT inhalerIndication s:Moderate persistent asthma with exacerbation INHALE 2 PUFFS TWICE DAILY IN THE MORNING AND IN THE EVENING. RINSE MOUTH AFTER USING 12 g 024 2024 Discontinued amLODIPine (Norvasc) 10 MG tablet TAKE 1 TABLET BY MOUTH EVERY EVENING 90 tablet 024 2024 Discontinued(R eorder (will not trigger notification to Pharmacy)) allopurinol (Zyloprim) 300 MG tablet TAKE 1 TABLET BY MOUTH EVERY MORNING 90 tablet 024 2024 Discontinued ezetimibe (Zetia) 10 MG tablet TAKE 1 TABLET BY MOUTH EVERY EVENING 90 tablet 3 024 2024 Discontinued(R eorder (will not trigger notification to Pharmacy)) OneTouch Delica Lancets 33G miscIndications:T ype 2 diabetes mellitus with hyperglycemia, unspecified whether vermin exterminator insulin use ([facility]) USE TO TEST BLOOD SUGAR TWICE A DAY 100 each 3 024 2024 Discontinued(M ed list cleanup (will not trigger notification to Pharmacy)) glucagon (Baqsimi Two Pack) 3 MG/DOSE nasal powderIndications :Type 2 diabetes mellitus with hyperglycemia, unspecified whether correction insulin use (CMS/[facility]) Administer 3 mg via 1 device into the nostril for hypoglycemia with loss of consciousness. If no response after 15 minutes administer an additional dose via 2nd device into other nostril. 2 each 1 025 2024 Discontinued(R eorder (will not trigger notification to Pharmacy)) glucose 4 g chewable tabletIndications :Type 2 diabetes mellitus with hyperglycemia, unspecified whether correction insulin use (CMS/[facility]) Chew 4 tablets (16 g) if needed for low blood sugar. <70 mg/dL. Recheck blood sugar after 15 minutes and repeat treatment as needed & as directed. 20 tablet 5 2024 Discontinued(R eorder (will not trigger notification to Pharmacy)) Continuous Glucose Sensor (FreeStyle Boubacar 2 Sensor) miscIndications:D iabetic polyneuropathy associated with type 2 diabetes mellitus ([facility]) USE DIRECTED AND CHANGE EVERY 2 WEEKS 2 each 2024 Discontinued(A lternate therapy) Tirzepatide (Mounjaro) 7.5 MG/0.5ML solution auto-injector Inject 7.5 mg under the skin 1 (one) time per week. 2 mL 2024 Discontinued(R eorder (will not trigger notification to Pharmacy)) losartan (Cozaar) 50 MG tablet Take 1 tablet (50 mg) by mouth Once per day. 90 tablet 025 2024 Discontinued(R eorder (will not trigger [...] due t o type 2 diabetes mellitus ([facility]) 10/30/2015 Essential hypertension 07/02/2015 Memory impairment 07/02/2015 Hypercholesterolemia 07/02/2015 Coronary artery disease invo lving [place] coronary artery of [place] heart without angina pectoris 05/07/2014 Gout 05/07/2014 GERD (gastroesophageal reflux disease) 5 Asthma 05/07/2014 Stenosing tenosynovitis 06/02/2010 Major depressive disorder 05/23/2010 Microalbuminuria 12/11/2009 Fatty liver 12/11/2009 Disorder of peripheral nervous system 12/11/2009 Edema of foot 02/15/2008 Low back pain, unspecified 09/09/2007 Anemia 09/09/2007 Non-cardiac chest pain 07/29/2007 Encounters Date Type Department Care Team Description 08/13/2024 Refill [facility] [place] [address] Jose Rudd MD 08/09/2024 Refill [facility] [place] [address] Jose Rudd MD Moderate persistent asthma with exacerbation 07/31/2024 Travel 07/28/2024 Telephone [facility] [place] [address] Shy LackeyMAT september recalls 07/21/2024 Refill [facility] [place] [address] Ivonne Newby NP 07/20/2024 Refill [facility] [place] [address] Jose Rudd MD Atrial fibrillation, unspecified type ([facility]) 07/10/2024 Results Follow-Up [facility] [place] [address] Jose Rdud MD Basic Metabolic Panel, T-SPOT .TB 07/05/2024 2:15 PM EDT Office Visit [facility] [place] [address] Jose Rudd MD Type 2 diabetes mellitus with hyperglycemia, with long-term current use of insulin ([facility]) (Primary Dx); Diabetic nephropathy associated with type 2 diabetes mellitus ([facility]); 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 ([facility]/H[facility]) ([facility]); Essential hypertension; Paroxysmal atrial fibrillation ([facility]/HCC) 07/05/2024 Orders Only [facility] [place] [address] Jose Rudd MD 07/05/2024 Travel 07/04/2024 Telephone [facility] [place] [address] Jose Rudd MD Chart Prep 06/18/2024 Refill [facility] [place] [address] Jose Rudd MD Atrial fibrillation, unspecified type ([facility]/HCC) 06/07/2024 Telephone [facility] [address] [place], [place] [phone] Daya Lemos RN 06/06/2024 Travel 06/02/2024 Orders Only GENERIC EXTERNAL DATA DEPARTMENT Provider, Generic External Data from Last 3 Months Immunizations Immunization Administration [...] Answer Date Recorded Patient Health Questionnaire-9 Score 4 07/05/2024 Patient Health Questionnaire-9 Score 4 07/05/2024 Last PHQ-9: Questionnaire Data Not on file 0 07/05/2024 Housing Stability Answer Date Recorded What is your housing situation today? I have barbi hernandez 07/05/[address] you li ve. Do you have problems with any of the following? None of the above 07/05/2024 Food Insecurity Answer Date Recorded Within the past 12 months, y ou worried that your food would run out before you got money to buy more: Never True 07/05/2024 Within the past 12 months,th e food you bought just didn't last and you didn't have enough money to get more: Never True Transportation Answer Date Recorded In the past 12 months, has l ack of transportation kept you from medical appts, meetings, work or from getting things needed for daily living? No 07/05/2024 Utilities Answer Date Recorded In the past 12 months, has t he electric, gas, oil or water company threatened to shut off services in your home? No 07/05/2024 Depression Answer Date Recorded Patient Health Questionnaire-2 Score 2 07/05/2024 Internet Access Answer Date Recorded Internet Access Q1 Yes 07/05/2024 Internet Access Q2 Not on file 07/05/2024 Sex and Gender Information Value Date Recorded Sex Assigned at Male 12/22/2021 10:15 AM EDT Legal Sex Male 10:15 AM EDT Gender Identity Male 12/22/2021 10:15 AM EDT Sexual Orientation Straight 12/22/2021 10 :15 AM EDT Last Filed Vital Signs Vital Sign Reading Time Taken Comments Blood Pressure 118/78 07/31/2024 11:16 AM EDT Pulse 86 07/05/2024 2:34 PM EDT Temperature 36.7 C (98 F) 07/05/2024 2:34 PM EDT Respiratory Rate 14 07/05/2024 2:34 PM EDT Oxygen Saturation 99% 07/05/2024 2:34 PM EDT Inhaled Oxygen Concentration - - Weight 113 kg (250 lb) 07/05/2024 2:34 PM EDT Height 188 cm (6' 2 ) 07/05/2024 2:34 PM EDT Body Mass Index 32.1 07/05/2024 2:34 PM EDT Plan of Treatment Upcoming Encounters Date Type Department Care Team (Late st Contact Info) Description 10/30/2024 1:30 PM EDT Office Visit [facility] [address] [place] [phone] Name, [place] [address] Health Maintenance Due Date Last Done Comments [...] 12/22/2023 12/21/2022, 12/21/2022, 12/21/2022, Additional history exists Alcohol/Substance Use Screening 09/28/2024 09/29/2023 Influenza Vaccine (#1) 2024 , 12/21/2022, 11/12/2021, Additional history exists Diabetes: Hemoglobin A1C 12/06/2024 025, 03/14/2024, 02/21/2024, Additional history exists Lipid Panel 12/15/2024 12/16/2023, 11/0 07/2022, 03/23/2022, Additional history exists Depression Screening 07/05/2025 07/05/2024, 07/06/19 25 Disability Screening 07/05/2025 07/05/2024 SDOH Screening 07/05/2025 07/05/2024 Tobacco Screening 07/05/2025 07/05/2024 DTaP/Tdap/Td Vaccines (4 - Td or Tdap) 01/09/2026 01/10/2016, 06/04/2014, 01/13/2011 Hepatitis B Vaccines Completed 01/13/2011, 01/29/2010, 12/04/2009 Zoster Vaccines Completed 06/24/2020, 12/14/2019 Pneumococcal Vaccine: 50+ Years Completed 06/23/2023, 01/10/2016, 07/26/2015, Additional history exists RSV Patients and Patients [...] Name Priority Date/Time Associated Diagnosis Comments POCT GLUCOSE Routine 07/05/2024 2:36 PM EDT Type 2 diabetes mellitus with hyperglycemia, with long-term current use of insulin ([facility]) T-SPOT(R).TB Routine 07/05/2024 1:38 PM EDT BASIC METABOLIC PANEL Routine 07/05/2024 1:38 PM EDT POCT GLYCATED HEMOGLOBIN, TOTAL Routine 06/06/2024 12:57 PM EDT Type 2 diabetes mellitus with hyperglycemia, unspecified whether vermin exterminator insulin use ([facility]) PTH, INTACT WITHOUT CALCIUM Routine 06/02/2024 2:49 PM EDT BASIC METABOLIC PANEL Routine 06/02/2024 2:49 PM EDT Type 2 diabetes mellitus with hyperglycemia, unspecified whether correction insulin use (CMS/[facility]) 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 (CMS/HCC) ([facility]) LIPID PANEL, STANDARD Routine 12/16/2023 11:30 AM EDT Type 2 diabetes mellitus with hyperglycemia, unspecified whether correction insulin use ([facility]) DIABETES EYE EXAM Routine 09/24/2022 from Last 3 Months or Most Recently Relevant to Health Maintenance Results * (ABNORMAL) POCT Glucose (07/05/2024 2:36 PM EDT) Pathologist [facility] Glucose Blood, POC 272(A) 60 - 200 mg/dL QC Media Lot # [id number] Lot# Expiration Date [id number] Blood Capillary blood specimen / Unknown 07/05/2024 2:36 PM EDT us Jose Name POINT OF CARE TEST ENTER/EDIT OR DERABLES Final Result * T-SPOT??.TB (07/05/2024 1:38 PM EDT) [facility] T Spot TB Negative Negative [facility] Comment:A negative test resu lt does not exclude the possibilityof exposure to or infection with Mycobacteriumtuberculosis (M. tuberculosis). Patients with recentexposure to TB infected individuals exhibiting anegative T-SPOT.TB result should be considered forretesting within 6 weeks or if other relevant clinicalsymptoms indicate. Results from T-SPOT.TB testing mustbe used in conjunction with each individual'sepidemiological history, current medical status,and results of other diagnostic evaluations.The T-SPOT.TB test is qualitative and results arereported as positive, borderline, or negative, giventhat the test controls perform as expected. In linewith the Centers for Disease Control and Prevention's2010 recommendation to report quantitative measurementsalongside the qualitative result, the laboratoryprovides spot counts for informational purposes only.The T-SPOT.TB test should not be interpreted as aquantitative test. TS PANEL A 0 [facility] TS PANEL B 0 [facility] Negative Control Passed [facility] Positive Control Passed [facility] Comment:For additional infor lee, please refer tohttp://education.ZenoLink/faq/GLE835(This link is being provided for informational/educational purposes only.)THIS TEST WAS PERFORMED AT:[employer] [id number] [place] [id number] NARAYANAN MD,PHD 07/05/2024 1:38 PM EDT 07/05/2024 4:11 PM EDT us Jose Rudd MD LAB BLOOD ORDERABLES Final Resul t Performing Organization Address [facility] de Phone Number [facility] [address] [place] [phone] * (ABNORMAL) Basic Metabolic Panel (07/05/2024 1:38 PM EDT) Only the most recent of2 resultswithin the time period is included. Pathologist [facility] Sodium 137 135 - 145 mmol/L [facility] Potassium 4.3 3.3 - 5.1 mmol/L [facility] Chloride 105 96 - 108 mmol/L [facility] Carbon Dioxide 24 22 - 29 mmol/L [facility] Anion Gap 12 12 - 20 [facility] Urea Nitrogen (BUN) 33(H) 9 - 16 mg/dL [facility] Creatinine, Serum 2.04(H) 0.5 - 1.4 mg/dL [facility] Estimated Glomerular Filt Rate 33 [facility] Comment:Chronic Kidney Disea se: Estimated GFR < 60 mL/min/1.78h3Mvwbcc Kidney Disease: Estimated GFR < 15 mL/min/1.73m2 Glucose 215(H) 60 - 115 mg/dL [facility] Calcium 8.9 8.4 - 10.2 mg/dL [facility] 07/05/2024 1:38 PM EDT 07/05/2024 4:11 PM EDT us Jose Rudd MD LAB BLOOD ORDERABLES Final Resul t Performing Organization Address [facility] de Phone Number [facility] [address] [place] [phone] * POCT HGB A1C (06/06/2024 12:57 PM EDT) Hemoglobin A1C 5.8 4.0 - 6.0 % Blood 06/06/2024 12:5 7 PM EDT Jose Rudd MD POINT OF CARE TEST ENTER/EDIT OR DERABLES Final Result * (ABNORMAL) PTH, Intact Without Calcium (06/02/2024 2:49 PM EDT) Parathyroid Hormone, Intact 244.9(H) 8.7 - 77.1 pg/mL [facility] 06/02/2024 2:49 PM EDT 06/02/2024 2:49 PM EDT Generic External Data Provider LAB BLOOD ORDERAB LES Final Result [facility] [address] [place] [phone] * Lipid Panel, Standard (12/16/2023 11:30 AM EDT) Triglycerides 59 <150 mg/dL [facility] Comment:Desirable Triglyceri de: less than 150 mg/dLBorderline High Triglyceride 150-199 mg/dLHigh Triglyceride: 200-499 mg/dLVery High Triglyceride: greater than or equal to 5OO mg/dL Cholesterol 145 <200 mg/dL [facility] Comment:Desirable Cholestero l: less than 200 mg/dLBorderline High Cholesterol: 200-239 mg/dLHigh Cholesterol: greater than 239 mg/dL LDL Cholesterol Calculated 89 <100 mg/dL [facility] Comment:Desirable LDL: less than 100 mg/dLNear Optimal/Above Optimal LDL: 110- 129 mg/dLBorderline High LDL: 130-159 mg/dLHigh LDL: 160-189 mg/dLVery High LDL: greater than or equal to 190 mg/dL HDL Cholesterol 45 >40 mg/dL [facility] Comment:Desirable HDL: great er than 40 mg/dL Note: This HDL assay may give artificially low results in patients with liver disease. Blood Venous blood specimen / Unknown 12/16/2023 11:30 AM EDT 12/16/2023 1:54 PM EDT Jose Rudd MD LAB BLOOD ORDERABLES Final Resul t [facility] [address] [place] [phone] * Diabetes Eye Exam (09/24/2022) [facility] Signature Eye Exam Normal Normal Jose Rudd MD HEALTH MAINTENANCE Final Result from Last 3 Months or Most Recently Relevant to Health Maintenance Insurance [facility] Care Teams Noc Engineer Relationship Specialty Start Date End Date Name, MD Jose [address] [place] [address] PCP - General Family Medicine 07/02/15 Renetta Davenport, BaileyD [address] [place] [address] Pharmacist Internal Medicine 01/03/24
[2024-08-29 14:58] LABS: Anion Gap 12 (12-20); Blood Urea Nitrogen 28 mg/dL (9-16); Calcium 8.6 mg/dL (8.4-10.2); Carbon Dioxide 22 mmol/L (22-29); Chloride 109 mmol/L (96-108); Estimated Glomerular Filt Rate 39; Potassium 4.2 mmol/L (3.3-5.1); Sodium 139 mmol/L (135-145)
== END 2024-08-29 13:14 | disposition home or self-care (01) ==
LOC: HO.LAB 13:13
PROVIDERS: PCP Internal Medicine Geriatric Medicine; Visit Provider Internal Medicine Nephrology
DX: I12.9 Hypertensive chronic kidney disease with stage 1 through stage 4 chronic kidney disease, or unspecified chronic kidney disease (principal); N18.31 Chronic kidney disease, stage 3a; N25.81 Secondary hyperparathyroidism of renal origin
CPT/HCPCS: 36415; 80051; 82310; 82565; 84520

== ENCOUNTER 2024-09-01 14:41 | Outpatient (AMB) | payer OTHER, SELFPAY ==
--- OUTSIDE RECORDS SUMMARY | 2024-09-01 14:44 | XMS_ITS | Clinical Summary ---
Author Organization [email or web address] Address [address] [place] [address] [address] [place] [address] Care Team Providers Care Teacher Dramatics Name Role Phone Name, Jose ALVARADO Primary Care Provider [phone] Renetta Davenport PharmD Unavailable [phone] Allergies No known active allergies Medications [...] day 1 kit 024 Active Continuous Glucose Educational Speech Language Clinician (FreeStyle Boubacar 2 Bronson) deviceIndications :Diabetic polyneuropathy associated with type 2 diabetes mellitus ([facility]) Use as directed 1 each 024 [...] 135 tablet 025 Active Continuous Glucose Sensor (LessnoStyle Boubacar 2 Plus Sensor) misc 1 each [...] 2 diabetes mellitus with hyperglycemia, unspecified whether group home insulin use (CMS/HCC) Administer 3 mg via 1 device into the nostril for hypoglycemia with loss of consciousness. If no response after 15 minutes administer an additional dose via 2nd device into other nostril. 2 each 025 Active glucose 4 g chewable tabletIndications :Type 2 diabetes mellitus with hyperglycemia, unspecified whether order selector insulin use ([facility]) Chew 4 tablets (16 g) if [...] the evening. 90 tablet 3 Active Lancets (CosentialTouch Delica Plus Qchato32E) [facility] Use to test BG twice [...] AFTER USING 12 g 024 2024 Discontinued allopurinol (Zyloprim) 300 MG tablet TAKE 1 TABLET BY MOUTH EVERY MORNING 90 tablet 024 2024 Discontinued Active Problems Problem Noted Date [...] due t o type 2 diabetes mellitus ([facility]) 10/30/2015 Essential hypertension 07/02/2015 Memory impairment 07/02/2015 Hypercholesterolemia 07/02/2015 Coronary artery disease invo lving iroquois coronary artery of iroquois heart without angina pectoris 05/07/2014 Gout 05/07/2014 GERD (gastroesophageal reflux disease) 5 Asthma 05/07/2014 Stenosing tenosynovitis 06/02/2010 Major depressive disorder 05/23/2010 Microalbuminuria 12/11/2009 Fatty liver 12/11/2009 Disorder of peripheral nervous system 12/11/2009 Edema of foot 02/15/2008 Low back pain, unspecified 09/09/2007 Anemia 09/09/2007 Non-cardiac chest pain 07/29/2007 Encounters Date Type Department Care Team Description 08/29/2024 Orders Only GENERIC EXTERNAL DATA DEPARTMENT Provider, Generic External Data 08/13/2024 Refill [facility] [place] [address] Jose Rudd MD 08/09/2024 Refill [facility] Rain [phone] Jose Rudd MD Moderate persistent asthma with exacerbation 07/31/2024 Travel 07/28/2024 Telephone [facility] [place] [address] Shy Lackey MAT august recalls 07/21/2024 Refill [facility] Rain [phone] Ivonne Newby NP 07/20/2024 Refill [facility] MAT Rain40 Jose Rudd MD Atrial fibrillation, unspecified type ([facility]/HCC) 07/10/2024 Results Follow-Up [facility] MAT Rain [phone] Jose Rudd MD Basic Metabolic Panel, T-SPOT .TB 07/05/2024 2:15 PM EDT Office Visit [facility] Rain40 Jose Rudd MD Type 2 diabetes mellitus with hyperglycemia, with long-term current use of insulin ([facility]) (Primary Dx); Diabetic nephropathy associated with type 2 diabetes mellitus ([facility]/HCC); 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 ([facility]/HCC) ([facility]/HCC); Essential hypertension; Paroxysmal atrial fibrillation ([facility]/HCC) 07/05/2024 Orders Only [facility] Rain [phone] Jose Rudd MD 07/05/2024 Travel 07/04/2024 Telephone [facility] [place] [address] Jose Rudd MD Chart Prep 06/18/2024 Refill [facility] [place] [address] Jose Rudd MD Atrial fibrillation, unspecified type ([facility]/HCC) 06/07/2024 Telephone [facility] MAT Rain40 Daya Lemos, HEATHER 06/06/2024 Travel 06/02/2024 Orders [...] the past 12 months, has t he [employer], gas, oil or water company threatened to [...] Description 10/30/2024 1:30 PM EDT Office Visit [facility] [address], [place] [phone] Name, MD Jose [address] [place] [address] Health Maintenance Due Date Last Done Comments [...] Additional history exists Lipid Panel 12/15/2024 12/16/2023, 11/07/2022, 03/23/2022, Additional history exists Depression Screening 07/05/2025 [...] Procedure Name Priority Date/Time Associated Diagnosis Comments CALCIUM Routine 08/29/2024 1:21 PM EDT CREATININE, SERUM Routine 08/29/2024 1:2 1 PM EDT UREA NITROGEN (BUN) Routine 08/29/2024 1 :21 PM EDT ELECTROLYTE PANEL Routine 08/29/2024 1:2 1 PM EDT POCT GLUCOSE Routine 07/05/2024 2:36 PM EDT Type 2 diabetes mellitus with hyperglycemia, with long-term current use of insulin ([facility]) T-SPOT(R).TB Routine 07/05/2024 1:38 PM EDT BASIC METABOLIC PANEL Routine 07/05/2024 1:38 PM EDT POCT GLYCATED HEMOGLOBIN, TOTAL Routine 06/06/2024 12:57 PM EDT Type 2 diabetes mellitus with hyperglycemia, unspecified whether order selector insulin use ([facility]) PTH, INTACT WITHOUT CALCIUM Routine 06/02/2024 2:49 PM EDT BASIC METABOLIC PANEL Routine 06/02/2024 2:49 PM EDT Type 2 diabetes mellitus with hyperglycemia, unspecified whether order selector insulin use ([facility]) 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 (CMS/HCC) ([facility]) LIPID PANEL, STANDARD Routine 12/16/2023 11:30 AM EDT Type 2 diabetes mellitus with hyperglycemia, unspecified whether group home insulin use ([facility]) DIABETES EYE EXAM Routine 09/24/2022 from Last 3 Months or Most Recently Relevant to Health Maintenance Results * (ABNORMAL) Creatinine, Serum (08/29/2024 1:21 PM EDT) Creatinine, Serum 1.75(H) 0.5 - 1.4 mg/dL [facility] Estimated Glomerular Filt Rate 39 [facility] Comment:Chronic Kidney Disea se: Estimated GFR < 60 mL/min/1.74s7Zzoizm Kidney Disease: Estimated GFR < 15 mL/min/1.73m2 08/29/2024 1:21 PM EDT 08/29/2024 1:21 PM EDT us Generic External Data Provider LAB BLOOD ORDERAB LES Final Result Performing Organization Address City/[facility]/ZIP Co de Phone Number [facility] [address] [place] [phone] * (ABNORMAL) BUN (Blood Urea Nitrogen) (08/29/2024 1:21 PM EDT) Urea Nitrogen (BUN) 28(H) 9 - 16 mg/dL [facility] 08/29/2024 1:21 PM EDT 08/29/2024 1:21 PM EDT Generic External Data Provider LAB BLOOD ORDERAB LES Final Result Performing Organization Address City/[facility]/ZIP Co de Phone Number [facility] [address] [place] [phone] * Calcium (08/29/2024 1:21 PM EDT) Calcium 8.6 8.4 - 10.2 mg/dL [facility] 08/29/2024 1:21 PM EDT 08/29/2024 1:21 PM EDT Generic External Data Provider LAB BLOOD ORDERAB LES Final Result Performing Organization Address [facility] Co de Phone Number [facility] [address] [place] [phone] * (ABNORMAL) Electrolyte Panel (08/29/2024 1:21 PM EDT) [facility] Sodium 139 135 - 145 mmol/L [facility] Potassium 4.2 3.3 - 5.1 mmol/L [facility] Chloride 109(H) 96 - 108 mmol/L [facility] Carbon Dioxide 22 22 - 29 mmol/L [facility] Anion Gap 12 12 - 20 [facility] 08/29/2024 1:21 PM EDT 08/29/2024 1:21 PM EDT [employer] External Data Provider LAB BLOOD ORDERAB LES Final Result Performing Organization Address [facility] [[email or web address]] de Phone Number [facility] [address] [place] [phone] * (ABNORMAL) POCT Glucose (07/05/2024 2:36 PM EDT) [facility] Glucose Blood, POC 272(A) 60 - 200 mg/dL QC Media Lot # [id number] Lot# Expiration Date [id number] Blood Capillary blood specimen / Unknown 07/05/2024 2:36 PM EDT Jose Rudd MD POINT OF CARE TEST ENTER/EDIT OR DERABLES Final Result * T-SPOT??.TB (07/05/2024 1:38 PM EDT) Pathologist [facility] T Spot TB Negative Negative [facility] Comment:A negative test resu lt [...] as aquantitative test. TS PANEL A 0 [facility] TS PANEL B 0 [facility] Negative Control Passed [facility] Positive Control Passed [facility] Comment:For additional infor lee, please refer [email or web address].[employer]/faq/BFS842(This link is being provided for informational/educational purposes only.)THIS TEST WAS PERFORMED AT:[employer] [id number] [place] [id number] NARAYANAN MD,PHD 07/05/2024 1:38 PM EDT 07/05/2024 4:11 PM EDT Jose Rudd MD LAB BLOOD ORDERABLES Final Resul t [facility] [address] [place] [phone] * (ABNORMAL) Basic Metabolic Panel (07/05/2024 1:38 PM EDT) Only the most recent of2 resultswithin the time period is included. Sodium 137 135 - 145 mmol/L [facility] Potassium 4.3 3.3 - 5.1 mmol/L [facility] Chloride 105 96 - 108 mmol/L [facility] Carbon Dioxide 24 22 - 29 mmol/L [facility] Anion Gap 12 12 - 20 [facility] Urea Nitrogen (BUN) 33(H) 9 - 16 mg/dL [facility] Creatinine, Serum 2.04(H) 0.5 - 1.4 mg/dL [facility] Estimated Glomerular Filt Rate 33 [facility] Comment:Chronic Kidney Disea se: Estimated GFR < 60 mL/min/1.20d9Ophoen Kidney Disease: Estimated GFR < 15 mL/min/1.73m2 Glucose 215(H) 60 - 115 mg/dL [facility] Calcium 8.9 8.4 - 10.2 mg/dL [facility] 07/05/2024 1:38 PM EDT 07/05/2024 4:11 PM EDT us Jose Rudd MD LAB BLOOD ORDERABLES Final Resul t Performing Organization Address [facility] [[email or web address]] de Phone Number [facility] [address] [place] [phone] * POCT HGB A1C (06/06/2024 12:57 PM EDT) Hemoglobin A1C 5.8 4.0 - 6.0 % Blood 06/06/2024 12:5 7 PM EDT us Jose Rudd MD POINT OF CARE TEST ENTER/EDIT OR DERABLES Final Result * (ABNORMAL) PTH, Intact Without Calcium (06/02/2024 2:49 PM EDT) Parathyroid Hormone, Intact 244.9(H) 8.7 - 77.1 pg/mL [facility] 06/02/2024 2:49 PM EDT 06/02/2024 2:49 PM EDT Generic External Data Provider LAB BLOOD ORDERAB LES Final Result Performing Organization Address [facility] Co de Phone Number [facility] [address] [place] [phone] [phone] * Lipid Panel, Standard (12/16/2023 11:30 AM EDT) Triglycerides 59 <150 mg/dL [facility] Comment:Desirable Triglyceri de: less than 150 mg/dLBorderline High Triglyceride 150-199 mg/dLHigh Triglyceride: 200-499 mg/dLVery High Triglyceride: greater than or equal to 5OO mg/dL Cholesterol 145 <200 mg/dL [facility] Comment:Desirable Cholestero l: less than 200 mg/dLBorderline High Cholesterol: 200-239 mg/dLHigh Cholesterol: greater than 239 mg/dL LDL Cholesterol Calculated 89 <100 mg/dL [facility] Comment:Desirable LDL: less than 100 mg/dLNear Optimal/Above Optimal LDL: 110- 129 mg/dLBorderline High LDL: 130-159 mg/dLHigh LDL: 160-189 mg/dLVery High LDL: greater than or equal to 190 mg/dL HDL Cholesterol 45 >40 mg/dL [facility] Comment:Desirable HDL: great er than 40 mg/dL Note: This HDL assay may give artificially low results in patients with liver disease. Blood Venous blood specimen / Unknown 12/16/2023 11:30 AM EDT 12/16/2023 1:54 PM EDT us Jose Rudd MD LAB BLOOD ORDERABLES Final Resul t [facility] [address] [place] [address] [phone] * Diabetes Eye Exam (09/24/2022) Eye Exam Normal Normal us Jose Rudd MD HEALTH MAINTENANCE Final Result from Last 3 Months or Most Recently Relevant to Health Maintenance Insurance [facility] Care Teams Teacher Dramatics Relationship Specialty Start Date End Date Name, MD Jose [address] [place] [address] PCP - General Family Medicine 07/02/15 Renetta Davenport PharmD [address] [place] [address] Pharmacist Internal Medicine 01/03/24
--- NOTE | 2024-09-01 15:12 | HO.NEPHOV_ITS ---
Vital Signs 09/01/24 15:13 Height 6 ft Weight 253 lb 8 oz BMI 34.4 BP 110/80 Blood Pressure Location Lt brachial Position Sitting Pulse 84 Pulse Source Pulse Oximeter Pulse Oximetry (%) 96 Oxygen Delivery Method Room Air Intake Visit Reasons: 3 MO FU-Conf Molding And Trim Installer Required: Yes Molding And Trim Installer Language: Refrigeration Person Services: Molding And Trim Installer Present Information Interpreted: clinical only Accompanied by: Spouse Allergies No Known Allergies (No Known Allergies*) Allergy (Verified 09/01/24 15:12) HPI Comments Details: 63 y/o male with paroxysmal afib on eliquis, HTN & DMII, gout, presented to [facility] on 12/06 for afib with RVR, covid-19 and resultant MIKE. His new creatinine baseline is around 1.6-2.o; previously around 1.5. He has history of proteinuria since at least 2019. He has hypertension and currently taking amlodipine 10mg daily and metoprolol 75mg TID, and losartan 50mg daily. He avoids NSAIDs. He feels well today. He states his sugars are controlled- fasting 130s. Most recent creatinine stable at 1.75. [facility] Medical History History of cardioversion History of COVID-19 COVID-19 vaccine series completed Elevated cholesterol HTN (hypertension) Asthma COPD (chronic obstructive pulmonary disease) LUIS ALFREDO (obstructive sleep apnea) CAD (coronary artery disease) Surgical History H/O cardiac catheterization History of cataract surgery H/O: vasectomy Family History Father HTN (hypertension) Diabetes Mother HTN (hypertension) Diabetes CVD (cardiovascular disease) Social History Household Members: Spouse Housing: Apartment Do you presently have visiting nurse or other home services: No Alcohol intake: never Patient Tobacco Use Status: Never used Tobacco service: No Review of Systems Const All systems reviewed & are unremarkable except as noted in HPI and below Physical Exam Vital Signs: Last Vital Signs Pulse 84 09/01/24 15:13 BP 110/80 09/01/24 15:13 Pulse Ox 96 09/01/24 15:13 Oxygen Delivery Method Room Air 09/01/24 15:13 BMI result Body Mass Index 34.4 Const General: no acute distress, alert and awake Resp Effort & Inspection: normal respiratory effort and able to speak in complete sentences Auscultation: clear to auscultation bilaterally Cardio Rate: regular rate Rhythm: regular rhythm Heart sounds: S1 normal heart sound present and S2 normal heart sound present GI Palpation (GI): Soft to palpation and nontender General: Yes no CVA tenderness Back/Spine/Pelvis Back: no CVA tenderness Skin Lesions: no lesions Rashes: no rashes Extrem General: No edema Results Reviewed Nephrology Results: Hgb, (14.0-18.0) 12.9 g/dl L 02/29/24 WBC, (4.8-10.8) 7.5 X10*3/uL 02/29/24 Plt Count, (160-400) 246 X10*3/uL 02/29/24 Sodium, (135-145) 139 mmol/L 08/29/24 Potassium, (3.3-5.1) 4.2 mmol/L 08/29/24 Chloride, (96-108) 109 mmol/L H 08/29/24 Carbon Dioxide, (22-29) 22 mmol/L 08/29/24 BUN, (9-16) 28 mg/dL H 08/29/24 Creatinine, (0.5-1.4) 1.75 mg/dL H 08/29/24 Calcium, (8.4-10.2) 8.6 mg/dL 08/29/24 PTH Intact, (8.7-77.1) 244.9 pg/mL H 06/02/24 Renal US 10/13/21 Assessment & Plan Assessment & Plan (1) Secondary hyperparathyroidism (of renal origin): Code(s): N25.81 - Secondary hyperparathyroidism of renal origin Category: Medical (2) CKD (chronic kidney disease) stage 3, GFR 30-59 ml/min: Code(s): N18.30 - Chronic kidney disease, stage 3 unspecified Category: Medical Qualifiers: Chronic kidney disease stage 3 subtype: stage 3a (GFR 45-59) Qualified Code(s): N18.31 - Chronic kidney disease, stage 3a (3) HTN (hypertension): Code(s): I10 - Essential (primary) hypertension Category: Medical Qualifiers: Hypertension type: primary hypertension Qualified Code(s): I10 - Essential (primary) hypertension Plan CKD in setting of longstanding diabetes. Creatinine remains stable. He is taking his losartan daily. He is keeping his sugars well-controlled. Blood pressure at goal. May consider SGLT2 in the future. Discussed weight loss, maintaining good hydration, low salt diet, minimize simple carbohdyrates, and avoid NSAIDs. He will return in [address] Mahajan, labs prior. Orders: Orders Basic Metabolic Panel 3 Months N18.30 - Chronic kidney disease, stage 3 unspecified Protein Creatinine Ratio, Ur 3 Months I10 - Essential (primary) hypertension, N18.31 - Chronic kidney disease, stage 3a UA w Microscopic 3 Months I10 - Essential (primary) hypertension, N18.31 - Chronic kidney disease, stage 3a Coding Level of Care Code Est Pt Level 3 (63032) Diagnoses Secondary hyperparathyroidism (of renal origin) N25.81 Stage 3a chronic kidney disease N18.31 Chronic kidney disease stage 3 subtype: stage 3a (GFR 45-59) Primary hypertension I10 Hypertension type: primary hypertension
[2024-09-01 15:13] VITALS: BP 110/80; PULSE 84; O2SAT 96; BMI 34.4
== END 2024-09-01 15:31 | disposition home or self-care (01) ==
PROVIDERS: PCP Internal Medicine Geriatric Medicine; Visit Provider Nurse Practitioner Family
DX: N25.81 Secondary hyperparathyroidism of renal origin (principal); N18.31 Chronic kidney disease, stage 3a; I10 Essential (primary) hypertension
CPT/HCPCS: 99213

== ENCOUNTER → 2024-09-01 14:41 | Outpatient (BNVA) | payer OTHER, SELFPAY | PROVIDERS: PCP Internal Medicine Geriatric Medicine; Visit Provider Internal Medicine Nephrology | DX: N18.31 Chronic kidney disease, stage 3a (principal); N25.81 Secondary hyperparathyroidism of renal origin; I10 Essential (primary) hypertension | CPT/HCPCS: 99212 ==

== ENCOUNTER 2024-10-30 14:12 | Outpatient (REF) | payer OTHER, SELFPAY ==
--- NOTE | ~2024-10-30 | XR_ITS ---
EXAMINATION: XR CHEST 2 VIEWS HISTORY: 3 months of GUIDO, no cough, no wheezing COMPARISON: Comparison is made the prior examination dated 12/07/2023. FINDINGS: PA and lateral views of the chest are submitted. The lungs are expanded and clear. There is no pleural effusion, pneumothorax, or pulmonary vascular congestion. The heart is normal in size. There is degenerative disc disease of the spine. XR/XR chest 2V IMPRESSION: No acute cardiopulmonary abnormality. Electronically signed by: Victor Manuel Beltrán MD 10/30/2024 03:09 PM EDT RP
--- OUTSIDE RECORDS SUMMARY | 2024-10-30 13:30 | XMS_ITS | Encounter Summary ---
Author Organization [employer] [facility] Address [address] [place] [id number] Care Team Providers Care Sweatband Shaper Name Role Phone Jose Stephenson MD Primary Care Provider [phone] Renetta Davenport PharmD Unavailable [phone] Reason for Referral * Imaging (Routine) - Pending Review Specialty Diagnoses / Procedures Referred By Contac t Referred To Contact Cardiology Diagnoses GUIDO (dyspnea on exertion) Procedures Transthoracic Echo (TTE) Complete Jose Stephenson MD [address] [place] [address] Phone: tel: fax: [address] Phone: tel: fax: Referral ID Status Reason Start Date Expiration Date Visits Requested Visits Authorized [id number] Pending Review Perform Procedure 10/30/2024 10/30/2025 1 1 Reason for Visit * Reason Comments Follow-up Encounter Details Date Type Department Care Team (Late st Contact Info) Description 10/30/2024 1:30 PM EDT Office Visit [facility] [address] [place], [place] [phone] Jose Stephenson MD [address] [place], [place] [phone] GUIDO (dyspnea on exertion) (Primary Dx); Coronary artery disease involving [place] coronary artery of [place] heart without angina pectoris; Paroxysmal atrial fibrillation (CMS/[facility]); Type 2 diabetes mellitus with hyperglycemia, unspecified whether fdc insulin use ([facility]) Social History Tobacco Use Types Packs/Day Years [...] AM EDT documented as of this encounter Last Filed Vital Signs Vital Sign Reading Time Taken Comments Blood Pressure 124/82 10/30/2024 1:39 PM EDT Pulse 87 10/30/2024 1:39 PM EDT Temperature 36.6 C (97.9 F) 10/30/2024 1:39 PM EDT Respiratory Rate 14 10/30/2024 1:39 PM EDT Oxygen Saturation 98% 10/30/2024 1:39 PM EDT Inhaled Oxygen Concentration - - Weight 109 kg (240 lb 12.8 oz) 10/30/2024 1:39 P M EDT Height 190.5 cm (6' 3 ) 10/30/2024 1:39 PM EDT Body Mass Index 30.1 10/30/2024 1:39 PM EDT documented in this encounter Progress Notes * Jose Stephenson MD - 10/30/2024 1:30 PM EDT Subjective Patient ID: Tayo Bauer is a 64 y.o. male who presents for Follow-up. Patient comes for follow-up visit. The patient has noted dyspnea when he climbs 3 flight of stairs.This is a new symptom for him that he noticed over the past 3 months. He denies any chest pains, nopalpitations, no weight gain, no orthopnea, no lower extremity edema. He denies any respiratory symptoms, no recent URI symptoms, no cough or wheezing. He has been using all his medications as prescri bed. He has a personal history of diabetes that is very well-controlled, stable CKD, and CAD. The last echocardiogram that I have for him from 2019 was normal. He has an appointment to see cardiologyin October. The patient is treated with Multaq. Review of Systems Constitutional: Negative for chills, fatigue and fever. HENT: Negative for sore throat. Respiratory: Positive for shortness of breath. Negative for cough and chest tightness. Cardiovascular: Negative for chest pain, palpitations and leg swelling. Gastrointestinal: Negative for abdominal pain and blood in stool. Objective Vitals: 10/30/24 1339 BP: 124/82 BP Location: Left arm Patient Position: Sitting BP Cuff Size: Adult Pulse: 87 Resp: 14 Temp: 97.9 ??F (36.6 ??C) TempSrc: Temporal SpO2: 98% Weight: 240 lb 12.8 oz (109 kg) Height: 6' 3 (1.905 m) Physical Exam Constitutional: Appearance: Normal appearance. Cardiovascular: Rate and Rhythm: Normal rate and regular rhythm. Heart sounds: No murmur heard. Pulmonary: Effort: Pulmonary effort is normal. No respiratory distress. Breath sounds: No wheezing, rhonchi or rales. Abdominal: Palpations: Abdomen is soft. Tenderness: There is no abdominal tenderness. Musculoskeletal: Right lower leg: No edema. Left lower leg: No edema. Neurological: Mental Status: He is alert. [address] [phone] CARDIOLOGY NAME: TAYO BAUER [employer] ACTIVITIES CLERK: UNIT #: [id number] PATIENT LOCATION: [facility] REFERRING PHYSICIAN: BIJAL MUJICA MD DATE OF : 60 PCP: JOSE STEPHENSON MD SEX: Male DATE: 03/28/19 CARD ECHO 2D M W DOPLR, COLOR, CONT [id number] SYMPTOMS,HX?: NEW ONSET AF Transthoracic Echocardiogram Patient (Last, First, Middle): TAYO BAUER, Gender: Male Date of : 1960 Age: 58 Procedure Date: 03/28/2019 Procedure Type: Transthoracic Echocardiogram Location: [facility] Height: 190.5 cm Weight: 111.13 kg BSA: 2.39 m2 Heart Rate: bpm BP: 114 / 55 mmHg Daycare Provider: Referring MD: BIJAL MUJICA MD Symptoms: NEW ONSET AF Study Quality: Fair,. Contrast used ECG Rhythm: Sinus Conclusions: - Normal biventricular function. No significant valvular or pericardial pathology noted. Contrast Definity used to improve imagae quality. Findings Left Ventricle Normal left ventricular size and systolic function. There is moderately increased left ventricular wall thickness. The visually estimated ejection fraction is between 55-60%. There is no evidence of regional wall motion abnormalities. Diastolic function is normal for age. Contrast Definity used to improve imagae quality. Right Ventricle Normal right ventricular cavity size and systolic function. Atria The left atrium is normal in size. Aortic Valve There is a normal trileaflet aortic valve. There is mild thickening of the aortic valve. There is no aortic valve stenosis. There is no aortic valve regurgitation. Mitral Valve Normal mitral valve structure and function. There is no mitral valve regurgitation. There is no mitral valve stenosis. Pulmonic Valve Normal pulmonic valve structure and function. There is trace pulmonic valve regurgitation. Tricuspid Valve Normal tricuspid valve structure and function. There is trace tricuspid valve regurgitation. Tricuspid regurgitation envelope is inadequate for calculation of right ventricular systolic pressure. Normal right atrial pressure. Great Vessels All visible segments of the aorta are normal in size. The visualized portions of the pulmonary artery and branches are normal. Venous The inferior vena cava is normal in size and collapses greater than 50% with inspiration. Pericardium/Pleural There is no evidence of pericardial effusion. Prior Study Comparison No prior study available for comparison. Measurements 2D Linear Measurements IVSd: 1.47 0.6-0.9/0.6-1.0 cm LVIDd: 4.49 3.9-5.3/4.2-5.9 cm LVIDs: 3.33 2.0-3.6 cm LVPWd: 1.47 0.7-1.1 cm Ao Root: 3.30 2.1-3.5 cm LA Diam: 3.90 2.7-3.8/3.0-4.0 cm LVOT Diam: 2.60 3.0+(-)1.3 cm Mitral Valve MV Pk E: 0.50 MV PK A: 0.72 MV Decel Time: 173.00 E/A: 0.70 E'Lateral: 9.09 E'Medial: 5.03 E/E' Med: 9.90 E/E' Lat: 5.50 PHT: 51.00 MVA PHT: 4.31 Decel [place]: 2.90 Aortic Valve AoV Pk Juan Diego: 1.19 AoV Mn Juan Diego: 0.88 AoV VTI: 0.23 AoV Pk Grad: 6.00 Aov Mn Grad: 4.00 MAYNOR Cont.VTI: 3.59 LVOT LVOT Pk Juan Diego: 0.90 LVOT Mn Juan Diego: 0.60 LVOT VTI: 0.16 LVOT Pk Grad: 3.00 LVOT Mn Grad: 2.00 LVOT Diam: 2.60 LVOT Area: 5.31 Diastolic Function MV Pk E: 0.50 MV Pk A: 0.72 E/A: 0.70 E'Medial: 5.03 E/E' Med: 9.90 E' Laterial: 9.09 E/E' Lat: 5.50 Tricuspid Valve TR Pk Juan Diego: 1.76 TR Pk Grad: 12.00 RA Press: 3.00 Great Vessels Aorta Ao Root-2D: 3.30 2.0-3.7 cm Ao Asc: 3.20 2.1-3.4 cm Pulmonary Valve PV Pk Juan Diego: 1.13 Peak PV Grad: 5.00 Updated in Other Vendor System with Status of Final Sumit Irwin MD electronically signed on 03/28/2019 3:20:44 PM with status of Final SUMIT IRWIN MD Report #: [id number] Status: Signed Dict: 03/28/19/ Trans: /DOC Assessment/Plan Diagnoses and all orders for this visit: GUIDO (dyspnea on exertion) Comments: I recommend evaluation with CBC, CMP, chest x-ray and repeat echocardiogram. Televisit after echocardiogram and further recommendation based on results. I will make sure he is not anemic, that his renal function is stable, that he does not have significant changes in his echocardiogram or evidence of lung complications related to the use of Multaq. I did not recommend any medication changes for now. Orders: - CBC auto differential; Future - Comprehensive Metabolic Panel; Future - XR Chest 2 Views; Future - Transthoracic Echo (TTE) Complete; Future Coronary artery disease involving [place] coronary artery of [place] heart without angina pectoris Paroxysmal atrial fibrillation ([facility]) Type 2 diabetes mellitus with hyperglycemia, unspecified whether fdc insulin use ([facility]) Comments: Well-controlled. No episodes of hypoglycemia. Continue current medications. Lab Results Component Value Date HGBA1C 6.9 (A) 10/30/2024 HGBA1C 5.8 06/06/2024 HGBA1C 6.8 (A) 03/14/2024 HGBA1C 7.2 (A) 02/21/2024 HGBA1C 11.5 (A) 11/30/2023 HGBA1C 10.2 (A) 09/29/2023 HGBA1C 7.4 (A) 06/23/2023 HGBA1C 6.7 (A) 12/21/2022 HGBA1C 6.9 (A) 04/08/2022 HGBA1C 7.0 (H) 09/05/2021 HGBA1C 8.0 (H) 01/16/2020 HGBA1C 11.7 (H) 10/09/2019 HGBA1C 11.7 (H) 10/09/2019 HGBA1C 11.7 (H) 10/09/2019 CREATININE 1.75 (H) 08/29/2024 CREATININE 2.04 (H) 07/05/2024 CREATININE 1.65 (H) 06/02/2024 CREATININE 1.64 (H) 02/29/2024 CREATININE 1.98 (H) 02/21/2024 CREATININE 1.61 (H) 01/03/2024 CREATININE 1.73 (H) 12/22/2023 CREATININE 2.16 (H) 12/16/2023 CREATININE 1.58 (H) 04/19/2023 CREATININE 1.58 (H) 12/28/2022 CREATININE 1.62 (H) 11/06/2021 CREATININE 1.64 (H) 11/05/2021 CREATININE 1.86 (H) 09/01/2021 CREATININE 1.47 (H) 11/26/2020 CREATININE 1.62 (H) 11/12/2020 Orders: - POCT Glucose - POCT Hgb A1c Future Appointments Date Time Provider Department Center 11/29/2024 11:30 AM Jose Stephenson MD MEDICINE [facility] documented in this encounter Plan of Treatment Upcoming Encounters Date Type Department Care Team (Late st Contact Info) Description 11/29/2024 11:30 AM EDT Telemedicine [facility] [address] [place] [phone] Name, MD Jose [address] [place] [phone] Scheduled Orders Name Type Priority Associated Diagnoses Order Schedule Comprehensive Metabolic Panel Lab Routine GUIDO (dyspnea on exertion) Expected: 10/30/2024 (Approximate), Expires: 10/30/2025 Transthoracic Echo (TTE) Complete Echocardiography Routine GUIDO (dyspnea on exertion) Expected: 10/30/2024 (Approximate), Expires: 10/30/2026 documented as of this encounter Procedures Procedure Name Priority Date/Time Associated Diagnosis Comments XR CHEST 2 VIEWS Routine 10/30/2024 3:02 PM EDT GUIDO (dyspnea on exertion) CBC WITH AUTO DIFFERENTIAL Routine 10/30/2024 2:29 PM EDT GUIDO (dyspnea on exertion) POCT GLYCATED HEMOGLOBIN, TOTAL Routine 10/30/2024 1:45 PM EDT Type 2 diabetes mellitus with hyperglycemia, unspecified whether buttermaker helper insulin use ([facility]) POCT GLUCOSE Routine 10/30/2024 1:44 PM EDT Type 2 diabetes mellitus with hyperglycemia, unspecified whether fdc insulin use ([facility]) documented in this encounter Results * XR Chest 2 Views (10/30/2024 3:02 PM EDT) Anatomical Region Laterality Modality Chest Radiographic Jackeline ging 10/30/2024 3:02 PM EDT Narrative 10/30/2024 3:12 PM EDT [place] [address] XRay Report Signed Patient: Tayo Bauer MR#: [id number] 3 : 1960 Acct:[id number] Age/Sex: 64 / M ADM Date: 10/30/24 Loc: [facility] Attending Dr: Jose Stephenson MD Ordering Physician: Jose Stephenson MD Date of Service: 10/30/24 Procedure(s): XR chest 2V Accession Number(s): [id number] cc: Jose Stephenson MD Reason for Exam: 3 months of GUIDO, no cough, no wheezing EXAMINATION: XR CHEST 2 VIEWS HISTORY: 3 months of GUIDO, no cough, no wheezing COMPARISON: Comparison is made the prior examination dated 12/07/2023. FINDINGS: PA and lateral views of the chest are submitted. The lungs are expanded and clear. There is no pleural effusion, pneumothorax, or pulmonary vascular congestion. The heart is normal in size. There is degenerative disc disease of the spine. XR/XR chest 2V IMPRESSION: No acute cardiopulmonary abnormality. Electronically signed by: Victor Manuel Beltrán MD 10/30/2024 03:09 PM EDT RP Dictated By: Victor Manuel Beltrán MD Signed By: <Electronically signed by Victor Manuel Beltrán MD in OV> 10/30/24 1509 DD/ 1502 TD/TT: 10/30/24 1503 Microfilm Camera Operator: Procedure Note Donotuseinterpreter, Image - 10/30/[address] [address] XRay Report Signed Patient: Lynn Bauer#: [id number] 3 : 1960cct:[id number] Age/Sex: 64 / MADM Date: 10/30/24 Loc: [facility] Attending Dr: Jose Stephenson MD Ordering Physician: Jose Stephenson MD Date of Service: 10/30/24 Procedure(s): XR chest 2V Accession Number(s): [id number] cc: Jose Stephenson MD Reason for Exam: 3 months of GUIDO, no cough, no wheezing EXAMINATION: XR CHEST 2 VIEWS HISTORY: 3 months of GUIDO, no cough, no wheezing COMPARISON: Comparison is made the prior examination dated 12/07/2023. FINDINGS: PA and lateral views of the chest are submitted. The lungs are expanded and clear. There is no pleural effusion, pneumothorax, or pulmonary vascular congestion. The heart is normal in size. There is degenerative disc disease of the spine. XR/XR chest 2V IMPRESSION: No acute cardiopulmonary abnormality. Electronically signed by: Victor Manuel Beltrán MD 10/30/2024 03:09 PM EDT RP Dictated By: Victor Manuel Beltrán MD Signed By: <Electronically signed by Victor Manuel Beltrán MD in OV> 10/30/24 1509 DD/ 1502 TD/TT: 10/30/24 1503 Microfilm Camera Operator: Jose Stephenson MD IMG XR PROCEDURES Edited Result - Final * (ABNORMAL) CBC auto differential (10/30/2024 2:29 PM EDT) White Blood Count 8.3 4.8 - 10.8 X10*3/uL [facility] Red Blood Count 5.01 4.60 - 5.80 X10*6/uL [facility] Hemoglobin 14.0 14.0 - 18.0 g/dl [facility] Hematocrit 43.1 42.0 - 52.0 % [facility] Mean Corpuscular Volume 86.0 80.0 - 98.0 fL [facility] Mean Corpuscular Hemoglobin 27.9 27.0 - 33.0 pg [facility] Mean Corpuscular HGB Conc 32.5 31.0 - 36.0 g/dl [facility] Red Cell Distribution Width 13.3 11.0 - 16.0 % [facility] Platelet Count 253 160 - 400 X10*3/uL [facility] Mean Platelet Volume 10.4 9.4 - 12.4 fL [facility] Neutrophils Percent Auto 71.1 45 - 73 % [facility] Imm Gran Pct Auto 0.5(H) 0.0 - 0.4 % [facility] Lymphocytes Percent Auto 17.7(L) 20 - 40 % [facility] Monocytes Percent Auto 8.1 2 - 11 % [facility] Eosinophils Percent Auto 2.0 0 - 4 % [facility] Basophils Percent Auto 0.6 0 - 2 % [facility] NRBC Pct Auto 0.0 0.0 - 0.2 /100WBC [facility] Neutrophils Absolute Auto 5.9 2.0 - 8.3 x10*3/uL [facility] Imm Gran Abs Auto 0.04(H) 0.00 - 0.03 X10*3/uL [facility] Lymphocytes Absolute Auto 1.5 1.2 - 4.9 X10*3/uL [facility] Monocytes Absolute Auto 0.7 0.1 - 1.2 X10*3/uL [facility] Eosinophils Absolute Auto 0.2 0.0 - 0.4 X10*3/uL [facility] Basophils Absolute Auto 0.1 0.0 - 0.2 X10*3/uL [facility] NRBC Abs Auto 0.000 0.0 - 0.012 X10*3/uL [facility] Blood Venous blood specimen / Unknown 10/30/2024 2:29 PM EDT 10/30/2024 4:02 PM EDT Result Kalpana Stephenson MD LAB BLOOD ORDERABLES Final Resul t [facility] [address] [place] [phone] * (ABNORMAL) POCT Hgb A1c (10/30/2024 1:45 PM EDT) Hemoglobin A1C 6.9(A) 4.0 - 5.7 % QC Media Lot # [id number] Lot# Expiration Date 41,[id number] Blood 10/30/2024 1:45 PM EDT Result Kalpana Stephenson MD POINT OF CARE TEST ENTER/EDIT OR DERABLES Final Result * POCT Glucose (10/30/2024 1:44 PM EDT) Glucose Blood, POC 179 60 - 200 mg/dL QC Media Lot # [id number] Lot# Expiration Date 726 Blood Capillary blood specimen / Unknown 10/30/2024 1:44 PM EDT Result Kalpana Stephenson MD POINT OF CARE TEST ENTER/EDIT OR DERABLES Final Result documented in this encounter Visit Diagnoses Diagnosis GUIDO (dyspnea on exertion)- Primary Other dyspnea and respiratory abnormality Coronary artery disease involving [place] coronary artery of [place] heart without angina pectoris Paroxysmal atrial fibrillation (CMS/HCC) Atrial fibrillation Type 2 diabetes mellitus with hyperglycemia, unspecified whether buttermaker helper insulin use (CMS/HCC) documented in this encounter Additional Health Concerns Assessment Noted Time PHQ-9 Depression Total Score: 4 07/06/19 25 3:03 PM EDT documented as of this encounter Care Teams Sweatband Shaper Relationship Specialty Start Date End Date Name, MD Jose [address] [place] [address] PCP - General Family Medicine 07/02/15 Renetta Davenport PharmD [address] [place] [address] Pharmacist Internal Medicine 01/03/24 documented as of this encounter
[2024-10-30 16:09] LABS: MANUAL DIFF FLAG NO
[2024-10-30 16:13] LABS: Hematocrit 43.1 % (42.0-52.0); Hemoglobin 14.0 g/dl (14.0-18.0); Imm Gran Abs Auto 0.04 X10*3/uL (0.00-0.03); Imm Gran Pct Auto 0.5 % (0.0-0.4); Lymphocytes Absolute Auto 1.5 X10*3/uL (1.2-4.9); Mean Corpuscular HGB Conc 32.5 g/dl (31.0-36.0); Mean Corpuscular Hemoglobin 27.9 pg (27.0-33.0); Mean Corpuscular Volume 86.0 fL (80.0-98.0); NRBC Abs Auto 0.000 X10*3/uL (0.0-0.012); NRBC Pct Auto 0.0 /100WBC (0.0-0.2); Platelet Count 253 X10*3/uL (160-400); Red Blood Count 5.01 X10*6/uL (4.60-5.80); White Blood Count 8.3 X10*3/uL (4.8-10.8)
--- OUTSIDE RECORDS SUMMARY | 2024-10-30 16:32 | XMS_ITS | Clinical Summary ---
Author Organization [employer] Address [address] [place] [address] 7 [place] [address] Care Team Providers Care Liner Reroll Tender Name Role Phone Name, Jose ALVARADO Primary Care Provider [phone] Renetta Davenport PharmD Unavailable [phone] Allergies No known active allergies Medications [...] day 1 kit 024 Active Continuous Glucose Newspaper Photo Editor (FreeStyle Boubacar 2 [place]) deviceIndications :Diabetic polyneuropathy associated with type 2 diabetes mellitus (CMS/HCC) Use as directed 1 each 024 Active [...] as directed 100 each 11 025 Active Eliquis 5 MG tabletIndications :Atrial fibrillation, unspecified type (CMS/HCC) TAKE 1 TABLET BY MOUTH TWICE DAILY IN THE MORNING AND IN THE EVENING 180 tablet 1 Active buPROPion SR (Wellbutrin SR) 200 MG 12 hr tabletIndications :Atrial fibrillation, unspecified type (CMS/HCC) TAKE 1 TABLET BY MOUTH TWICE DAILY IN THE MORNING AND IN THE EVENING 180 tablet 1 Active Continuous Glucose Sensor (FreeStyle Boubacar 2 Plus Sensor) [facility] 1 each every 8 (eight) hours. Apply 1 sensor every 15 days as directed for CGM. Continue to scan Q8H, at minimum, to capture 24 hr BG data. 2 each Active losartan (Cozaar) 50 MG tablet Take 1 tablet (50 mg) by mouth Once per day. 90 tablet Active Tirzepatide (Mounjaro) 7.5 MG/0.5ML solution auto-injector Inject 7.5 mg under the skin 1 (one) time per week. 2 mL Active glucagon (Baqsimi Two Pack) 3 MG/DOSE nasal powderIndications :Type 2 diabetes mellitus with hyperglycemia, unspecified whether tank terminal gauger insulin use (CMS/[facility]) Administer 3 mg via 1 device into the nostril for hypoglycemia with loss of consciousness. If no response after 15 minutes administer an additional dose via 2nd device into other nostril. 2 each Active glucose 4 g chewable tabletIndications :Type 2 diabetes mellitus with hyperglycemia, unspecified whether detention insulin use ([facility]) Chew 4 tablets (16 g) if needed for low blood sugar. <70 mg/dL. Recheck blood sugar after 15 minutes and repeat treatment as needed & as directed. 20 tablet 025 2025 Active amLODIPine (Norvasc) 10 MG tablet Take 1 tablet (10 mg) by mouth at bedtime. 90 tablet Active ezetimibe (Zetia) 10 MG tablet Take 1 tablet (10 mg) by mouth in the evening. 90 tablet Active Lancets (OneTouch Delica Plus Vsnmhm99A) [facility] Use to test BG twice daily as directed 100 each Active fluticasone-salme terol (Advair HFA) 230-21 MCG/ACT inhalerIndication s:Moderate persistent asthma with exacerbation INHALE 2 PUFFS BY MOUTH TWICE DAILY IN THE MORNING AND IN THE EVENING RINSE MOUTH AFTER USING. 12 g 11 025 Active allopurinol (Zyloprim) 300 MG tablet TAKE 1 TABLET BY MOUTH EVERY MORNING 90 tablet 3 025 Active gabapentin (Neurontin) 100 MG capsuleIndication [...] EVERY MORNING 90 tablet 1 025 Active pantoprazole (ProtoNix) 40 MG EC tablet TAKE 1 TABLET BY MOUTH EVERY MORNING 90 tablet 025 Active folic acid (Folvite) 1 MG tablet TAKE 1 TABLET BY MOUTH EVERY MORNING 90 tablet 1 025 Active D3-1000 25 MCG (1000 UT) capsuleIndication s:Vitamin D deficiency TAKE 1 CAPSULE BY MOUTH EVERY MORNING 90 capsule 1 025 Active cholecalciferol (D3-1000) 25 MCG (1000 UT) capsuleIndication s:Vitamin D deficiency TAKE 1 CAPSULE BY MOUTH EVERY MORNING 90 capsule 025 2024 Discontinued pantoprazole (ProtoNix) 40 MG EC tablet TAKE 1 TABLET BY MOUTH EVERY MORNING 90 tablet 025 2024 Discontinued folic acid (Folvite) 1 MG tablet TAKE 1 TABLET BY MOUTH EVERY MORNING 90 tablet 025 2024 Discontinued atorvastatin (Lipitor) 80 MG tablet TAKE 1 TABLET BY MOUTH EVERY MORNING 90 tablet 025 2024 Discontinued Active Problems Problem Noted [...] due t o type 2 diabetes mellitus ([facility]) 10/30/2015 Essential hypertension 07/02/2015 Memory impairment 07/02/2015 Hypercholesterolemia 07/02/2015 Coronary artery disease invo lving [place] coronary artery of [place] heart without angina pectoris 05/07/2014 Gout 05/07/2014 GERD (gastroesophageal reflux disease) 5 Asthma 05/07/2014 Stenosing tenosynovitis 06/02/2010 Major depressive disorder 05/23/2010 Microalbuminuria 12/11/2009 Fatty liver 12/11/2009 Disorder of peripheral nervous system 12/11/2009 Edema of foot 02/15/2008 Low back pain, unspecified 09/09/2007 Anemia 09/09/2007 Non-cardiac chest pain 07/29/2007 Encounters Date Type Department Care Team Description 10/30/2024 1:30 PM EDT Office Visit [address] [address] Jose Rudd MD GUIDO (dyspnea on exertion) (Primary Dx); Coronary artery disease involving [place] coronary artery of [place] heart without angina pectoris; Paroxysmal atrial fibrillation ([facility]); Type 2 diabetes mellitus with hyperglycemia, unspecified whether tank terminal gauger insulin use ([facility]) 10/30/2024 Travel 10/27/[address] [address] Jose Rudd MD Chart Prep 10/20/2024 Patient Outreach [facility] [address] [place], [place] [phone] Jose Rudd MD Pre-visit Planning (SDOH was already completed) 10/18/[address] [address] oJse Rudd MD Vitamin D deficiency 09/27/[address] [address] Jose Rudd MD Release of Information (I called the patient regarding a PCP order form, from [facility]. I informed him that office notes cannot be sent, because he did not initial the release of information, where it would allow for sensitive information to be sent out. He stated that he gives a verbal authorization for sensitive information to be released. He informed me that his RMV placard expires this month, and needs to be renewed. I asked him to drop off a new application at the [facility] Department, and it will be brought ) 09/21/[address] [address] Jose Rudd MD Durable Medical Equipment 09/14/[address] [address] Jose Rudd MD Med Refill; Home Care Services (I called the patient regarding a PCP Order Form, from [facility]. The office notes cannot be sent, because he did not initial the release, allowing for sensitive information to be sent out. I reached his voicemail, and left a message asking him to return my call at ext [phone].) 08/29/2024 Orders Only GENERIC EXTERNAL DATA DEPARTMENT Provider, Generic External Data 08/13/2024 Refill [facility] [address] [facility] [place] [address] Name, MD Jose 08/09/2024 Refill [facility] [address] [facility] [place] [address] Name, MD Jose Moderate persistent asthma with exacerbation 07/31/2024 Travel from Last 3 Months Immunizations Immunization Administration [...] Frequency of Binge Drinking Not on file 0808/2023 Score 0 09/29/2023 Depression Answer Date Recorded [...] Mass Index 30.1 10/30/2024 1:39 PM EDT Plan of Treatment Upcoming Encounters Date Type Department Care Team (Late st Contact Info) Description 11/29/2024 11:30 AM EDT Telemedicine [facility] [address] [facility] [place] [address] Name, MD Jose [address] [facility] [place] [address] Health Maintenance Due Date Last Done Comments CT Colonography 1960 Colonoscopy 1960 Colorectal Cancer Screening 1960 FIT DNA/Cologuard 1960 FIT 1960 FOBT 1960 HIV Screening 1960 Sigmoidoscopy 1960 Hepatitis C Screening 1978 Hepatitis A Vaccines (3 of 3 - Hep A Twinrix risk 3-dose series) 06/29/2010 01/29/2010, 12/04/2009 Eye Exam 09/25/2023 09/24/2022 Diabetes: Foot Exam 12/22/2023 12/21/2022, 12/21/2022, 12/21/2022, Additional history exists COVID-19 Vaccine (2024- season) 2024 12/08/2021, 06/03/2020, 05/06/2020 Influenza Vaccine (#1) 2024 , 12/21/2022, 11/12/2021, Additional history exists Lipid Panel 12/15/2024 12/16/2023, 11/0 07/2022, 03/23/2022, Additional history exists Diabetes: Hemoglobin A1C 04/29/2025 025, 06/06/2024, 03/14/2024, Additional history exists Depression Screening 07/05/2025 07/05/2024, 07/06/19 25 Disability Screening 07/05/2025 07/05/2024 SDOH Screening 07/05/2025 07/05/2024 Alcohol/Substance Use Screening 10/30/2025 10/30/2024 Tobacco Screening 10/30/2025 10/30/2024 DTaP/Tdap/Td Vaccines (4 - Td or Tdap) [...] 2 diabetes mellitus with hyperglycemia, unspecified whether detention insulin use ([facility]) POCT GLUCOSE Routine 10/30/2024 1:44 PM EDT Type 2 diabetes mellitus with hyperglycemia, unspecified whether detention insulin use ([facility]) CALCIUM Routine 08/29/2024 1:21 PM EDT CREATININE, SERUM Routine 08/29/2024 1:2 1 PM EDT UREA NITROGEN (BUN) Routine 08/29/2024 1 :21 PM EDT ELECTROLYTE PANEL Routine 08/29/2024 1:2 1 PM EDT LIPID PANEL, STANDARD Routine 12/16/2023 11:30 AM EDT Type 2 diabetes mellitus with hyperglycemia, unspecified whether tank terminal gauger insulin use ([facility]) DIABETES EYE EXAM Routine 09/24/2022 from Last 3 Months or Most Recently Relevant to Health Maintenance Results * XR Chest 2 Views (10/30/2024 3:02 PM EDT) Anatomical Region Laterality Modality Chest Radiographic Jackeline ging 10/30/2024 3:02 PM EDT Narrative 10/30/2024 3:12 PM EDT [address] [address] XRay Report Signed Patient: Tayo Solitario MR#: [id number] 3 : 1960 Acct:[id number] Age/Sex: 64 / M ADM Date: 10/30/24 Loc: .[facility] Attending Dr: Jose Rudd MD Ordering Physician: Jose Rudd MD Date of Service: 10/30/24 Procedure(s): XR chest 2V Accession Number(s): [id number] cc: Jose Rudd MD Reason for Exam: 3 months of [...] Manuel Beltrán MD 10/30/2024 03:09 PM EDT Dictated By: Victor Manuel Beltrán MD Signed By: <Electronically signed by Victor Manuel Beltrán MD in OV> 10/30/24 1509 DD/ 1502 TD/TT: 10/30/24 1503 Library Media Technician: Procedure Note Donotuseinterpreter, Image - 10/30/[address] [address] XRay Report Signed Patient: Tayo SolitarioMR#: [id number] 3 : 1960cct:[id number] Age/Sex: 64 / MADM Date: 10/30/24 Loc: [facility] Attending Dr: Jose Rudd MD Ordering Physician: Jose Rudd MD Date of Service: 10/30/24 Procedure(s): XR chest 2V Accession Number(s): [id number] cc: Jose Rudd MD Reason for Exam: 3 months of [...] Manuel Beltrán MD 10/30/2024 03:09 PM EDT Dictated By: Victor Manuel Beltrán MD Signed By: <Electronically signed by Victor Manuel Beltrán MD in OV> 10/30/24 1509 DD/ 1502 TD/TT: 10/30/24 1503 Library Media Technician: Jose Rudd MD IMG XR PROCEDURES Edited Result - Final * (ABNORMAL) CBC auto differential (10/30/2024 2:29 PM EDT) White Blood Count 8.3 4.8 - 10.8 X10*3/uL [facility] Red Blood Count 5.01 4.60 - 5.80 X10*6/uL [facility] Hemoglobin 14.0 14.0 - 18.0 g/dl [facility] Hematocrit 43.1 42.0 - 52.0 % [facility] Mean Corpuscular Volume 86.0 80.0 - 98.0 fL [facility] Mean Corpuscular Hemoglobin 27.9 27.0 - 33.0 pg [facility] Mean Corpuscular HGB Conc 32.5 31.0 - 36.0 g/dl [facility] Red Cell Distribution Width 13.3 11.0 - 16.0 % [facility] Platelet Count 253 160 - 400 X10*3/uL [facility] Mean Platelet Volume 10.4 9.4 - 12.4 fL [facility] Neutrophils Percent Auto 71.1 45 - 73 % [facility] Imm Gran Pct Auto 0.5(H) 0.0 - 0.4 % [facility] Lymphocytes Percent Auto 17.7(L) 20 - 40 % [facility] Monocytes Percent Auto 8.1 2 - 11 % [facility] Eosinophils Percent Auto 2.0 0 - 4 % [facility] Basophils Percent Auto 0.6 0 - 2 % [facility] NRBC Pct Auto 0.0 0.0 - 0.2 /100WBC [facility] Neutrophils Absolute Auto 5.9 2.0 - 8.3 x10*3/uL [facility] Imm Gran Abs Auto 0.04(H) 0.00 - 0.03 X10*3/uL [facility] Lymphocytes Absolute Auto 1.5 1.2 - 4.9 X10*3/uL [facility] Monocytes Absolute Auto 0.7 0.1 - 1.2 X10*3/uL [facility] Eosinophils Absolute Auto 0.2 0.0 - 0.4 X10*3/uL [facility] Basophils Absolute Auto 0.1 0.0 - 0.2 X10*3/uL [facility] NRBC Abs Auto 0.000 0.0 - 0.012 X10*3/uL [facility] Blood Venous blood specimen / Unknown 10/30/2024 2:29 PM EDT 10/30/2024 4:02 PM EDT us Jose Rudd MD LAB BLOOD ORDERABLES Final Resul t Performing Organization Address City/[facility]/ZIP Co de Phone Number [facility] [address] [place] [phone] * (ABNORMAL) POCT Hgb A1c (10/30/2024 1:45 PM EDT) Hemoglobin A1C 6.9(A) 4.0 - 5.7 % QC Media Lot # [id number] Lot# Expiration Date [id number] Blood 10/30/2024 1:45 PM EDT Jose Rudd MD POINT OF CARE TEST ENTER/EDIT OR DERABLES Final Result * POCT Glucose (10/30/2024 1:44 PM EDT) Glucose Blood, POC 179 60 - 200 mg/dL QC Media Lot # [id number] Lot# Expiration Date 22,726 Blood Capillary blood specimen / Unknown 10/30/2024 1:44 PM EDT Jose Rudd MD POINT OF CARE TEST ENTER/EDIT OR DERABLES Final Result * (ABNORMAL) Creatinine, Serum (08/29/2024 1:21 PM EDT) Creatinine, Serum 1.75(H) 0.5 - 1.4 mg/dL [facility] Estimated Glomerular Filt Rate 39 [facility] Comment:Chronic Kidney Disea se: Estimated GFR < 60 mL/min/1.20r2Wdgwen Kidney Disease: Estimated GFR < 15 mL/min/1.73m2 08/29/2024 1:21 PM EDT 08/29/2024 1:21 PM EDT Generic External Data Provider LAB BLOOD ORDERAB LES Final Result [facility] [address] [place] [phone] * (ABNORMAL) BUN (Blood Urea Nitrogen) (08/29/2024 1:21 PM EDT) Urea Nitrogen (BUN) 28(H) 9 - 16 mg/dL [facility] 08/29/2024 1:21 PM EDT 08/29/2024 1:21 PM EDT us Generic External Data Provider LAB BLOOD ORDERAB LES Final Result Performing Organization Address [facility] Co de Phone Number [facility] [address] [place] [phone] * Calcium (08/29/2024 1:21 PM EDT) Calcium 8.6 8.4 - 10.2 mg/dL [facility] 08/29/2024 1:21 PM EDT 08/29/2024 1:21 PM EDT Generic External Data Provider LAB BLOOD ORDERAB LES Final Result Performing Organization Address [facility] de Phone Number [facility] [address] [place] [phone] * (ABNORMAL) Electrolyte Panel (08/29/2024 1:21 PM EDT) Sodium 139 135 - 145 mmol/L [facility] Potassium 4.2 3.3 - 5.1 mmol/L [facility] Chloride 109(H) 96 - 108 mmol/L [facility] Carbon Dioxide 22 22 - 29 mmol/L [facility] Anion Gap 12 12 - 20 [facility] 08/29/2024 1:21 PM EDT 08/29/2024 1:21 PM EDT us Generic External Data Provider LAB BLOOD ORDERAB LES Final Result Performing Organization Address [facility] Co de Phone Number [facility] [address] [place] [phone] * Lipid Panel, Standard (12/16/2023 11:30 AM EDT) Triglycerides 59 <150 mg/dL [facility] Comment:Desirable Triglyceri de: less than 150 mg/dLBorderline High Triglyceride 150-199 mg/dLHigh Triglyceride: 200-499 mg/dLVery High Triglyceride: greater than or equal to 5OO mg/dL Cholesterol 145 <200 mg/dL [facility] Comment:Desirable Cholestero l: less than 200 mg/dLBorderline High Cholesterol: 200-239 mg/dLHigh Cholesterol: greater than 239 mg/dL LDL Cholesterol Calculated 89 <100 mg/dL [facility] Comment:Desirable LDL: less than 100 mg/dLNear Optimal/Above Optimal LDL: 110- 129 mg/dLBorderline High LDL: 130-159 mg/dLHigh LDL: 160-189 mg/dLVery High LDL: greater than or equal to 190 mg/dL HDL Cholesterol 45 >40 mg/dL [facility] Comment:Desirable HDL: great er than 40 mg/dL Note: This HDL assay may give artificially low results in patients with liver disease. Blood Venous blood specimen / Unknown 12/16/2023 11:30 AM EDT 12/16/2023 1:54 PM EDT us Jose Rudd MD LAB BLOOD ORDERABLES Final Resul t Performing Organization Address [facility] Co de Phone Number [facility] [address] [place] [phone] * Diabetes Eye Exam (09/24/2022) Eye Exam Normal Normal us Jose Rudd MD HEALTH MAINTENANCE Final Result from Last 3 Months or Most Recently Relevant to Health Maintenance Insurance [facility] STANDARD Care Teams Liner Reroll Tender Relationship Specialty Start Date End Date Name, MD Jose [address] [place] [phone] PCP - General Family Medicine 07/02/15 Renetta Davenport PharmD [address] [place] [address] Pharmacist Internal Medicine 01/03/24
--- OUTSIDE RECORDS SUMMARY | 2024-10-30 16:33 | XMS_ITS | Encounter Summary ---
Author Organization [email or web address] Address [address] [facility] [address] [place] [address] Care Team Providers Care Material Inspector Name Role Phone Name, Jose ALVARADO Primary Care Provider [phone] Renetta Davenport PharmD Unavailable Encounter Details Date Type Department Care Team (Latest Contact Info) Description 10/30/2024 Travel Social History Tobacco Use Types Packs/Day Years [...] Info) Description 11/29/2024 11:30 AM EDT Telemedicine [facility] [address] [place] [phone] Name, MD Jose [address] [place] [phone] documented as of this encounter Visit Diagnoses Not on filedocumented in this encounter Additional Health Concerns Assessment Noted Time PHQ-9 Depression Total Score: 4 07/06/19 25 3:03 PM EDT documented as of this encounter Care Teams Material Inspector Relationship Specialty Start Date End Date NameJose MD [address] [place] [phone] PCP - General Family Medicine 07/02/15 Renetta Davenport PharmD [address] [place] [phone] Pharmacist Internal Medicine 01/03/24 documented as of this encounter
--- OUTSIDE RECORDS SUMMARY | 2024-10-30 16:33 | XMS_ITS | Encounter Summary ---
Author Organization [employer] [facility] Address [address] [place] [address] 7 [place] [address] Care Team Providers Care Cleat Maker Name Role Phone Name, Jose ALVARADO Primary Care Provider Renetta Davenport PharmD Unavailable [phone] Encounter Details Date Type Department Care Team (Late st Contact Info) Description 03/04/2022 Orders Only [facility] [address] [place] [phone] Izabela Johnson LPN Social History Tobacco Use [...] Upcoming Encounters Date Type Department Care Team ([facility] Contact Info) Description 11/29/2024 11:30 AM EDT Telemedicine [facility] [address] [place] [phone] Name, MD Jose [address] [place] [phone] documented as of this encounter Procedures Procedure Name Priority Date/Time Associated Diagnosis Comments LIPID PANEL, STANDARD Routine 03/23/2022 1:02 PM EST documented in this encounter Results * Lipid Panel, Standard (03/23/2022 1:02 PM EST) Triglycerides 49 mg/dL [facility] Comment:Desirable Triglyceri de: less than 150 mg/dLBorderline High Triglyceride 150-199 mg/dLHigh Triglyceride: 200-499 mg/dLVery High Triglyceride: greater than or equal to 5OO mg/dL Cholesterol 167 mg/dL [facility] Comment:Desirable Cholestero l: less than 200 mg/dLBorderline High Cholesterol: 200-239 mg/dLHigh Cholesterol: greater than 239 mg/dL LDL Cholesterol Calculated 110 mg/dl [facility] Comment:Desirable LDL: less than 100 mg/dLNear Optimal/Above Optimal LDL: 110- 129 mg/dLBorderline High LDL: 130-159 mg/dLHigh LDL: 160-189 mg/dLVery High LDL: greater than or equal to 190 mg/dL HDL Cholesterol 48 mg/dL [facility] Comment:Desirable HDL: great er than 40 mg/dL Note: This HDL assay may give artificially low results in patients with liver disease. 03/23/2022 1:02 PM EST 03/23/2022 1:02 PM EST us [facility] External Provider LAB BLO OD ORDERABLES Final Result [facility] [address] [place] [phone] documented in this encounter Visit Diagnoses Not on filedocumented in this encounter Care Teams Cleat Maker Relationship Specialty Start Date End Date Name, MD Jose [address] [place] [phone] PCP - General Family Medicine 07/02/15 Renteta Davenport PharmD [address] [place] [address] Pharmacist Internal Medicine 01/03/24 documented as of this encounter
--- OUTSIDE RECORDS SUMMARY | 2024-10-30 16:33 | XMS_ITS | Encounter Summary ---
Author Organization [employer] Address [address] [facility] 7 [place] [address] Care Team Providers Care Twine Reeling Machine Operator Name Role Phone Name, Jose ALVARADO Primary Care Provider [phone] Renetta Davenport PharmD Unavailable [phone] Encounter Details Date Type Department Care Team ([facility] st Contact Info) Description 08/30/2023 Telephone [facility] [address] [place], [place] [phone] Name, MD Jose [address] [place] [address] Social History Tobacco Use Types Packs/Day Years [...] 11:30 AM EDT Telemedicine [facility] [address] [place] [phone] Name, MD Jose [address] [place] [phone] documented as of this encounter Visit Diagnoses Not on filedocumented in this encounter Additional Health Concerns Assessment Noted Time PHQ-9 Depression Total Score: 0 04/19/19 24 1:44 PM EST documented as of this encounter Care Teams Twine Reeling Machine Operator Relationship Specialty Start Date End Date NameJose MD [address] [place] [phone] PCP - General Family Medicine 07/02/15 Renetta Davenport PharmD [address] [place] [phone] Pharmacist Internal Medicine 01/03/24 documented as of this encounter
--- OUTSIDE RECORDS SUMMARY | 2024-10-30 16:33 | XMS_ITS | Encounter Summary ---
Author Organization [employer] Address [address] [place] [address] [address], [place] [address] Care Team Providers Care Badger Distiller Operator Name Role Phone Name, Jose ALVARADO Primary Care Provider [phone] Renetta Davenport PharmD Unavailable [phone] Reason for Visit * Reason Onset Date Comments Nurse Triage 09/25/2022 Encounter Details Date Type Department Care Team ([facility] st Contact Info) Description 09/25/2022 Telephone [facility] MEDICINE [address] [place], [place] [phone] Name, MD Jose [address] [place] [address] Nurse Triage Social History Tobacco Use Types [...] - 09/28/2022 1:41 PM EDT T/C to [phone] for status check, No answer. LVM to call back on [phone]. * Telephone Encounter - Azeb Hager RN - 09/25/2022 12:43 PM EDT Triage call with [place] [id number] Pt , JEANA Contreras reports Pt is sleeping and she will talk for Pt. Pt was tested + for Covid09/24/22. Pt symptoms are fever, tactile, body aches, cough, nasal congestion and headache. Diane informs commercial lines underwriter that Pt has been given prednisone [...] of listed homecare advise. Haleigh is given [employer] number [phone] for eligibility for paxlovid. Haleigh is asking [...] this outcome Please contact pt spouse at [phone] Libyan Speaker documented in this encounter Plan of Treatment Upcoming Encounters Date Type Department Care Team (Late st Contact Info) Description 11/29/2024 11:30 AM EDT Telemedicine [facility] MEDICINE [address] [place] [address] Name, MD Jose [address] [place] [address] documented as of this encounter Visit Diagnoses Not on filedocumented in this encounter Care Teams Badger Distiller Operator Relationship Specialty Start Date End Date Name, MD Jose [address] [place] [address] PCP - General Family Medicine 07/02/15 Renetta Davenport PharmD [address] [place] [address] Pharmacist Internal Medicine 01/03/24 documented as of this encounter
--- OUTSIDE RECORDS SUMMARY | 2024-10-30 16:33 | XMS_ITS | Encounter Summary ---
Author Organization [employer] Address [address] [place] [address] 7 [place] [address] Care Team Providers Care Race Starter Name Role Phone Name, Jose ALVARADO Primary Care Provider [phone] Renetta Davenport PharmD Unavailable [phone] Reason for Visit * Reason Onset Date Comments Chart Prep 10/27/2024 Encounter Details Date Type Department Care Team ([facility] st Contact Info) Description 10/27/[address] [facility] MEDICINE [address] [place], [place] [phone] Name, MD Jose [address] [place] [address] Chart Prep Social History Tobacco Use Types [...] Telephone Encounter - Elizabeth Brown MA - 10/27/2024 11:01 AM EDT Chart Prep Labs: done from 08/29/24 Images: not applicable Referrals: not applicable Vaccines due: Covid, Flu, and Hep A Screenings: colonoscopy, eye exam, foot exam, and Hep C, HIV. Overdue care gaps: A1c, Glucose, SBIRT, Oral health screening, and Tobacco documented in this encounter Plan of Treatment Upcoming Encounters Date Type Department Care Team (Late st Contact Info) Description 11/29/2024 11:[address] [facility] MEDICINE [address] [place] [address] Name, MD Jose [address] [place] [address] documented as of this encounter Visit Diagnoses Not on filedocumented in this encounter Additional Health Concerns Assessment Noted Time PHQ-9 Depression Total Score: 4 07/06/19 25 3:03 PM EDT documented as of this encounter Care Teams Race Starter Relationship Specialty Start Date End Date Name, MD Jose [address] [place] [address] PCP - General Family Medicine 07/02/15 Renetta Davenport PharmD [address] [place] [address] Pharmacist Internal Medicine 01/03/24 documented as of this encounter
--- OUTSIDE RECORDS SUMMARY | 2024-10-30 16:33 | XMS_ITS | Encounter Summary ---
Author Organization [employer] Address [address] [place] [address] [place], [place] [address] Care Team Providers Care Technology Specialist Name Role Phone Name, Jose ALVARADO Primary Care Provider [phone] Renetta Davenport PharmD Unavailable [phone] Reason for Visit * Reason Onset Date Comments call back 04/03/2022 Requested Call Back 04/07/2022 Prescription Request 04/03/2022 I called to verify that the pt requested insulin supplies through [facility], because they faxed a prescription order form to the [employer] [facility] department. He stated that he did not make the request, and that his prescriptions are sent to the [facility]. The form was faxed back to [facility], along with a note stating that the patient uses a local pharmacy. Encounter Details Date Type Department Care Team ([facility] Contact Info) Description 04/03/2022 Telephone [facility] MEDICINE [address] [place] [address] Name, MD Jose [address] [place], [place] [phone] call back; Requested Call Back ; Prescription Request (I called to verify that the pt requested insulin supplies through [facility], because they faxed a prescription order form to the [employer] [facility] [facility] department. He stated that he did not make the request, and that his prescriptions are sent to the [facility]. The form was faxed back to [facility], along with a note stating that [...] - 04/07/2022 10:30 AM EST Tc from [facility] re calling in regards to diabetes supplies. Advised of message below, however [facility] is requesting a call back at [phone]. * Telephone Encounter - Gisselle Miranda RN - 04/06/2022 2:13 PM EST Pt does not use [facility] as a pharmacy and has upcoming appt on 04/08/22 and can discuss if pt wants to switch pharmacies * Telephone Encounter - Gio Crum - 04/03/2022 9:14 AM EST Tc from Gretchenwv with [facility] requesting a call back regarding pt medication Please contact stuart at [phone] documented in this encounter Plan of Treatment Upcoming Encounters Date Type Department Care Team (Late st Contact Info) Description 11/29/2024 11:30 AM EDT Telemedicine [facility] MEDICINE [address] [place] [address] Name, MD Jose [address] [place] [address] documented as of this encounter Visit Diagnoses Not on filedocumented in this encounter Care Teams Technology Specialist Relationship Specialty Start Date End Date Name, MD Jose [address] [place] [address] PCP - General Family Medicine 07/02/15 Renetta Davenport, BaileyD [address] [place] [address] Pharmacist Internal Medicine 01/03/24 documented as of this encounter
[2024-10-30 16:40] LABS: Alanine Aminotransferase 47 U/L (0-40); Albumin Level 4.1 g/dL (3.5-5.0); Alkaline Phosphatase 87 U/L (39-117); Anion Gap 14 (12-20); Aspartate Amino Transferase 36 U/L (5-37); Blood Urea Nitrogen 28 mg/dL (9-16); Calcium 8.9 mg/dL (8.4-10.2); Carbon Dioxide 22 mmol/L (22-29); Chloride 109 mmol/L (96-108); Cholesterol 150 mg/dL (<200); Estimated Glomerular Filt Rate 37; HDL Cholesterol 45 mg/dL (>40); Potassium 4.3 mmol/L (3.3-5.1); Sodium 141 mmol/L (135-145); Total Protein 6.9 g/dL (6.5-8.0); Triglycerides 42 mg/dL (<150)
== END 2024-10-30 14:13 | disposition home or self-care (01) ==
LOC: HO.HHCL 14:12
PROVIDERS: Internal Medicine Nephrology; PCP Internal Medicine Geriatric Medicine; Visit Provider Internal Medicine Geriatric Medicine
DX: R06.09 Other forms of dyspnea (principal); E78.5 Hyperlipidemia, unspecified
CPT/HCPCS: 36415; 71046; 80053; 80061; 85025

== ENCOUNTER → 2024-10-30 14:43 | Outpatient (BNV) | payer OTHER, SELFPAY | PROVIDERS: PCP Internal Medicine Geriatric Medicine; Visit Provider Radiology Diagnostic Radiology | DX: R06.09 Other forms of dyspnea (principal) | CPT/HCPCS: 71046 ==

== ENCOUNTER 2024-11-07 14:08 | Outpatient (AMB) | payer OTHER, SELFPAY ==
[2024-11-07 14:12] VITALS: BP 122/58; PULSE 94; BMI 32.8
--- NOTE | 2024-11-07 14:12 | A.OFFVIS_ITS ---
Vital Signs 11/07/24 14:12 Height 6 ft Weight 242 lb 1.081 oz BMI 32.8 BP 122/58 L Blood Pressure Location Lt brachial Position Sitting Pulse 94 Pulse Source Monitor Intake Visit Reasons: 6m follow up Chart Picker Required: Yes Chart Picker Name: Carlos Montana -[id number] Damion Accompanied by: Self / Same As Patient Allergies No Known Allergies (No Known Allergies*) Allergy (Verified 11/07/24 14:16) Medication List - Last Reviewed 11/07/24 by Juan Medellin CNA albuterol sulfate 90 mcg/actuation 2 puffs inhalation Q6H PRN allopurinol 300 mg PO DAILY amlodipine 10 mg PO BEDTIME apixaban (Eliquis) 5 mg PO BID atorvastatin 80 mg PO DAILY bupropion HCl SR 200 mg PO BID cholecalciferol (vitamin D3) (Vitamin D3) 25 mcg PO DAILY dronedarone (Multaq) 400 mg PO BID ezetimibe 10 mg PO BEDTIME fluticasone propion-salmeterol 230-21 mcg/actuation (Advair HFA) 2 puffs inhala tion BID folic acid 1 mg PO DAILY gabapentin 100 mg PO BEDTIME losartan 50 mg PO DAILY metoprolol tartrate 75 mg (1.5 x 50 mg) PO TID pantoprazole 40 mg PO DAILY@0630 sennosides-docusate sodium 8.6-50 mg 1 tab-cap PO BEDTIME tirzepatide (Mounjaro) 7.5 mg subcut QWEEK HPI Comments Details: This is a 64-year-old male patient coming in for a follow-up visit. A engineering lecturer was used throughout the visit. Patient with a history of hypertension, paroxysmal AFib, and hyperlipidemia. Patient was previously in the hospital for AFib with RVR and underwent a 30 day broach operator to assess AFib burden where patient had 1 episode of NSVT otherwise no AFib. Subsequently, patient underwent an echo study. Today, patient is reporting exertional shortness of breath and fatigue feeling when going up and down a flight of stairs. Patient is mostly sedentary and this is the most exertion he does. Patient reports that during these episodes he also has some palpitations which all improved after resting. Patient is otherwise denying any dizziness, orthopnea, PND, leg edema, presyncope or syncope. Patient is reporting compliance with all his medications. [facility] Medical History History of cardioversion History of COVID-19 COVID-19 vaccine series completed Elevated cholesterol HTN (hypertension) Asthma COPD (chronic obstructive pulmonary disease) LUIS ALFREDO (obstructive sleep apnea) CAD (coronary artery disease) Surgical History H/O cardiac catheterization History of cataract surgery H/O: vasectomy Family History Father HTN (hypertension) Diabetes Mother HTN (hypertension) Diabetes CVD (cardiovascular disease) Social History Household Members: Spouse Housing: Apartment Do you presently have visiting nurse or other home services: No Alcohol intake: never Patient Tobacco Use Status: Never used Tobacco service: No Review of Systems Const Denies daytime sleepiness, Denies difficulty sleeping, Denies snoring, Denies stops breathing during sleep and Denies weakness Card Denies chest pain, Denies rapid heart rate, Denies irregular heart rhythm, Denies claudication, Denies leg edema, Reports lightheadedness, Denies palpitations, Reports dyspnea, Reports dyspnea on exertion, Denies orthopnea, Denies paroxysmal nocturnal dyspnea and Denies slow heart rate Resp Denies cough, Reports dyspnea, Reports dyspnea on exertion and Denies snoring GI Reports no additional complaints, Denies hematochezia, Denies change in stool character and Denies dyspepsia Musc Denies abnormal gait, Denies muscle weakness and Denies numbness Neuro Denies abnormal gait, Denies numbness and Denies weakness Endo Denies palpitations Physical Exam Vital Signs: Last Vital Signs Pulse 94 11/07/24 14:12 BP 122/58 L 11/07/24 14:12 BMI result Body Mass Index 32.8 Const General: cooperative, healthy appearing, comfortable and no acute distress Orientation/consciousness: patient oriented x3 HEENT Head: Yes normal to inspection Neck Neck: Yes normal visual inspection, Yes trachea midline and Yes supple Chest Chest palpation & inspection: normal inspection of the chest Resp Effort & Inspection: normal respiratory effort Auscultation: clear to auscultation bilaterally, no crackles, no rales, no rhonchi and no wheezes Cardio Jugular venous distension: no JVD Palpation: normal PMI Rate: regular rate Rhythm: regular rhythm Heart sounds: S1 normal heart sound present, S2 normal heart sound present, no click, no gallops, no murmurs and no rubs Peripheral pulses: Peripheral pulses 2+ throughout GI Inspection: Yes normal to inspection Palpation (GI): Soft to palpation Auscultation: normal bowel sounds Skin General skin exam: no rashes or lesions noted Neuro General: patient oriented x3 Extrem General: Yes normal to inspection, No no pedal edema and No calf tenderness Psych Appearance: grossly normal Mental Status: mental status grossly normal Speech and movement: Normal speech and movement present Office Procedures EKG Details: EKG today showed normal sinus rhythm, rate 94 beats per minute, [place] [id number], Complete Assessment & Plan Assessment & Plan (1) SOB (shortness of breath) on exertion: Code(s): R06.02 - Shortness of breath Category: Medical Plan: 06/05/2024-echo study showed a normal LV systolic function with an ejection fraction between 60-65% with moderate LVH with impaired relaxation filling pattern. Patient's shortness of breath, fatigue feeling, and palpitations all exertional in nature. Given his multiple risk factors, we will proceed with a myocardial perfusion study to assess for ischemic changes. We will also do a 3 day Holter to assess for recurrence of AFib. Advised to seek ER care in case of exertional symptoms not resolved rest. Continue current regimen. (2) Fatigue: Code(s): R53.83 - Other fatigue Category: Medical Plan: As above. (3) PAF (paroxysmal atrial fibrillation): Code(s): I48.0 - Paroxysmal atrial fibrillation Category: Medical Plan: Continue Eliquis for full anticoagulation. No reported signs of bleeding or falls. Continue Multaq for rhythm control approach. Continue metoprolol for rate control approach. Labs stable. We will monitor this periodically. (4) Diabetes: Code(s): E11.9 - Type 2 diabetes mellitus without complications Category: Medical Plan: Continue aggressive diabetes management with an A1c goal less than 7%. (5) Hyperlipidemia: Code(s): E78.5 - Hyperlipidemia, unspecified Category: Medical Plan: Most recent LDL at 97. Continue high-dose statin and Zetia therapy with an LDL goal closer to 70s. Advised on heart healthy diet. (6) HTN (hypertension): Code(s): I10 - Essential (primary) hypertension Category: Medical Qualifiers: Hypertension type: primary hypertension Qualified Code(s): I10 - Es sential (primary) hypertension Plan: Blood pressure today is stable. Continue current regimen. Advised monitoring blood pressures at home with a goal less than 130/80. (7) LUIS ALFREDO (obstructive sleep apnea): Code(s): G47.33 - Obstructive sleep apnea (adult) (pediatric) Category: Medical Plan: Continue CPAP therapy. Continue weight management with Mounjaro. Advised heart healthy diet, regular exercise, weight loss, med compliance, and aggressive management of vascular risk factors. Follow up after completion of the test. The interim, patient will call the office with any concerns or change in symptoms. This note was generated using voice recognition software. While every effort has been made to ensure accuracy and proper mortgage field inspector, there may be occasional errors that could affect the content or meaning of the described symptoms. Orders: Orders AMB EKG-In Office Today I48.0 - Paroxysmal atrial fibrillation CA stress test Today R06.02 - Shortness of breath ECG 3 day holter monitor Today I48.0 - Paroxysmal atrial fibrillation, R42 - Dizziness and giddiness NM cardiolite stress test Today R07.2 - Precordial pain Medications: New apixaban (Eliquis) 5 mg PO BID 60 tabs 5RF Coding Level of Care Code Est Pt Level 4 (39000) Complex EM visit Add On G2211 Diagnoses SOB (shortness of breath) on exertion R06.02 Fatigue R53.83 PAF (paroxysmal atrial fibrillation) I48.0 Diabetes E11.9 Hyperlipidemia E78.5 Primary hypertension I10 Hypertension type: primary hypertension LUIS ALFREDO (obstructive sleep apnea) G47.33 CPT Codes EKG - CPT: 30839-[id number], Complete ([id number]) Time Spent (min) 32 Comment Time spent in reviewing the chart, test results, assessment, counseling and documentation.
--- OUTSIDE RECORDS SUMMARY | 2024-11-07 17:58 | XMS_ITS | Encounter Summary ---
Author Organization [employer] [facility] Address [address] [place] [address] 7 [place] [address] Care Team Providers Care Tying Machine Operator Name Role Phone Name, Jose ALVARADO Primary Care Provider [phone] Renetta Davenport PharmD Unavailable [phone] Encounter Details Date Type Department Care Team (Late st Contact Info) Description 03/04/2022 Orders Only [facility] MEDICINE [address] [place] [address] Izabela Johnson LPN Social History Tobacco Use [...] Upcoming Encounters Date Type Department Care Team ([facility] Contact Info) Description 11/29/2024 11:30 AM EDT Telemedicine [facility] MEDICINE [address] [place] [address] Name, MD Jose [address] [place] [address] documented as of this encounter Procedures Procedure Name Priority Date/Time Associated Diagnosis Comments LIPID PANEL, STANDARD Routine 03/23/2022 1:02 PM EST documented in this encounter Results * Lipid Panel, Standard (03/23/2022 1:02 PM EST) Triglycerides 49 mg/dL [facility] Comment:Desirable Triglyceri de: less than 150 mg/dLBorderline High Triglyceride 150-199 mg/dLHigh Triglyceride: 200-499 mg/dLVery High Triglyceride: greater than or equal to 5OO mg/dL Cholesterol 167 mg/dL [facility] Comment:Desirable Cholestero l: less than 200 mg/dLBorderline High Cholesterol: 200-239 mg/dLHigh Cholesterol: greater than 239 mg/dL LDL Cholesterol Calculated 110 mg/dl [facility] Comment:Desirable LDL: less than 100 mg/dLNear Optimal/Above Optimal LDL: 110- 129 mg/dLBorderline High LDL: 130-159 mg/dLHigh LDL: 160-189 mg/dLVery High LDL: greater than or equal to 190 mg/dL HDL Cholesterol 48 mg/dL [facility] Comment:Desirable HDL: great er than 40 mg/dL Note: This HDL assay may give artificially low results in patients with liver disease. 03/23/2022 1:02 PM EST 03/23/2022 1:02 PM EST us [facility] External Provider LAB BLO OD ORDERABLES Final Result [facility] [address] [place] [phone] documented in this encounter Visit Diagnoses Not on filedocumented in this encounter Care Teams Tying Machine Operator Relationship Specialty Start Date End Date Name, MD Jose [address] [place] [id number] PCP - General Family Medicine 07/02/15 Renetta Davenport PharmD [address] [place] [address] Pharmacist Internal Medicine 01/03/24 documented as of this encounter
--- OUTSIDE RECORDS SUMMARY | 2024-11-07 17:58 | XMS_ITS | Encounter Summary ---
Author Organization [employer] Address [address] [facility] 7 [place] [address] Care Team Providers Care Debrander Name Role Phone Name, Jose ALVARADO Primary Care Provider [phone] Renetta Davenport PharmD Unavailable [phone] Encounter Details Date Type Department Care Team ([facility] st Contact Info) Description 08/30/2023 Telephone [facility] MEDICINE [address] [place], [place] [phone] Name, MD Jose [address] [place] [address] Social History Tobacco Use Types Packs/Day Years [...] Info) Description 11/29/2024 11:30 AM EDT Telemedicine [facility] MEDICINE [address] [place] [address] Name, MD Jose [address] [place] [address] documented as of this encounter Visit Diagnoses Not on filedocumented in this encounter Additional Health Concerns Assessment Noted Time PHQ-9 Depression Total Score: 0 04/19/19 24 1:44 PM EST documented as of this encounter Care Teams Debrander Relationship Specialty Start Date End Date NameJose MD [address] [place] [address] PCP - General Family Medicine 07/02/15 Renetta Davenport PharmD [address] [place] [address] Pharmacist Internal Medicine 01/03/24 documented as of this encounter
--- OUTSIDE RECORDS SUMMARY | 2024-11-07 17:58 | XMS_ITS | Encounter Summary ---
Author Organization [employer] Address [address] [place] [address] [place] [address] Care Team Providers Care Area Mechanic Name Role Phone Name, Jose ALVARADO Primary Care Provider [phone] Renetta Davenport PharmD Unavailable [phone] Reason for Visit * Reason Onset Date Comments call back 04/03/2022 Requested Call Back 04/07/2022 Prescription Request 04/03/2022 I called to verify that the pt requested insulin supplies through [facility], because they faxed a prescription order form to the [facility] department. He stated that he did not make the request, and that his prescriptions are sent to the [facility]. The form was faxed back to [facility], along with a note stating that the patient uses a local pharmacy. Encounter Details Date Type Department Care Team ([facility] Contact Info) Description 04/03/[address] [facility] MEDICINE [address] [place] [address] Name, MD Jose [address] [place], [place] [phone] call back; Requested Call Back ; Prescription Request (I called to verify that the pt requested insulin supplies through [facility], because they faxed a prescription order form to the [facility] department. He stated that he did not make the request, and that his prescriptions are sent to the [facility]. The form was faxed back to [facility], along with a note [...] - 04/07/2022 10:30 AM EST Tc from [facility] re calling in regards to diabetes supplies. Advised of message below, however [facility] [phone]. * Telephone Encounter - Gisselle Miranda RN - 04/06/2022 2:13 PM EST Pt does not use [facility] as a pharmacy and has upcoming appt on 04/08/22 and can discuss if pt wants to switch pharmacies * Telephone Encounter - Gio Crum - 04/03/2022 9:14 AM EST Tc from Gretchenma with [facility] requesting a call back regarding pt medication Please contact stuart at [phone] documented in this encounter Plan of Treatment Upcoming Encounters Date Type Department Care Team (Late st Contact Info) Description 11/29/2024 11:30 AM EDT Telemedicine [facility] MEDICINE [address] [place] [address] Name, MD Jose [address] [place] [address] documented as of this encounter Visit Diagnoses Not on filedocumented in this encounter Care Teams Area Mechanic Relationship Specialty Start Date End Date Name, MD Jose [address] [place] [address] PCP - General Family Medicine 07/02/15 Renetta Davenport, BaileyD [address] [place] [address] Pharmacist Internal Medicine 01/03/24 documented as of this encounter
--- OUTSIDE RECORDS SUMMARY | 2024-11-07 17:58 | XMS_ITS | Encounter Summary ---
Author Organization [employer] Address [address] [place] [address] [address], [place] [address] Care Team Providers Care Outbound Call Center Representative Name Role Phone Name, Jose ALVARADO Primary Care Provider [phone] Renetta Davenport PharmD Unavailable [phone] Reason for Visit * Reason Onset Date Comments Nurse Triage 09/25/2022 Encounter Details Date Type Department Care Team ([facility] st Contact Info) Description 09/25/2022 Telephone [facility] [address] [place], [place] [phone] Name, MD Jose [address] [place] [address] Nurse Triage Social History Tobacco Use Types [...] - 09/28/2022 1:41 PM EDT T/C to [phone] for status check, No answer. LVM to call back on [phone]. * Telephone Encounter - Azeb Hager RN - 09/25/2022 12:43 PM EDT Triage call with [employer] [place] [employer] [place] [id number] Pt , JEANA Contreras reports Pt is sleeping and she will talk for Pt. Pt was tested + for Covid09/24/22. Pt symptoms are fever, tactile, body aches, cough, nasal congestion and headache. Diane informs check writer salesperson that Pt has been given prednisone and [...] of listed homecare advise. Haleigh is given [employer] number [phone] for eligibility for paxlovid. Haleigh is asking [...] this outcome Please contact pt spouse at [phone] Serbian Speaker documented in this encounter Plan of Treatment Upcoming Encounters Date Type Department Care Team (Late st Contact Info) Description 11/29/2024 11:30 AM EDT Telemedicine [facility] [address] [place] [address] Name, MD Jose [address] [place] [address] documented as of this encounter Visit Diagnoses Not on filedocumented in this encounter Care Teams Outbound Call Center Representative Relationship Specialty Start Date End Date Name, MD Jose [address] [place] [address] PCP - General Family Medicine 07/02/15 Renetta Davenport PharmD [address] [place] [address] Pharmacist Internal Medicine 01/03/24 documented as of this encounter
--- OUTSIDE RECORDS SUMMARY | 2024-11-07 17:58 | XMS_ITS | Clinical Summary ---
Author Organization [employer] Address [address] [place] [address] 7 [place] [address] Care Team Providers Care Dye Automation Operator Name Role Phone Name, Jose ALVARADO Primary Care Provider [phone] Renetta Davenport PharmD Unavailable [phone] Allergies No known active allergies Medications [...] day 1 kit 024 Active Continuous Glucose Editor Continuity And Script (FreeStyle Boubacar 2 [place]) deviceIndications :Diabetic polyneuropathy associated with type 2 [...] Glucose Sensor (FreeStyle Boubacar 2 Plus Sensor) [facility] 1 each every 8 (eight) hours. Apply [...] 2 diabetes mellitus with hyperglycemia, unspecified whether leader writer insulin use (CMS/[facility]) Administer 3 mg via 1 device into the nostril for hypoglycemia with loss of consciousness. If no response after 15 minutes administer an additional dose via 2nd device into other nostril. 2 each Active glucose 4 g chewable tabletIndications :Type 2 diabetes mellitus with hyperglycemia, unspecified whether leader writer insulin use ([facility]) Chew 4 tablets [...] 90 tablet Active Lancets (OneTouch Delica Plus [id number]) [facility] Use to test BG twice daily as [...] due t o type 2 diabetes mellitus ([facility]) 10/30/2015 Essential hypertension 07/02/2015 Memory impairment 07/02/2015 Hypercholesterolemia 07/02/2015 Coronary artery disease invo lving [place] coronary artery of [place] heart without angina pectoris 05/07/2014 Gout 05/07/2014 GERD (gastroesophageal reflux disease) 5 Asthma 05/07/2014 Stenosing tenosynovitis 06/02/2010 Major depressive disorder 05/23/2010 Microalbuminuria 12/11/2009 Fatty liver 12/11/2009 Disorder of peripheral nervous system 12/11/2009 Edema of foot 02/15/2008 Low back pain, unspecified 09/09/2007 Anemia 09/09/2007 Non-cardiac chest pain 07/29/2007 Encounters Date Type Department Care Team Description 10/30/2024 1:30 PM EDT Office Visit [address] [address] Jose Rudd MD GUIDO (dyspnea on exertion) (Primary Dx); Coronary artery disease involving [place] coronary artery of [place] heart without angina pectoris; Paroxysmal atrial fibrillation ([facility]); Type 2 diabetes mellitus with hyperglycemia, unspecified whether usp insulin use ([facility]) 10/30/2024 Orders Only GENERIC EXTERNAL DATA DEPARTMENT Provider, Generic External Data 10/30/2024 Travel 10/27/[address] [address] Jose Rudd MD Chart Prep 10/20/2024 Patient Outreach [facility] [address] [place], [place] [phone] Jose Rudd MD Pre-visit Planning (SDOH was already completed) 10/18/[address] [address] Jose Rudd MD Vitamin D deficiency 09/27/[address] [address] Jose Rudd MD Release of Information (I [...] drop off a new application at the [facility] Department, and it will be brought ) 09/21/[address] [address] Jose Rudd MD Durable Medical Equipment 09/14/[address] [address] Jose Rudd MD Med Refill; Home Care Services (I called the patient regarding a PCP Order Form, from [facility]. The office notes cannot be sent, because he did not initial the release, allowing for sensitive information to be sent out. I reached his voicemail, and left a message asking him to return my call at ext [phone].) 08/29/2024 Orders Only GENERIC EXTERNAL DATA DEPARTMENT Provider, Generic External Data 08/13/2024 Refill [facility] [address] [facility] [place] [address] Name, MD Jose 08/09/2024 Refill [facility] [address] [facility] [place] [address] Name, MD Jose Moderate persistent asthma with exacerbation from Last 3 Months Immunizations Immunization Administration [...] Info) Description 11/29/2024 11:30 AM EDT Telemedicine [facility] [address] [facility] [place] [address] Name, MD Jose Elizabeth [facility] [address] Health Maintenance Due Date Last Done Comments [...] 12/21/2022, 12/21/2022, Additional history exists COVID-19 Vaccine ( season) 2024 12/08/2021, 06/03/2020, 05/06/2020 Influenza Vaccine (#1) 2024 , 12/21/2022, 11/12/2021, Additional history exists Diabetes: Hemoglobin A1C 04/29/2025 025, 06/06/2024, 03/14/2024, Additional history exists Depression Screening 07/05/2025 07/05/2024, 07/06/19 25 Disability Screening 07/05/2025 07/05/2024 SDOH Screening 07/05/2025 07/05/2024 Alcohol/Substance Use Screening 10/30/2025 10/30/2024 Lipid Panel 10/30/2025 10/30/2024, 11/23, 12/28/2022, Additional history exists Tobacco Screening 10/30/2025 10/30/2024 DTaP/Tdap/Td Vaccines (4 [...] 3:02 PM EDT GUIDO (dyspnea on exertion) LIPID PANEL, STANDARD Routine 10/30/2024 2:29 PM EDT COMPREHENSIVE METABOLIC PANEL Routine 10/30/2024 2:29 PM EDT GUIDO (dyspnea on exertion) CBC WITH AUTO DIFFERENTIAL Routine 10/30/2024 2:29 PM EDT GUIDO (dyspnea on exertion) POCT GLYCATED HEMOGLOBIN, TOTAL Routine 10/30/2024 1:45 PM EDT Type 2 diabetes mellitus with hyperglycemia, unspecified whether usp insulin use ([facility]) POCT GLUCOSE Routine 10/30/2024 1:44 PM EDT Type 2 diabetes mellitus with hyperglycemia, unspecified whether leader writer insulin use ([facility]) CALCIUM Routine 08/29/2024 1:21 PM EDT CREATININE, SERUM Routine 08/29/2024 1:2 1 PM EDT UREA NITROGEN (BUN) Routine 08/29/2024 1 :21 PM EDT ELECTROLYTE PANEL Routine 08/29/2024 1:2 1 PM EDT HM DIABETES EYE EXAM Routine 09/24/2022 from Last 3 Months or Most Recently Relevant to Health Maintenance Results * XR Chest 2 Views (10/30/2024 3:02 PM EDT) Anatomical Region Laterality Modality Chest Radiographic Jackeline ging 10/30/2024 3:02 PM EDT Narrative 10/30/2024 3:12 PM EDT [place] [address] XRay Report Signed Patient: Tayo Solitario MR#: [id number] 3 : 1960 Acct:[id number] Age/Sex: 64 / M ADM Date: 10/30/24 Loc: HO.[facility] Attending Dr: Jose Rudd MD Ordering Physician: Jose Rudd MD Date of Service: 10/30/24 Procedure(s): XR chest 2V Accession Number(s): [id number] cc: Jose Rudd MD Reason for Exam: [...] 10/30/24 1509 DD/ 1502 TD/TT: 10/30/24 1503 Supervisor Printing And Stamping: Procedure Note Abelardoluz marina, Image - 10/30/[address] [address] XRay Report Signed Patient: Tayo SolitarioMR#: [id number] 3 : 1960cct:[id number] Age/Sex: 64 / MADM Date: 10/30/24 Loc: HO[facility] Attending Dr: Jose Rudd MD Ordering Physician: Jose Rudd MD Date of Service: 10/30/24 Procedure(s): XR chest 2V Accession Number(s): [id number] cc: Jose Rudd MD Reason for Exam: [...] 10/30/24 1509 DD/ 1502 TD/TT: 10/30/24 1503 Supervisor Printing And Stamping: Jose Rudd MD IM XR PROCEDURES Edited Result - Final * (ABNORMAL) CBC auto differential (10/30/2024 2:29 PM EDT) White Blood Count 8.3 4.8 - 10.8 X10*3/uL [facility] Red Blood Count 5.01 4.60 - 5.80 X10*6/uL [facility] Hemoglobin 14.0 14.0 - 18.0 g/dl [facility] Hematocrit 43.1 42.0 - 52.0 % [facility] Mean Corpuscular Volume 86.0 80.0 - 98.0 fL [facility] Mean Corpuscular Hemoglobin 27.9 27.0 - 33.0 pg [facility] Mean Corpuscular HGB Conc 32.5 31.0 - 36.0 g/dl [facility] Red Cell Distribution Width 13.3 11.0 - 16.0 % [facility] Platelet Count 253 160 - 400 X10*3/uL [facility] Mean Platelet Volume 10.4 9.4 - 12.4 fL [facility] Neutrophils Percent Auto 71.1 45 - 73 % [facility] Imm Gran Pct Auto 0.5(H) 0.0 - 0.4 % [facility] Lymphocytes Percent Auto 17.7(L) 20 - 40 % [facility] Monocytes Percent Auto 8.1 2 - 11 % [facility] Eosinophils Percent Auto 2.0 0 - 4 % [facility] Basophils Percent Auto 0.6 0 - 2 % [facility] NRBC Pct Auto 0.0 0.0 - 0.2 /100WBC [facility] Neutrophils Absolute Auto 5.9 2.0 - 8.3 x10*3/uL [facility] Imm Gran Abs Auto 0.04(H) 0.00 - 0.03 X10*3/uL [facility] Lymphocytes Absolute Auto 1.5 1.2 - 4.9 X10*3/uL [facility] Monocytes Absolute Auto 0.7 0.1 - 1.2 X10*3/uL [facility] Eosinophils Absolute Auto 0.2 0.0 - 0.4 X10*3/uL [facility] Basophils Absolute Auto 0.1 0.0 - 0.2 X10*3/uL [facility] NRBC Abs Auto 0.000 0.0 - 0.012 X10*3/uL [facility] Blood Venous blood specimen / Unknown 10/30/2024 2:29 PM EDT 10/30/2024 4:02 PM EDT Jose Rudd MD LAB BLOOD ORDERABLES Final Resul t Performing Organization Address [facility]/ZIP Co de Phone Number [facility] [address] [place] [address] [phone] * Lipid Panel, Standard (10/30/2024 2:29 PM EDT) Triglycerides 42 <150 mg/dL [facility] Comment:Desirable Triglyceri de: less than 150 mg/dLBorderline High Triglyceride 150-199 mg/dLHigh Triglyceride: 200-499 mg/dLVery High Triglyceride: greater than or equal to 5OO mg/dL Cholesterol 150 <200 mg/dL [facility] Comment:Desirable Cholestero l: less than 200 mg/dLBorderline High Cholesterol: 200-239 mg/dLHigh Cholesterol: greater than 239 mg/dL LDL Cholesterol Calculated 97 <100 mg/dL [facility] Comment:Desirable LDL: less than 100 mg/dLNear Optimal/Above Optimal LDL: 110- 129 mg/dLBorderline High LDL: 130-159 mg/dLHigh LDL: 160-189 mg/dLVery High LDL: greater than or equal to 190 mg/dL HDL Cholesterol 45 >40 mg/dL [facility] Comment:Desirable HDL: great er than 40 mg/dL Note: This HDL assay may give artificially low results in patients with liver disease. 10/30/2024 2:29 PM EDT 10/30/2024 4:02 PM EDT us Generic External Data Provider LAB BLOOD ORDERAB LES Final Result Performing Organization Address City/[facility]/ZIP Co de Phone Number [facility] [address] [place] [address] [phone] * (ABNORMAL) Comprehensive Metabolic Panel (10/30/2024 2:29 PM EDT) Sodium 141 135 - 145 mmol/L [facility] Potassium 4.3 3.3 - 5.1 mmol/L [facility] Chloride 109(H) 96 - 108 mmol/L [facility] Carbon Dioxide 22 22 - 29 mmol/L [facility] Anion Gap 14 12 - 20 [facility] Urea Nitrogen (BUN) 28(H) 9 - 16 mg/dL [facility] Creatinine, Serum 1.86(H) 0.5 - 1.4 mg/dL [facility] Estimated Glomerular Filt Rate 37 [facility] Comment:Chronic Kidney Disea se: Estimated GFR < 60 mL/min/1.45w0Gyolqr Kidney Disease: Estimated GFR < 15 mL/min/1.73m2 Glucose 154(H) 60 - 115 mg/dL [facility] Calcium 8.9 8.4 - 10.2 mg/dL [facility] Bilirubin, Total 0.7 0.0 - 1.0 mg/dL [facility] Aspartate Amino Transferase 36 5 - 37 U/L [facility] Alanine Aminotransferase 47(H) 0 - 40 U/L [facility] Total Protein 6.9 6.5 - 8.0 g/dL [facility] Albumin Level 4.1 3.5 - 5.0 g/dL [facility] Alkaline Phosphatase 87 39 - 117 U/L [facility] Blood Venous blood specimen / Unknown 10/30/2024 2:29 PM EDT 10/30/2024 4:02 PM EDT us Jose Name LAB BLOOD ORDERABLES Final Resul t [facility] [address] [place] [address] [phone] * (ABNORMAL) POCT Hgb A1c (10/30/2024 1:45 PM EDT) Hemoglobin A1C 6.9(A) 4.0 - 5.7 % QC Media Lot # [id number] Lot# Expiration Date Blood 10/30/2024 1:45 PM EDT Jose Name POINT OF CARE TEST ENTER/EDIT OR DERABLES Final Result * POCT Glucose (10/30/2024 1:44 PM EDT) Glucose Blood, POC 179 60 - 200 mg/dL QC Media Lot # [id number] Lot# Expiration Date Blood Capillary blood specimen / Unknown 10/30/2024 1:44 PM EDT Jose Name POINT OF CARE TEST ENTER/EDIT OR DERABLES Final Result * (ABNORMAL) Creatinine, Serum (08/29/2024 1:21 PM EDT) Creatinine, Serum 1.75(H) 0.5 - 1.4 mg/dL [facility] Estimated Glomerular Filt Rate 39 [facility] Comment:Chronic Kidney Disea se: Estimated GFR < 60 mL/min/1.10i1Ywheep Kidney Disease: Estimated GFR < 15 mL/min/1.73m2 08/29/2024 1:21 PM EDT 08/29/2024 1:21 PM EDT Generic External Data Provider LAB BLOOD ORDERAB LES Final Result Performing Organization Address City/[facility]/ZIP Co de Phone Number [facility] [address] [place] [phone] * (ABNORMAL) BUN (Blood Urea Nitrogen) (08/29/2024 1:21 PM EDT) Urea Nitrogen (BUN) 28(H) 9 - 16 mg/dL [facility] 08/29/2024 1:21 PM EDT 08/29/2024 1:21 PM EDT Generic External Data Provider LAB BLOOD ORDERAB LES Final Result Performing Organization Address City/[facility]/ZIP Co de Phone Number [facility] [address] [place] [address] [place] [phone] * Calcium (08/29/2024 1:21 PM EDT) Calcium 8.6 8.4 - 10.2 mg/dL [facility] 08/29/2024 1:21 PM EDT 08/29/2024 1:21 PM EDT us Generic External Data Provider LAB BLOOD ORDERAB LES Final Result Performing Organization Address [facility]/ZIP Co de Phone Number [facility] [address] [place] [phone] [phone] * (ABNORMAL) Electrolyte Panel (08/29/2024 1:21 PM EDT) Sodium 139 135 - 145 mmol/L [facility] Potassium 4.2 3.3 - 5.1 mmol/L [facility] Chloride 109(H) 96 - 108 mmol/L [facility] Carbon Dioxide 22 22 - 29 mmol/L [facility] Anion Gap 12 12 - 20 [facility] 08/29/2024 1:21 PM EDT 08/29/2024 1:21 PM EDT us Generic External Data Provider LAB BLOOD ORDERAB LES Final Result Performing Organization Address City/[facility]/ZIP Co de Phone Number [facility] [address] [place] [phone] [phone] * Hm Diabetes Eye Exam (09/24/2022) Eye Exam Normal Normal Jose Rudd MD HEALTH MAINTENANCE Final Result from Last 3 Months or Most Recently Relevant to Health Maintenance Insurance [employer] < 65 [facility] [employer] Care Teams Dye Automation Operator Relationship Specialty Start Date End Date Name, MD Jose [address] [place] [address] PCP - General Family Medicine 07/02/15 Renetta Davenport PharmD [address] [place] [address] Pharmacist Internal Medicine 01/03/24
== END 2024-11-07 14:55 | disposition home or self-care (01) ==
LOC: HO.HCS 14:09
PROVIDERS: PCP Internal Medicine Geriatric Medicine
DX: R06.02 Shortness of breath (principal); R53.83 Other fatigue; I48.0 Paroxysmal atrial fibrillation; E11.9 Type 2 diabetes mellitus without complications; E78.5 Hyperlipidemia, unspecified; I10 Essential (primary) hypertension; G47.33 Obstructive sleep apnea (adult) (pediatric)
CPT/HCPCS: 93010; 99214; G2211

== ENCOUNTER → 2024-11-07 14:08 | Outpatient (BNVA) | payer OTHER, SELFPAY | PROVIDERS: PCP Internal Medicine Geriatric Medicine | DX: I48.0 Paroxysmal atrial fibrillation (principal); R06.02 Shortness of breath; R53.83 Other fatigue; E11.9 Type 2 diabetes mellitus without complications; E78.5 Hyperlipidemia, unspecified; I10 Essential (primary) hypertension; G47.33 Obstructive sleep apnea (adult) (pediatric); Z99.89 Dependence on other enabling machines and devices | CPT/HCPCS: 93005; 99212 ==

== ENCOUNTER → 2024-11-24 14:09 | Outpatient (REF) | payer OTHER, SELFPAY ==
--- NOTE | 2024-11-24 14:16 | HM_ITS ---
Conclusion: 1. Patient was monitored for total period of 5 days and 13 hours 2. Baseline was normal sinus rhythm with average heart of 79 beats per minute 3. No significant arrhythmias or pauses noted 4. No patient reported events MTDD
--- OUTSIDE RECORDS SUMMARY | 2024-11-24 14:18 | XMS_ITS | Encounter Summary ---
Author Organization [employer] Address [address] [place] [address] [address] [address] Care Team Providers Care Bpm Developer Name Role Phone Name, Jose ALVARADO Primary Care Provider [phone] Renetta Davenport PharmD Unavailable [phone] Reason for Visit * Reason Onset Date Comments call back 04/03/2022 Requested Call Back 04/07/2022 Prescription Request 04/03/2022 I called to verify that the pt requested insulin supplies through [facility], because they faxed a prescription order form to the [facility] department. He stated that he did not make the request, and that his prescriptions are sent to the [facility]. The form was faxed back to [facility], along with a note stating that the patient uses a local pharmacy. Encounter Details Date Type Department Care Team ([facility] Contact Info) Description 04/03/2022 Telephone [facility] [address] [place] [phone] Name, MD Jose [address] [place], [place] [phone] call back; Requested Call Back ; Prescription Request (I called to verify that the pt requested insulin supplies through [facility], because they faxed a prescription order form to the [facility] department. He stated that he did not make the request, and that his prescriptions are sent to the [facility]. The form was faxed back to [facility], along with a note stating that the [...] - 04/07/2022 10:30 AM EST Tc from [facility] re calling in regards to diabetes supplies. Advised of message below, however [facility] requesting a call back at [phone]. * Telephone Encounter - Gisselle Miranda RN - 04/06/2022 2:13 PM EST Pt does not use [facility] as a pharmacy and has upcoming appt on 04/08/22 and can discuss if pt wants to switch pharmacies * Telephone Encounter - Gio Crum - 04/03/2022 9:14 AM EST Tc from [place] with [facility] requesting a call back regarding pt medication Please contact stuart at [phone] documented in this encounter Plan of Treatment Upcoming Encounters Date Type Department Care Team (Late st Contact Info) Description 11/29/2024 11:30 AM EDT Telemedicine [facility] [address] [place] [address] Name, MD Jose [address] [place] [address] documented as of this encounter Visit Diagnoses Not on filedocumented in this encounter Care Teams Bpm Developer Relationship Specialty Start Date End Date Name, MD Jose [address] [place] [address] PCP - General Family Medicine 07/02/15 Renetta Davenport, BaileyD [address] [place] [address] Pharmacist Internal Medicine 01/03/24 documented as of this encounter
--- OUTSIDE RECORDS SUMMARY | 2024-11-24 14:18 | XMS_ITS | Clinical Summary ---
Author Organization [employer] Address [address] [place] [address] 7 [place] [address] Care Team Providers Care Infrastructure Manager Name Role Phone Name, Jose ALVARADO Primary Care Provider Renetta Davenport PharmD Unavailable Allergies No known active allergies Medications Multaq [...] day 1 kit 024 Active Continuous Glucose Leather Whitener (FreeStyle Boubacar 2 [place]) deviceIndications :Diabetic polyneuropathy associated with type 2 diabetes mellitus (HCC) Use as directed 1 each 024 Active [...] MG tabletIndications :Atrial fibrillation, unspecified type (CMS/HCC) (HCC) TAKE 1 TABLET BY MOUTH TWICE DAILY IN THE MORNING AND IN THE EVENING 180 tablet 1 Active buPROPion SR (Wellbutrin SR) 200 MG 12 hr tabletIndications :Atrial fibrillation, unspecified type (CMS/HCC) (HCC) TAKE 1 TABLET BY MOUTH TWICE DAILY IN THE MORNING AND IN THE EVENING 180 tablet 1 Active Continuous Glucose Sensor (FreeStyle Boubacar 2 Plus Sensor) [facility] 1 each every 8 (eight) hours. Apply [...] 2 diabetes mellitus with hyperglycemia, unspecified whether long wall mining machine tender insulin use (HCC) Administer 3 mg via 1 device into the nostril for hypoglycemia with loss of consciousness. If no response after 15 minutes administer an additional dose via 2nd device into other nostril. 2 each Active glucose 4 g chewable tabletIndications :Type 2 diabetes mellitus with hyperglycemia, unspecified whether halfway insulin use (HCC) Chew 4 tablets (16 g) if needed [...] 90 tablet Active Lancets (OneTouch Delica Plus [id number]) [facility] Use to test BG twice daily as [...] MG capsuleIndication s:Atrial fibrillation, unspecified type (CMS/HCC) (HCC) TAKE 1 CAPSULE BY MOUTH EVERY EVENING 30 capsule 1 025 Active atorvastatin (Lipitor) 80 MG tablet TAKE 1 TABLET BY MOUTH EVERY MORNING 90 tablet 1 025 Active pantoprazole (ProtoNix) 40 MG EC tablet TAKE 1 TABLET BY MOUTH EVERY MORNING 90 tablet 025 Active folic acid (Folvite) 1 MG tablet TAKE 1 TABLET BY MOUTH EVERY MORNING 90 tablet 025 Active D3-1000 25 MCG (1000 UT) capsuleIndication s:Vitamin D deficiency TAKE 1 CAPSULE BY MOUTH EVERY MORNING 90 capsule 1 025 Active metoprolol tartrate (Lopressor) 50 MG tablet TAKE 1 AND 1/2 TABLETS BY MOUTH THREE TIMES DAILY IN THE MORNING, EVENING, AND BEDTIME 135 tablet 3 025 Active metoprolol tartrate (Lopressor) 50 MG tablet TAKE 1 AND 1/2 TABLETS BY MOUTH THREE TIMES DAILY IN THE MORNING, EVENING, AND BEDTIME 135 tablet 1 025 2024 Discontinued Active Problems Problem Noted [...] kidney disease) stage 3, GFR 30-59 ml/min (CMS/HCC) 12/27/2023 Diabetic neuropathy 07/12/2023 Genital warts 07/12/2023 [...] asthma with exacerbation 05/2022 Paroxysmal atrial fibrillation ([facility]) 023 Diverticulosis of colon 09/05/2021 COVID-19 11/19/2020 Obesity (BMI 30-39.9) 02/11/2017 Diabetic retinopathy associa kareen with type 2 diabetes mellitus 02/14/2016 Persistent proteinuria due to type 2 diabetes me llitus 10/30/2015 Essential hypertension 07/02/2015 Memory impairment 07/02/2015 Hypercholesterolemia 07/02/2015 Coronary artery disease invo lving [place] coronary artery of [place] heart without angina pectoris 05/07/2014 Gout 05/07/2014 GERD (gastroesophageal reflux disease) 5 Asthma 05/07/2014 Stenosing tenosynovitis 06/02/2010 Major depressive disorder 05/23/2010 Microalbuminuria 12/11/2009 Fatty liver 12/11/2009 Disorder of peripheral nervous system 12/11/2009 Edema of foot 02/15/2008 Low back pain, unspecified 09/09/2007 Anemia 09/09/2007 Non-cardiac chest pain 07/29/2007 Encounters Date Type Department Care Team Description 11/22/2024 Refill [facility] [address] [place] [address] William Deras MD Atrial fibrillation, unspecified type (CMS/HCC) ([facility]) 10/30/2024 1:30 PM EDT Office Visit [facility] [place] [address] Jose Rudd MD GUIDO (dyspnea on exertion) (Primary Dx); Coronary artery disease involving grand traverse coronary artery of [place] heart without angina pectoris; Paroxysmal atrial fibrillation ([facility]); Type 2 diabetes mellitus with hyperglycemia, unspecified whether halfway insulin use ([facility]) 10/30/2024 Orders Only GENERIC EXTERNAL DATA DEPARTMENT Provider, Generic External Data 10/30/2024 Travel 10/27/[address] [address] Jose Rudd MD Chart Prep 10/20/2024 Patient Outreach [facility] [address] [place], [place] [phone] Jose Rudd MD Pre-visit Planning (SDOH was already completed) 10/18/[address] [address] Jose Rudd MD Vitamin D deficiency 09/27/[address] [address] Jose Rudd MD Release of Information (I [...] drop off a new application at the [facility] Department, and it will be brought ) 09/21/[address] [address] Jose Rudd MD Durable Medical Equipment 09/14/[address] [phone] Jose Rudd MD Med Refill; Home Care Services (I called the patient regarding a PCP Order Form, from [facility]. The office notes cannot be sent, because he did not initial the release, allowing for sensitive information to be sent out. I reached his voicemail, and left a message asking him to return my call at ext [phone].) 08/29/2024 Orders Only GENERIC EXTERNAL DATA DEPARTMENT [...] Info) Description 11/29/2024 11:30 AM EDT Telemedicine [facility] 230 [place] [address] Name, MD Jose [address] [place] [address] Health Maintenance Due Date Last Done Comments [...] 2 diabetes mellitus with hyperglycemia, unspecified whether long wall mining machine tender insulin use ([facility]) POCT GLUCOSE Routine 10/30/2024 1:44 PM EDT Type 2 diabetes mellitus with hyperglycemia, unspecified whether halfway insulin use ([facility]) CALCIUM Routine 08/29/2024 1:21 PM EDT [...] PM EDT Narrative 10/30/2024 3:12 PM EDT [address] [address] XRay Report Signed Patient: Tayo Solitario MR#: [id number] 3 : 1960 Acct:[id number] Age/Sex: 64 / M ADM Date: 10/30/24 Loc: .[facility] Attending Dr: Jose Rudd MD Ordering Physician: Jose Rudd MD Date of Service: 10/30/24 Procedure(s): XR chest 2V Accession Number(s): [id number] cc: Jose Rudd MD Reason for Exam: [...] 10/30/24 1509 DD/ 1502 TD/TT: 10/30/24 1503 Sales Rep: Procedure Note Donotuseinterpreter, Image - 10/30/[address] [address] XRay Report Signed Patient: Tayo SolitarioMR#: [id number] 3 : 1960cct:[id number] Age/Sex: 64 / MADM Date: 10/30/24 Loc: .[facility] Attending Dr: Jose Rudd MD Ordering Physician: Jose Rudd MD Date of Service: 10/30/24 Procedure(s): XR chest 2V Accession Number(s): [id number] cc: Jose Rudd MD Reason for Exam: [...] 10/30/24 1509 DD/ 1502 TD/TT: 10/30/24 1503 Sales Rep: Jose Rudd MD IMG XR PROCEDURES Edited Result - Final * (ABNORMAL) CBC auto differential (10/30/2024 2:29 PM EDT) White Blood Count 8.3 4.8 - 10.8 X10*3/uL [facility] Red Blood Count 5.01 4.60 - 5.80 X10*6/uL [facility] Hemoglobin 14.0 14.0 - 18.0 g/dl [facility] Hematocrit 43.1 42.0 - 52.0 % [facility] Mean Corpuscular Volume 86.0 80.0 - 98.0 fL [facility] Mean Corpuscular Hemoglobin 27.9 27.0 - 33.0 pg [facility] Mean Corpuscular HGB Conc 32.5 31.0 - 36.0 g/dl [facility] Red Cell Distribution Width 13.3 11.0 - 16.0 % [facility] Platelet Count 253 160 - 400 X10*3/uL [facility] Mean Platelet Volume 10.4 9.4 - 12.4 fL [facility] Neutrophils Percent Auto 71.1 45 - 73 % [facility] Imm Gran Pct Auto 0.5(H) 0.0 - 0.4 % [facility] Lymphocytes Percent Auto 17.7(L) 20 - 40 % [facility] Monocytes Percent Auto 8.1 2 - 11 % [facility] Eosinophils Percent Auto 2.0 0 - 4 % [facility] Basophils Percent Auto 0.6 0 - 2 % [facility] NRBC Pct Auto 0.0 0.0 - 0.2 /100WBC [facility] Neutrophils Absolute Auto 5.9 2.0 - 8.3 x10*3/uL [facility] Imm Gran Abs Auto 0.04(H) 0.00 - 0.03 X10*3/uL [facility] Lymphocytes Absolute Auto 1.5 1.2 - 4.9 X10*3/uL [facility] Monocytes Absolute Auto 0.7 0.1 - 1.2 X10*3/uL [facility] Eosinophils Absolute Auto 0.2 0.0 - 0.4 X10*3/uL [facility] Basophils Absolute Auto 0.1 0.0 - 0.2 X10*3/uL [facility] NRBC Abs Auto 0.000 0.0 - 0.012 X10*3/uL [facility] Blood Venous blood specimen / Unknown 10/30/2024 2:29 PM EDT 10/30/2024 4:02 PM EDT us Jose Rudd MD LAB BLOOD ORDERABLES Final Resul t [facility] [address] [place] [phone] [phone] * Lipid Panel, Standard (10/30/2024 2:29 PM EDT) Triglycerides 42 <150 mg/dL [facility] Comment:Desirable Triglyceri de: less than 150 mg/dLBorderline High Triglyceride 150-199 mg/dLHigh Triglyceride: 200-499 mg/dLVery High Triglyceride: greater than or equal to 5OO mg/dL Cholesterol 150 <200 mg/dL [facility] Comment:Desirable Cholestero l: less than 200 mg/dLBorderline High Cholesterol: 200-239 mg/dLHigh Cholesterol: greater than 239 mg/dL LDL Cholesterol Calculated 97 <100 mg/dL [facility] Comment:Desirable LDL: less than 100 mg/dLNear Optimal/Above Optimal LDL: 110- 129 mg/dLBorderline High LDL: 130-159 mg/dLHigh LDL: 160-189 mg/dLVery High LDL: greater than or equal to 190 mg/dL HDL Cholesterol 45 >40 mg/dL [facility] Comment:Desirable HDL: great er than 40 mg/dL Note: This HDL assay may give artificially low results in patients with liver disease. 10/30/2024 2:29 PM EDT 10/30/2024 4:02 PM EDT us Generic External Data Provider LAB BLOOD ORDERAB LES Final Result [facility] [address] [place] [phone] * (ABNORMAL) Comprehensive Metabolic Panel (10/30/2024 2:29 PM EDT) Sodium 141 135 - 145 mmol/L [facility] Potassium 4.3 3.3 - 5.1 mmol/L [facility] Chloride 109(H) 96 - 108 mmol/L [facility] Carbon Dioxide 22 22 - 29 mmol/L [facility] Anion Gap 14 12 - 20 [facility] Urea Nitrogen (BUN) 28(H) 9 - 16 mg/dL [facility] Creatinine, Serum 1.86(H) 0.5 - 1.4 mg/dL [facility] Estimated Glomerular Filt Rate 37 [facility] Comment:Chronic Kidney Disea se: Estimated GFR < 60 mL/min/[id number] Kidney Disease: Estimated GFR < 15 mL/min/1.73m2 Glucose 154(H) 60 - 115 mg/dL [facility] Calcium 8.9 8.4 - 10.2 mg/dL [facility] Bilirubin, Total 0.7 0.0 - 1.0 mg/dL [facility] Aspartate Amino Transferase 36 5 - 37 U/L [facility] Alanine Aminotransferase 47(H) 0 - 40 U/L [facility] Total Protein 6.9 6.5 - 8.0 g/dL [facility] Albumin Level 4.1 3.5 - 5.0 g/dL [facility] Alkaline Phosphatase 87 39 - 117 U/L [facility] Blood Venous blood specimen / Unknown 10/30/2024 2:29 PM EDT 10/30/2024 4:02 PM EDT us Jose Rudd MD LAB BLOOD ORDERABLES Final Resul t [facility] [address] [place], [place] [phone] * (ABNORMAL) POCT Hgb A1c (10/30/2024 1:45 PM EDT) Hemoglobin A1C 6.9(A) 4.0 - 5.7 % [employer] Lot # [id number] Lot# Expiration Date [id number] Blood 10/30/2024 1:45 PM EDT us Jose Rudd MD POINT OF CARE TEST ENTER/EDIT OR DERABLES Final Result * POCT Glucose (10/30/2024 1:44 PM EDT) Glucose Blood, POC 179 60 - 200 mg/dL [employer] Lot # [id number] Lot# Expiration Date 72 Blood Capillary blood specimen / Unknown 10/30/2024 1:44 PM EDT us Jose Name POINT OF CARE TEST ENTER/EDIT OR DERABLES Final Result * (ABNORMAL) Creatinine, Serum (08/29/2024 1:21 PM EDT) Creatinine, Serum 1.75(H) 0.5 - 1.4 mg/dL [facility] Estimated Glomerular Filt Rate 39 [facility] Comment:Chronic Kidney Disea se: Estimated GFR < 60 mL/min/[id number] Kidney Disease: Estimated GFR < 15 mL/min/1.73m2 08/29/2024 1:21 PM EDT 08/29/2024 1:21 PM EDT Generic External Data Provider LAB BLOOD ORDERAB LES Final Result Performing Organization Address [facility] Co de Phone Number [facility] [address] [place] [phone] * (ABNORMAL) BUN (Blood Urea Nitrogen) (08/29/2024 1:21 PM EDT) Urea Nitrogen (BUN) 28(H) 9 - 16 mg/dL [facility] 08/29/2024 1:21 PM EDT 08/29/2024 1:21 PM EDT Generic External Data Provider LAB BLOOD ORDERAB LES Final Result Performing Organization Address City/[facility]/ZIP Co de Phone Number [facility] [address] [place] [phone] * Calcium (08/29/2024 1:21 PM EDT) Calcium 8.6 8.4 - 10.2 mg/dL [facility] 08/29/2024 1:21 PM EDT 08/29/2024 1:21 PM EDT us Generic External Data Provider LAB BLOOD ORDERAB LES Final Result Performing Organization Address [facility]/ZIP Co de Phone Number [facility] [address] [place] [phone] * (ABNORMAL) Electrolyte Panel (08/29/2024 1:21 PM EDT) Sodium 139 135 - 145 mmol/L [facility] Potassium 4.2 3.3 - 5.1 mmol/L [facility] Chloride 109(H) 96 - 108 mmol/L [facility] Carbon Dioxide 22 22 - 29 mmol/L [facility] Anion Gap 12 12 - 20 [facility] 08/29/2024 1:21 PM EDT 08/29/2024 1:21 PM EDT Generic External Data Provider LAB BLOOD ORDERAB LES Final Result Performing Organization Address [facility] Co de Phone Number [facility] [address] [place] [phone] * Hm Diabetes Eye Exam (09/24/2022) Eye Exam Normal Normal Jose Rudd MD HEALTH MAINTENANCE Final Result from Last 3 Months or Most Recently Relevant to Health Maintenance Insurance [facility] ONE CARE < 65 [place] [id number] [facility] STANDARD Care Teams Infrastructure Manager Relationship Specialty Start Date End Date Name, MD Jose [address] [place] [phone] PCP - General Family Medicine 07/02/15 Renetta Davenport, BaileyD [address] [place] [phone] Pharmacist Internal Medicine 01/03/24
--- OUTSIDE RECORDS SUMMARY | 2024-11-24 14:18 | XMS_ITS | Encounter Summary ---
Author Organization [employer] Address [address] [place] [address] 7 [place] [address] Care Team Providers Care Patient Information Coordinator Name Role Phone Name, Jose ALVARADO Primary Care Provider [phone] Renetta Davenport PharmD Unavailable [phone] Reason for Visit * Reason Comments Med Refill Encounter Details Date Type Department Care Team ([facility] st Contact Info) Description 11/22/2024 Refill [facility] 230 [place], [place] [phone] William Deras MD 230 [place], [place] [phone] Atrial fibrillation, unspecified type (CMS/HCC) (HCC) Social History Tobacco Use Types Packs/Day Years [...] is your housing situation today? I have barib hernandez 07/05/[address] you [...] 11/29/2024 11:30 AM EDT Telemedicine [facility] [address] [place] [phone] NameJose MD 230 [place] [address] documented as of this encounter Visit Diagnoses Diagnosis Atrial fibrillation, unspecified type (CMS/HCC) (HCC) documented in this encounter Additional Health Concerns Assessment Noted Time PHQ-9 Depression Total Score: 4 07/06/19 25 3:03 PM EDT documented as of this encounter Care Teams Patient Information Coordinator Relationship Specialty Start Date End Date NameJose MD [address] [place] [address] PCP - General Family Medicine 07/02/15 Renetta Davenport PharmD [address] [place] [address], [place] [address] Pharmacist Internal Medicine 01/03/24 documented as of this encounter
--- OUTSIDE RECORDS SUMMARY | 2024-11-24 14:18 | XMS_ITS | Encounter Summary ---
Author Organization [email or web address] [facility] Address [address] [place] [address] 7 [place] [address] Care Team Providers Care Tube Tester Name Role Phone Name, Jose ALVARADO Primary Care Provider [phone] Renetta Davenport PharmD Unavailable [phone] Encounter Details Date Type Department Care Team (Late st Contact Info) Description 03/04/2022 Orders Only [facility] MED[facility]INE [address] [place] [phone] Izabela Johnson LPN Social History Tobacco Use [...] Department Care Team (Late Contact Info) Description 11/29/2024 11:30 AM EDT Telemedicine [facility] MED[facility]INE [address] [place] [address] Name, MD Jose [address] [place] [address] documented as of this encounter Procedures Procedure Name Priority Date/Time Associated Diagnosis Comments LIPID PANEL, STANDARD Routine 03/23/2022 1:02 PM EST documented in this encounter Results * Lipid Panel, Standard (03/23/2022 1:02 PM EST) Triglycerides 49 mg/dL [facility] Comment:Desirable Triglyceri de: less than 150 mg/dLBorderline High Triglyceride 150-199 mg/dLHigh Triglyceride: 200-499 mg/dLVery High Triglyceride: greater than or equal to 5OO mg/dL Cholesterol 167 mg/dL [facility] Comment:Desirable Cholestero l: less than 200 mg/dLBorderline High Cholesterol: 200-239 mg/dLHigh Cholesterol: greater than 239 mg/dL LDL Cholesterol Calculated 110 mg/dl [facility] Comment:Desirable LDL: less than 100 mg/dLNear Optimal/Above Optimal LDL: 110- 129 mg/dLBorderline High LDL: 130-159 mg/dLHigh LDL: 160-189 mg/dLVery High LDL: greater than or equal to 190 mg/dL HDL Cholesterol 48 mg/dL [facility] Comment:Desirable HDL: great er than 40 mg/dL Note: This HDL assay may give artificially low results in patients with liver disease. 03/23/2022 1:02 PM EST 03/23/2022 1:02 PM EST us [facility] External Provider LAB BLO OD ORDERABLES Final Result [facility] [address] [place] [phone] documented in this encounter Visit Diagnoses Not on filedocumented in this encounter Care Teams Tube Tester Relationship Specialty Start Date End Date Name, MD Jose [address] [place] [address] PCP - General Family Medicine 07/02/15 Renetta Davenport PharmD [address] [place] [address] Pharmacist Internal Medicine 01/03/24 documented as of this encounter
--- OUTSIDE RECORDS SUMMARY | 2024-11-24 14:18 | XMS_ITS | Encounter Summary ---
Author Organization [employer] Address [address] [place] [address] [place], [place] [address] Care Team Providers Care Journeyman Plumber Name Role Phone Name, Jose ALVARADO Primary Care Provider [phone] Renetta Davenport PharmD Unavailable [phone] Reason for Visit * Reason Onset Date Comments Nurse Triage 09/25/2022 Encounter Details Date Type Department Care Team ([facility] st Contact Info) Description 09/25/2022 Telephone [facility] MED[facility] 230 [place], [place] [phone] Name, MD Jose [address] [place] [address] Nurse Triage Social History Tobacco Use Types [...] - 09/28/2022 1:41 PM EDT T/C to [phone] for status check, No answer. LVM to call back on [phone]. * Telephone Encounter - Azeb Hager RN - 09/25/2022 12:43 PM EDT Triage call with [employer] Consultant [place] [id number] Pt , JEANA Contreras reports Pt is sleeping and she will talk for Pt. Pt was tested + for Covid09/24/22. Pt symptoms are fever, tactile, body aches, cough, nasal congestion and headache. Diane informs parts data writer that Pt has been given prednisone [...] of listed homecare advise. Haleigh is given Scientific Intake number [phone] for eligibility for paxlovid. Haleigh is asking [...] this outcome Please contact pt spouse at [phone] Latvian Speaker documented in this encounter Plan of Treatment Upcoming Encounters Date Type Department Care Team (Late st Contact Info) Description 11/29/2024 11:30 AM EDT Telemedicine [facility] MED[facility]INE [address] [place] [address] Name, MD Jose [address] [place] [address] documented as of this encounter Visit Diagnoses Not on filedocumented in this encounter Care Teams Journeyman Plumber Relationship Specialty Start Date End Date Name, MD Jose [address] [place] [address] PCP - General Family Medicine 07/02/15 Renetta Davenport PharmD [address] [place] [address] Pharmacist Internal Medicine 01/03/24 documented as of this encounter
--- OUTSIDE RECORDS SUMMARY | 2024-11-24 14:18 | XMS_ITS | Encounter Summary ---
Author Organization [employer] Address [address] [facility] 7 [place] [address] Care Team Providers Care Criminal Investigator Name Role Phone Name, Jose ALVARADO Primary Care Provider [phone] Renetta Davenport PharmD Unavailable [phone] Encounter Details Date Type Department Care Team ([facility] st Contact Info) Description 08/30/2023 Telephone [facility] 230 [place], [place] [phone] Name, MD Jose 230 [place] [address] Social History Tobacco Use Types Packs/Day Years [...] Info) Description 11/29/2024 11:30 AM EDT Telemedicine [facility] [address] [place] [address] Name, MD Jose [address] [place] [address] documented as of this encounter Visit Diagnoses Not on filedocumented in this encounter Additional Health Concerns Assessment Noted Time PHQ-9 Depression Total Score: 0 04/19/19 24 1:44 PM EST documented as of this encounter Care Teams Criminal Investigator Relationship Specialty Start Date End Date NameJose MD [address] [place] [address] PCP - General Family Medicine 07/02/15 Renetta Davenport PharmD [address] [place] [address] Pharmacist Internal Medicine 01/03/24 documented as of this encounter
--- NOTE | 2024-11-24 14:19 | CA_ITS ---
Transthoracic Echocardiogram Patient (Last, First, Middle): Tayo Solitario, Gender: Male Date of : 1960 Age: 64 Procedure Date: 11/24/2024 Procedure Type: Transthoracic Echocardiogram Location: OP Height: 182.88 cm Weight: 109.77 kg BSA: 2.31 m2 Heart Rate: bpm BP: 122 / 58 mmHg Hole Filler: TO Referring MD: Jose Rudd MD Symptoms: GUIDO Study Quality: Fair/Contrast Conclusions: - The left ventricular systolic function is low normal. The calculated ejection fraction is 53% by biplane method. - There is severe septal asymmetric hypertrophy. - No obvious valvular pathology seen on this study. Findings Procedure Information Contrast agent, definity, is being given per protocol without apparent complications. Left Ventricle Normal left ventricular cavity size. There is mildly increased left ventricular wall thickness. The left ventricular systolic function is low normal. The calculated ejection fraction is 53% by biplane method. Diastolic function is normal for age. Normal left ventricular filling pressures. There is severe septal asymmetric hypertrophy. Right Ventricle Normal right ventricular cavity size and systolic function. Atria Both atria are normal in size. Aortic Valve There is a normal trileaflet aortic valve. There is mild calcification of the aortic valve. There is no aortic valve stenosis. There is no aortic valve regurgitation. Mitral Valve The mitral valve appears normal. There is no mitral valve regurgitation. There is no mitral valve stenosis. Pulmonic Valve The pulmonic valve is likely normal. Tricuspid Valve There is no tricuspid valve regurgitation. Tricuspid regurgitation envelope is inadequate for calculation of right ventricular systolic pressure. Great Vessels The asc aorta is normal in size. Venous The inferior vena cava is normal in size and collapses greater than 50% with inspiration. Pericardium/Pleural Prominent epicardial adipose tissue noted. There is no evidence of pericardial effusion. Prior Study Comparison Changes noted compared to prior study dated: 06/05/2024. LVEF slightly lower. Recommendations, Care & Conclusions No obvious valvular pathology seen on this study. Measurements 2D Linear Measurements IVSd: 1.51 0.6-0.9/0.6-1.0 cm LVIDd: 4.68 3.9-5.3/4.2-5.9 cm LVIDd Index: 2.03 2.4-3.2/2.2-3.1 cm/m2 LVIDs: 3.72 2.0-3.6 cm LVPWd: 1.11 0.7-1.1 cm LV Mass: 297.97 67-162/88-224 g LV Mass Index: 128.99 43-95/49-115 g/m2 LVOT Diam: 2.30 3.0+(-)1.3 cm 2D Systolic Function EF 4C: 57.40 >55% EF 2C: 51.80 >55% EF BiP: 53.20 >55% Mitral Valve MV Pk E: 0.33 MV PK A: 0.71 MV Decel Time: 106.00 E/A: 0.50 E'Lateral: 5.11 E'Medial: 4.79 E/E' Med: 7.00 E/E' Lat: 6.50 PHT: 31.00 MVA PHT: 7.10 Decel [place]: 3.16 Aortic Valve AoV Pk Juan Diego: 0.95 AoV Mn Juan Diego: 0.70 AoV VTI: 0.17 AoV Pk Grad: 4.00 Aov Mn Grad: 2.00 MAYNOR Cont.VTI: 3.36 LVOT LVOT Pk Juan [place]: 0.71 LVOT Mn Juan Diego: 0.53 LVOT VTI: 0.14 LVOT Pk Grad: 2.00 LVOT Mn Grad: 1.00 LVOT Diam: 2.30 LVOT Area: 4.15 Diastolic Function MV Pk E: 0.33 MV Pk A: 0.71 E/A: 0.50 E'Medial: 4.79 E/E' Med: 7.00 E' Laterial: 5.11 E/E' Lat: 6.50 Right Ventricle TAPSE (mm): 18.80 TVS' Juan Diego: 11.30 Great Vessels Aorta Sinus of Valsalva: 3.79 2.0-3.5 cm Ao Asc: 3.40 2.1-3.4 cm Updated in Other Vendor System with Status of Final Yahir Marie MD electronically signed on 11/25/2024 3:33:51 PM with status of Final
[2024-11-24 17:21] LABS: Anion Gap 13 (12-20); Blood Urea Nitrogen 28 mg/dL (9-16); Calcium 9.5 mg/dL (8.4-10.2); Carbon Dioxide 25 mmol/L (22-29); Chloride 105 mmol/L (96-108); Estimated Glomerular Filt Rate 32; Potassium 4.7 mmol/L (3.3-5.1); Sodium 138 mmol/L (135-145)
[2024-11-24 17:23] LABS: Anion Gap 13 (12-20); Blood Urea Nitrogen 27 mg/dL (9-16); Calcium 9.4 mg/dL (8.4-10.2); Carbon Dioxide 25 mmol/L (22-29); Chloride 105 mmol/L (96-108); Estimated Glomerular Filt Rate 32; Potassium 4.8 mmol/L (3.3-5.1); Sodium 138 mmol/L (135-145)
[2024-11-24 17:30] LABS: Appearance Urine Clear; Glucose Urine UA >=1000 mg/dL (Negative); PH 5.5 (5.0-9.0); Specific Gravity - Urine >= 1.030 (1.005-1.025); UMIC TRIGGER UA YES
[2024-11-24 17:53] LABS: Protein/Creatinine Ratio, Ur 0.89 (<0.2); Total Protein Urine Random 101 mg/dL (<12)
== END ==
LOC: HO.CARD 14:09
PROVIDERS: Nurse Practitioner Family; Absent Provider Internal Medicine Nephrology; PCP Internal Medicine Geriatric Medicine; Visit Provider Internal Medicine Geriatric Medicine
DX: I12.9 Hypertensive chronic kidney disease with stage 1 through stage 4 chronic kidney disease, or unspecified chronic kidney disease (principal); N18.31 Chronic kidney disease, stage 3a; I48.0 Paroxysmal atrial fibrillation; N25.81 Secondary hyperparathyroidism of renal origin; R42 Dizziness and giddiness; R06.09 Other forms of dyspnea
CPT/HCPCS: 36415; 80048; 81001; 82570; 84156; 93242; 93306; Q9957

== ENCOUNTER → 2024-11-24 14:19 | Outpatient (BNV) | payer OTHER, SELFPAY | PROVIDERS: Absent Provider Internal Medicine Nephrology; PCP Internal Medicine Geriatric Medicine; Visit Provider Internal Medicine | DX: I42.2 Other hypertrophic cardiomyopathy (principal) | CPT/HCPCS: 93306 ==

== ENCOUNTER 2025-02-06 11:16 | Outpatient (REF) | payer OTHER, SELFPAY ==
--- OUTSIDE RECORDS SUMMARY | 2025-02-06 14:51 | XMS_ITS | Encounter Summary ---
Author Organization [employer] Address [address] [place] [address] [address] [place] [address] Care Team Providers Care Die Filer Name Role Phone Name, Jose ALVARADO Primary Care Provider [phone] Renetta Davenport PharmD Unavailable [phone] Reason for Visit * Reason Comments Med Refill Encounter Details Date Type Department Care Team ([facility] st Contact Info) Description 01/26/2025 Refill [facility] MED[facility]INE [address] [place], [place] [phone] Name, MD Jose [address] [place] [address] Atrial fibrillation, unspecified type (CMS/HCC) (HCC) Social [...] the past 12 months, has t he [employer], gas, oil or water company threatened to [...] on file documented as of this encounter Goals Goal Patient Goal Type Associated Problems Recent Progress Patient-Stated? Author Help patients manage their type 2 diabetes Care Plan Help patients manage their type 2 diabetes No Daya Lemos RN Weekly blood pressure task Care Plan Weekly blood pressure task No Daya Lemos RN Help patients manage their type 2 diabetes Care Plan Help patients manage their type 2 diabetes No Daya Lemos RN Patient has diabetic eye disease Care Plan Patient has diabetic eye disease No Daya Lemos RN Help patients manage their type 2 diabetes Care Plan Help patients manage their type 2 diabetes No Daya Lemos RN Patient has chronic kidney disease Care Plan Patient has chronic kidney disease No Daya Lemos RN Help patients manage their type 2 diabetes Care Plan Help patients manage their type 2 diabetes No Daya Lemos RN Patient has diabetic neuropathy Care Plan Patient has diabetic neuropathy No Daya Lemos RN Weekly blood pressure task Care Plan Weekly blood pressure task No Daya Lemos RN Weekly blood pressure task Care Plan Weekly blood pressure task No Daya Lemos RN Weekly blood pressure task Care Plan Weekly blood pressure task No Daya Lemos RN Patient has diabetic eye disease Care Plan Patient has diabetic eye disease No Daya Lemos RN Patient has diabetic eye disease Care Plan Patient has diabetic eye disease No Daya Lemos RN Patient has diabetic eye disease Care Plan Patient has diabetic eye disease No Daya Lemos RN Patient has chronic kidney disease Care Plan Patient has chronic kidney disease No Daya Lemos RN Patient has chronic kidney disease Care Plan Patient has chronic kidney disease No Daya Lemos RN Patient has chronic kidney disease Care Plan Patient has chronic kidney disease No Daya Lemos RN Patient has diabetic neuropathy Care Plan Patient has diabetic neuropathy No Daya Lemos RN Patient has diabetic neuropathy Care Plan Patient has diabetic neuropathy No Daya Lemos RN Patient has diabetic neuropathy Care Plan Patient has diabetic neuropathy No Daya Lemos RN Weekly blood pressure task Care Plan Weekly blood pressure task No Daya Lemos RN Weekly blood pressure task Care Plan Weekly blood pressure task No Daya Lemos RN Weekly blood pressure task Care Plan Weekly blood pressure task No Daya Lemos RN Weekly blood pressure task Care Plan Weekly blood pressure task No Daya Lemos RN Patient has diabetic eye disease Care Plan Patient has diabetic eye disease No Daya Lemos RN Patient has diabetic eye disease Care Plan Patient has diabetic eye disease No Daya Lemos RN Patient has diabetic eye disease Care Plan Patient has diabetic eye disease No Daya Lemos RN Patient has diabetic eye disease Care Plan Patient has diabetic eye disease No Daya Lemos RN Patient has chronic kidney disease Care Plan Patient has chronic kidney disease No Daya Lemos RN Patient has chronic kidney disease Care Plan Patient has chronic kidney disease No Daya Lemos RN Patient has chronic kidney disease Care Plan Patient has chronic kidney disease No Daya Lemos RN Patient has chronic kidney disease Care Plan Patient has chronic kidney disease No Daya Lemos RN Patient has diabetic neuropathy Care Plan Patient has diabetic neuropathy No Daya Lemos RN Patient has diabetic neuropathy Care Plan Patient has diabetic neuropathy No Daya Lemos RN Patient has diabetic neuropathy Care Plan Patient has diabetic neuropathy No Daya Lemos RN Patient has diabetic neuropathy Care Plan Patient has diabetic neuropathy No Daya Lemos RN Weekly blood pressure task Care Plan Weekly blood pressure task No Daya Lemos RN Weekly blood pressure task Care Plan Weekly blood pressure task No Daya Lemos RN Weekly blood pressure task Care Plan Weekly blood pressure task No Daya Lemos RN Weekly blood pressure task Care Plan Weekly blood pressure task No Daya Lemos RN Patient has diabetic eye disease Care Plan Patient has diabetic eye disease No Daya Lemos RN Patient has diabetic eye disease Care Plan Patient has diabetic eye disease No Daya Lemos RN Patient has diabetic eye disease Care Plan Patient has diabetic eye disease No Daya Lemos RN Patient has diabetic eye disease Care Plan Patient has diabetic eye disease No Daya Lemos RN Patient has chronic kidney disease Care Plan Patient has chronic kidney disease No Daya Lemos RN Patient has chronic kidney disease Care Plan Patient has chronic kidney disease No Daya Lemos RN Patient has chronic kidney disease Care Plan Patient has chronic kidney disease No Daya Lemos RN Patient has chronic kidney disease Care Plan Patient has chronic kidney disease No Daya Lemos RN Patient has diabetic neuropathy Care Plan Patient has diabetic neuropathy No Daya Lemos RN Patient has diabetic neuropathy Care Plan Patient has diabetic neuropathy No Daya Lemos RN Patient has diabetic neuropathy Care Plan Patient has diabetic neuropathy No Daya Lemos RN Patient has diabetic neuropathy Care Plan Patient has diabetic neuropathy No Daya Lemos RN documented as of this encounter Visit Diagnoses Diagnosis Atrial fibrillation, unspecified type (CMS/HCC) (HCC) documented in this encounter Additional Health Concerns Active Problems Noted Date Diagnosed Date Help patients manage their type 2 diabetes 01/03 Weekly blood pressure task 01/03/2025 Help patients manage their type 2 diabetes 01/03 Patient has diabetic eye disease 01/03/2025 Help patients manage their type 2 diabetes 01/03 Patient has chronic kidney disease 01/03/2025 Help patients manage their type 2 diabetes 01/03 Patient has diabetic neuropathy 01/03/2025 Weekly blood pressure task 01/03/2025 Weekly blood pressure task 01/03/2025 Weekly blood pressure task 01/03/2025 Patient has diabetic eye disease 01/03/2025 Patient has diabetic eye disease 01/03/2025 Patient has diabetic eye disease 01/03/2025 Patient has chronic kidney disease 01/03/2025 Patient has chronic kidney disease 01/03/2025 Patient has chronic kidney disease 01/03/2025 Patient has diabetic neuropathy 01/03/2025 Patient has diabetic neuropathy 01/03/2025 Patient has diabetic neuropathy 01/03/2025 Weekly blood pressure task 01/03/2025 Weekly blood pressure task 01/03/2025 Weekly blood pressure task 01/03/2025 Weekly blood pressure task 01/03/2025 Patient has diabetic eye disease 01/03/2025 Patient has diabetic eye disease 01/03/2025 Patient has diabetic eye disease 01/03/2025 Patient has diabetic eye disease 01/03/2025 Patient has chronic kidney disease 01/03/2025 Patient has chronic kidney disease 01/03/2025 Patient has chronic kidney disease 01/03/2025 Patient has chronic kidney disease 01/03/2025 Patient has diabetic neuropathy 01/03/2025 Patient has diabetic neuropathy 01/03/2025 Patient has diabetic neuropathy 01/03/2025 Patient has diabetic neuropathy 01/03/2025 Weekly blood pressure task 01/03/2025 Weekly blood pressure task 01/03/2025 Weekly blood pressure task 01/03/2025 Weekly blood pressure task 01/03/2025 Patient has diabetic eye disease 01/03/2025 Patient has diabetic eye disease 01/03/2025 Patient has diabetic eye disease 01/03/2025 Patient has diabetic eye disease 01/03/2025 Patient has chronic kidney disease 01/03/2025 Patient has chronic kidney disease 01/03/2025 Patient has chronic kidney disease 01/03/2025 Patient has chronic kidney disease 01/03/2025 Patient has diabetic neuropathy 01/03/2025 Patient has diabetic neuropathy 01/03/2025 Patient has diabetic neuropathy 01/03/2025 Patient has diabetic neuropathy 01/03/2025 Assessment Noted Time PHQ-9 Depression Total Score: 4 07/06/19 25 3:03 PM EDT documented as of this encounter Care Teams Die Filer Relationship Specialty Start Date End Date Name, MD Jose [address] [place] [address] PCP - General Family Medicine 07/02/15 Renetta Davenport PharmD [address] [place] [id number] Pharmacist Internal Medicine 01/03/24 documented as of this encounter
--- OUTSIDE RECORDS SUMMARY | 2025-02-06 14:51 | XMS_ITS | Encounter Summary ---
Author Organization [employer] Address [address] [place] [address] [address] [place] [address] Care Team Providers Care Paper Sorter Name Role Phone Name, Jose ALVARADO Primary Care Provider Renetta Davenport PharmD Unavailable [phone] Reason for Visit * Reason Comments Med Refill Encounter Details Date Type Department Care Team ([facility] st Contact Info) Description 02/06/2025 Refill [facility] MEDICINE [address] [place], [place] [phone] Name, MD Jose [address] [place] [address] Atrial fibrillation, unspecified type (CMS/HCC) (HCC) Social [...] the past 12 months, has t he [employer], gas, oil or water company threatened to [...] documented as of this encounter Care Teams Paper Sorter Relationship Specialty Start Date End Date Name, MD Jose [address] [place] [address] PCP - General Family Medicine 07/02/15 Renetta Davenport PharmD [address] [place] [address] Pharmacist Internal Medicine 01/03/24 documented as of this encounter
--- OUTSIDE RECORDS SUMMARY | 2025-02-06 14:51 | XMS_ITS | Encounter Summary ---
Author Organization [employer] Address [address] [facility] [address] [place] [address] Care Team Providers Care Environmental Analyst Name Role Phone Name, Jose ALVARADO Primary Care Provider [phone] Renetta Davenport PharmD Unavailable [phone] Encounter Details Date Type Department Care Team (Late st Contact Info) Description 03/04/2022 Orders Only [facility] MEDICINE [address] [place] [address] Izabela Johnson LPN Social History Tobacco Use [...] on file documented as of this encounter Procedures Procedure Name Priority Date/Time Associated Diagnosis Comments LIPID PANEL, STANDARD Routine 03/23/2022 1:02 PM EST documented in this encounter Results * Lipid Panel, Standard (03/23/2022 1:02 PM EST) Triglycerides 49 mg/dL [facility] Comment:Desirable Triglyceri de: less than 150 mg/dLBorderline High Triglyceride 150-199 mg/dLHigh Triglyceride: 200-499 mg/dLVery High Triglyceride: greater than or equal to 5OO mg/dL Cholesterol 167 mg/dL [facility] Comment:Desirable Cholestero l: less than 200 mg/dLBorderline High Cholesterol: 200-239 mg/dLHigh Cholesterol: greater than 239 mg/dL LDL Cholesterol Calculated 110 mg/dl [facility] Comment:Desirable LDL: less than 100 mg/dLNear Optimal/Above Optimal LDL: 110- 129 mg/dLBorderline High LDL: 130-159 mg/dLHigh LDL: 160-189 mg/dLVery High LDL: greater than or equal to 190 mg/dL HDL Cholesterol 48 mg/dL [facility] Comment:Desirable HDL: great er than 40 mg/dL Note: This HDL assay may give artificially low results in patients with liver disease. 03/23/2022 1:02 PM EST 03/23/2022 1:02 PM EST [facility] External Provider LAB BLO OD ORDERABLES Final Result Performing Organization Address City/State/[facility] Co de Phone Number [facility] [address] [place] [address] [phone] documented in this encounter Visit Diagnoses Not on filedocumented in this encounter Care Teams Environmental Analyst Relationship Specialty Start Date End Date Name, MD Jose [address] [place] [address] PCP - General Family Medicine 07/02/15 Renetta Davenport PharmD [address] [place] [address] Pharmacist Internal Medicine 01/03/24 documented as of this encounter
--- OUTSIDE RECORDS SUMMARY | 2025-02-06 14:51 | XMS_ITS | Encounter Summary ---
Author Organization [employer] Address [address] [place] [address] [place] [address] Care Team Providers Care Crystal Inspector Name Role Phone Name, Jose ALVARADO Primary Care Provider [phone] Renetta Davenport PharmD Unavailable [phone] Reason for Visit * Reason Onset Date Comments call back 04/03/2022 Requested Call Back 04/07/2022 Prescription Request 04/03/2022 I called to verify that the pt requested insulin supplies through [facility], because they faxed a prescription order form to the [facility] department. He stated that he did not make the request, and that his prescriptions are sent to the [facility]. The form was faxed back to [facility], along with a note stating that the patient uses a local pharmacy. Encounter Details Date Type Department Care Team ([facility] Contact Info) Description 04/03/2022 Telephone [facility] MEDICINE [address] [place] [phone] Name, MD Jose [address] [place], [place] [phone] call back; Requested Call Back ; Prescription Request (I called to verify that the pt requested insulin supplies through [facility], because they faxed a prescription order form to the [facility] department. He stated that he did not make the request, and that his prescriptions are sent to the [facility] Pharm[facility]. The form was faxed back to [facility], along with a note stating [...] - 04/07/2022 10:30 AM EST Tc from [facility] at [facility] re calling in regards to diabetes supplies. Advised of message below, however [facility] is requesting a call back at [phone]. * Telephone Encounter - Gisselle Miranda RN - 04/06/2022 2:13 PM EST Pt does not use [facility] as a pharmacy and has upcoming appt on 04/08/22 and can discuss if pt wants to switch pharmacies * Telephone Encounter - Gio Crum - 04/03/2022 9:14 AM EST Tc from [facility] with [facility] requesting a call back regarding pt medication Please contact stuart at [phone] documented in this encounter Plan of Treatment Not on file documented as of this encounter Visit Diagnoses Not on filedocumented in this encounter Care Teams Crystal Inspector Relationship Specialty Start Date End Date Name, MD Jose [address] [place] [address] PCP - General Family Medicine 07/02/15 Renetta Davenport PharmD [address] [place] [address] Pharmacist Internal Medicine 01/03/24 documented as of this encounter
--- OUTSIDE RECORDS SUMMARY | 2025-02-06 14:51 | XMS_ITS | Clinical Summary ---
Author Organization [employer] Address [address] [place] [address] 7[address] [place] [address] Care Team Providers Care Sales Trainer Name Role Phone Name, Jose ALVARADO Primary Care Provider [phone] Renetta Davenport PharmD Unavailable [phone] Allergies No known active allergies Medications Multaq 400 MG tablet Take 400 mg by mouth with breakfast and with evening meal. 04/02/19 23 Active albuterol 108 (90 Base) MCG/ACT inhaler Inhale 2 puffs every 6 (six) hours if needed for wheezing. 18 g 11 06/16/19 23 Active Blood Pressure kitIndications:Ess ential hypertension,Hypot ension, unspecified hypotension type Use once a day 1 kit 04/19/19 24 Active Continuous Glucose Call Center Support Consultant (FreeStyle Boubacar 2 [place]) deviceIndications: Diabetic polyneuropathy associated with type 2 diabetes mellitus (HCC) Use as directed 1 each 06/23/19 24 Active empagliflozin (Jardiance) 10 MG Take 1 tablet (10 mg) by mouth Once per day. 30 tablet 11 5 2:50 PM EST 03/14/19 25 026 Active glucose blood (FreeStyle Precision Louis Test) test strip Use to test blood sugar up to 2 times daily, as directed 100 each 11 03/29/19 25 Active Eliquis 5 MG tabletIndications: Atrial fibrillation, unspecified type (CMS/HCC) (HCC) TAKE 1 TABLET BY MOUTH TWICE DAILY IN THE MORNING AND IN THE EVENING 180 tablet 1 05/23/19 25 Active Continuous Glucose Sensor (FreeStyle Boubacar 2 Plus Sensor) misc 1 each every 8 (eight) hours. Apply 1 sensor every 15 days as directed for CGM. Continue to scan Q8H, at minimum, to capture 24 hr BG data. 2 each 5 5 2:50 PM EST 08/01/19 25 Active losartan (Cozaar) 50 MG tablet Take 1 tablet (50 mg) by mouth Once per day. 90 tablet 1 08/01/19 25 Active Tirzepatide (Mounjaro) 7.5 MG/0.5ML solution auto-injector Inject 7.5 mg under the skin 1 (one) time per week. 2 mL 5 2:50 PM EST 08/01/19 25 Active glucagon (Baqsimi Two Pack) 3 MG/DOSE nasal powderIndications: Type 2 diabetes mellitus with hyperglycemia, unspecified whether detention insulin use (HCC) Administer 3 mg via 1 device into the nostril for hypoglycemia with loss of consciousness. If no response after 15 minutes administer an additional dose via 2nd device into other nostril. 2 each 1 08/01/19 25 Active glucose 4 g chewable tabletIndications: Type 2 diabetes mellitus with hyperglycemia, unspecified whether detention insulin use (HCC) Chew 4 tablets (16 g) if needed for low blood sugar. <70 mg/dL. Recheck blood sugar after 15 minutes and repeat treatment as needed & as directed. 20 tablet 5 08/01/19 25 026 Active amLODIPine (Norvasc) 10 MG tablet Take 1 tablet (10 mg) by mouth at bedtime. 90 tablet 3 08/01/19 25 Active ezetimibe (Zetia) 10 MG tablet Take 1 tablet (10 mg) by mouth in the evening. 90 tablet 3 08/01/19 25 Active Lancets (OneTouch Delica Plus [id number]) [facility] [place] to test BG twice daily as directed 100 each 08/01/19 25 Active fluticasone-salmet will (Advair HFA) 230-21 MCG/ACT inhalerIndications :Moderate persistent asthma with exacerbation INHALE 2 PUFFS BY MOUTH TWICE DAILY IN THE MORNING AND IN THE EVENING RINSE MOUTH AFTER USING. 12 g 5 2:50 PM EST 08/10/19 25 Active allopurinol (Zyloprim) 300 MG tablet TAKE 1 TABLET BY MOUTH EVERY MORNING 90 tablet 3 08/15/19 25 Active atorvastatin (Lipitor) 80 MG tablet TAKE 1 TABLET BY MOUTH EVERY MORNING 90 tablet 1 10/19/19 25 Active pantoprazole (ProtoNix) 40 MG EC tablet TAKE 1 TABLET BY MOUTH EVERY MORNING 90 tablet 1 10/19/19 25 Active folic acid (Folvite) 1 MG tablet TAKE 1 TABLET BY MOUTH EVERY MORNING 90 tablet 1 10/19/19 25 Active D3-1000 25 MCG (1000 UT) capsuleIndications :Vitamin D deficiency TAKE 1 CAPSULE BY MOUTH EVERY MORNING 90 capsule 1 10/19/19 25 Active metoprolol tartrate (Lopressor) 50 MG tablet TAKE 1 AND 1/2 TABLETS BY MOUTH THREE TIMES DAILY IN THE MORNING, EVENING, AND BEDTIME 135 tablet 3 5 2:50 PM EST 11/23/19 25 Active gabapentin (Neurontin) 100 MG capsuleIndications :Atrial fibrillation, unspecified type (CMS/HCC) (HCC) Take 1 capsule (100 mg) by mouth in the evening. 30 capsule 1 5 2:50 PM EST 12/12/19 25 Active buPROPion SR (Wellbutrin SR) 200 MG 12 hr tabletIndications: Atrial fibrillation, unspecified type (CMS/HCC) (HCC) TAKE 1 TABLET BY MOUTH TWICE DAILY IN THE MORNING AND IN THE EVENING 180 tablet 1 5 2:50 PM EST 12/22/19 25 Active FT Stool Softener 50-8.6 MG tablet TAKE 1 TABLET BY MOUTH EVERY DAY 90 tablet 1 5 2:50 PM EST 12/22/19 25 Active Active Problems Problem Noted Date Diagnosed Date [...] kidney disease) stage 3, GFR 30-59 ml/min ([facility]) 12/27/2023 Diabetic neuropathy 07/12/2023 Genital warts 07/12/2023 [...] asthma with exacerbation 05/2022 Paroxysmal atrial fibrillation ([facility]) 023 Diverticulosis of colon 09/05/2021 COVID-19 11/19/2020 Obesity (BMI 30-39.9) 02/11/2017 Diabetic retinopathy associa kareen with type 2 diabetes mellitus 02/14/2016 Persistent proteinuria due to type 2 diabetes me llitus 10/30/2015 Essential hypertension 07/02/2015 Memory impairment 07/02/2015 Hypercholesterolemia 07/02/2015 Coronary artery disease invo lving [place] coronary artery of [place] heart without angina pectoris 05/07/2014 Gout 05/07/2014 GERD (gastroesophageal reflux disease) 5 Asthma 05/07/2014 Stenosing tenosynovitis 06/02/2010 Major depressive disorder 05/23/2010 Microalbuminuria 12/11/2009 Fatty liver 12/11/2009 Disorder of peripheral nervous system 12/11/2009 Edema of foot 02/15/2008 Low back pain, unspecified 09/09/2007 Anemia 09/09/2007 Non-cardiac chest pain 07/29/2007 Encounters Date Type Department Care Team Description 02/06/2025 Refill [facility] MEDICINE [address] [place] [address] Name, MD Jose Atrial fibrillation, unspecified type ([facility]) ([facility]) 01/26/2025 Refill [facility] [place] [address] Jose Rudd MD Atrial fibrillation, unspecified type (CMS/HCC) (HCC) 01/03/2025 Telephone [facility] [place] [address] Daya Lemos, HEATHER 01/03/2025 Telephone [facility] [place] [address] Daya Lemos, HEATHER 12/21/2024 Refill [facility] [place] [address] Jose Rudd MD Atrial fibrillation, unspecified type (CMS/HCC) (HCC) 12/08/2024 Refill [facility] [place] [address] Jose Rudd MD Atrial fibrillation, unspecified type (CMS/HCC) (HCC) 12/08/2024 Refill [facility] [place] [address] William Deras MD Atrial fibrillation, unspecified type (CMS/HCC) (HCC) 11/29/2024 11:30 AM EDT Telemedicine [facility] [place] [address] Jose Rudd MD GUIDO (dyspnea on exertion) (Primary Dx) 11/29/2024 Travel 11/28/2024 Telephone [facility] [place] [address] Shy Lackey [place] CHART PREP 11/24/2024 Orders Only GENERIC EXTERNAL DATA DEPARTMENT Provider, Generic External Data 11/22/2024 Refill [facility] [place] [address] William Deras MD Atrial fibrillation, unspecified type (CMS/HCC) ([facility]) from Last 3 Months Immunizations Immunization Administration [...] 10/30/2024 1:39 PM EDT Plan of Treatment Health Maintenance Due Date [...] on patient's age to complete this topic Goals Goal Patient Goal Type Associated Problems [...] has diabetic neuropathy No Daya Lemos RN Procedures Procedure Name Priority Date/Time Associated Diagnosis Comments BASIC METABOLIC PANEL Routine 11/24/2024 3:10 PM EDT BASIC METABOLIC PANEL Routine 11/24/2024 3:10 PM EDT PROTEIN CREATININE RATIO, URINE Routine 11/24/2024 3:04 PM EDT URINALYSIS, COMPLETE (INCLUDES MACRO AND MICRO) Routine 11/24/2024 3:04 PM EDT LIPID PANEL, STANDARD Routine 10/30/2024 2:29 PM EDT POCT GLYCATED HEMOGLOBIN, TOTAL Routine 10/30/2024 1:45 PM EDT Type 2 diabetes mellitus with hyperglycemia, unspecified whether shrimp trawler insulin use ([facility]) DIABETES EYE EXAM Routine 09/24/2022 from Last 3 Months or Most Recently Relevant to Health Maintenance Results * (ABNORMAL) Basic Metabolic Panel (11/24/2024 3:10 PM EDT) Only the most recent of2 resultswithin the time period is included. Sodium 138 135 - 145 mmol/L [facility] Potassium 4.8 3.3 - 5.1 mmol/L [facility] Chloride 105 96 - 108 mmol/L [facility] Carbon Dioxide 25 22 - 29 mmol/L [facility] Anion Gap 13 12 - 20 [facility] Urea Nitrogen (BUN) 27(H) 9 - 16 mg/dL [facility] Creatinine, Serum 2.09(H) 0.5 - 1.4 mg/dL [facility] Estimated Glomerular Filt Rate 32 [facility] Comment:Chronic Kidney Disea se: Estimated GFR < 60 mL/min/1.72h8Mofrra Kidney Disease: Estimated GFR < 15 mL/min/1.73m2 Glucose 126(H) 60 - 115 mg/dL [facility] Calcium 9.4 8.4 - 10.2 mg/dL [facility] 11/24/2024 3:10 PM EDT 11/24/2024 3:10 PM EDT Generic External Data Provider LAB BLOOD ORDERAB LES Final Result Performing Organization Address [facility] Co de Phone Number [facility] [address] [place] [phone] * (ABNORMAL) Protein Creatinine Ratio, Urine (11/24/2024 3:04 PM EDT) Creatinine, Urine 112.85 mg/dL [facility] Protein, Total, Random Urine 101(H) <12 mg/dL [facility] Protein/Creati nine Ratio, Ur 0.89(H) <0.2 [facility] Comment:The spot urine prote in:creatinine ratio may increase to 0.3during normal . 11/24/2024 3:04 PM EDT 11/24/2024 5:20 PM EDT Generic External Data Provider LAB URINE ORDERAB LES Final Result Performing Organization Address [facility] de Phone Number [facility] [address] [place] [phone] * (ABNORMAL) Urinalysis Complete (11/24/2024 3:04 PM EDT) Color Urine Yellow [facility] Appearance Urine Clear [facility] PH 5.5 5.0 - 9.0 [facility] Glucose Urine UA >=1000(A) Negative mg/dL [facility] Urine Blood Negative Negative [facility] Specific [place] - Urine >=1.030(H) 1.005 - 1.025 [facility] Urine Protein 100 (2+)(A) Neg-Trace mg/dL [facility] Urine Ketones Negative Negative mg/dL [facility] Nitrite Urine Negative Negative [facility] Leukocyte Esterase Urine Negative Negative [facility] RBC Urine 0-2 0 - 2 /HPF [facility] Urine WBC 0-5 0 - 5 /HPF [facility] Urine Squamous Epithelial Cell 0-2 0 - 2 /HPF [facility] Urine Bacteria None Seen None Seen [facility] Hyaline Casts, Urine 0-2 0 - 2 /LPF [facility] 11/24/2024 3:04 PM EDT 11/24/2024 5:20 PM EDT us Generic External Data Provider LAB URINE ORDERAB LES Final Result Performing Organization Address City/[facility]/ZIP Co de Phone Number [facility] [address] [place] [phone] * Lipid Panel, Standard (10/30/2024 2:29 PM EDT) Triglycerides 42 <150 mg/dL [facility] Comment:Desirable Triglyceri de: less than 150 mg/dLBorderline High Triglyceride 150-199 mg/dLHigh Triglyceride: 200-499 mg/dLVery High Triglyceride: greater than or equal to 5OO mg/dL Cholesterol 150 <200 mg/dL [facility] Comment:Desirable Cholestero l: less than 200 mg/dLBorderline High Cholesterol: 200-239 mg/dLHigh Cholesterol: greater than 239 mg/dL LDL Cholesterol Calculated 97 <100 mg/dL [facility] Comment:Desirable LDL: less than 100 mg/dLNear Optimal/Above Optimal LDL: 110- 129 mg/dLBorderline High LDL: 130-159 mg/dLHigh LDL: 160-189 mg/dLVery High LDL: greater than or equal to 190 mg/dL HDL Cholesterol 45 >40 mg/dL [facility] Comment:Desirable HDL: great er than 40 mg/dL Note: This HDL assay may give artificially low results in patients with liver disease. 10/30/2024 2:29 PM EDT 10/30/2024 4:02 PM EDT us Generic External Data Provider LAB BLOOD ORDERAB LES Final Result Performing Organization Address City/[facility]/ZIP Co de Phone Number [facility] [address] [place] [phone] * (ABNORMAL) POCT Hgb A1c (10/30/2024 1:45 PM EDT) Hemoglobin A1C 6.9(A) 4.0 - 5.7 % QC Media Lot # [id number] Lot# Expiration Date [id number] Blood 10/30/2024 1:45 PM EDT us Jose Rudd MD POINT OF CARE TEST ENTER/EDIT OR DERABLES Final Result * Hm Diabetes Eye Exam (09/24/2022) Eye Exam Normal Normal us Jose Rudd MD HEALTH MAINTENANCE Final Result from Last 3 Months or Most Recently Relevant to Health Maintenance Additional Health Concerns Active Problems Noted Date [...] neuropathy 01/03/2025 Patient has diabetic neuropathy 01/03/2025 Insurance [facility] < 65 [place] [id number] [facility] Care Teams Sales Trainer Relationship Specialty Start Date End Date Name, MD Jose [address] [place] [address] PCP - General Family Medicine 07/02/15 Renetta Davenport PharmD [address] [place] [address] Pharmacist Internal Medicine 01/03/24
--- OUTSIDE RECORDS SUMMARY | 2025-02-06 14:52 | XMS_ITS | Encounter Summary ---
Author Organization [employer] Address [address] 7 [place] [address] Care Team Providers Care Color Control Supervisor Name Role Phone Name, Jose ALVARADO Primary Care Provider [phone] Renetta Davenport PharmD Unavailable [phone] Encounter Details Date Type Department Care Team ([facility] st Contact Info) Description 08/30/2023 Telephone [facility] MEDICINE [address] [place], [place] [phone] Name, MD Jose [address] [place] [address] Social History Tobacco Use Types Packs/Day Years [...] documented as of this encounter Care Teams Color Control Supervisor Relationship Specialty Start Date End Date Name, MD Jose [address] [place] [address] PCP - General Family Medicine 07/02/15 Renetta Davenport PharmD [address] [place] [address] Pharmacist Internal Medicine 01/03/24 documented as of this encounter
--- OUTSIDE RECORDS SUMMARY | 2025-02-06 14:52 | XMS_ITS | Encounter Summary ---
Author Organization [employer] Address [address] [place] [address] 7 [place] [address] Care Team Providers Care Sawmill Or Timber Yard Worker Name Role Phone Name, Jose ALVARADO Primary Care Provider [phone] Renetta Davenprot PharmD Unavailable [phone] Reason for Visit * Reason Comments Med Refill Encounter Details Date Type Department Care Team ([facility] st Contact Info) Description 12/08/2024 Refill [facility] MEDICINE [address] [place], [place] [phone] William Deras MD [address] [place], [place] [phone] Atrial fibrillation, unspecified type (CMS/HCC) (HCC) Social [...] documented as of this encounter Care Teams Sawmill Or Timber Yard Worker Relationship Specialty Start Date End Date Name, MD Jose [address] [place] [address] PCP - General Family Medicine 07/02/15 Renetta Davenport PharmD [address] [place] [address] Pharmacist Internal Medicine 01/03/24 documented as of this encounter
--- OUTSIDE RECORDS SUMMARY | 2025-02-06 14:52 | XMS_ITS | Encounter Summary ---
Author Organization [employer] Address [address] [place] [address] [address], [place] [address] Care Team Providers Care Gate Supervisor Name Role Phone Name, Jose ALVARADO Primary Care Provider [phone] Renetta Davenport PharmD Unavailable [phone] Reason for Visit * Reason Onset Date Comments Nurse Triage 09/25/2022 Encounter Details Date Type Department Care Team ([facility] st Contact Info) Description 09/25/2022 Telephone [facility] MEDICINE [address] [place], [place] [phone] Name, MD Jose [address] [place] [address] Nurse Triage Social History Tobacco Use Types [...] - 09/28/2022 1:41 PM EDT T/C to [phone] for status check, No answer. LVM to call back on [phone]. * Telephone Encounter - Azeb Hager RN - 09/25/2022 12:43 PM EDT Triage call with [employer] [employer] [place] [id number] Pt , JEANA Contreras reports Pt is sleeping and she will talk for Pt. Pt was tested + for Covid09/24/22. Pt symptoms are fever, tactile, body aches, cough, nasal congestion and headache. Diane informs conventional underwriter that Pt has been given prednisone [...] of listed homecare advise. Haleigh is given 9flats number [phone] for eligibility for paxlovid. Haleigh is asking [...] this outcome Please contact pt spouse at [phone] Cuban Speaker documented in this encounter Plan of Treatment Not on file documented as of this encounter Visit Diagnoses Not on filedocumented in this encounter Care Teams Gate Supervisor Relationship Specialty Start Date End Date Name, MD Jose [address] [place] [address] PCP - General Family Medicine 07/02/15 Renetta Davenport PharmD [address] [place] [address] Pharmacist Internal Medicine 01/03/24 documented as of this encounter
[2025-02-06 15:50] LABS: Anion Gap 11 (12-20); Blood Urea Nitrogen 29 mg/dL (9-16); Carbon Dioxide 25 mmol/L (22-29); Chloride 107 mmol/L (96-108); Estimated Glomerular Filt Rate 39; Potassium 4.2 mmol/L (3.3-5.1); Sodium 139 mmol/L (135-145)
== END 2025-02-06 11:17 | disposition home or self-care (01) ==
LOC: HO.HHCL 11:16
PROVIDERS: PCP Internal Medicine Geriatric Medicine; Visit Provider Internal Medicine Nephrology
DX: I12.9 Hypertensive chronic kidney disease with stage 1 through stage 4 chronic kidney disease, or unspecified chronic kidney disease (principal); N18.31 Chronic kidney disease, stage 3a; N25.81 Secondary hyperparathyroidism of renal origin
CPT/HCPCS: 36415; 80051; 82565; 84520

== ENCOUNTER → 2025-02-08 09:02 | Outpatient (REF) | payer OTHER, SELFPAY ==
--- NOTE | 2025-02-08 09:17 | CA_ITS ---
Acquisition Time: 2025-02-08 09:22:43 Total Exercise Time: 00:07:00 Test Indications: CHEST PAIN Medications: AMLODIPINE ALLOPURINOL ATROVASTATIN LOSARTAN METOPROLOL Protocol: FLOYD Max HR: 134 BPM 85% of Pred: 156 BPM Max BP: 148/88 mmHG Max Work Load: 7.6 METS Exercise stress test with exercise 7 mins of Floyd Protocol at reduced speed of 2.7mph, achieving 85% MPHR, with reports of SOB and arm pain, without any arrythmias, with normotensive response to exercise. Without any EKG changes meeting criteria for ischemia. In recovery, breathing improved and pt feeling back to baseline. Nuclear images pending. Test reviewed with Dr. Daniels. Referred By: Pete Napier Electronically Signed By: Pete Napier
== END ==
LOC: HO.CARD 09:02
PROVIDERS: PCP Internal Medicine Geriatric Medicine
DX: R07.2 Precordial pain (principal); R06.02 Shortness of breath
CPT/HCPCS: 78452; 93017; A9500

== ENCOUNTER → 2025-02-08 09:17 | Outpatient (BNV) | payer OTHER, SELFPAY | PROVIDERS: PCP Internal Medicine Geriatric Medicine | DX: R07.2 Precordial pain (principal) | CPT/HCPCS: 78452; 93016; 93018 ==

== ENCOUNTER 2025-02-09 09:20 | Outpatient (AMB) | payer OTHER, SELFPAY ==
--- NOTE | 2025-02-09 09:34 | HO.NEPHOV_ITS ---
Vital Signs 02/09/25 09:35 Height 6 ft Weight 247 lb 4 oz BMI 33.5 BP 130/80 Blood Pressure Location Rt brachial Position Sitting Pulse 77 Pulse Source Pulse Oximeter Pulse Oximetry (%) 97 Oxygen Delivery Method Room Air Intake Visit Reasons: 3mon follow-up w/labs-Conf Sales Representative Printing Paper Required: Yes Sales Representative Printing Paper Language: Operations Research Group Manager Services: Sales Representative Printing Paper Present Sales Representative Printing Paper Name: Rodrick [id number] Information Interpreted: clinical only Accompanied by: Self / Same As Patient Allergies No Known Allergies (No Known Allergies*) Allergy (Verified 02/09/25 09:34) HPI Comments Details: 63 y/o male with paroxysmal afib on eliquis, HTN & DMII, gout as well as CKD is here for F/U. Creatinine is stable now. He has history of proteinuria since at least 2019. He has hypertension and currently taking amlodipine 10mg daily and metoprolol 75mg TID & HCTZ. He does not take NSAIDs or other OTC medication.He feels well. He is on ARB. [facility] Medical History History of cardioversion History of COVID-19 COVID-19 vaccine series completed Elevated cholesterol HTN (hypertension) Asthma COPD (chronic obstructive pulmonary disease) LUIS ALFREDO (obstructive sleep apnea) CAD (coronary artery disease) Surgical History H/O cardiac catheterization History of cataract surgery H/O: vasectomy Family History Father HTN (hypertension) Diabetes Mother HTN (hypertension) Diabetes CVD (cardiovascular disease) Social History Household Members: Spouse Housing: Apartment Do you presently have visiting nurse or other home services: No Alcohol intake: never Patient Tobacco Use Status: Never used Tobacco service: No Review of Systems Const All systems reviewed & are unremarkable except as noted in HPI and below Physical Exam Vital Signs: Last Vital Signs Pulse 77 02/09/25 09:35 BP 130/80 02/09/25 09:35 Pulse Ox 97 02/09/25 09:35 Oxygen Delivery Method Room Air 02/09/25 09:35 BMI result Body Mass Index 33.5 Const General: comfortable and no acute distress Orientation/consciousness: patient oriented x3 HEENT Head: Yes normocephalic Mouth: Normal oral and palatal mucosa present Eyes EOM: EOMs intact bilaterally Neck Neck: Yes supple Resp Auscultation: clear to auscultation bilaterally Cardio Jugular venous distension: no JVD Rate: regular rate GI Palpation (GI): Soft to palpation Auscultation: normal bowel sounds General: Yes no CVA tenderness Back/Spine/Pelvis Back: no CVA tenderness Skin General skin exam: no rashes or lesions noted Neuro General: patient oriented x3 and moves all extremities Extrem General: Yes no pedal edema Results Reviewed Nephrology Results: Hgb, (14.0-18.0) 14.0 g/dl 10/30/24 WBC, (4.8-10.8) 8.3 X10*3/uL 10/30/24 Plt Count, (160-400) 253 X10*3/uL 10/30/24 Sodium, (135-145) 139 mmol/L 02/06/25 Potassium, (3.3-5.1) 4.2 mmol/L 02/06/25 Chloride, (96-108) 107 mmol/L 02/06/25 Carbon Dioxide, (22-29) 25 mmol/L 02/06/25 BUN, (9-16) 29 mg/dL H 02/06/25 Creatinine, (0.5-1.4) 1.78 mg/dL H 02/06/25 Calcium, (8.4-10.2) 9.4 mg/dL 11/24/24 Urine Protein, (Neg-Trace) 100 (2+) mg/dL H 11/24/24 Urine Creatinine 112.85 mg/dL 11/24/24 Protein/Creatinin Ratio, (<0.2) 0.89 H 11/24/24 Renal US 10/13/21 Assessment & Plan Assessment & Plan (1) HTN (hypertension): Code(s): I10 - Essential (primary) hypertension Category: Medical Qualifiers: Hypertension type: primary hypertension Qualified Code(s): I10 - Essential (primary) hypertension (2) Secondary hyperparathyroidism (of renal origin): Code(s): N25.81 - Secondary hyperparathyroidism of renal origin Category: Medical (3) CKD (chronic kidney disease) stage 3, GFR 30-59 ml/min: Code(s): N18.30 - Chronic kidney disease, stage 3 unspecified Category: Medical Qualifiers: Chronic kidney disease stage 3 subtype: stage 3a (GFR 45-59) Qualified Code(s): N18.31 - Chronic kidney disease, stage 3a Plan Renal functions stable. On ARB, tolerating well. Blood pressure at goal.I plan to start him on SGLT2 i. On GLP1 agonist. Needs to loose more weight. Good hydration. No NSAID's. All questions answered. Orders: Orders Vitamin D 25-OH Total 3 Months I10 - Essential (primary) hypertension, N18.31 - Chronic kidney disease, stage 3a, N25.81 - Secondary hyperparathyroidism of renal origin Electrolytes 3 Months I10 - Essential (primary) hypertension, N18.31 - Chronic kidney disease, stage 3a, N25.81 - Secondary hyperparathyroidism of renal origin Calcium 3 Months I10 - Essential (primary) hypertension, N18.31 - Chronic kidney disease, stage 3a, N25.81 - Secondary hyperparathyroidism of renal origin Creatinine 3 Months I10 - Essential (primary) hypertension, N18.31 - Chronic kidney disease, stage 3a, N25.81 - Secondary hyperparathyroidism of renal origin Parathyroid Hormone Intact 3 Months I10 - Essential (primary) hypertension, N18.31 - Chronic kidney disease, stage 3a, N25.81 - Secondary hyperparathyroidism of renal origin Phosphorus 3 Months I10 - Essential (primary) hypertension, N18.31 - Chronic kidney disease, stage 3a, N25.81 - Secondary hyperparathyroidism of renal origin Blood Urea Nitrogen 3 Months I10 - Essential (primary) hypertension, N18.31 - Chronic kidney disease, stage 3a, N25.81 - Secondary hyperparathyroidism of renal origin Coding Level of Care Code Est Pt Level 4 (64794) Diagnoses Primary hypertension I10 Hypertension type: primary hypertension Secondary hyperparathyroidism (of renal origin) N25.81 Stage 3a chronic kidney disease N18.31 Chronic kidney disease stage 3 subtype: stage 3a (GFR 45-59)
[2025-02-09 09:35] VITALS: BP 130/80; PULSE 77; O2SAT 97; BMI 33.5
--- OUTSIDE RECORDS SUMMARY | 2025-02-09 09:57 | XMS_ITS | Encounter Summary ---
Author Organization [employer] Address [address] [facility] 7[address] [place] [address] Care Team Providers Care Ad Trafficker Name Role Phone Name, Jose ALVARADO Primary Care Provider [phone] Renetta Davenport PharmD Unavailable [phone] Encounter Details Date Type Department Care Team ([facility] st Contact Info) Description 02/06/2025 Orders Only GENERIC EXTERNAL DATA DEPARTMENT Provider, [...] your housing situation today? I have barbi sing 07/05/[address] you li [...] Lemos RN documented as of this encounter Procedures Procedure Name Priority Date/Time Associated Diagnosis Comments CREATININE, SERUM Routine 02/06/2025 11: 30 AM EST UREA NITROGEN (BUN) Routine 02/06/2025 1 1:30 AM EST ELECTROLYTE PANEL Routine 02/06/2025 11: 30 AM EST documented in this encounter Results * (ABNORMAL) Creatinine, Serum (02/06/2025 11:30 AM EST) Creatinine, Serum 1.78(H) 0.5 - 1.4 mg/dL [facility] Estimated Glomerular Filt Rate 39 [facility] Comment:Chronic Kidney Disea se: Estimated GFR < 60 mL/min/1.27l9Hncwml Kidney Disease: Estimated GFR < 15 mL/min/1.73m2 02/06/2025 11:3 0 AM EST 02/06/2025 3:14 PM EST us Generic External Data Provider LAB BLOOD ORDERAB LES Final Result [facility] [address] [place] [address] [phone] * (ABNORMAL) BUN (Blood Urea Nitrogen) (02/06/2025 11:30 AM EST) Urea Nitrogen (BUN) 29(H) 9 - 16 mg/dL [facility] 02/06/2025 11:3 0 AM EST 02/06/2025 3:14 PM EST us Generic External Data Provider LAB BLOOD ORDERAB LES Final Result Performing Organization Address [facility] de Phone Number [facility] [address] [place] [address] [phone] * (ABNORMAL) Electrolyte Panel (02/06/2025 11:30 AM EST) Sodium 139 135 - 145 mmol/L [facility] Potassium 4.2 3.3 - 5.1 mmol/L [facility] Chloride 107 96 - 108 mmol/L [facility] Carbon Dioxide 25 22 - 29 mmol/L [facility] Anion Gap 11(L) 12 - 20 [facility] 02/06/2025 11:3 0 AM EST 02/06/2025 3:14 PM EST us Generic External Data Provider LAB BLOOD ORDERAB LES Final Result Performing Organization Address [facility] Co de Phone Number [facility] [address] [place] [address] [phone] documented in this encounter Visit Diagnoses Not on filedocumented in this encounter Additional Health Concerns Active [...] documented as of this encounter Care Teams Ad Trafficker Relationship Specialty Start Date End Date Name, MD Jose [address] [place] [address] PCP - General Family Medicine 07/02/15 Renetta Davenport PharmD [address] [place] [address] Pharmacist Internal Medicine 01/03/24 documented as of this encounter
--- OUTSIDE RECORDS SUMMARY | 2025-02-09 09:57 | XMS_ITS | Encounter Summary ---
Author Organization [email or web address] Address [address] [place] [address] [address], [place] [address] Care Team Providers Care Speck Dyer Name Role Phone Name, Jose ALVARADO Primary Care Provider [phone] Renetta Davenport PharmD Unavailable [phone] Reason for Visit * Reason Onset Date Comments call back 04/03/2022 Requested Call Back 04/07/2022 Prescription Request 04/03/2022 I called to verify that the pt requested insulin supplies through [facility], because they faxed a prescription order form to the [facility] department. He stated that he did not make the request, and that his prescriptions are sent to the [facility]. The form was faxed back to [facility], along with a note stating that the patient uses a local pharmacy. Encounter Details Date Type Department Care Team ([facility] Contact Info) Description 04/03/2022 Telephone [facility] MEDICINE [address] [place] [address] Name, MD Jose [address] [place], [place] [phone] call back; Requested Call Back ; Prescription Request (I called to verify that the pt requested insulin supplies through [facility], because they faxed a prescription order form to the [facility] department. He stated that he did not make the request, and that his prescriptions are sent to the [facility]. The form was faxed back to [facility], along with a note stating that the [...] - 04/07/2022 10:30 AM EST Tc from [facility] at [facility] re calling in regards to diabetes supplies. Advised of message below, however [facility] is requesting a call back at [phone]. * Telephone Encounter - Gisselle Miranda RN - 04/06/2022 2:13 PM EST Pt does not use [facility] as a pharmacy and has upcoming appt on 04/08/22 and can discuss if pt wants to switch pharmacies * Telephone Encounter - Gio Crum - 04/03/2022 9:14 AM EST Tc from [facility] with [facility] requesting a call back regarding pt medication Please contact stuart at [phone] documented in this encounter Plan of Treatment Not on file documented as of this encounter Visit Diagnoses Not on filedocumented in this encounter Care Teams Speck Dyer Relationship Specialty Start Date End Date Name, MD Jose [address] [place] [address] PCP - General Family Medicine 07/02/15 Renetta Davenport PharmD [address] [place] [address] Pharmacist Internal Medicine 01/03/24 documented as of this encounter
--- OUTSIDE RECORDS SUMMARY | 2025-02-09 09:57 | XMS_ITS | Encounter Summary ---
Author Organization [employer] Address [address] [place] [address] 7 [place] [address] Care Team Providers Care Package Pick Up Name Role Phone Name, Jose ALVARADO Primary Care Provider [phone] Renetta Davenport PharmD Unavailable [phone] Reason for Visit * Reason Comments Med Refill Encounter Details Date Type Department Care Team ([facility] st Contact Info) Description 12/08/2024 Refill [facility] MEDICINE [address] [place], [place] [phone] William Deras MD [address] [place], [place] [phone] Atrial fibrillation, unspecified type (CMS/HCC) (HCC) Social [...] documented as of this encounter Care Teams Package Pick Up Relationship Specialty Start Date End Date Name, MD Jose [address] [place] [address] PCP - General Family Medicine 07/02/15 Renetta Davenport PharmD [address] [place] [address] Pharmacist Internal Medicine 01/03/24 documented as of this encounter
--- OUTSIDE RECORDS SUMMARY | 2025-02-09 09:57 | XMS_ITS | Encounter Summary ---
Author Organization [employer] Address [address] [place] [address] [address], [place] [address] Care Team Providers Care Telephone Operator Name Role Phone Name, Jose ALVARADO Primary Care Provider [phone] Renetta Davenport PharmD Unavailable [phone] Reason for Visit * Reason Onset Date Comments Nurse Triage 09/25/2022 Encounter Details Date Type Department Care Team ([facility] st Contact Info) Description 09/25/2022 Telephone [facility] MEDICINE [address] [place], [place] [phone] Name, MD Jose [address] [place] [address] Nurse Triage Social History Tobacco Use Types [...] - 09/28/2022 1:41 PM EDT T/C to [phone] for status check, No answer. LVM to call back on [phone]. * Telephone Encounter - Azeb Hager RN - 09/25/2022 12:43 PM EDT Triage call with [place] Director [employer] [place] [id number] Pt , JEANA Contreras reports Pt is sleeping and she will talk for Pt. Pt was tested + for Covid09/24/22. Pt symptoms are fever, tactile, body aches, cough, nasal congestion and headache. Diane informs technical writer that Pt has been given prednisone [...] of listed homecare advise. Haleigh is given [employer] number [phone] for eligibility for paxlovid. Haleigh is asking [...] this outcome Please contact pt spouse at [phone] Vincentian Speaker documented in this encounter Plan of Treatment Not on file documented as of this encounter Visit Diagnoses Not on filedocumented in this encounter Care Teams Telephone Operator Relationship Specialty Start Date End Date Name, MD Jose [address] [place] [address] PCP - General Family Medicine 07/02/15 Renetta Davenport PharmD [address] [place] [address] Pharmacist Internal Medicine 01/03/24 documented as of this encounter
--- OUTSIDE RECORDS SUMMARY | 2025-02-09 09:57 | XMS_ITS | Encounter Summary ---
Author Organization [employer] Address [address] [place] [address] [address] [place] [address] Care Team Providers Care Health Systems Analyst Name Role Phone Name, Jose ALVARADO Primary Care Provider [phone] Renetta Davenport PharmD Unavailable [phone] Reason for Visit * Reason Comments Med Refill Encounter Details Date Type Department Care Team ([facility] st Contact Info) Description 02/06/2025 Refill [facility] MEDICINE [address] [place], [place] [phone] Name, MD Jose [address] [place] [address] Atrial fibrillation, unspecified type (CMS/HCC) (HCC) Social [...] the past 12 months, has t he [employer], gas, oil or water company threatened to [...] documented as of this encounter Care Teams Health Systems Analyst Relationship Specialty Start Date End Date Name, MD Jose [address] [place] [address] PCP - General Family Medicine 07/02/15 Renetta Davenport PharmD [address] [place] [address] Pharmacist Internal Medicine 01/03/24 documented as of this encounter
--- OUTSIDE RECORDS SUMMARY | 2025-02-09 09:57 | XMS_ITS | Encounter Summary ---
Author Organization [employer] Address [address] [place] [address] 7 [place] [address] Care Team Providers Care Hand Salter Name Role Phone Name, Jose ALVARADO Primary Care Provider [phone] Renetta Davenport PharmD Unavailable [phone] Reason for Visit * Reason Comments Med Refill Encounter Details Date Type Department Care Team ([facility] st Contact Info) Description 01/26/2025 Refill [facility] MEDICINE [address] [place], [place] [phone] Name, MD Joes [address] [place] [address] Atrial fibrillation, unspecified type (CMS/HCC) (HCC) Social [...] the past 12 months, has t he [employer], gas, oil or water company threatened to [...] documented as of this encounter Care Teams Hand Salter Relationship Specialty Start Date End Date Name, MD Jose [address] [place] [address] PCP - General Family Medicine 07/02/15 Renetta Davenport PharmD [address] [place] [phone] Pharmacist Internal Medicine 01/03/24 documented as of this encounter
--- OUTSIDE RECORDS SUMMARY | 2025-02-09 09:57 | XMS_ITS | Encounter Summary ---
Author Organization [employer] Address [address] [facility] 7t [place] [address] Care Team Providers Care Rx Specialist Name Role Phone Name, Jose ALVARADO Primary Care Provider [phone] Renetta Davenport PharmD Unavailable [phone] Encounter Details Date Type Department Care Team (Late st Contact Info) Description 03/04/2022 Orders Only [facility] MEDICINE [address] [place] [address] Izabela Johnson LPN Social History Tobacco Use [...] (03/23/2022 1:02 PM EST) Triglycerides 49 mg/dL [facility] Comment:Desirable Triglyceri de: less than 150 mg/dLBorderline High Triglyceride 150-199 mg/dLHigh Triglyceride: 200-499 mg/dLVery High Triglyceride: greater than or equal to 5OO mg/dL Cholesterol 167 mg/dL [facility] Comment:Desirable Cholestero l: less than 200 mg/dLBorderline High Cholesterol: 200-239 mg/dLHigh Cholesterol: greater than 239 mg/dL LDL Cholesterol Calculated 110 mg/dl [facility] Comment:Desirable LDL: less than 100 mg/dLNear Optimal/Above Optimal LDL: 110- 129 mg/dLBorderline High LDL: 130-159 mg/dLHigh LDL: 160-189 mg/dLVery High LDL: greater than or equal to 190 mg/dL HDL Cholesterol 48 mg/dL [facility] Comment:Desirable HDL: great er than 40 mg/dL Note: This HDL assay may give artificially low results in patients with liver disease. 03/23/2022 1:02 PM EST 03/23/2022 1:02 PM EST [facility] External Provider LAB BLO OD ORDERABLES Final Result Performing Organization Address City/State/[facility] Co de Phone Number [facility] [address] [place] [address] [phone] documented in this encounter Visit Diagnoses Not on filedocumented in this encounter Care Teams Rx Specialist Relationship Specialty Start Date End Date Name, MD Jose [address] [place] [address] PCP - General Family Medicine 07/02/15 Renetta Davenport PharmD [address] [place] [address] Pharmacist Internal Medicine 01/03/24 documented as of this encounter
--- OUTSIDE RECORDS SUMMARY | 2025-02-09 09:57 | XMS_ITS | Clinical Summary ---
Author Organization [employer] Address [address] [place] [address] [address] [place] [address] Care Team Providers Care Last Sawyer Name Role Phone Name, Jose ALVARADO Primary Care Provider [phone] Renetta Davenport PharmD Unavailable [phone] Allergies No known active allergies Medications [...] day 1 kit 024 Active Continuous Glucose Drapery Hand (FreeStyle Boubacar 2 [place]) deviceIndications :Diabetic polyneuropathy associated with type 2 diabetes mellitus (HCC) Use as directed 1 each 024 Active empagliflozin (Jardiance) 10 MG Take 1 tablet (10 mg) by mouth Once per day. 30 tablet 11 01/17/20 25 2:50 PM EST 025 2025 Active glucose blood (FreeStyle Precision Louis Test) test strip Use to test blood sugar up to 2 times daily, as directed 100 each 11 025 Active Eliquis 5 MG tabletIndications :Atrial fibrillation, unspecified type (CMS/HCC) (HCC) TAKE 1 TABLET BY MOUTH TWICE DAILY IN THE MORNING AND IN THE EVENING 180 tablet 1 025 Active Continuous Glucose Sensor (FreeStyle Boubacar 2 Plus Sensor) misc 1 each every 8 (eight) hours. Apply 1 sensor every 15 days as directed for CGM. Continue to scan Q8H, at minimum, to capture 24 hr BG data. 2 each 5 01/17/20 2:50 PM EST Active losartan (Cozaar) 50 MG tablet Take 1 tablet (50 mg) by mouth Once per day. 90 tablet 1 Active Tirzepatide (Mounjaro) 7.5 MG/0.5ML solution auto-injector Inject 7.5 mg under the skin 1 (one) time per week. 2 mL 01/17/20 2:50 PM EST Active glucagon (Baqsimi Two Pack) 3 MG/DOSE nasal powderIndications :Type 2 diabetes mellitus with hyperglycemia, unspecified whether fpc insulin use (HCC) Administer 3 mg via 1 device into the nostril for hypoglycemia with loss of consciousness. If no response after 15 minutes administer an additional dose via 2nd device into other nostril. 2 each 1 Active glucose 4 g chewable tabletIndications :Type 2 diabetes mellitus with hyperglycemia, unspecified whether fpc insulin use (HCC) Chew 4 tablets (16 [...] tablet 3 Active Lancets (OneTouch Delica Plus Srhwcz26M) [facility] [place] Use to test BG twice daily as directed 100 each Active fluticasone-salme terol (Advair HFA) 230-21 MCG/ACT inhalerIndication s:Moderate persistent asthma with exacerbation INHALE 2 PUFFS BY MOUTH TWICE DAILY IN THE MORNING AND IN THE EVENING RINSE MOUTH AFTER USING. 12 g 01/17/20 2:50 PM EST Active allopurinol (Zyloprim) 300 MG tablet TAKE 1 TABLET BY MOUTH EVERY MORNING 90 tablet 3 025 Active atorvastatin (Lipitor) 80 MG tablet [...] MORNING, EVENING, AND BEDTIME 135 tablet 3 01/17/20 2:50 PM EST 025 Active buPROPion SR (Wellbutrin SR) 200 MG 12 hr tabletIndications :Atrial fibrillation, unspecified type (CMS/HCC) (HCC) TAKE 1 TABLET BY MOUTH TWICE DAILY IN THE MORNING AND IN THE EVENING 180 tablet 1 01/17/20 2:50 PM EST 025 Active FT Stool Softener 50-8.6 MG tablet TAKE 1 TABLET BY MOUTH EVERY DAY 90 tablet 1 01/17/20 2:50 PM EST 025 Active gabapentin (Neurontin) 100 MG capsuleIndication s:Atrial fibrillation, unspecified type (CMS/HCC) (HCC) TAKE 1 CAPSULE BY MOUTH EVERY EVENING 30 capsule 1 025 Active gabapentin (Neurontin) 100 MG capsuleIndication s:Atrial fibrillation, unspecified type (CMS/HCC) (HCC) Take 1 capsule (100 mg) by mouth in the evening. 30 capsule 1 01/17/20 25 2:50 PM EST 025 2024 Discontinued Active Problems Problem Noted [...] kidney disease) stage 3, GFR 30-59 ml/min ([facility]) 12/27/2023 Diabetic neuropathy 07/12/2023 Genital warts 07/12/2023 [...] asthma with exacerbation 05/2022 Paroxysmal atrial fibrillation ([facility]) 023 Diverticulosis of colon 09/05/2021 COVID-19 11/19/2020 Obesity (BMI 30-39.9) 02/11/2017 Diabetic retinopathy associa kareen with type 2 diabetes mellitus 02/14/2016 Persistent proteinuria due to type 2 diabetes me llitus 10/30/2015 Essential hypertension 07/02/2015 Memory impairment 07/02/2015 Hypercholesterolemia 07/02/2015 Coronary artery disease invo lving [place] coronary artery of [place] heart without angina pectoris 05/07/2014 Gout 05/07/2014 GERD (gastroesophageal reflux disease) 5 Asthma 05/07/2014 Stenosing tenosynovitis 06/02/2010 Major depressive disorder 05/23/2010 Microalbuminuria 12/11/2009 Fatty liver 12/11/2009 Disorder of peripheral nervous system 12/11/2009 Edema of foot 02/15/2008 Low back pain, unspecified 09/09/2007 Anemia 09/09/2007 Non-cardiac chest pain 07/29/2007 Encounters Date Type Department Care Team Description 02/06/2025 Orders Only GENERIC EXTERNAL DATA DEPARTMENT Provider, Generic External Data 02/06/2025 Refill [facility] [place] [address] Jose Rudd MD Atrial fibrillation, unspecified type (CMS/HCC) (HCC) 01/26/2025 Refill [facility] [address] [place] [address] Jose Rudd MD Atrial fibrillation, unspecified type (CMS/HCC) (HCC) 01/03/2025 Telephone [facility] [address] [place] [address] Daya Lemos, HEATHER 01/03/2025 Telephone [facility] [address] [place] [address] Daya Lemos, HEATHER 12/21/2024 Refill [facility] [address] [place] [address] Jose Rudd MD Atrial fibrillation, unspecified type (CMS/HCC) (HCC) 12/08/2024 Refill [facility] [place] [address] Jose Rudd MD Atrial fibrillation, unspecified type (CMS/HCC) (HCC) 12/08/2024 Refill [facility] [place] [address] William Deras MD Atrial fibrillation, unspecified type (CMS/HCC) (HCC) 11/29/2024 11:30 AM EDT Telemedicine [facility] [place] [address] Jose Rudd MD GUIDO (dyspnea on exertion) (Primary Dx) 11/29/2024 Travel 11/28/2024 Telephone [facility] [address] Shy Lackey MA CHART PREP 11/24/2024 Orders Only GENERIC EXTERNAL DATA DEPARTMENT Provider, Generic External Data 11/22/2024 Refill [facility] [place] [address] William Dreas MD Atrial fibrillation, unspecified type (CMS/HCC) ([facility]) from Last 3 Months Immunizations Immunization Administration [...] PANEL Routine 02/06/2025 11: 30 AM EST BASIC METABOLIC PANEL Routine 11/24/2024 3:10 PM EDT BASIC METABOLIC PANEL Routine 11/24/2024 3:10 PM EDT PROTEIN CREATININE RATIO, URINE Routine 11/24/2024 3:04 PM EDT URINALYSIS, COMPLETE (INCLUDES MACRO AND MICRO) Routine 11/24/2024 3:04 PM EDT LIPID PANEL, STANDARD Routine 10/30/2024 2:29 PM EDT POCT GLYCATED HEMOGLOBIN, TOTAL Routine 10/30/2024 1:45 PM EDT Type 2 diabetes mellitus with hyperglycemia, unspecified whether fpc insulin use ([facility]) DIABETES EYE EXAM Routine 09/24/2022 from Last 3 Months or Most Recently Relevant to Health Maintenance Results * (ABNORMAL) Creatinine, Serum (02/06/2025 11:30 AM EST) Creatinine, Serum 1.78(H) 0.5 - 1.4 mg/dL [facility] Estimated Glomerular Filt Rate 39 [facility] Comment:Chronic Kidney Disea se: Estimated GFR < 60 mL/min/1.63y0Sleeal Kidney Disease: Estimated GFR < 15 mL/min/1.73m2 02/06/2025 11:3 0 AM EST 02/06/2025 3:14 PM EST Generic External Data Provider LAB BLOOD ORDERAB LES Final Result Performing Organization Address [facility] Phone Number [facility] [address] [place] [phone] * (ABNORMAL) BUN (Blood Urea Nitrogen) (02/06/2025 11:30 AM EST) Urea Nitrogen (BUN) 29(H) 9 - 16 mg/dL [facility] 02/06/2025 11:3 0 AM EST 02/06/2025 3:14 PM EST Generic External Data Provider LAB BLOOD ORDERAB LES Final Result Performing Organization Address [facility] Number [facility] [address] [place] [address] [phone] * (ABNORMAL) Electrolyte Panel (02/06/2025 11:30 AM EST) Sodium 139 135 - 145 mmol/L [facility] Potassium 4.2 3.3 - 5.1 mmol/L [facility] Chloride 107 96 - 108 mmol/L [facility] Carbon Dioxide 25 22 - 29 mmol/L [facility] Anion Gap 11(L) 12 - 20 [facility] 02/06/2025 11:3 0 AM EST 02/06/2025 3:14 PM EST Generic External Data Provider LAB BLOOD ORDERAB LES Final Result Performing Organization Address [facility] Phone Number [facility] [address] [place] [phone] * (ABNORMAL) Basic Metabolic Panel (11/24/2024 3:10 PM EDT) Only the most recent of2 resultswithin the time period is included. Sodium 138 135 - 145 mmol/L [facility] Potassium 4.8 3.3 - 5.1 mmol/L [facility] Chloride 105 96 - 108 mmol/L [facility] Carbon Dioxide 25 22 - 29 mmol/L [facility] Anion Gap 13 12 - 20 [facility] Urea Nitrogen (BUN) 27(H) 9 - 16 mg/dL [facility] Creatinine, Serum 2.09(H) 0.5 - 1.4 mg/dL [facility] Estimated Glomerular Filt Rate 32 [facility] Comment:Chronic Kidney Disea se: Estimated GFR < 60 mL/min/1.22n3Ifbjmp Kidney Disease: Estimated GFR < 15 mL/min/1.73m2 Glucose 126(H) 60 - 115 mg/dL [facility] Calcium 9.4 8.4 - 10.2 mg/dL [facility] 11/24/2024 3:10 PM EDT 11/24/2024 3:10 PM EDT us Generic External Data Provider LAB BLOOD ORDERAB LES Final Result Performing Organization Address [facility] de Phone Number [facility] [address] [place] [address] [phone] * (ABNORMAL) Protein Creatinine Ratio, Urine (11/24/2024 3:04 PM EDT) Creatinine, Urine 112.85 mg/dL [facility] Protein, Total, Random Urine 101(H) <12 mg/dL [facility] Protein/Creati nine Ratio, Ur 0.89(H) <0.2 [facility] Comment:The spot urine prote in:creatinine ratio may increase to 0.3during normal . 11/24/2024 3:04 PM EDT 11/24/2024 5:20 PM EDT us Generic External Data Provider LAB URINE ORDERAB LES Final Result Performing Organization Address [facility] Co de Phone Number [facility] [address] [place] [address] [phone] * (ABNORMAL) Urinalysis Complete (11/24/2024 3:04 PM EDT) Color Urine Yellow [facility] Appearance Urine Clear [facility] PH 5.5 5.0 - 9.0 [facility] Glucose Urine UA >=1000(A) Negative mg/dL [facility] Urine Blood Negative Negative [facility] Specific [place] - Urine >=1.030(H) 1.005 - 1.025 [facility] Urine Protein 100 (2+)(A) Neg-Trace mg/dL [facility] Urine Ketones Negative Negative mg/dL [facility] Nitrite Urine Negative Negative [facility] Leukocyte Esterase Urine Negative Negative [facility] RBC Urine 0-2 0 - 2 /HPF [facility] Urine WBC 0-5 0 - 5 /HPF [facility] Urine Squamous Epithelial Cell 0-2 0 - 2 /HPF [facility] Urine Bacteria None Seen None Seen [facility] Hyaline Casts, Urine 0-2 0 - 2 /LPF [facility] 11/24/2024 3:04 PM EDT 11/24/2024 5:20 PM EDT us Generic External Data Provider LAB URINE ORDERAB LES Final Result [facility] [address] [place] [phone] * Lipid Panel, Standard (10/30/2024 2:29 PM EDT) Triglycerides 42 <150 mg/dL [facility] Comment:Desirable Triglyceri de: less than 150 mg/dLBorderline High Triglyceride 150-199 mg/dLHigh Triglyceride: 200-499 mg/dLVery High Triglyceride: greater than or equal to 5OO mg/dL Cholesterol 150 <200 mg/dL [facility] Comment:Desirable Cholestero l: less than 200 mg/dLBorderline High Cholesterol: 200-239 mg/dLHigh Cholesterol: greater than 239 mg/dL LDL Cholesterol Calculated 97 <100 mg/dL [facility] Comment:Desirable LDL: less than 100 mg/dLNear Optimal/Above Optimal LDL: 110- 129 mg/dLBorderline High LDL: 130-159 mg/dLHigh LDL: 160-189 mg/dLVery High LDL: greater than or equal to 190 mg/dL HDL Cholesterol 45 >40 mg/dL [facility] Comment:Desirable HDL: great er than 40 mg/dL Note: This HDL assay may give artificially low results in patients with liver disease. 10/30/2024 2:29 PM EDT 10/30/2024 4:02 PM EDT Generic External Data Provider LAB BLOOD ORDERAB LES Final Result Performing Organization Address City/State/[facility] Co de Phone Number [facility] [address] [place] [phone] * (ABNORMAL) POCT Hgb A1c (10/30/2024 1:45 PM EDT) Hemoglobin A1C 6.9(A) 4.0 - 5.7 % QC Media Lot # [id number] Lot# Expiration Date Blood 10/30/2024 1:45 PM EDT us Jose Rudd MD POINT OF CARE TEST ENTER/EDIT OR DERABLES Final Result * Diabetes Eye Exam (09/24/2022) Eye Exam [...] 01/03/2025 Patient has diabetic neuropathy 01/03/2025 Insurance [facility] STANDARD Care Teams Last Sawyer Relationship Specialty Start Date End Date Name, MD Jose [address] [place] [address] PCP - General Family Medicine 07/02/15 Renetta Davenport, Bryan [address] [place] [address] Pharmacist Internal Medicine 01/03/24
--- OUTSIDE RECORDS SUMMARY | 2025-02-09 09:57 | XMS_ITS | Encounter Summary ---
Author Organization [employer] Address [address] [facility] 7 [place] [address] Care Team Providers Care Energy Professional Name Role Phone Name, Jose ALVARADO Primary Care Provider [phone] Renetta Davenport PharmD Unavailable [phone] Encounter Details Date Type Department Care Team ([facility] st Contact Info) Description 08/30/[address] [facility] MED[facility] [address], [place] [phone] Name, MD Jose [address] [place] [address] Social History Tobacco Use Types Packs/Day Years [...] documented as of this encounter Care Teams Energy Professional Relationship Specialty Start Date End Date Name, MD Jose [address] [place] [address] PCP - General Family Medicine 07/02/15 Renetta Davenport PharmD [address] [place] [address] Pharmacist Internal Medicine 01/03/24 documented as of this encounter
== END 2025-02-09 09:50 | disposition home or self-care (01) ==
PROVIDERS: PCP Internal Medicine Geriatric Medicine; Visit Provider Internal Medicine Nephrology
DX: I10 Essential (primary) hypertension (principal); N25.81 Secondary hyperparathyroidism of renal origin; N18.31 Chronic kidney disease, stage 3a
CPT/HCPCS: 99214

== ENCOUNTER → 2025-02-09 09:20 | Outpatient (BNVA) | payer OTHER, SELFPAY | PROVIDERS: PCP Internal Medicine Geriatric Medicine; Visit Provider Internal Medicine Nephrology | DX: I12.9 Hypertensive chronic kidney disease with stage 1 through stage 4 chronic kidney disease, or unspecified chronic kidney disease (principal); N18.31 Chronic kidney disease, stage 3a; N25.81 Secondary hyperparathyroidism of renal origin; E11.22 Type 2 diabetes mellitus with diabetic chronic kidney disease; Z79.899 Other long term (current) drug therapy | CPT/HCPCS: 99212 ==